=== PATIENT | male | born 1945 | race Caucasian/White ===

== ENCOUNTER 2017-01-26 20:10 | Inpatient (IN) | payer OTHER, BC ==
[2017-01-26] MEDS ORDERED: NS 1,000 ML IV ONE ×2 (20:29→21:54)
--- NOTE | 2017-01-26 20:29 | EDPHY ---
H & P Stated Complaint: FALLS AND FAILURE TO THRIVE HPI/ROS: HPI CHIEF COMPLAINT: Generalized weakness, fall, failure to thrive HISTORY OF PRESENT ILLNESS: This patient is 71-year-old male, significant past medical history for coronary artery disease, CABG, AFib, CHF, diabetes type 2, hyperlipidemia, chronic kidney disease presents emergency room with generalized weakness recurrent falls. His has been out of town for the past 3 weeks he has been living independently alone. He is taking recurrent falls over the past week. Most recent fall on Thursday. States he spent 8 hours on the ground. He denies any chest pain or shortness of breath. He did have head strike on Coumadin. He denies headache or neck pain. He does complain of left upper lateral chest wall pain. No shortness of breath. He does complain of generalized weakness. States that he is profoundly more weak. This has been a progressive decline. Worse over the past few weeks. Past Medical History: Atrial fibrillation, diabetes, coronary disease, CHF, chronic kidney disease, hyperlipidemia Past Surgical History: CABG Social History: Denies daily use drugs alcohol tobacco products. Family History: Noncontributory. ROS REVIEW OF SYSTEMS: A comprehensive 10 point review of systems is otherwise negative aside from elements mentioned in the history of present illness. Exam Constitutional triage nursing summary reviewed, vital signs reviewed, awake/ alert. Eyes right subconjunctival hemorrhage, no hyphema, pupil equal round react to light. No proptosis. Ecchymosis periorbital HENT normal inspection, atraumatic, moist mucus membranes, no epistaxis, neck supple/ no meningismus, no raccoon eyes. Respiratory clear to auscultation bilaterally, normal breath sounds, no respiratory distress, no wheezing. Cardiovascular rate normal, regular rhythm, no murmur, no edema, distal pulses normal. Gastrointestinal soft, non-tender, no rebound, no guarding, normal bowel sounds, no distension, no pulsatile mass. Genitourinary no CVA tenderness. Musculoskeletal no midline vertebral tenderness, full range of motion, no calf swelling, no tenderness of extremities, no meningismus, good pulses, neurovascularly intact. Skin multiple abrasions on the top of his scalp, and ecchymosis to the right orbital region. Multiple signs of ecchymosis. Neurologic awake, alert and oriented x 3, AAOx3, moves all 4 extremities equally, motor intact, sensory intact, CN II-XII intact, normal cerebellar, normal vision, normal speech. Psychiatric normal mood/affect. Heme/Lymph/Immune no lymphadenopathy. Differential Diagnosis: Includes but is not limited to in a particular order, dehydration, generalized weakness, infection, intracranial bleed, subdural, skull fracture, traumatic subarachnoid, NC. Medical Decision Making: Plan for this patient IV establishment blood draw, CT scan head without contrast for trauma, urinalysis, check electrolytes, check CK for rhabdo Re-evaluation: 2129: Patient's INR noted to be acutely elevated. Will type and screen. Patient will have a rectal exam performed. Will give FFP and vitamin K for supratherapeutic INR. CT scan head without contrast for trauma supratherapeutic INR is pending. Will place a 2nd IV. Will admit to the hospitalist service. EKG interpretation by me on record in [facility] system. Impression time of EKG 2045 this is sinus rhythm rate of 86, first-degree AV block present TN interval 260. Right bundle-branch block present. This EKG is similar to previous EKG dated 07/14/2013. I do not appreciate acute ischemic changes. CT scan of the head without IV contrast The results of the study are negative for acute bleed.. The study was read by Dr. Guillermo. I viewed the images myself on the PACS system. 5: I think this patient is hypovolemic with severe dehydration causing prerenal renal failure. I did speak with Nephrology Dr. Riley, recommends 2 amps of bicarb she was fine with a calcium her to give she also recommend another L of normal saline after the 1st L. Jones. ICU admission. She will come and see and evaluate the patient. Additionally I have updated the family at bedside as well as the patient. Reason for admission to the ICU hyperkalemia, acute renal failure, BUN that is over 150, creatinine of 11, severe dehydration, supratherapeutic INR over 16. Critical Care: Total Critical Care Time Spent Managing this Patient: 65 Minutes. This time was spent Exclusively with this patient. This Care was exclusive of procedures. The Organ System/life at risk was electrolyte, metabolic, neurological hematological This Patient was in Critical Condition because supratherapeutic INR, severe dehydration, renal failure, anemia Of note this patient has no evidence of bleeding. He does have ecchymosis throughout very skin sites. His right rectal exam showed brown stool. Hemoccult is still pending at this time. 2216: I will consult the hospitalist for ICU admission. 2225: Spoke with Dr. Emerson who agrees to admit this patient. Nephrology to see. Source: Patient - Personal History Current Tetanus/Diphtheria Vaccine: Yes Current Tetanus Diphtheria and Acellular Pertussis (TDAP): Yes - Medical/Surgical History Hx Asthma: Yes Hx Chronic Respiratory Disease: Yes Hx Diabetes: Yes Hx Cardiac Disease: Yes Hx Renal Disease: Yes Hx Cirrhosis: No Hx Alcoholism: No Hx HIV/AIDS: No Hx Splenectomy or Spleen Trauma: No Other PMH: SLEEP APNEA, CHRONIC LOW SATS, NOT ON O2HOME"MEDICAID WILL NOT PAY FOR IT" - Social History Smoking Status: Current every day smoker Constitutional: Initial Vital Signs Temperature (C) 37.0 C 01/26/17 20:18 Heart Rate 86 01/26/17 20:18 Respiratory Rate 18 01/26/17 20:18 Blood Pressure 156/31 H 01/26/17 20:18 O2 Sat (%) 99 01/26/17 20:18 O2 Delivery Mode Room Air Allergies/Adverse Reactions: No Known Allergies Allergy (Unverified 01/26/17 20:21) Home Medications: Medication Instructions Recorded Allopurinol [Allopurinol 300 MG 300 mg PO DAILY 07/12/13 (RX)] Ascorbic Acid [Vitamin C 250 mg 250 mg PO DAILY 07/12/13 (OTC)] Bisacodyl [Dulcolax] 15 mg PO Q7D 07/12/13 Cholecalciferol Vit D3 [Vitamin D3 2,000 units PO MWF 07/12/13 1000 units (OTC)] Fluticasone Nasal [Flonase Nasal 1 sprays EACHNARE DAILY PRN 07/12/13 [place] (RX)] Fluvastatin Sodium 20 mg PO HS 07/12/13 Insulin Glargine [Lantus 100 6 - 8 units SC DAILY 07/12/13 UNITS/ML (RX)] LORazepam [Ativan 0.5 mg (RX)] 0.5 mg PO DAILY PRN 07/12/13 Metoprolol Succinate Xr [Toprol Xl] 25 mg PO HS 07/12/13 Tamsulosin HCl [Flomax 0.4 MG (RX)] 0.4 mg PO DAILY 07/12/13 Warfarin Sodium [Coumadin 4MG (RX)] 4 mg PO SUTUTHSA@21 07/12/13 Zolpidem Tartrate [Ambien 5MG (RX)] 10 mg PO HS 07/12/13 Albuterol [Proventil Neb] 3 ml IH BID 01/27/17 Docusate Sodium [Colace 100 MG (*)] 100 mg PO DAILY 01/27/17 Epoetin Lamberto [Procrit 13064 10,000 unit SQ DAILY14 01/27/17 UNIT/ML (*)] Ferrous Sulfate [Ferrous Sulf 325 325 mg PO DAILY 01/27/17 MG (*)] Furosemide [Lasix 20 MG (*)] 20 mg PO DAILY 01/27/17 Hydrocodone/Acetaminophen [Rochelle 1 each PO HS 01/27/17 5/325 (*)] Lactase [Lactase 3000 Unit (*)] 3,000 unit PO DAILY PRN 01/27/17 Loratadine [Claritin] 10 mg PO DAILY 01/27/17 Montelukast Sodium [Singulair 10 10 mg PO DAILY@1800 01/27/17 mg (*)] Warfarin Sodium [Coumadin 4MG (*)] 4 mg PO MWF@21 01/27/17 Medical Decision Making - Data Points Laboratory Results: Laboratory Results 01/26/17 20:37 01/26/17 20:37 01/26/17 01/26/17 21:52 20:37 INR > 16.20 H* (0.83-1.16) Patient ABO/Rh O NEGATIVE Antibody Screen NEGATIVE Crossmatch IS Only See Detail Medications Given: Hydrocodone Bitart/Acetaminophen (Rochelle 5/325) 1 tab PO [place] Stop: 02/06/17 20:59 Last Admin: 01/27/17 20:42 Dose: 1 tab Albuterol (Proventil Neb) 3 ml IH BID [place] Stop: 07/26/17 20:59 Last Admin: 01/27/17 21:04 Dose: 3 ml Metoprolol Succinate (Toprol Xl) 25 mg PO HS [place] Stop: 07/26/17 20:59 Last Admin: 01/27/17 20:43 Dose: 25 mg Montelukast Sodium (Singulair) 10 mg PO DAILY@1800 [place] Stop: 07/26/17 17:59 Last Admin: 01/27/17 20:43 Dose: 10 mg Pravastatin Sodium (Pravachol) 10 mg PO HS [place] Stop: 07/26/17 20:59 Last Admin: 01/27/17 20:43 Dose: 10 mg Zolpidem Tartrate (Ambien) 10 mg PO HS [place] Stop: 07/26/17 20:59 Last Admin: 01/27/17 20:42 Dose: 10 mg Discontinued Medications Sodium Chloride (Ns) 1,000 mls @ 0 mls/hr IV EDNOW ONE; Wide Open PRN Reason: Protocol Stop: 01/26/17 20:30 Last Admin: 01/26/17 20:44 Dose: 1,000 mls Phytonadione 10 mg/ Sodium (Chloride) 51 mls @ 102 mls/hr IV EDNOW ONE Stop: 01/26/17 21:50 Last Admin: 01/26/17 22:08 Dose: 51 mls Sodium Chloride (Ns) 1,000 mls @ 0 mls/hr IV ONCE ONE PRN Reason: Wide Open Stop: 01/26/17 21:55 Last Admin: 01/26/17 22:10 Dose: 1,000 mls Calcium Gluconate 2 gm/ (Dextrose) 70 mls @ 140 mls/hr IV EDNOW ONE Stop: 01/26/17 22:25 Last Admin: 01/26/17 22:33 Dose: 70 mls Dextrose (D10w) 250 mls @ 0 mls/hr IV ONCE ONE PRN Reason: Wide Open Stop: 01/26/17 22:31 Last Admin: 01/26/17 22:13 Dose: 250 mls Sodium Bicarbonate 150 meq/ (Dextrose) 1,150 mls @ 100 mls/hr IV CONT [place] Stop: 07/25/17 23:29 Last Admin: 01/27/17 13:03 Dose: 1,150 mls Calcium Gluconate (Calcium Gluconate 1 Gm (Premix)) 50 mls @ 100 mls/hr IV ONCE ONE Stop: 01/27/17 11:09 Last Admin: 01/27/17 11:25 Dose: 50 mls Insulin Human Regular (Humulin R) 5 unit IVP EDNOW ONE Stop: 01/26/17 21:57 Last Admin: 01/26/17 22:10 Dose: 5 units Lorazepam (Ativan Injection) 0.5 mg IVP EDNOW ONE Stop: 01/26/17 21:59 Last Admin: 01/26/17 22:09 Dose: 0.5 mg Lorazepam (Ativan Injection) 0.5 mg IVP ONCE ONE Stop: 01/26/17 23:32 Last Admin: 01/26/17 23:35 Dose: 0.5 mg Oxycodone HCl (Oxycodone Ir) 5 mg PO ONCE ONE Stop: 01/27/17 10:52 Last Admin: 01/27/17 11:25 Dose: 5 mg Sodium Bicarbonate (Sodium Bicarbonate) 50 meq IVP EDNOW ONE Stop: 01/26/17 22:15 Last Admin: 01/26/17 22:46 Dose: 50 meq Sodium Bicarbonate (Sodium Bicarbonate) 50 meq IVP EDNOW ONE Stop: 01/26/17 22:15 Last Admin: 01/26/17 22:53 Dose: 50 meq Departure - Departure Disposition: [facility] Acute Clinical Impression: Dehydration, Supratherapeutic INR Renal failure Qualifiers: Renal failure chronicity: acute Acute renal failure type: unspecified Qualified Code(s): N17.9 - Acute kidney failure, unspecified Anemia Qualifiers: Anemia type: unspecified type Qualified Code(s): D64.9 - Anemia, unspecified Condition: Critical
[2017-01-26 20:47] LABS: % IMMATURE GRANULYOCYTES 0.4 % (0.0-1.1); ABSOLUTE IMMATURE GRANULOCYTES 0.03 10^3/uL (0.00-0.10); ADD DIFF? NO; ADD MORPH? NO; ADD SCAN? NO; ATYPICAL LYMPHOCYTE FLAG 0 (0-99); FRAGMENT RBC FLAG 0 (0-99); HEMATOCRIT 21.3 % (40.0-51.0); HEMOGLOBIN 7.5 g/dL (13.7-17.5); LEFT SHIFT FLG 0 (0-99); LIPEMIA HEMOLYSIS FLAG 90 (0-99); MEAN CELL HEMOGLOBIN 32.3 pg (27.9-34.1); MEAN CELL HEMOGLOBIN CONCENTR. 35.2 g/dL (32.4-36.7); MEAN CELL VOLUME 91.8 fL (81.5-99.8); MEAN PLATELET VOLUME 10.6 fL (8.7-11.7); PLATELET CLUMPS FLAG 0 (0-99); PLATELET COUNT 103 10^3/uL (150-400); RED BLOOD CELL COUNT 2.32 10^6/uL (4.40-6.38); RED CELL DISTRIBUTION WIDTH 13.8 % (11.5-15.2)
--- NOTE | 2017-01-26 20:47 | CPEKG ---
Heart Rate: 86 RR Interval: 698 P-R Interval: 260 QRSD Interval: 134 QT Interval: 380 QTC Interval: 455 P Novelty: 0 QRS Novelty: -141 T Wave Novelty: 43 EKG Severity - ABNORMAL ECG - EKG Impression: SINUS RHYTHM EKG Impression: FIRST DEGREE AV BLOCK EKG Impression: RIGHT BUNDLE BRANCH BLOCK Electronically Signed By: Tori Snyder 26-Jan-2017 21:12:07
[2017-01-26 21:19] LABS: PROTIME(PATIENT) > 120.0 SEC (12.0-15.0)
[2017-01-26 21:20] LABS: APTT 131.9 SEC (23.0-38.0)
[2017-01-26] MEDS ORDERED: PHYTONADIONE 10 MG in NS 50 ML IV ONE (21:21)
[2017-01-26 21:35] LABS: ALANINE AMINOTRANSFERASE 49 IU/L (21-72); ALBUMIN 3.2 g/dL (3.5-5.0); ALKALINE PHOSPHATASE 112 IU/L (38-126); ANION GAP 19 mEq/L (8-16); ASPARTATE AMINOTRANSFERASE 37 IU/L (17-59); BILIRUBIN,TOTAL 1.4 mg/dL (0.1-1.4); BILIRUBIN-CONJUGATED 1.4 mg/dL (0.0-0.5); CALCIUM 8.3 mg/dL (8.5-10.4); CARBON DIOXIDE 10 mEq/l (22-31); CHLORIDE 92 mEq/L (97-110); CREATININE 11.1 mg/dL (0.7-1.3); GLOMERULAR FILTRATION RATE 5; GLUCOSE 118 mg/dL (70-100); MAGNESIUM 1.9 mg/dL (1.6-2.3); SODIUM 121 mEq/L (134-144); TOTAL PROTEIN 5.8 g/dL (6.3-8.2)
[2017-01-26 21:40] LABS: POTASSIUM 6.8 mEq/L (3.5-5.2)
[2017-01-26 21:46] LABS: TROPONIN I 0.104 ng/mL (0.000-0.034)
[2017-01-26] MEDS ORDERED: D50W 25 GM/50 ML SYR IVP ONE (21:56)
[2017-01-26] MEDS ORDERED: INSULIN REGULAR HUMAN 100 UNIT/ML IVP ONE (21:56)
[2017-01-26] MEDS ORDERED: CALCIUM GLUCONATE 2 GM in D5W 50 ML IV ONE (21:56)
[2017-01-26 21:58] LABS: CK-MB INTERPRETATION NEGATIVE (NEGATIVE)
[2017-01-26] MEDS ORDERED: LORazepam 2 MG/ML INJ IVP ONE ×2 (21:58→23:31)
[2017-01-26] MEDS ORDERED: SODIUM BICARBONATE 50 MEQ/50 ML SYR IVP ONE ×2 (22:14)
[2017-01-26] MEDS ORDERED: ONDANSETRON DISINTEGRATING 4 MG TAB PO PRN (22:28)
[2017-01-26] MEDS ORDERED: D10W 250 ML ONCE IV ONE (22:30)
--- NOTE | 2017-01-26 23:12 | PDCONSULT ---
[employer] Note: Assessment/Plan: CHANTELL on CKD stage 3: pt with baseline Cr around 2, now up to 11, in setting of having recent fall and now appears to have rhabdomyolysis, also with poor po intake and N/V for the past few days. - Will give IVFs with bicarb. - Will check UA, urine cr, urine protein, urine sodium. - Will check renal US. - Strict I/Os. - Avoid hypotension or nephrotoxins. - Pt not interested in HD at this time, we discussed that at this time it would be as a temporary measure and then see if he requires it residential, of course his risk of remaining on residential HD is higher given his baseline renal function. We will plan to pursue HD for hyperkalemia if needed emergently. Hyperkalemia: K 6.8, not on RAAS blockade for just over a week, in setting of CHANTELL. - Pt has gotten IVFs, insulin/D50, calcium, and 2 amps of bicarb. - Will also start on IVFs with bicarb. - Will continue to monitor closely, consider HD if needed. Metabolic acidosis: in setting of CHANTELL, will give IVFs with bicarb and continue to monitor. Anemia: Hgb down to 7.5, got epo last week. - Agree with workup for bleeding in setting of markedly elevated INR. - Will continue to monitor. Thank you for the interesting consult. Nephrology will continue to follow, please call if you have any additional questions or concerns. H & P Stated Complaint: FALLS AND FAILURE TO THRIVE HPI/ROS: Mr. De La Cruz is a 71 yo M with h/o CKD stage 3-4 with baseline Cr around 2.0-2.[address] Lu. Two weeks ago, Cr was up to 3.2, losartan at that time was stopped. Pt had a fall on Thursday morning but was able to get up and get his regular epo shot that day. He fell again on Thursday and was down for at least 8 hours unable to get up, got home from being out of town and helped him. Over the weekend, he has been eating poorly, having nausea and vomiting, could not keep down liquids today. He came into ER today, Cr up to 11 , K up to 6.8. He was given calcium, insulin/D50, and then on my recommendation also 2 amps of bicarb. His Hgb also was noted to be down to 7.5 , was 9.6 just two weeks ago, and INR markedly elevated at 16.2, does take coumadin at home. Pt notes that he last urinated this am and it was very little. ROS: Positive per HPI, rest of 10-point ROS negative - Personal History Current Tetanus/Diphtheria Vaccine: Yes Current Tetanus Diphtheria and Acellular Pertussis (TDAP): Yes - Medical/Surgical History Hx Asthma: Yes Hx Chronic Respiratory Disease: Yes Hx Diabetes: Yes Hx Cardiac Disease: Yes Hx Renal Disease: Yes Hx Cirrhosis: No Hx Alcoholism: No Hx HIV/AIDS: No Hx Splenectomy or Spleen Trauma: No Other PMH: SLEEP APNEA, CHRONIC LOW SATS, NOT ON O2HOME"MEDICAID WILL NOT PAY FOR IT" - Family History Significant Family History: No pertinent family hx - Social History Smoking Status: Current every day smoker - Physical Exam Exam: General: alert and oriented, no acute distress Eyes: EOMI, PERRL OP: Clear, dry mucous membranes Neck: supple, no thyromegaly Head: laceration on head, bruising CV: RRR, +2/4 radial and dorsalis pedis pulses, trace edema BLE Resp: CTA bilat, nonlabored respirations on RA Abd: Soft, NT/ND Neuro: CN II-XII grossly intact, no asterixis Psych: cooperative, appropriate mood and affect Skin: no rash, clean and dry Constitutional: Initial Vital Signs Temperature (C) 37.0 C 01/26/17 20:18 Heart Rate 86 01/26/17 20:18 Respiratory Rate 18 01/26/17 20:18 Blood Pressure 156/31 H 01/26/17 20:18 O2 Sat (%) 99 01/26/17 20:18 O2 Delivery Mode Room Air Allergies/Adverse Reactions: No Known Allergies Allergy (Unverified 01/26/17 20:21) Home Medications: Medication Instructions Recorded Albuterol [Proventil Neb] 3 ml IH TID 07/12/13 Allopurinol [Allopurinol 300 MG 150 mg PO DAILY 07/12/13 (RX)] Ascorbic Acid [Vitamin C 250 mg 250 mg PO DAILY 07/12/13 (OTC)] Aspirin [Aspirin 81mg (OTC)] 81 mg PO HS 07/12/13 Beclomethasone Qvar 80 [Qvar 80] 2 puffs IH BID 07/12/13 Bisacodyl [Dulcolax] 15 mg PO MOFR@2100 07/12/13 Calcium Citrate [Calcitrate] 200 mg PO MOTUWETHFR@0900 07/12/13 Cholecalciferol Vit D3 [Vitamin D3 2,000 units PO MWF@0900 07/12/13 1000 units (OTC)] Fluticasone Nasal [Flonase Nasal 1 sprays EACHNARE BID 07/12/13 [place] (RX)] Fluvastatin Sodium 20 mg PO HS 07/12/13 Furosemide [Lasix] 40 mg PO DAILY 07/12/13 Herbals/Supplements -Info Only 1 each PO AD 07/12/13 Hydrocodone/Acetaminophen [Vicodin 1 each PO HS 07/12/13 5-300 mg Tablet] Insulin Aspart [novoLOG] 0 unit SQ AD 07/12/13 Insulin Glargine [Lantus 100 10 units SC HS 07/12/13 UNITS/ML (RX)] Insulin Glargine [Lantus 100 15 units SC DAILY 07/12/13 UNITS/ML (RX)] LORazepam [Ativan 0.5 mg (RX)] 0.5 mg PO HS PRN 07/12/13 Losartan Potassium [Cozaar] 12.5 mg PO DAILY 07/12/13 Melatonin [Melatonin 3 MG (OTC)] 3 mg PO HS PRN 07/12/13 Metoclopramide [Reglan] 5 mg PO DAILY 07/12/13 Metolazone 2.5 mg PO MWF@0900 07/12/13 Metoprolol Succinate Xr [Toprol Xl] 25 mg PO HS 07/12/13 Potassium Cl [Klor-Con 10 meq (RX)] 10 meq PO DAILY 07/12/13 Tamsulosin HCl [Flomax 0.4 MG (RX)] 0.4 mg PO DAILY 07/12/13 Warfarin Sodium [Coumadin 4MG (RX)] 4 mg PO HS 07/12/13 Zolpidem Tartrate [Ambien 5MG (RX)] 5 mg PO HS 07/12/13 guaiFENesin [Mucinex 600 MG (OTC)] 600 mg PO BID 07/12/13 Lab and Imaging 01/26/17 20:37 01/26/17 20:37 WBC 7.11 10^3/uL (3.80-9.50) 01/26/17 20:37 RBC 2.32 10^6/uL (4.40-6.38) L 01/26/17 20:37 Hgb 7.5 g/dL (13.7-17.5) L 01/26/17 20:37 Hct 21.3 % (40.0-51.0) L 01/26/17 20:37 MCV 91.8 fL (81.5-99.8) 01/26/17 20:37 MCH 32.3 pg (27.9-34.1) 01/26/17 20:37 MCHC 35.2 g/dL (32.4-36.7) 01/26/17 20:37 RDW 13.8 % (11.5-15.2) 01/26/17 20:37 Plt Count 103 10^3/uL (150-400) L 01/26/17 20:37 MPV 10.6 fL (8.7-11.7) 01/26/17 20:37 Neut % (Auto) 83.4 % (39.3-74.2) H 01/26/17 20:37 Lymph % (Auto) 10.0 % (15.0-45.0) L 01/26/17 20:37 [place] % (Auto) 2.4 % (4.5-13.0) L 01/26/17 20:37 Eos % (Auto) 3.4 % (0.6-7.6) 01/26/17 20:37 Baso % (Auto) 0.4 % (0.3-1.7) 01/26/17 20:37 Nucleat RBC Rel Count 0.0 % (0.0-0.2) 01/26/17 20:37 Absolute Neuts (auto) 5.93 10^3/uL (1.70-6.50) 01/26/17 20:37 Absolute Lymphs (auto) 0.71 10^3/uL (1.00-3.00) L 01/26/17 20:37 Absolute Monos (auto) 0.17 10^3/uL (0.30-0.80) L 01/26/17 20:37 Absolute Eos (auto) 0.24 10^3/uL (0.03-0.40) 01/26/17 20:37 Absolute Basos (auto) 0.03 10^3/uL (0.02-0.10) 01/26/17 20:37 Absolute Nucleated RBC 0.00 10^3/uL (0-0.01) 01/26/17 20:37 Immature Gran % 0.4 % (0.0-1.1) 01/26/17 20:37 Immature Gran # 0.03 10^3/uL (0.00-0.10) 01/26/17 20:37 PT > 120.0 SEC (12.0-15.0) H 01/26/17 20:37 INR > 16.20 (0.83-1.16) H* 01/26/17 20:37 APTT 131.9 SEC (23.0-38.0) H* 01/26/17 20:37 VBG Lactic Acid 0.9 mmol/L (0.7-2.1) 01/26/17 20:37 Sodium 121 mEq/L (134-144) L 01/26/17 20:37 Potassium 6.8 mEq/L (3.5-5.2) H* 01/26/17 20:37 Chloride 92 mEq/L (97-110) L 01/26/17 20:37 Carbon Dioxide 10 mEq/l (22-31) L 01/26/17 20:37 Anion Gap 19 mEq/L (8-16) H 01/26/17 20:37 BUN 145 mg/dL (7-23) H* 01/26/17 20:37 Creatinine 11.1 mg/dL (0.7-1.3) H* 01/26/17 20:37 Estimated GFR 5 01/26/17 20:37 Glucose 118 mg/dL (70-100) H 01/26/17 20:37 Calcium 8.3 mg/dL (8.5-10.4) L 01/26/17 20:37 Magnesium 1.9 mg/dL (1.6-2.3) 01/26/17 20:37 Total Bilirubin 1.4 mg/dL (0.1-1.4) 01/26/17 20:37 Conjugated Bilirubin 1.4 mg/dL (0.0-0.5) H 01/26/17 20:37 Unconjugated Bilirubin 0.0 mg/dL (0.0-1.1) 01/26/17 20:37 AST 37 IU/L (17-59) 01/26/17 20:37 ALT 49 IU/L (21-72) 01/26/17 20:37 Alkaline Phosphatase 112 IU/L (38-126) 01/26/17 20:37 Creatine Kinase 2409 IU/L (0-224) H 01/26/17 20:37 CK-MB (CK-2) Fraction 18.90 ng/mL (0.00-3.19) H 01/26/17 20:37 CK-MB (CK-2) % 0.8 % (0.0-4.0) 01/26/17 20:37 Creatine Kinase Interp NEGATIVE (NEGATIVE) 01/26/17 20:37 Troponin I 0.104 ng/mL (0.000-0.034) H 01/26/17 20:37 Total Protein 5.8 g/dL (6.3-8.2) L 01/26/17 20:37 Albumin 3.2 g/dL (3.5-5.0) L 01/26/17 20:37 Patient ABO/Rh O NEGATIVE 01/26/17 21:52 Antibody Screen NEGATIVE 01/26/17 21:52
[2017-01-26] MEDS ORDERED: SODIUM BICARBONATE 150 MEQ in D5W 1,000 ML IV SCH (23:30)
[2017-01-27 00:19] LABS: ANION GAP 16 mEq/L (8-16); CALCIUM 8.1 mg/dL (8.5-10.4); CARBON DIOXIDE 13 mEq/l (22-31); CHLORIDE 98 mEq/L (97-110); GLOMERULAR FILTRATION RATE 5; GLUCOSE 91 mg/dL (70-100); MAGNESIUM 1.8 mg/dL (1.6-2.3); POTASSIUM 6.2 mEq/L (3.5-5.2); SODIUM 127 mEq/L (134-144)
[2017-01-27 00:24] LABS: CREATININE 10.3 mg/dL (0.7-1.3)
--- NOTE | 2017-01-27 01:05 | PDGENHP ---
History and Physical - Chief Complaint Weakness - History of Present Illness 71 yo M w/ CAD s/p CABG, AF, DM, and CKD presents with weakness and multiple falls. It seems patient has been experiencing a steady functional decline for at least a year. Patient and family report weight loss of ~50 lbs and progressive weakness over that time; no clear cause has been found. His was out of town over the last few weeks and the patient had a very difficult time taking care of himself. He experienced at least 3 falls, and was unable to get up on his own. He was down for 8 hours at one point. Additionally, he has had almost no PO intake over the last couple of days. He finally agreed to allow his to bring in him to the hospital for evaluation today. In the ED laboratory work-up showed renal failure, hyperkalemia, hyponatremia, and severely elevated INR without signs of acute bleeding. Patient is fatigued but mentating and oriented. and daughter were at bedside during my evaluation. History Information - Allergies/Home Medication List Allergies/Adverse Reactions: No Known Allergies Allergy (Unverified 01/26/17 20:21) Home Medications: Albuterol [Proventil Neb] 3 ml IH TID 07/12/13 [Last Taken 07/12/13 08:00] Allopurinol [Allopurinol 300 MG (RX)] 150 mg PO DAILY 07/12/13 [Last Taken 07/12 08:00] Ascorbic Acid [Vitamin C 250 mg (OTC)] 250 mg PO DAILY 07/12/13 [Last Taken 08:00] Aspirin [Aspirin 81mg (OTC)] 81 mg PO HS 07/12/13 [Last Taken 07/11/13 21:00] Beclomethasone Qvar 80 [Qvar 80] 2 puffs IH BID 07/12/13 [Last Taken 07/12/13 08 :00] Bisacodyl [Dulcolax] 15 mg PO MOFR@2100 07/12/13 [Last Taken 07/10/13] Calcium Citrate [Calcitrate] 200 mg PO MOTUWETHFR@0900 07/12/13 [Last Taken 08:00] Cholecalciferol Vit D3 [Vitamin D3 1000 units (OTC)] 2,000 units PO MWF@0900 [Last Taken 07/11/13 08:00] Fluticasone Nasal [Flonase Nasal Cook (RX)] 1 sprays EACHNARE BID 07/12/13 [ Last Taken 07/05/13] Fluvastatin Sodium 20 mg PO HS 07/12/13 [Last Taken 07/11/13 21:00] Furosemide [Lasix] 40 mg PO DAILY 07/12/13 [Last Taken 07/12/13 08:00] Herbals/Supplements -Info Only 1 each PO AD 07/12/13 [Last Taken 07/12/13] Hydrocodone/Acetaminophen [Vicodin 5-300 mg Tablet] 1 each PO HS 07/12/13 [Last Taken 07/11/13 21:00] Insulin Aspart [novoLOG] 0 unit SQ AD 07/12/13 [Last Taken 07/11/13] Insulin Glargine [Lantus 100 UNITS/ML (RX)] 10 units SC HS 07/12/13 [Last Taken 07/11/13 21:00] Insulin Glargine [Lantus 100 UNITS/ML (RX)] 15 units SC DAILY 07/12/13 [Last Taken 07/12/13 08:00] LORazepam [Ativan 0.5 mg (RX)] 0.5 mg PO HS PRN 07/12/13 [Last Taken Unknown] Losartan Potassium [Cozaar] 12.5 mg PO DAILY 07/12/13 [Last Taken 07/12/13 08:00 ] Melatonin [Melatonin 3 MG (OTC)] 3 mg PO HS PRN 07/12/13 [Last Taken Unknown] Metoclopramide [Reglan] 5 mg PO DAILY 07/12/13 [Last Taken 07/12/13 08:00] Metolazone 2.5 mg PO MWF@0900 07/12/13 [Last Taken 07/11/13 08:00] Metoprolol Succinate Xr [Toprol Xl] 25 mg PO HS 07/12/13 [Last Taken 07/11/13 21 :00] Potassium Cl [Klor-Con 10 meq (RX)] 10 meq PO DAILY 07/12/13 [Last Taken ] Tamsulosin HCl [Flomax 0.4 MG (RX)] 0.4 mg PO DAILY 07/12/13 [Last Taken 08:00] Warfarin Sodium [Coumadin 4MG (RX)] 4 mg PO HS 07/12/13 [Last Taken 07/11/13 21: 00] Zolpidem Tartrate [Ambien 5MG (RX)] 5 mg PO HS 07/12/13 [Last Taken 07/11/13 21: 00] guaiFENesin [Mucinex 600 MG (OTC)] 600 mg PO BID 07/12/13 [Last Taken 07/12/13 08:00] I have personally reviewed and updated: family history, medical history - Past Medical History atrial fibrillation, coronary artery disease, diabetes type 2 Additional medical history: CKD stage III - Surgical History Reports: coronary bypass surgery - Family History Additional family history: Alcoholism - Social History Smoking Status: Current every day smoker Tobacco Use: Greater than 1 pack/day Review of Systems Review of Systems: ROS: 10pt was reviewed & negative except for what was stated in HPI & below Physical Exam Physical Exam: Temp Pulse Resp BP Pulse Ox 36.7 C 86 20 131/46 H 97 01/26/17 22:30 01/27/17 00:00 01/27/17 00:00 01/27/17 00:00 01/27/17 00:00 Constitutional: uncomfortable, cachectic Eyes: PERRL, EOMI Ears, Nose, Mouth, Throat: poor dentition, dry mucous membranes Cardiovascular: regular rate and rhythym, systolic murmur Respiratory: no respiratory distress, clear to auscultation Gastrointestinal: normoactive bowel sounds, soft, non-tender abdomen Skin: warm, other (Multiple ecchymoses scattered throughout) Neurologic: AAOx3, CN II-XII Intact Psychiatric: interacting appropriately, not anxious Lab Data & Imaging Review 01/26/17 20:37 01/26/17 23:16 WBC 7.11 10^3/uL (3.80-9.50) 01/26/17 20:37 RBC 2.32 10^6/uL (4.40-6.38) L 01/26/17 20:37 Hgb 7.5 g/dL (13.7-17.5) L 01/26/17 20:37 Hct 21.3 % (40.0-51.0) L 01/26/17 20:37 MCV 91.8 fL (81.5-99.8) 01/26/17 20:37 MCH 32.3 pg (27.9-34.1) 01/26/17 20:37 MCHC 35.2 g/dL (32.4-36.7) 01/26/17 20:37 RDW 13.8 % (11.5-15.2) 01/26/17 20:37 Plt Count 103 10^3/uL (150-400) L 01/26/17 20:37 MPV 10.6 fL (8.7-11.7) 01/26/17 20:37 Neut % (Auto) 83.4 % (39.3-74.2) H 01/26/17 20:37 Lymph % (Auto) 10.0 % (15.0-45.0) L 01/26/17 20:37 Navarro % (Auto) 2.4 % (4.5-13.0) L 01/26/17 20:37 Eos % (Auto) 3.4 % (0.6-7.6) 01/26/17 20:37 Baso % (Auto) 0.4 % (0.3-1.7) 01/26/17 20:37 Nucleat RBC Rel Count 0.0 % (0.0-0.2) 01/26/17 20:37 Absolute Neuts (auto) 5.93 10^3/uL (1.70-6.50) 01/26/17 20:37 Absolute Lymphs (auto) 0.71 10^3/uL (1.00-3.00) L 01/26/17 20:37 Absolute Monos (auto) 0.17 10^3/uL (0.30-0.80) L 01/26/17 20:37 Absolute Eos (auto) 0.24 10^3/uL (0.03-0.40) 01/26/17 20:37 Absolute Basos (auto) 0.03 10^3/uL (0.02-0.10) 01/26/17 20:37 Absolute Nucleated RBC 0.00 10^3/uL (0-0.01) 01/26/17 20:37 Immature Gran % 0.4 % (0.0-1.1) 01/26/17 20:37 Immature Gran # 0.03 10^3/uL (0.00-0.10) 01/26/17 20:37 PT > 120.0 SEC (12.0-15.0) H 01/26/17 20:37 INR > 16.20 (0.83-1.16) H* 01/26/17 20:37 APTT 131.9 SEC (23.0-38.0) H* 01/26/17 20:37 VBG Lactic Acid 0.9 mmol/L (0.7-2.1) 01/26/17 20:37 Sodium 127 mEq/L (134-144) L 01/26/17 23:16 Potassium 6.2 mEq/L (3.5-5.2) H 01/26/17 23:16 Chloride 98 mEq/L (97-110) 01/26/17 23:16 Carbon Dioxide 13 mEq/l (22-31) L 01/26/17 23:16 Anion Gap 16 mEq/L (8-16) 01/26/17 23:16 BUN 141 mg/dL (7-23) H* 01/26/17 23:16 Creatinine 10.3 mg/dL (0.7-1.3) H* 01/26/17 23:16 Estimated GFR 5 01/26/17 23:16 Glucose 91 mg/dL (70-100) 01/26/17 23:16 Calcium 8.1 mg/dL (8.5-10.4) L 01/26/17 23:16 Phosphorus 9.8 mg/dL (2.5-4.5) H 01/26/17 23:16 Magnesium 1.8 mg/dL (1.6-2.3) 01/26/17 23:16 Total Bilirubin 1.4 mg/dL (0.1-1.4) 01/26/17 20:37 Conjugated Bilirubin 1.4 mg/dL (0.0-0.5) H 01/26/17 20:37 Unconjugated Bilirubin 0.0 mg/dL (0.0-1.1) 01/26/17 20:37 AST 37 IU/L (17-59) 01/26/17 20:37 ALT 49 IU/L (21-72) 01/26/17 20:37 Alkaline Phosphatase 112 IU/L (38-126) 01/26/17 20:37 Creatine Kinase 2409 IU/L (0-224) H 01/26/17 20:37 CK-MB (CK-2) Fraction 18.90 ng/mL (0.00-3.19) H 01/26/17 20:37 CK-MB (CK-2) % 0.8 % (0.0-4.0) 01/26/17 20:37 Creatine Kinase Interp NEGATIVE (NEGATIVE) 01/26/17 20:37 Troponin I 0.104 ng/mL (0.000-0.034) H 01/26/17 20:37 NT-Pro-B Natriuret Pep 62251 pg/mL (0-125) H 01/26/17 20:37 Total Protein 5.8 g/dL (6.3-8.2) L 01/26/17 20:37 Albumin 3.2 g/dL (3.5-5.0) L 01/26/17 20:37 Stool Occult Bld Scrn NEGATIVE (NEGATIVE) 01/26/17 21:43 Patient ABO/Rh O NEGATIVE 01/26/17 21:52 Antibody Screen NEGATIVE 01/26/17 21:52 Imaging Review: CT head w/o intracranial bleed, scalp hematoma noted. CXR w/ vacular congestion and cardiomegaly, Abd U/S with trace ascites and increased echogenicity of perirenal fat. Visualized and Interpreted EKG results: Yes EKG Interpretation: Positive for: other (Low voltages), right bundle branch block Assessment & Plan Assessment: 71 yo M w/ CAD s/p CABG, AF, DM, and CKD presents with acute on chronic renal failure, hyper-K, hypo-Na, and supratherapeutic INR. Plan: 1. Acute on chronic renal failure, stage III - Baseline serium Cr ~2, 11 on presentation. Likely 2/2 pre-renal azotemia in combination w/ rhabdomyolysis from long period of immobility after fall. - Renal consulted, appreciate assistance - S/p 2L NS, bicarb @ 100 mL/hr ongoing - Renal ultrasound ordered - No HD indications at this time - Monitor BMP, Mg, Ph, urine lytes 2. Hyponatremia - Etiology likely a combination of hypovolemic and CKD. Na 121-> 127 after 1L NS in ED. - Urine lytes, osms pending - bicarb @ 100 mL/hr currently - Will discuss further management with renal service 3. Hyperkalemia - 6.8 on admission without ECG changes. 6.2 after IVF, Ca- gluconate, D10/insulin, and bicarb. - Monitor BMP, renal following 4. Coagulopathy - 2/2 continued warfarin administration in setting of renal failure. No signs of active bleeding; rectal exam in ED w/ brown stool. - S/p Vit K, FFP - Monitor daily INR 5. Acute on chronic normocytic anemia - No clear signs of bleeding at this time despite severely elevated INR. Recent iron panel c/w anemia of chronic disease w / likely contribution from CKD. 6. FTT, severe protein/calorie malnutrition c/b multiple falls - Patient reports 50 lb weight loss over the last year. No clear cause has been found for this. He had a normal EGD and colonoscopy this year. Clinical picture concerning for undiagnosed malignancy. - Dietary, PT, OT consults 7. DM - Last A1c 5.0, unclear why patient remains on insulin. Will monitor off of insulin for now noting renal failure. 8. Hx CAD s/p CABG with elevated troponin - No chest pain or symptoms to suggest ACS at this jessica. ECG w/ known RBBB only. On ASA, BB, statin as outpatient. ARB recently discontinued. - Trend cardiac enzymes - Hold ASA noting severely elevated INR 9. HFpEF - Last TTE from 2013 with mild biatrial dilation and preserved EF. On admission patient appears dry in setting of very poor PO intake despite elevated BNP. - Hold diuretics 10. Hx AF - In sinus currently, on BB and warfarin for this. Holding noting INR> 16. FEN - Renal Ppx - SCDs Code - Full, discussed this at length with patient and family. Patient states he would like aggressive measures in a temporary manner only. Proxy decision maker would be his if necessary Dispo - Admit to ICU, inpatient status noting need for close monitoring and frequent laboratory work-up.
[2017-01-27 05:22] LABS: % IMMATURE GRANULYOCYTES 0.4 % (0.0-1.1); ABSOLUTE IMMATURE GRANULOCYTES 0.02 10^3/uL (0.00-0.10); ADD DIFF? NO; ADD MORPH? YES; ADD SCAN? NO; ATYPICAL LYMPHOCYTE FLAG 0 (0-99); FRAGMENT RBC FLAG 10 (0-99); LEFT SHIFT FLG 0 (0-99); LIPEMIA HEMOLYSIS FLAG 90 (0-99); MEAN CELL HEMOGLOBIN 33.7 pg (27.9-34.1); MEAN CELL HEMOGLOBIN CONCENTR. 36.6 g/dL (32.4-36.7); MEAN PLATELET VOLUME 11.7 fL (8.7-11.7); PLATELET CLUMPS FLAG 10 (0-99); PLATELET COUNT 94 10^3/uL (150-400); RED BLOOD CELL COUNT 1.87 10^6/uL (4.40-6.38); RED CELL DISTRIBUTION WIDTH 13.8 % (11.5-15.2)
[2017-01-27 05:24] LABS: HEMATOCRIT 17.2 % (40.0-51.0); HEMOGLOBIN 6.3 g/dL (13.7-17.5)
[2017-01-27 05:25] LABS: INR 2.57 (0.83-1.16); PROTIME(PATIENT) 27.9 SEC (12.0-15.0)
[2017-01-27 05:29] LABS: ANION GAP 18 mEq/L (8-16); CALCIUM 8.1 mg/dL (8.5-10.4); CARBON DIOXIDE 12 mEq/l (22-31); CHLORIDE 96 mEq/L (97-110); GLOMERULAR FILTRATION RATE 5; GLUCOSE 97 mg/dL (70-100); MAGNESIUM 1.7 mg/dL (1.6-2.3); SODIUM 126 mEq/L (134-144)
[2017-01-27 05:42] LABS: POTASSIUM 6.3 mEq/L (3.5-5.2)
[2017-01-27 05:43] LABS: CREATININE 10.2 mg/dL (0.7-1.3)
[2017-01-27 06:14] LABS: PLATELET ESTIMATE DECREASED (ADEQ)
[2017-01-27 06:17] LABS: HYPOCHROMIA 1+
[2017-01-27 06:41] LABS: CK-MB INTERPRETATION NEGATIVE (NEGATIVE)
--- NOTE | 2017-01-27 09:50 | ASMTCMCOM ---
CM Note CM Note Notes: 71 year old male admitted for renal failure, weakness, falls. Patient has a hx of CAD S/P CABG, Afib, DM, CKD and a weight loss of 50#'s. had been out-of-town for 2 weeks. CM to follow for possible discharge needs. Date Signed: 01/27/2017 09:49 AM Electronically Signed By:Danii Aceves LCSW
[2017-01-27] MEDS ORDERED: FLUTICASONE NASAL 120 SPRAYS/16 GM MDI EACHNARE PRN (10:36)
[2017-01-27] MEDS ORDERED: CALCIUM GLUCONATE 50 ML IV ONE (10:40)
[2017-01-27] MEDS ORDERED: oxyCODONE IR 5 MG TAB PO ONE (10:51)
[2017-01-27] MEDS ORDERED: HYDROmorphONE/DILAUDID 1 MG/ML INJ IVP PRN (10:51)
--- NOTE | 2017-01-27 11:59 | HOSPPROG ---
Hospitalist Progress Note Assessment/Plan: 71 yo M with hx of CAD, AF, DM and CKD presenting with weakness and falls as well as lizy on ckd # lizy on ckd: with baseline creatinine of 2 approximately but presenting with creatinine of 11, renal consulted and plan for HD today. Renal US w/o hydro, presumed all 2/2 pre renal etiology with contribution of mild rhabdo from being down for some time. 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 # acute on chronic anemia: does have chronic anemia related to ckd but overnight h/h dropped to hct of 17. No e/o active bleeding however INR was > 16 on arrival so high risk for spontaneous bleeding. Transfusing 2 units prbc and will trend serial h/h. # hyperkalemia: on presentation had K of 6.8 that has improved s/p calcium/ insulin/bicarb. Plan for HD today as above, no ecg changes. 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, pt/ot and CM involved # coagulopathy: improved s/p vitamin K and FFP # rhabdomyolysis: after being down for long period of time, was mild with CK of >2000 on arrival that is already trending down # DM: with last A1c of 5.0 and still on insulin, possibly contributing to FTT, will monitor off of insulin and plan to dc off # CAD: with hx of CABG, as above with elevated but flat troponin as well as sig elevated bnp # chronic diastolic heart failure: with plan for repeat echo today # h/o AF: currently in SR, continue BB, INR now 2.5 and if e/o continued bleeding will reverse completely # FC # IP status, high risk with multiple active medical issues requiring ICU level care Patient new to my care. Old records reviewed and summarized as above. Care plan reviewed with Dr. Hamlin and multidisciplinary care team. Subjective: no significant overnight events, patient is c/o pain all over as well as issues with restless legs but otherwise no new complaints Objective: Vital Signs Temp Pulse Resp BP Pulse Ox 37.9 C 85 20 144/62 H 97 01/27/17 09:00 01/27/17 10:00 01/27/17 10:00 01/27/17 10:00 01/27/17 10:00 Laboratory Results 01/27/17 04:50 01/27/17 04:50 01/26/17 01/27/17 01/28/17 05:59 05:59 05:59 Intake Total 3032 Output Total 2 Balance 3032 -2 PT 27.9 SEC (12.0-15.0) H D 01/27/17 04:50 INR 2.57 (0.83-1.16) H 01/27/17 04:50 chronically ill appearing anicteric op clear rrr distant dec bs at bases soft nt nd no cce scattered ecchymosis oriented appropriate ICD10 Worksheet Patient Problems: Problems Problem Status Onset Anemia Acute Dehydration Acute Renal failure Acute Supratherapeutic INR Acute Fever Acute
[2017-01-27 13:15] LABS: HEMOGLOBIN 6.4 g/dL (13.7-17.5)
[2017-01-27 13:16] LABS: HEMATOCRIT 17.9 % (40.0-51.0)
--- NOTE | 2017-01-27 14:49 | GCON ---
[f rep st] CONSULTATION SNOW TECHNICIAN CONSULTATION REASON FOR ADMISSION: Acute renal failure, hyperkalemia. HISTORY OF PRESENT ILLNESS: The patient is a 71-year-old white male with an extensive past medical h istory, including atrial fibrillation, coronary artery disease, diabetes, stage 3 kidney failure. Ap parently, over the last year, he has had a steady decline in his function. He has also had significa nt weight loss. More concerning is he has had increased weakness and multiple falls. He was brought to the emergency room and found to have hyperkalemia and acute renal failure. He was subsequently a dmitted to the intensive care unit. Currently, he is sitting up in a chair, resting comfortably. PAST MEDICAL HISTORY: Again, significant for atrial fibrillation, coronary artery disease, diabetes, chronic renal insufficiency. PAST SURGICAL HISTORY: He has had a coronary bypass graft. ALLERGIES: No known allergies to medications. SOCIAL HISTORY: He is a 50+ pack-year smoker and continues to smoke. No significant alcohol use. Babs molina is , has excellent family support. MEDICATIONS: Medications at home are extensive and include albuterol, allopurinol, vitamin C, aspiri n, QVAR, Dulcolax, Caltrate, vitamin D3, Flonase, Lasix, Vicodin, NovoLog, Lantus, Ativan, Cozaar, me latonin, Reglan, metolazone, metoprolol, Klor-Con, Flomax, Coumadin, Ambien, and Mucinex. PHYSICAL EXAM: VITAL SIGNS: Blood pressure 129/51, pulse 88, respirations 20, temperature 36.9, oxy gen saturation 98% on room air. GENERAL: He is a thin, malnourished 71-year-old white male who is r esting comfortably, in no acute distress. HEENT: Eyes are PERRL, EOMI. He has significant bruising on his face. NECK: Supple. There is no cervical adenopathy. HEART: Regular rate and rhythm, wit h a 2/6 systolic murmur, left sternal border, without radiation. LUNGS: Diminished breath sounds bu t no wheeze. ABDOMEN: Soft, nontender. Bowel sounds are present in all 4 quadrants. EXTREMITIES: No clubbing, cyanosis, or edema. LABORATORY DATA: White count is 5.7, hemoglobin of 6.4, hematocrit 17. Platelet count is 94. INR i s 2.57. Sodium 126, potassium 6.3, chloride 96. CO2 is 12. BUN 142, creatinine is 10.2. Glucose i s 97. CPK is elevated at 1437. Troponins are positive x2. IMPRESSION: 1. Acute on chronic renal failure. 2. Hyperkalemia. 3. Hyponatremia. 4. Gastrointestinal bleed. 5. Anemia. 6. Diabetes. 7. Coronary artery disease. 8. Tobacco abuse. RECOMMENDATIONS: 1. Agree with Nephrology consult. Anticipate dialysis soon. 2. Will consult Interventional Radiology for dialysis catheter. 3. Follow potassium closely. Agree with D10 insulin bicarb. 4. DVT and PE prophylaxis. 5. Stress ulcer prophylaxis. 6. Follow INR closely. 7. Aggressive blood sugar control. /[id number]/MODL
--- NOTE | 2017-01-27 14:55 | WOCRNPDOC ---
WOCRN Advanced Assessment Note - Skin Integrity Problem, Advanced Assess Coccyx Pressure Injury Dressing Type: Allevyn Life Dressing Description: Clean/Dry, Intact Closure Description: Approximated Exudate Amount: None Integumentary Issue Intervention: Visualized Under Dressing Alyce Wound Tissue: Non-blanching Wound Bed Color: Red Site Measurement - Head-to-Toe Length X Width X Depth (cm): 1.5cm.x3.5cmx0 Pressure Injury Stage: Stage 1 Pressure Injury Present on Admit: Yes Skin Integrity Problem Comment: Patient and family educated about prevention and healing interventions. All questions answered. Wound care will sign off at this time. Please reconsult PRN if wound opens or worsens.
--- NOTE | 2017-01-27 14:57 | SOAPPROG ---
SOAP Progress Note Assessment/Plan: Assessment: CHANTELL, oligo/anuric rhabdomyolysis fall at home hyperkalemia acidosis anemia Plan: HD today HD tomorrow bladder scan daily, if starts making urine, bullock cath transfusing counseled regarding risks/benefits of HD, all questions answered family at bedside during the entire interview 01/27/17 14:54 01/27/17 14:58 Subjective: up to the chair cramping in right leg no cp nausea or vomiting tired pain manageable not eating much Objective: Vital Signs Temp Pulse Resp BP Pulse Ox 36.9 C 88 20 129/51 H 98 01/27/17 12:00 01/27/17 12:00 01/27/17 12:00 01/27/17 12:00 01/27/17 12:00 Laboratory Results 01/27/17 12:45 01/27/17 04:50 01/26/17 01/27/17 01/28/17 05:59 05:59 05:59 Intake Total 3032 Output Total 2 Balance 3032 -2 PT 27.9 SEC (12.0-15.0) H D 01/27/17 04:50 INR 2.57 (0.83-1.16) H 01/27/17 04:50 Physical Exam - Physical Exam General Appearance: alert, cachetic EENT: other (black right eye, lac on forehead) Respiratory: wheezing, No rhonchi Cardiac/Chest: regular rate, rhythm, No edema Abdomen: normal bowel sounds, non-tender, soft Skin: other (multiple bruises) Extremities: No pedal edema Neuro/Psych: alert, normal mood/affect, oriented x 3 ICD10 Worksheet Patient Problems: Problems Problem Status Onset Anemia Acute Dehydration Acute Renal failure Acute Supratherapeutic INR Acute Fever Acute
--- NOTE | 2017-01-27 15:05 | ECHO ---
[email or web address] [address] [address] Main: [phone] Fax: Transthoracic Echocardiogram Name: JOSE MANUEL FIELDS MR#: [id number] Study Date: 01/27/2017 Study Time: 11:10 AM Date of : 1945 Age: 71 year(s) Height: 167.6 cm (66 in.) Weight: 64.86 kg (143 lb.) BSA: 1.73 m2 Gender: Male Examination: Echo Indication: Elevated troponin/BNP/CHANTELL on CKD, history Atrial fibrillation Image Quality: Contrast: Requested by: Annamaria Jones BP: 129 mmHg/46 mmHg Heart Rate: Rhythm: Indication: Elevated troponin/BNP/CHANTELL on CKD, history Atrial fibrillation Procedure Staff Housekeeping Room Inspector: Sachi Celeste Reading Physician: Drake Doss Requesting Provider: Conclusions: Normal size left ventricle. Borderline concentric LV hypertrophy. EF is 67 %. The mitral valve is normal in appearance. Mild mitral valve regurgitation is present. The aortic valve is tri-leaflet. There is mild thickening of the aortic cusps. The pulmonary artery pressure estimate is 45 mmHg.. Measurements: Chambers Valvular Assessment AV/MV Valvular Assessment TV/PV Normal Normal Normal Name Value Range Name Value Range Name Value Range Ao Maggy (MM): 3.3 cm (2.2 cm-3.7 MV E Vmax: 1.16 m/s ( - ) TR Vmax: 2.97 mm/s ( - ) cm) MV A Vmax: 0.44 m/s ( - ) TR PGmax: 35 mmHg ( - ) IVSd (2D): 1.5 cm (0.6 cm-1.1 MV E/A: 2.64 ( - ) syst. PAP: 45 mmHg ( - ) cm) LVDd (2D): 4.4 cm (4.2 cm-5.9 cm) LVDs (2D): 2.7 cm (2.1 cm-4 cm) LVPWd (2D): 1.4 cm (0.6 cm-1 cm) LVEF (MOD4): 67 % (>=55 %) Continued Measurements: Chambers Valvular Assessment AV/MV Valvular Assessment TV/PV Name Value Name Value Name Value Patient: JOSE MANUEL FIELDS Study Date: 01/27/2017 Page 1 of 2 11:10 AM LADs: 4.9 cm MV E' Septal: 0.06 m/s CVP (est.): 10 mmHg LADs Lon.0 cm MV E/E' Septal: 19.50 LA Area: 19.6 cm2 MV E/E' Lateral: 7.80 Findings: Left Ventricle: Normal size left ventricle. Borderline concentric LV hypertrophy. Normal global systolic LV function. EF is 67 %. Right Ventricle: Normal size right ventricle. Left Atrium: The left atrium is normal in size. Right Atrium: The right atrium is mildly dilated. Mitral Valve: The mitral valve is normal in appearance. Mild mitral valve regurgitation is present. Aortic Valve: The aortic valve is tri-leaflet. There is mild thickening of the aortic cusps. Tricuspid Valve: The tricuspid valve appears normal. Moderate tricuspid regurgitation is present. The pulmonary artery pressure estimate is 45 mmHg.. Pulmonic Valve: The pulmonic valve is normal in appearance. Trivial pulmonic valve regurgitation. Pericardium: Trivial anterior pericardial effusion. (No Signature Object) Patient: JOSE MANUEL FIELDS Study Date: 01/27/2017 Page 2 of 2 11:10 AM [id number]
[2017-01-27] MEDS ORDERED: CITRATE DEXTROSE SOLN 500 ML BAG DIAL PRN (16:47)
[2017-01-27] MEDS ORDERED: LIDOCAINE 1% 300 MG/30 ML SDV ONE (17:21)
[2017-01-27] MEDS ORDERED: HEPARIN 50,000 UNIT/10 ML VIAL ONE (17:21)
[2017-01-27 19:08] LABS: HEMATOCRIT 19.5 % (40.0-51.0); HEMOGLOBIN 7.1 g/dL (13.7-17.5)
[2017-01-27] MEDS ORDERED: SODIUM CITRATE 4% 5 ML in SYRINGE 0 ML DIAL PRN (19:12)
[2017-01-27] MEDS: ZOLPIDEM TARTRATE 5 MG TAB PO SCH (20:42)
[2017-01-27] MEDS: HYDROCODONE/APAP 5/325 TAB PO SCH (20:42)
[2017-01-27] MEDS: MONTELUKAST SODIUM 10 MG TAB PO SCH (20:43)
[2017-01-27] MEDS: PRAVASTATIN SODIUM 10 MG TAB PO SCH (20:43)
[2017-01-27] MEDS: METOPROLOL SUCCINATE XR 25 MG TAB PO SCH (20:43)
[2017-01-27 20:45] LABS: INR > 16.20 (0.83-1.16)
[2017-01-27] MEDS: ALBUTEROL 3 ML DEYVIAL IH SCH (21:04)
[2017-01-27] MEDS ORDERED: CALCIUM CARBONATE 500 MG CHEWABLE TAB PO PRN (22:00)
[2017-01-27 23:55] LABS: HEMATOCRIT 20.6 % (40.0-51.0); HEMOGLOBIN 7.5 g/dL (13.7-17.5)
[2017-01-28 04:25] LABS: % IMMATURE GRANULYOCYTES 0.4 % (0.0-1.1); ABSOLUTE IMMATURE GRANULOCYTES 0.02 10^3/uL (0.00-0.10); ADD DIFF? NO; ADD MORPH? NO; ADD SCAN? NO; ATYPICAL LYMPHOCYTE FLAG 0 (0-99); FRAGMENT RBC FLAG 0 (0-99); HEMATOCRIT 21.1 % (40.0-51.0); HEMOGLOBIN 7.6 g/dL (13.7-17.5); LEFT SHIFT FLG 0 (0-99); LIPEMIA HEMOLYSIS FLAG 90 (0-99); MEAN CELL HEMOGLOBIN 31.8 pg (27.9-34.1); MEAN CELL VOLUME 88.3 fL (81.5-99.8); MEAN PLATELET VOLUME 11.1 fL (8.7-11.7); PLATELET CLUMPS FLAG 0 (0-99); PLATELET COUNT 84 10^3/uL (150-400); RED BLOOD CELL COUNT 2.39 10^6/uL (4.40-6.38)
[2017-01-28 04:41] LABS: ANION GAP 14 mEq/L (8-16); CALCIUM 7.9 mg/dL (8.5-10.4); CARBON DIOXIDE 19 mEq/l (22-31); CHLORIDE 94 mEq/L (97-110); CREATININE 7.2 mg/dL (0.7-1.3); GLOMERULAR FILTRATION RATE 8; GLUCOSE 110 mg/dL (70-100); MAGNESIUM 1.7 mg/dL (1.6-2.3); POTASSIUM 5.4 mEq/L (3.5-5.2); SODIUM 127 mEq/L (134-144)
[2017-01-28 05:07] LABS: CK-MB INTERPRETATION NEGATIVE (NEGATIVE)
[2017-01-28 05:09] LABS: CREATINE KINASE-MB FRACTION 8.13 ng/mL (0.00-3.19)
[2017-01-28] MEDS: ONDANSETRON 4 MG/2 ML VIAL IVP PRN (07:49)
[2017-01-28] MEDS: DOCUSATE SODIUM 100 MG CAP PO SCH (08:50)
[2017-01-28] MEDS: FERROUS SULFATE 325 MG TAB PO SCH (08:50)
[2017-01-28] MEDS: CETIRIZINE 10 MG TAB PO SCH (08:50)
[2017-01-28] MEDS: TAMSULOSIN HCL 0.4 MG CAP PO SCH (08:50)
--- NOTE | 2017-01-28 09:33 | PDINTPN ---
Shirt Cleaner Progress Note Assessment/Plan: Assessment/Plan: * Acute on chronic renal failure-currently on dialysis. * Atrial fibrillation * Coronary artery disease * Diabetes-blood sugar well controlled * Pain-controlled * Nausea and vomiting * Cachexia * Hyperkalemia improved Subjective: Pain is well controlled. Patient currently complaining of nausea and vomiting. At dialysis last night. Feels somewhat better Objective: Vital Signs Temp Pulse Resp BP Pulse Ox 36.4 C 86 22 H 126/57 H 93 01/28/17 07:51 01/28/17 07:51 01/28/17 07:51 01/28/17 07:51 01/28/17 07:51 Laboratory Results 01/28/17 04:10 01/28/17 04:10 01/27/17 01/28/17 01/29/17 05:59 05:59 05:59 Intake Total 3032 2983 Output Total 600 Balance 3032 2383 PT 27.9 SEC (12.0-15.0) H D 01/27/17 04:50 INR 2.57 (0.83-1.16) H 01/27/17 04:50 Physical Exam - Physical Exam General Appearance: alert, moderate distress (Nausea), cachetic EENT: PERRL/EOMI, normal ENT inspection, pharynx normal, TMs normal Neck: non-tender, full range of motion, supple, normal inspection Respiratory: crackles (Few basilar), No respiratory distress, No wheezing Cardiac/Chest: systolic murmur, irregularly irregular Abdomen: normal bowel sounds, non-tender, soft Male Genitalia: deferred Rectal: deferred Extremities: normal range of motion, non-tender Neuro/Psych: alert ICD10 Worksheet Patient Problems: Problems Problem Status Onset Anemia Acute Dehydration Acute Renal failure Acute Supratherapeutic INR Acute Fever Acute
[2017-01-28] MEDS: ALBUTEROL 3 ML DEYVIAL IH SCH ×2 (09:39→20:50)
[2017-01-28] MEDS ORDERED: PROMETHAZINE HCL 25 MG/ML INJ IVP PRN (10:52)
[2017-01-28 11:33] LABS: COLOR YELLOW; LEUKOCYTE ESTERASE,URINE 1+ (NEGATIVE); NITRITE,URINE NEGATIVE (NEGATIVE)
[2017-01-28 11:41] LABS: INR 1.59 (0.83-1.16)
[2017-01-28 11:42] LABS: AMORPHOUS PRESENT /hpf (NONE-1+); MUCUS TRACE /lpf (NONE-1+)
[2017-01-28] MEDS: FAMOTIDINE 20 MG TAB PO SCH (13:02)
[2017-01-28] MEDS: oxyCODONE IR 5 MG TAB PO PRN ×2 (13:02→17:58)
[2017-01-28 13:05] LABS: RANDOM URINE PROTEIN 264 mg/dL (0-11)
[2017-01-28 13:28] LABS: HEMATOCRIT 21.2 % (40.0-51.0); HEMOGLOBIN 7.6 g/dL (13.7-17.5)
--- NOTE | 2017-01-28 13:50 | SOAPPROG ---
SOAP Progress Note Assessment/Plan: Assessment: CHANTELL, oligo/anuric rhabdomyolysis fall at home hyperkalemia, better after HD yesterday acidosis anemia, HGB low but stable Plan: HD today Assess for HD tomorrow bladder scan daily, if starts making urine, bullock cath transfused yesterday counseled regarding risks/benefits of HD, all questions answered family at bedside during the entire interview 01/27/17 14:54 01/27/17 14:58 01/28/17 13:44 Subjective: daughter at bedside felt good after HD yesterday, even had something to drink tired today, HD about to begin does have some rib pain after his fall no nausea, some SOB Objective: Vital Signs Temp Pulse Resp BP Pulse Ox 36.4 C 84 16 148/60 H 93 01/28/17 07:51 01/28/17 10:00 01/28/17 10:00 01/28/17 10:00 01/28/17 10:00 Laboratory Results 01/28/17 13:15 01/28/17 04:10 01/27/17 01/28/17 01/29/17 05:59 05:59 05:59 Intake Total 3032 2983 Output Total 600 75 Balance 3032 2383 -75 PT 19.0 SEC (12.0-15.0) H D 01/28/17 11:20 INR 1.59 (0.83-1.16) H 01/28/17 11:20 Physical Exam - Physical Exam General Appearance: cachetic Respiratory: rales, No rhonchi, No wheezing Cardiac/Chest: regular rate, rhythm, systolic murmur, No friction rub Abdomen: normal bowel sounds, non-tender Neuro/Psych: alert, normal mood/affect, oriented x 3 ICD10 Worksheet Patient Problems: Problems Problem Status Onset Anemia Acute Dehydration Acute Renal failure Acute Supratherapeutic INR Acute Fever Acute
--- NOTE | 2017-01-28 15:59 | HOSPPROG ---
Hospitalist Progress Note Assessment/Plan: 71 yo M with hx of CAD, AF, DM and CKD presenting with weakness and falls as well as lizy on ckd # lizy on ckd: with baseline creatinine of 2 approximately but presenting with creatinine of 11, renal consulted, sp HD yesterday and plan for today as well. Renal US w/o hydro, presumed all 2/2 pre renal etiology with contribution of mild rhabdo from being down for some time. # acute on chronic anemia: does have chronic anemia related to ckd with h/h dropping to hct of 17. No e/o active bleeding however INR was > 16 on arrival so high risk for spontaneous bleeding. Transfused 2 units prbc and h/h have been stable since then. # hyperkalemia: on presentation had K of 6.8 that has improved s/p calcium/ insulin/bicarb. Improved s/p HD, monitoring. 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 Asking for palliative consult. # coagulopathy: improved s/p vitamin K and FFP # rhabdomyolysis: after being down for long period of time, was mild with CK of >2000 on arrival that is already trending down # DM: with last A1c of 5.0 and still on insulin, possibly contributing to FTT, will monitor off of insulin and plan to dc off # CAD: with hx of CABG, as above with elevated but flat troponin as well as sig elevated bnp # chronic diastolic heart failure: with plan for repeat echo today # h/o AF: currently in SR, continue BB, INR supratherapeutic on arrival and reversed, suspect patient is a poor candidate for AC given recurrent falls and poor nutritional status, will d/w patient but will hold off an AC for now # FC # IP status, high risk with multiple active medical issues requiring ICU level care Care plan reviewed with Dr. Hamlin and multidisciplinary care team. Subjective: no significant overnight events, pateint hashad some nausea since getting pain medications on an empty stomach this am Objective: Vital Signs Temp Pulse Resp BP Pulse Ox 36.4 C 82 14 95/59 L 92 01/28/17 07:51 01/28/17 14:00 01/28/17 14:00 01/28/17 14:00 01/28/17 14:00 Laboratory Results 01/28/17 13:15 01/28/17 04:10 01/27/17 01/28/17 01/29/17 05:59 05:59 05:59 Intake Total 3032 2983 Output Total 600 75 Balance 3032 2383 -75 PT 19.0 SEC (12.0-15.0) H D 01/28/17 11:20 INR 1.59 (0.83-1.16) H 01/28/17 11:20 chronically ill appearing anicteric, multiple areas of ecchymosis on face op clear rrr distant dec bs at bases soft nt nd no cce scattered ecchymosis oriented appropriate ICD10 Worksheet Patient Problems: Problems Problem Status Onset Anemia Acute Dehydration Acute Renal failure Acute Supratherapeutic INR Acute Fever Acute
[2017-01-28] MEDS: MONTELUKAST SODIUM 10 MG TAB PO SCH (17:55)
[2017-01-28] MEDS: HYDROCODONE/APAP 5/325 TAB PO SCH (21:11)
[2017-01-28] MEDS: PRAVASTATIN SODIUM 10 MG TAB PO SCH (21:11)
[2017-01-28] MEDS: METOPROLOL SUCCINATE XR 25 MG TAB PO SCH (21:11)
[2017-01-28] MEDS: ZOLPIDEM TARTRATE 5 MG TAB PO SCH (21:12)
[2017-01-29 04:57] LABS: % IMMATURE GRANULYOCYTES 0.2 % (0.0-1.1); ABSOLUTE IMMATURE GRANULOCYTES 0.01 10^3/uL (0.00-0.10); ADD DIFF? NO; ADD MORPH? NO; ADD SCAN? NO; ATYPICAL LYMPHOCYTE FLAG 0 (0-99); FRAGMENT RBC FLAG 0 (0-99); HEMATOCRIT 20.3 % (40.0-51.0); HEMOGLOBIN 7.3 g/dL (13.7-17.5); LEFT SHIFT FLG 0 (0-99); LIPEMIA HEMOLYSIS FLAG 90 (0-99); MEAN CELL HEMOGLOBIN 32.9 pg (27.9-34.1); MEAN CELL VOLUME 91.4 fL (81.5-99.8); MEAN PLATELET VOLUME 11.4 fL (8.7-11.7); PLATELET CLUMPS FLAG 0 (0-99); PLATELET COUNT 68 10^3/uL (150-400); RED BLOOD CELL COUNT 2.22 10^6/uL (4.40-6.38); RED CELL DISTRIBUTION WIDTH 14.3 % (11.5-15.2)
[2017-01-29 05:08] LABS: INR 1.51 (0.83-1.16); PROTIME(PATIENT) 18.2 SEC (12.0-15.0)
[2017-01-29 05:09] LABS: ANION GAP 9 mEq/L (8-16); CARBON DIOXIDE 25 mEq/l (22-31); CHLORIDE 96 mEq/L (97-110); CREATININE 4.4 mg/dL (0.7-1.3); GLOMERULAR FILTRATION RATE 13; GLUCOSE 80 mg/dL (70-100); POTASSIUM 4.4 mEq/L (3.5-5.2); SODIUM 130 mEq/L (134-144)
[2017-01-29 05:30] LABS: CK-MB INTERPRETATION NEGATIVE (NEGATIVE)
[2017-01-29 05:31] LABS: CREATINE KINASE-MB FRACTION 4.02 ng/mL (0.00-3.19)
[2017-01-29] MEDS: CETIRIZINE 10 MG TAB PO SCH (08:08)
[2017-01-29] MEDS: TAMSULOSIN HCL 0.4 MG CAP PO SCH (08:08)
[2017-01-29] MEDS: FAMOTIDINE 20 MG TAB PO SCH (08:08)
[2017-01-29] MEDS: DOCUSATE SODIUM 100 MG CAP PO SCH (08:08)
[2017-01-29] MEDS: FERROUS SULFATE 325 MG TAB PO SCH (08:08)
[2017-01-29] MEDS: ALBUTEROL 3 ML DEYVIAL IH SCH ×2 (08:40→21:47)
--- NOTE | 2017-01-29 09:37 | PDINTPN ---
[facility] Progress Note Assessment/Plan: Assessment/Plan: * Acute on chronic renal failure-currently on dialysis. Markedly improved * Atrial fibrillation-controlled * Coronary artery disease * Diabetes-blood sugar well controlled * Pain-controlled * Nausea and vomiting-resolved * Cachexia * Hyperkalemia improved * PT/OT-out of bed to chair. Begin ambulation. * Disposition-will transfer to medical surgical floor Case discussed with Nephrology. Subjective: Resting comfortably. Nausea resolved. Wishes to get up to bed today. Objective: Vital Signs Temp Pulse Resp BP Pulse Ox 37.1 C 77 17 118/57 L 100 01/29/17 08:00 01/29/17 08:47 01/29/17 08:47 01/29/17 08:00 01/29/17 08:47 Laboratory Results 01/29/17 04:40 01/29/17 04:40 01/28/17 01/29/17 01/30/17 05:59 05:59 05:59 Intake Total 2983 1050 Output Total 600 1175 Balance 2383 -125 PT 18.2 SEC (12.0-15.0) H 01/29/17 04:40 INR 1.51 (0.83-1.16) H 01/29/17 04:40 Physical Exam - Physical Exam General Appearance: alert, cachetic EENT: PERRL/EOMI, normal ENT inspection Neck: non-tender, full range of motion, supple, normal inspection Cardiac/Chest: normal peripheral pulses, regular rate, rhythm Abdomen: normal bowel sounds, non-tender, soft Male Genitalia: deferred Rectal: deferred Extremities: normal range of motion, non-tender, normal inspection, normal capillary refill Neuro/Psych: no motor/sensory deficits, alert, normal mood/affect, oriented x 3 ICD10 Worksheet Patient Problems: Problems Problem Status Onset Anemia Acute Dehydration Acute Renal failure Acute Supratherapeutic INR Acute Fever Acute
--- NOTE | 2017-01-29 10:23 | SOAPPROG ---
SOAP Progress Note Assessment/Plan: Assessment/Plan: CHANTELL on CKD stage 3: baseline Cr around 2.0, came in with Cr up to 11. He remains oliguric. Likely has ATN, may have been contributed to by rhabdo, CK now improved. - No HD today. - Will plan on HD tomorrow unless he has marked improvement. - Will continue to monitor for renal recovery. I let pt know that his injury will take time and potentially several weeks to recover given his underlying kidney disease. Hopefully he will not be permanently ESRD, but we discussed this as also a possibility. - Avoid hypotension, NSAIDs, demerol, MOM, morphine, ACEI/ARBs, contrast, aminoglycosides, fleets, and other nephrotoxins. Hyperkalemia: improved with HD, K down to 4.4, will continue to monitor. Metabolic acidosis: improved with HD, will continue to monitor. Anemia: Hgb now stable after being transfused earlier this hospitalization. Will give epo today and continue to monitor. Subjective: No acute events overnight. Pt states that he is feeling better after getting dialysis, more clear today. He only had 75ml UOP yesterday. Objective: Vital Signs Temp Pulse Resp BP Pulse Ox 37.1 C 77 17 118/57 L 100 01/29/17 08:00 01/29/17 08:47 01/29/17 08:47 01/29/17 08:00 01/29/17 08:47 Laboratory Results 01/29/17 04:40 01/29/17 04:40 01/28/17 01/29/17 01/30/17 05:59 05:59 05:59 Intake Total 2983 1050 Output Total 600 1175 Balance 2383 -125 PT 18.2 SEC (12.0-15.0) H 01/29/17 04:40 INR 1.51 (0.83-1.16) H 01/29/17 04:40 General: alert and oriented, no acute distress Head: bruising and laceration healing on forehead Eyes: EOMI, PERRL OP: clear CV: RRR Resp: nonlabored respirations on 1L O2 Abd: Soft, NT/ND Ext: no edema BLE Neuro: CN II-XII grossly intact, no asterixis Psych: cooperative, appropriate mood and affect Access: RIJ temp cath ICD10 Worksheet Patient Problems: Problems Problem Status Onset Anemia Acute Dehydration Acute Renal failure Acute Supratherapeutic INR Acute Fever Acute
[2017-01-29] MEDS ORDERED: EPOETIN ALFA 10,000 UNIT/ML VIAL IVP ONE (10:30)
--- NOTE | 2017-01-29 10:50 | ASMTCMCOM ---
CM Note CM Note Notes: Spoke with patient's Gosia who understands current discharge recommendation of SNF. She requested referrals be sent to facilities near their home in [place]. I sent referrals to [facility], [facility], and [facility]. Palliative care team to meet with patient and today, as well. Nephrology still determining patient's need for dialysis in the outpatient setting. He's had it 2x while inpt and is not scheduled to have it today. I included this info in the SNF referral. Date Signed: 01/29/2017 10:50 AM Electronically Signed By:Destiny Elena RN
[2017-01-29] MEDS: oxyCODONE IR 5 MG TAB PO PRN (12:31)
--- NOTE | 2017-01-29 13:39 | HOSPPROG ---
Hospitalist Progress Note Assessment/Plan: 71 yo M with hx of CAD, AF, DM and CKD presenting with weakness and falls as well as lizy on ckd # lizy on ckd: with baseline creatinine of 2 approximately but presenting with creatinine of 11, renal consulted, sp HD x 2 with a plan for another run likely tomorrow. Remains essentially anuric (had 75 ml out only over 3 days). 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 Palliative following. # acute on chronic anemia: with anemia of ckd, worse on presentation and now s/ p 2 units prbc. Remains low, given epo today. Likely will need transfusion in am if any further decline. 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 Palliative following. # coagulopathy: improved s/p vitamin K and FFP # rhabdomyolysis: after being down for long period of time, was mild with CK of >2000 on arrival, trending down # DM: with last A1c of 5.0 and still on insulin, possibly contributing to FTT, will continue to monitor off of insulin # CAD: with hx of CABG, as above with elevated but flat troponin as well as sig elevated bnp # chronic diastolic heart failure: with plan for repeat echo today # h/o AF: currently in SR, continue BB, INR supratherapeutic on arrival and reversed, suspect patient is a poor candidate for AC given recurrent falls and poor nutritional status, will d/w patient but will hold off an AC for now # FC # dvt ppx: hsc # IP status, high risk with multiple active medical issues requiring ICU level care Care plan reviewed with Dr. Hamlin and multidisciplinary care team. Subjective: no significant overnight events, patient states he feels a bit better today Objective: Vital Signs Temp Pulse Resp BP Pulse Ox 37.1 C 89 21 H 134/63 H 97 01/29/17 08:00 01/29/17 10:27 01/29/17 10:27 01/29/17 10:27 01/29/17 10:27 Laboratory Results 01/29/17 04:40 01/29/17 04:40 01/28/17 01/29/17 01/30/17 05:59 05:59 05:59 Intake Total 2983 1050 Output Total 600 1175 Balance 2383 -125 PT 18.2 SEC (12.0-15.0) H 01/29/17 04:40 INR 1.51 (0.83-1.16) H 01/29/17 04:40 chronically ill appearing anicteric, multiple areas of ecchymosis on face op clear rrr distant dec bs at bases soft nt nd no cce scattered ecchymosis oriented appropriate ICD10 Worksheet Patient Problems: Problems Problem Status Onset Anemia Acute Dehydration Acute Renal failure Acute Supratherapeutic INR Acute Fever Acute
[2017-01-29 13:48] LABS: HEPATITIS Bs Ab QUANT <5.0 mIU/mL
[2017-01-29] MEDS: HEPARIN 5,000 UNIT/0.5 ML SYR SC SCH ×3 (13:52→20:57)
[2017-01-29] MEDS: MONTELUKAST SODIUM 10 MG TAB PO SCH (17:58)
[2017-01-29] MEDS: METOPROLOL SUCCINATE XR 25 MG TAB PO SCH (20:50)
[2017-01-29] MEDS: ZOLPIDEM TARTRATE 5 MG TAB PO SCH (20:51)
[2017-01-29] MEDS: HYDROCODONE/APAP 5/325 TAB PO SCH (20:51)
[2017-01-29] MEDS: PRAVASTATIN SODIUM 10 MG TAB PO SCH (20:56)
[2017-01-30 05:45] LABS: INR 1.56 (0.83-1.16); PROTIME(PATIENT) 18.7 SEC (12.0-15.0)
[2017-01-30 06:07] LABS: CK-MB INTERPRETATION NEGATIVE (NEGATIVE)
[2017-01-30] MEDS: oxyCODONE IR 5 MG TAB PO PRN (06:07)
[2017-01-30] MEDS: HEPARIN 5,000 UNIT/0.5 ML SYR SC SCH ×3 (06:09→22:10)
[2017-01-30 06:22] LABS: CREATINE KINASE-MB FRACTION 3.76 ng/mL (0.00-3.19)
[2017-01-30] MEDS: DOCUSATE SODIUM 100 MG CAP PO SCH (09:40)
[2017-01-30] MEDS: TAMSULOSIN HCL 0.4 MG CAP PO SCH (09:40)
[2017-01-30] MEDS: FERROUS SULFATE 325 MG TAB PO SCH (09:40)
[2017-01-30] MEDS: FAMOTIDINE 20 MG TAB PO SCH (09:40)
[2017-01-30] MEDS: CETIRIZINE 10 MG TAB PO SCH ×2 (09:40→09:42)
[2017-01-30 10:08] LABS: HEMATOCRIT 22.6 % (40.0-51.0); HEMOGLOBIN 7.8 g/dL (13.7-17.5); MEAN CELL HEMOGLOBIN 32.2 pg (27.9-34.1); MEAN CELL HEMOGLOBIN CONCENTR. 34.5 g/dL (32.4-36.7); MEAN CELL VOLUME 93.4 fL (81.5-99.8); RED BLOOD CELL COUNT 2.42 10^6/uL (4.40-6.38); RED CELL DISTRIBUTION WIDTH 14.4 % (11.5-15.2)
--- NOTE | 2017-01-30 10:11 | SOAPPROG ---
SOAP Progress Note Assessment/Plan: Assessment/Plan: CHANTELL on CKD stage 3: baseline Cr around 2.0, came in with Cr up to 11. He remains oliguric. Likely has ATN, may have been contributed to by rhabdo, CK now improved. - Will do HD today. - Will continue to monitor for renal recovery. I let pt know that his injury will take time and potentially several weeks to recover given his underlying kidney disease. Hopefully he will not be permanently ESRD, but we discussed this as also a possibility. - Avoid hypotension, NSAIDs, demerol, MOM, morphine, ACEI/ARBs, contrast, aminoglycosides, fleets, and other nephrotoxins. Hyperkalemia: improved, will modulate with HD and continue to monitor. Metabolic acidosis: improved, will modulate with HD and continue to monitor. Anemia: Hgb now stable after being transfused earlier this hospitalization, up to 7.8 today. Epo given yesterday. Will continue to monitor. Subjective: No acute events overnight. Pt notes that he continues to have nearly no UOP. He states that he was having difficulty sleeping due to pain in L ribs and sore on bottom. He has a cough and feels a bit congested but unable to cough anything up. Objective: Vital Signs Temp Pulse Resp BP Pulse Ox 37.0 C 80 18 133/59 H 95 01/30/17 08:00 01/30/17 08:00 01/30/17 08:00 01/30/17 08:00 01/30/17 08:00 01/29/17 01/30/17 01/31/17 05:59 05:59 05:59 Intake Total 1050 Output Total 1175 Balance -125 PT 18.7 SEC (12.0-15.0) H 01/30/17 04:27 INR 1.56 (0.83-1.16) H 01/30/17 04:27 General: alert and oriented, no acute distress Eyes; EOMI, PERRL OP: clear CV: RRR Resp: +nonproductive weak cough, nonlabored respirations Abd: Soft, NT/ND Ext: no edema BLE Neuro: CN II-XII grossly intact, no asterixis Psych: cooperative, appropriate mood and affect ICD10 Worksheet Patient Problems: Problems Problem Status Onset Anemia Acute Dehydration Acute Renal failure Acute Supratherapeutic INR Acute Fever Acute
[2017-01-30 10:27] LABS: ALBUMIN 2.6 g/dL (3.5-5.0); ANION GAP 10 mEq/L (8-16); CALCIUM 8.2 mg/dL (8.5-10.4); CARBON DIOXIDE 25 mEq/l (22-31); CHLORIDE 92 mEq/L (97-110); CREATININE 5.4 mg/dL (0.7-1.3); GLOMERULAR FILTRATION RATE 11; GLUCOSE 120 mg/dL (70-100); POTASSIUM 4.5 mEq/L (3.5-5.2); SODIUM 127 mEq/L (134-144)
[2017-01-30] MEDS: ALBUTEROL 3 ML DEYVIAL IH SCH ×3 (12:10→21:08)
[2017-01-30] MEDS ORDERED: HEPARIN 50,000 UNIT/10 ML VIAL ONE (15:24)
--- NOTE | 2017-01-30 17:08 | ASMTCMCOM ---
CM Note CM Note Notes: Palliative unable to meet w/pt today, w/f up on Thursday. Date Signed: 01/30/2017 05:08 PM Electronically Signed By:Vicky Rodriguez RN
--- NOTE | 2017-01-30 17:09 | HOSPPROG ---
Hospitalist Progress Note Assessment/Plan: 71 yo M with hx of CAD, AF, DM and CKD presenting with weakness and falls as well as lizy on ckd lizy on ckd: with baseline creatinine of 2 approximately but presenting with creatinine of 11, renal consulted, sp HD x 2 with a plan for another run likely tomorrow. Remains essentially anuric (had 75 ml out only over 3 days). Discussed with family that it is unclear if kidneys will recover, he remains uncertain about custodial HD. Palliative following. tolerating HD acute on chronic anemia: with anemia of ckd, worse on presentation and now s/p 2 units prbc. Remains low, given epo today. Likely will need transfusion in am if any further decline. no transfusion today. 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 Palliative following. coagulopathy: improved s/p vitamin K and FFP unclear what drove such an elevated inr rhabdomyolysis: after being down for long period of time, was mild with CK of > 2000 on arrival, trending down DM: with last A1c of 5.0 and still on insulin, possibly contributing to FTT, will continue to monitor off of insulin CAD: with hx of CABG, as above with elevated but flat troponin as well as sig elevated bnp chronic diastolic heart failure: with plan for repeat echo today h/o AF: currently in SR, continue BB, INR supratherapeutic on arrival and reversed, suspect patient is a poor candidate for AC given recurrent falls and poor nutritional status, will d/w patient but will hold off an AC for now FC dvt ppx: hsc IP status, high risk with multiple active medical issues requiring ICU level care Subjective: case d/w dr fry. c/o dizziness Objective: Vital Signs Temp Pulse Resp BP Pulse Ox 36.8 C 75 23 H 143/53 H 95 01/30/17 16:00 01/30/17 16:00 01/30/17 16:00 01/30/17 16:00 01/30/17 08:00 Laboratory Results 01/30/17 10:00 01/30/17 10:00 01/29/17 01/30/17 01/31/17 05:59 05:59 05:59 Intake Total 1050 Output Total 1175 Balance -125 PT 18.7 SEC (12.0-15.0) H 01/30/17 04:27 INR 1.56 (0.83-1.16) H 01/30/17 04:27 - Physical Exam Constitutional: no apparent distress, appears nourished Eyes: other (facial) Ears, Nose, Mouth, Throat: moist mucous membranes, hearing normal, ears appear normal Cardiovascular: regular rate and rhythym, no murmur, rub, or gallop Respiratory: no respiratory distress, no rales or rhonchi Gastrointestinal: normoactive bowel sounds, soft, non-tender abdomen Genitourinary: no bladder fullness, No bullock in urethra Skin: warm, normal color Musculoskeletal: full muscle strength Neurologic: AAOx3 Psychiatric: interacting appropriately ICD10 Worksheet Patient Problems: Problems Problem Status Onset Fever Acute Dehydration Acute Supratherapeutic INR Acute Renal failure Acute Anemia Acute
[2017-01-30] MEDS: MONTELUKAST SODIUM 10 MG TAB PO SCH (18:33)
[2017-01-30] MEDS: PRAVASTATIN SODIUM 10 MG TAB PO SCH (20:15)
[2017-01-30] MEDS: HYDROCODONE/APAP 5/325 TAB PO SCH (20:15)
[2017-01-30] MEDS: ZOLPIDEM TARTRATE 5 MG TAB PO SCH (20:15)
[2017-01-30] MEDS: METOPROLOL SUCCINATE XR 25 MG TAB PO SCH (20:16)
[2017-01-31 04:45] LABS: HEMATOCRIT 20.2 % (40.0-51.0); MEAN CELL HEMOGLOBIN 31.7 pg (27.9-34.1); MEAN CELL HEMOGLOBIN CONCENTR. 34.7 g/dL (32.4-36.7); MEAN CELL VOLUME 91.4 fL (81.5-99.8); RED BLOOD CELL COUNT 2.21 10^6/uL (4.40-6.38); RED CELL DISTRIBUTION WIDTH 13.7 % (11.5-15.2)
[2017-01-31 04:54] LABS: INR 1.53 (0.83-1.16); PROTIME(PATIENT) 18.4 SEC (12.0-15.0)
[2017-01-31 05:04] LABS: ALBUMIN 2.6 g/dL (3.5-5.0); ANION GAP 11 mEq/L (8-16); CALCIUM 8.2 mg/dL (8.5-10.4); CARBON DIOXIDE 24 mEq/l (22-31); CHLORIDE 96 mEq/L (97-110); CREATININE 3.3 mg/dL (0.7-1.3); GLOMERULAR FILTRATION RATE 19; GLUCOSE 106 mg/dL (70-100); POTASSIUM 3.8 mEq/L (3.5-5.2); SODIUM 131 mEq/L (134-144)
[2017-01-31] MEDS: HEPARIN 5,000 UNIT/0.5 ML SYR SC SCH ×3 (06:23→22:32)
[2017-01-31] MEDS: ALBUTEROL 3 ML DEYVIAL IH SCH ×2 (07:57→23:05)
[2017-01-31] MEDS: TAMSULOSIN HCL 0.4 MG CAP PO SCH (09:52)
[2017-01-31] MEDS: FERROUS SULFATE 325 MG TAB PO SCH (09:52)
[2017-01-31] MEDS: FAMOTIDINE 20 MG TAB PO SCH (09:52)
[2017-01-31] MEDS: CETIRIZINE 10 MG TAB PO SCH (09:52)
[2017-01-31] MEDS: DOCUSATE SODIUM 100 MG CAP PO SCH (09:52)
[2017-01-31] MEDS: oxyCODONE IR 5 MG TAB PO PRN (11:46)
--- NOTE | 2017-01-31 13:15 | HOSPPROG ---
Hospitalist Progress Note Assessment/Plan: 71 yo M with hx of CAD, AF, DM and CKD presenting with weakness and falls as well as lizy on ckd lizy on ckd: known ckd cr had risen to 3.4 prior top baseline lack of uop in last few days concerning for recovery acute on chronic anemia: with anemia of ckd, worse on presentation and now s/p 2 units prbc. Remains low, given epo today. Likely will need transfusion in am if any further decline. no transfusion today. 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 Palliative following. coagulopathy: improved s/p vitamin K and FFP unclear what drove such an elevated inr rhabdomyolysis: after being down for long period of time, was mild with CK of > 2000 on arrival, trending down DM: with last A1c of 5.0 and still on insulin, possibly contributing to FTT, will continue to monitor off of insulin CAD: with hx of CABG, as above with elevated but flat troponin as well as sig elevated bnp chronic diastolic heart failure: with plan for repeat echo today h/o AF: currently in SR, continue BB, INR supratherapeutic on arrival and reversed, suspect patient is a poor candidate for AC given recurrent falls and poor nutritional status, will d/w patient but will hold off an AC for now FC dvt ppx: hsc IP status, high risk with multiple active medical issues requiring ICU level care Subjective: case d/w dr fry. eating better Objective: Vital Signs Temp Pulse Resp BP Pulse Ox 36.9 C 77 12 158/58 H 97 01/31/17 08:00 01/31/17 08:00 01/31/17 08:00 01/31/17 08:00 01/31/17 08:00 Laboratory Results 01/31/17 04:35 01/31/17 04:35 PT 18.4 SEC (12.0-15.0) H 01/31/17 04:35 INR 1.53 (0.83-1.16) H 01/31/17 04:35 - Physical Exam Constitutional: no apparent distress, appears nourished, other Eyes: PERRL, anicteric sclera, other (facial bruising) Ears, Nose, Mouth, Throat: moist mucous membranes, hearing normal Cardiovascular: regular rate and rhythym, no murmur, rub, or gallop Respiratory: no respiratory distress, no rales or rhonchi Gastrointestinal: normoactive bowel sounds, soft, non-tender abdomen Genitourinary: No bullock in urethra Skin: warm, normal color Musculoskeletal: No full muscle strength Neurologic: AAOx3 Psychiatric: interacting appropriately, not anxious Lymph, Heme, Immunologic: no cervical LAD ICD10 Worksheet Patient Problems: Problems Problem Status Onset Anemia Acute Dehydration Acute Renal failure Acute Supratherapeutic INR Acute Fever Acute
[2017-01-31] MEDS: guaiFENesin 600 MG TAB.ER PO SCH ×2 (15:49→22:30)
[2017-01-31] MEDS: MONTELUKAST SODIUM 10 MG TAB PO SCH (17:42)
--- NOTE | 2017-01-31 19:02 | SOAPPROG ---
SOAP Progress Note Assessment/Plan: Assessment: 1. Arf: presumably ischemic atn, no evidence of recovery yet. S/p hd yesterday, will tentatively plan on hd again Thursday. Volume status looks good, will see how he tolerates txfusion. Discussed possibility of extended acute hd or esrd, he is now less resistant to long-term hd if needed. 2. anemia: transfusing 3. HyperK: resolved with hd. 4. Met acidosis: resolved with hd. Plan: 01/31/17 18:59 Subjective: Currently receiving prbc transfusion. Lying flat on back comfortably. Objective: Vital Signs Temp Pulse Resp BP Pulse Ox 36.9 C 67 18 117/41 L 99 01/31/17 15:52 01/31/17 15:52 01/31/17 15:52 01/31/17 15:52 01/31/17 15:52 Laboratory Results 01/31/17 04:35 01/31/17 04:35 01/30/17 01/31/17 02/01/17 05:59 05:59 05:59 Intake Total 450 Output Total 0 Balance 450 PT 18.4 SEC (12.0-15.0) H 01/31/17 04:35 INR 1.53 (0.83-1.16) H 01/31/17 04:35 Physical Exam - Physical Exam General Appearance: no apparent distress Respiratory: lungs clear (anteriorly) Cardiac/Chest: regular rate, rhythm Abdomen: soft Extremities: pedal edema (none) ICD10 Worksheet Patient Problems: Problems Problem Status Onset Anemia Acute Dehydration Acute Renal failure Acute Supratherapeutic INR Acute Fever Acute
[2017-01-31] MEDS: ZOLPIDEM TARTRATE 5 MG TAB PO SCH (22:30)
[2017-01-31] MEDS: METOPROLOL SUCCINATE XR 25 MG TAB PO SCH (22:31)
[2017-01-31] MEDS: HYDROCODONE/APAP 5/325 TAB PO SCH (22:31)
[2017-01-31] MEDS: PRAVASTATIN SODIUM 10 MG TAB PO SCH (22:32)
[2017-01-31] MEDS ORDERED: guaiFENesin 600 MG TAB.ER PO ONE (23:30)
[2017-02-01 05:47] LABS: HEMATOCRIT 24.8 % (40.0-51.0); HEMOGLOBIN 8.5 g/dL (13.7-17.5); MEAN CELL HEMOGLOBIN 30.8 pg (27.9-34.1); MEAN CELL HEMOGLOBIN CONCENTR. 34.3 g/dL (32.4-36.7); MEAN CELL VOLUME 89.9 fL (81.5-99.8); RED BLOOD CELL COUNT 2.76 10^6/uL (4.40-6.38); RED CELL DISTRIBUTION WIDTH 15.5 % (11.5-15.2)
[2017-02-01] MEDS: HEPARIN 5,000 UNIT/0.5 ML SYR SC SCH ×3 (05:48→23:01)
[2017-02-01 05:59] LABS: INR 1.43 (0.83-1.16); PROTIME(PATIENT) 17.4 SEC (12.0-15.0)
[2017-02-01 06:10] LABS: ALBUMIN 2.5 g/dL (3.5-5.0); ANION GAP 8 mEq/L (8-16); CALCIUM 8.3 mg/dL (8.5-10.4); CARBON DIOXIDE 25 mEq/l (22-31); CHLORIDE 95 mEq/L (97-110); CREATININE 4.2 mg/dL (0.7-1.3); GLOMERULAR FILTRATION RATE 14; GLUCOSE 86 mg/dL (70-100); POTASSIUM 4.1 mEq/L (3.5-5.2); SODIUM 128 mEq/L (134-144)
[2017-02-01] MEDS: ALBUTEROL 3 ML DEYVIAL IH SCH ×2 (08:05→21:48)
[2017-02-01] MEDS: LORazepam 0.5 MG TAB PO PRN ×2 (08:18→20:54)
[2017-02-01] MEDS: oxyCODONE IR 5 MG TAB PO PRN ×2 (08:18→18:10)
[2017-02-01] MEDS: FERROUS SULFATE 325 MG TAB PO SCH (08:20)
[2017-02-01] MEDS: TAMSULOSIN HCL 0.4 MG CAP PO SCH (08:20)
[2017-02-01] MEDS: guaiFENesin 600 MG TAB.ER PO SCH ×2 (08:20→20:53)
[2017-02-01] MEDS: FAMOTIDINE 20 MG TAB PO SCH (08:20)
[2017-02-01] MEDS: DOCUSATE SODIUM 100 MG CAP PO SCH (08:21)
[2017-02-01] MEDS: CETIRIZINE 10 MG TAB PO SCH (08:22)
[2017-02-01] MEDS: ALBUTEROL 3 ML DEYVIAL IH PRN (12:39)
--- NOTE | 2017-02-01 13:07 | WOCRNPDOC ---
[facility] Advanced Assessment Note - Skin Integrity Problem, Advanced Assess Left Medial Leg Maceration Dressing Type: Allevyn Life Dressing Description: Shadowed Exudate Amount: Minimal Exudate Color: Yellow, Brown Exudate Characteristic(s): Cloudy, Serous Integumentary Issue Intervention: Dressing Changed (by RADHA Bullock) Alyce Wound Tissue: Intact Alyce Wound Swelling: None Wound Bed Color: [place] Wound Bed Constitution: Smooth Tissue Wound Edges: Attached Site Odor: None Skin Integrity Problem Comment: RADHA Bullock requested eval of wound appearance upon removal of prior dressing for routine dressing change. Surface of wound and bandage were covered with drainage characteristic of liquified slough, which was readily cleared from the superficial wound bed with NS and gauze. After cleansing the wound surface was completely clean, exposing pink tissue with a re-erpithelializing appearance. RADHA Bullock placed a new Allevyn border dressing to site. Coccyx Pressure Injury Dressing Type: Allevyn Life Dressing Description: Clean/Dry, Intact Integumentary Issue Intervention: Visualized Under Dressing Alyce Wound Tissue: Intact, Scarred Alyce Wound Swelling: None Wound Bed Constitution: Healed Site Odor: None Site Measurement - Head-to-Toe Length X Width X Depth (cm): 0.7 x 0.4 x 0 Pressure Injury Present on Admit: Yes (see comments below) Skin Integrity Problem Comment: Stage 1 pressure injury resolved. Presentation of coccyx at this time is of pink, blanchable, intact scar tissue, which patient and daughter report is from an injury prior to admission: "I fell and hurt my coccyx 3 months ago." Explained current prophylactic care (protective dressing, turns, Accumax mattress), and addition of waffle air cushion to chair as patient remobilizes. Reinforced education to continue PI prevention measures following DC, and encouraged use of Skin Repair or other nutritive moisturizer to other areas of healing, ecchymotic, dry intact skin.
--- NOTE | 2017-02-01 15:21 | HOSPPROG ---
Hospitalist Progress Note Assessment/Plan: 71 yo M with hx of CAD, AF, DM and CKD presenting with weakness and falls as well as lizy on ckd lizy on ckd: known ckd cr had risen to 3.4 prior top baseline lack of uop in last few days concerning for recovery acute on chronic anemia: with anemia of ckd, worse on presentation and now s/p 2 units prbc. Remains low, given epo today. Likely will need transfusion in am if any further decline. 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 Palliative following. coagulopathy: improved s/p vitamin K and FFP unclear what drove such an elevated inr rhabdomyolysis: after being down for long period of time, was mild with CK of > 2000 on arrival, trending down DM: with last A1c of 5.0 and still on insulin, possibly contributing to FTT, will continue to monitor off of insulin CAD: with hx of CABG, as above with elevated but flat troponin as well as sig elevated bnp chronic diastolic heart failure: with plan for repeat echo today h/o AF: currently in SR, continue BB, INR supratherapeutic on arrival and reversed, suspect patient is a poor candidate for AC given recurrent falls and poor nutritional status, will d/w patient but will hold off an AC for now FC dvt ppx: hsc IP status, high risk with multiple active medical issues requiring ICU level care will need snf Subjective: feels well. moving bowels, c/o firm stool. case d/w dr matias Objective: Vital Signs Temp Pulse Resp BP Pulse Ox 37.2 C 53 L 14 155/71 H 94 02/01/17 08:00 02/01/17 08:05 02/01/17 08:05 02/01/17 08:00 02/01/17 08:05 Laboratory Results 02/01/17 05:05 02/01/17 05:05 01/31/17 02/01/1702/02/17 05:59 05:59 05:59 Intake Total 1110 Output Total 0 Balance 1110 PT 17.4 SEC (12.0-15.0) H 02/01/17 05:05 INR 1.43 (0.83-1.16) H 02/01/17 05:05 - Physical Exam Constitutional: no apparent distress, appears nourished Eyes: PERRL, anicteric sclera, other (facial bruising improved) Ears, Nose, Mouth, Throat: moist mucous membranes, hearing normal Cardiovascular: regular rate and rhythym, no murmur, rub, or gallop Respiratory: no respiratory distress, no rales or rhonchi Gastrointestinal: normoactive bowel sounds, soft, non-tender abdomen Genitourinary: no bladder fullness, No bullock in urethra Skin: warm, normal color Musculoskeletal: full muscle strength, no muscle tenderness Neurologic: AAOx3, sensation intact bilaterally Psychiatric: interacting appropriately, not anxious ICD10 Worksheet Patient Problems: Problems Problem Status Onset Anemia Acute Dehydration Acute Renal failure Acute Supratherapeutic INR Acute Fever Acute
--- NOTE | 2017-02-01 16:28 | ASMTCMCOM ---
CM Note CM Note Notes: SNF referrals sent to [facility] who is willing to accept pt if they can accomodate transportation to dialysis; [facility] said yes, if no acute dialysis is needed; [facility] needs more information. Palliative consult scheduled for tomorrow. Date Signed: 02/01/2017 04:27 PM Electronically Signed By:ELIJAH Bacon
--- NOTE | 2017-02-01 17:19 | SOAPPROG ---
SOAP Progress Note Assessment/Plan: Assessment: 1. Arf: presumably ischemic atn, no evidence of recovery yet. Next hd tomorrow. Volume status looks good. Discussed possibility of extended acute hd or esrd, he is now less resistant to long-term hd if needed. Could dialyze either acutely or as esrd at [facility] if needed. 2. anemia: transfused, on procrit 3. HyperK: resolved with hd. 4. Met acidosis: resolved with hd. 5. HypoNa: mild, controlled with hd. Could institute formal po fluid restriction if worsens. Plan: 01/31/17 18:59 02/01/17 17:17 Subjective: No particular c/o aside from fatigue. Ambulated with assistance yesterday. Objective: Vital Signs Temp Pulse Resp BP Pulse Ox 36.9 C 68 16 130/48 H 96 02/01/17 16:00 02/01/17 16:00 02/01/17 16:00 02/01/17 16:00 02/01/17 16:00 Laboratory Results 02/01/17 05:05 02/01/17 05:05 01/31/17 02/01/17 02/02/17 05:59 05:59 05:59 Intake Total 1110 Output Total 0 Balance 1110 PT 17.4 SEC (12.0-15.0) H 02/01/17 05:05 INR 1.43 (0.83-1.16) H 02/01/17 05:05 Physical Exam - Physical Exam General Appearance: no apparent distress, cachetic Respiratory: lungs clear (anteriorly) Cardiac/Chest: regular rate, rhythm Extremities: pedal edema (none) ICD10 Worksheet Patient Problems: Problems Problem Status Onset Anemia Acute Dehydration Acute Renal failure Acute Supratherapeutic INR Acute Fever Acute
[2017-02-01] MEDS: POLYETHYLENE GLYCOL 3350 17 GM PKT PO SCH (18:08)
[2017-02-01] MEDS: MONTELUKAST SODIUM 10 MG TAB PO SCH (18:08)
[2017-02-01] MEDS: PRAVASTATIN SODIUM 10 MG TAB PO SCH (20:53)
[2017-02-01] MEDS: HYDROCODONE/APAP 5/325 TAB PO SCH (20:54)
[2017-02-01] MEDS: METOPROLOL SUCCINATE XR 25 MG TAB PO SCH (20:59)
[2017-02-01] MEDS: ZOLPIDEM TARTRATE 5 MG TAB PO SCH (23:04)
[2017-02-02 04:43] LABS: HEMATOCRIT 24.4 % (40.0-51.0); HEMOGLOBIN 8.5 g/dL (13.7-17.5); MEAN CELL HEMOGLOBIN 31.4 pg (27.9-34.1); MEAN CELL HEMOGLOBIN CONCENTR. 34.8 g/dL (32.4-36.7); RED BLOOD CELL COUNT 2.71 10^6/uL (4.40-6.38); RED CELL DISTRIBUTION WIDTH 15.5 % (11.5-15.2)
[2017-02-02 04:58] LABS: ALBUMIN 2.3 g/dL (3.5-5.0); ANION GAP 9 mEq/L (8-16); CALCIUM 8.2 mg/dL (8.5-10.4); CARBON DIOXIDE 25 mEq/l (22-31); CHLORIDE 93 mEq/L (97-110); CREATININE 4.9 mg/dL (0.7-1.3); GLOMERULAR FILTRATION RATE 12; GLUCOSE 85 mg/dL (70-100); SODIUM 127 mEq/L (134-144)
[2017-02-02 05:13] LABS: INR 1.51 (0.83-1.16); PROTIME(PATIENT) 18.2 SEC (12.0-15.0)
[2017-02-02] MEDS: HEPARIN 5,000 UNIT/0.5 ML SYR SC SCH ×3 (06:00→21:42)
[2017-02-02] MEDS: ALBUTEROL 3 ML DEYVIAL IH PRN (06:21)
--- NOTE | 2017-02-02 10:22 | SOAPPROG ---
SOAP Progress Note Assessment/Plan: Assessment/Plan: CHANTELL on CKD stage 3: baseline Cr around 2.0, came in with Cr up to 11. He remains anuric. Likely has ATN, may have been contributed to by rhabdo, CK now improved. - Pt seen on HD today. - Will plan next HD on Thursday. - Too soon to declare that he is ESRD, although any recovery is likely to take 6-8 weeks considering his underlying CKD as well as the fact that he remains anuric. Pt is likely to still need acute HD when he is discharged. - Avoid hypotension, NSAIDs, demerol, MOM, morphine, ACEI/ARBs, contrast, aminoglycosides, fleets, and other nephrotoxins. Anemia: Hgb now stable after being transfused. Epo given on 01/29/17. Will continue to monitor. Hyponatremia: Na 127, will modulate on HD. Access: pt will need tunneled catheter before discharge, will order for tomorrow. Subjective: No acute events overnight. Pt notes that he has had nearly no urine output over the weekend. Pt on HD currently and doing well, no complaints. Objective: Vital Signs Temp Pulse Resp BP Pulse Ox 36.5 C 57 L 16 144/55 H 100 02/01/17 22:03 02/01/17 22:03 02/01/17 22:03 02/01/17 22:03 02/01/17 22:03 Laboratory Results 02/02/17 04:25 02/02/17 04:25 02/01/17 02/02/17 02/03/17 05:59 05:59 05:59 Intake Total 1110 Output Total 0 0 Balance 1110 0 PT 18.2 SEC (12.0-15.0) H 02/02/17 04:25 INR 1.51 (0.83-1.16) H 02/02/17 04:25 General: alert and oriented, no acute distress Eyes; EOMI, PERRL OP: Clear CV: RRR Resp: nonlabored respirations, CTAB Abd; Soft, nondistended Ext: no edema BLE Neuro; CN II-XII grossly intact, no asterixis Psych; cooperative, appropriate mood and affect Access: RIJ temp cath ICD10 Worksheet Patient Problems: Problems Problem Status Onset Anemia Acute Dehydration Acute Renal failure Acute Supratherapeutic INR Acute Fever Acute
[2017-02-02] MEDS: ALBUTEROL 3 ML DEYVIAL IH SCH ×2 (12:37→21:27)
[2017-02-02] MEDS: TAMSULOSIN HCL 0.4 MG CAP PO SCH (13:35)
[2017-02-02] MEDS: DOCUSATE SODIUM 100 MG CAP PO SCH (13:35)
[2017-02-02] MEDS: guaiFENesin 600 MG TAB.ER PO SCH ×2 (13:35→21:42)
[2017-02-02] MEDS: CETIRIZINE 10 MG TAB PO SCH (13:35)
[2017-02-02] MEDS: LORazepam 0.5 MG TAB PO PRN ×2 (13:35→21:42)
[2017-02-02] MEDS: FERROUS SULFATE 325 MG TAB PO SCH (13:35)
[2017-02-02] MEDS: FAMOTIDINE 20 MG TAB PO SCH (13:35)
[2017-02-02] MEDS: POLYETHYLENE GLYCOL 3350 17 GM PKT PO SCH (15:05)
--- NOTE | 2017-02-02 15:28 | ASMTCMCOM ---
CM Note CM Note Notes: Pallative met w/ pt and family today. requested more information on referrals made to SNFs. CM provided w/ this info. Family's first choice is [facility]. CM spoke w/ Charley at [facility] and they are able to accept pt once pt has been accepted to a dialysis center. CM made a referral to [facility]. CM to follow. Date Signed: 02/02/2017 03:28 PM Electronically Signed By:JEFF Blankenship
--- NOTE | 2017-02-02 17:41 | HOSPPROG ---
Hospitalist Progress Note Assessment/Plan: 71 yo M with hx of CAD, AF, DM and CKD presenting with weakness and falls as well as lizy on ckd lizy on ckd: known ckd cr had risen to 3.4 prior top baseline lack of uop in last few days concerning for recovery acute on chronic anemia: with anemia of ckd, worse on presentation and now s/p 2 units prbc. Remains low, given epo today. Likely will need transfusion in am if any further decline. 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 Palliative following. coagulopathy: improved s/p vitamin K and FFP unclear what drove such an elevated inr rhabdomyolysis: after being down for long period of time, was mild with CK of > 2000 on arrival, trending down DM: with last A1c of 5.0 and still on insulin, possibly contributing to FTT, will continue to monitor off of insulin CAD: with hx of CABG, as above with elevated but flat troponin as well as sig elevated bnp chronic diastolic heart failure: with plan for repeat echo today h/o AF: currently in SR, continue BB, INR supratherapeutic on arrival and reversed, suspect patient is a poor candidate for AC given recurrent falls and poor nutritional status, will d/w patient but will hold off an AC for now FC dvt ppx: hsc IP status, high risk with multiple active medical issues requiring ICU level care will need snf and arrangements for outpt HD Subjective: case d/w dr fry Objective: Vital Signs Temp Pulse Resp BP Pulse Ox 36.6 C 74 18 146/65 H 99 02/02/17 16:00 02/02/17 16:00 02/02/17 16:00 02/02/17 16:00 02/02/17 16:00 Laboratory Results 02/02/17 04:25 02/02/17 04:25 02/01/17 02/02/17 02/03/17 05:59 05:59 05:59 Intake Total 1110 Output Total 0 0 Balance 1110 0 PT 18.2 SEC (12.0-15.0) H 02/02/17 04:25 INR 1.51 (0.83-1.16) H 02/02/17 04:25 - Physical Exam Constitutional: no apparent distress, appears nourished, chronically ill appearing Eyes: PERRL, anicteric sclera Ears, Nose, Mouth, Throat: moist mucous membranes, hearing normal Cardiovascular: regular rate and rhythym, systolic murmur Respiratory: no respiratory distress, clear to auscultation Gastrointestinal: normoactive bowel sounds, soft, non-tender abdomen Genitourinary: no bladder fullness, No bullock in urethra Skin: warm, normal color Musculoskeletal: full muscle strength, no muscle tenderness Neurologic: AAOx3 Psychiatric: interacting appropriately ICD10 Worksheet Patient Problems: Problems Problem Status Onset Anemia Acute Dehydration Acute Renal failure Acute Supratherapeutic INR Acute Fever Acute
[2017-02-02] MEDS: MONTELUKAST SODIUM 10 MG TAB PO SCH (17:52)
[2017-02-02] MEDS: HYDROCODONE/APAP 5/325 TAB PO SCH (21:42)
[2017-02-02] MEDS: ZOLPIDEM TARTRATE 5 MG TAB PO SCH (21:42)
[2017-02-02] MEDS: PRAVASTATIN SODIUM 10 MG TAB PO SCH (21:42)
[2017-02-02] MEDS: METOPROLOL SUCCINATE XR 25 MG TAB PO SCH (21:42)
[2017-02-03 04:48] LABS: HEMATOCRIT 24.7 % (40.0-51.0); HEMOGLOBIN 8.4 g/dL (13.7-17.5); MEAN CELL HEMOGLOBIN 30.9 pg (27.9-34.1); MEAN CELL VOLUME 90.8 fL (81.5-99.8); RED BLOOD CELL COUNT 2.72 10^6/uL (4.40-6.38)
[2017-02-03 05:17] LABS: ALBUMIN 2.6 g/dL (3.5-5.0); ANION GAP 10 mEq/L (8-16); CALCIUM 8.2 mg/dL (8.5-10.4); CARBON DIOXIDE 27 mEq/l (22-31); CHLORIDE 94 mEq/L (97-110); CREATININE 3.2 mg/dL (0.7-1.3); GLOMERULAR FILTRATION RATE 19; GLUCOSE 79 mg/dL (70-100); SODIUM 131 mEq/L (134-144)
[2017-02-03] MEDS: HEPARIN 5,000 UNIT/0.5 ML SYR SC SCH ×2 (05:59→19:46)
[2017-02-03] MEDS: ALBUTEROL 3 ML DEYVIAL IH SCH ×2 (07:49→20:08)
[2017-02-03] MEDS ORDERED: FLUMAZENIL 0.5 MG/5 ML MDV IVP ONE (09:21)
[2017-02-03] MEDS ORDERED: MIDAZOLAM 2 MG/2 ML VIAL ONE (09:21)
[2017-02-03] MEDS ORDERED: NALOXONE HCL 0.4 MG/ML INJ ONE (09:21)
[2017-02-03] MEDS ORDERED: fentaNYL 100 MCG/2 ML INJ ONE (09:22)
[2017-02-03 09:30] LABS: INR 1.42 (0.83-1.16); PROTIME(PATIENT) 17.3 SEC (12.0-15.0)
[2017-02-03 09:31] LABS: APTT 44.7 SEC (23.0-38.0)
[2017-02-03] MEDS: FAMOTIDINE 20 MG TAB PO SCH (10:52)
[2017-02-03] MEDS: DOCUSATE SODIUM 100 MG CAP PO SCH (10:52)
[2017-02-03] MEDS: CETIRIZINE 10 MG TAB PO SCH (10:52)
[2017-02-03] MEDS: POLYETHYLENE GLYCOL 3350 17 GM PKT PO SCH (10:53)
[2017-02-03] MEDS: FERROUS SULFATE 325 MG TAB PO SCH (10:53)
[2017-02-03] MEDS: TAMSULOSIN HCL 0.4 MG CAP PO SCH (10:53)
[2017-02-03] MEDS: guaiFENesin 600 MG TAB.ER PO SCH ×3 (10:53→20:43)
[2017-02-03] MEDS ORDERED: EPOETIN ALFA 10,000 UNIT/ML VIAL SC SCH (11:15)
--- NOTE | 2017-02-03 11:21 | SOAPPROG ---
RICHARD Progress Note Assessment/Plan: Assessment: I've cared for Sam for years. I have been following his hospitalization peripherally, but this is the first day I've seen him in person. He has been failing for the last 18months, likely due to microvascular disease. He has had CKD 4 due to presume diabetic nephropathy. He is now well into this hospitalization and remains anuric. I believe he has only a small chance of recovery of renal function. Sam's cachexia is profound. I believe he will have a poor quality of life on dialysis. I am not sure he will ever regain independence, which is an important decision making point for him. He is going to proceed with a tunneled catheter today, but he is considering limiting his time on dialysis. I will schedule him for dialysis tomorrow, and also start him on epo. They have already spoken with palliative care. Plan: 02/03/17 11:16 Subjective: Cachectic, weak. MS good Objective: Vital Signs Temp Pulse Resp BP Pulse Ox 37.0 C 71 12 149/66 H 96 02/03/17 07:27 02/03/17 07:53 02/03/17 07:53 02/03/17 07:27 02/03/17 07:53 Laboratory Results 02/03/17 04:23 02/03/17 04:23 02/02/17 02/03/17 02/04/17 05:59 05:59 05:59 Intake Total 360 Output Total 0 Balance 0 360 PT 17.3 SEC (12.0-15.0) H 02/03/17 08:55 INR 1.42 (0.83-1.16) H 02/03/17 08:55 Physical Exam - Physical Exam General Appearance: cachetic Respiratory: lungs clear, decreased breath sounds Cardiac/Chest: regular rate, rhythm Extremities: normal inspection Neuro/Psych: oriented x 3 ICD10 Worksheet Patient Problems: Problems Problem Status Onset Anemia Acute Dehydration Acute Renal failure Acute Supratherapeutic INR Acute Fever Acute
[2017-02-03] MEDS: ACETAMINOPHEN 325 MG TAB PO PRN (13:15)
--- NOTE | 2017-02-03 15:00 | ASMTCMCOM ---
CM Note CM Note Notes: DOUG spoke w/ Gigi from the [facility] regarding referral. Bill will be verifying insurance and reports that it could take a day or two to be approved for dialysis. Gigi reports that he will reach out to Dr. Syed directly to discuss case. CM spoke w/ pts PCP regarding d/c POC. Pt appears to be spiking a fever. CM to follow. Date Signed: 02/03/2017 02:59 PM Electronically Signed By:JEFF Blankenship
[2017-02-03] MEDS: MONTELUKAST SODIUM 10 MG TAB PO SCH (16:24)
--- NOTE | 2017-02-03 16:58 | HOSPPROG ---
Hospitalist Progress Note Assessment/Plan: 71 yo M with hx of CAD, AF, DM and CKD presenting with weakness and falls as well as lizy on ckd fever: blood cultures drawn lungs clear belly soft no urine follow if no recurrence and blood cx neg, can proceed w tunneled catheter that said, it isn't clear that he wants to proceed with dialysis lizy on ckd: known ckd cr had risen to 3.4 prior top baseline lack of uop in last few days concerning for recovery acute on chronic anemia: with anemia of ckd, worse on presentation and now s/p 2 units prbc. Remains low, given epo today. Likely will need transfusion in am if any further decline. 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 Palliative following. coagulopathy: improved s/p vitamin K and FFP unclear what drove such an elevated inr rhabdomyolysis: after being down for long period of time, was mild with CK of > 2000 on arrival, trending down DM: with last A1c of 5.0 and still on insulin, possibly contributing to FTT, will continue to monitor off of insulin CAD: with hx of CABG, as above with elevated but flat troponin as well as sig elevated bnp chronic diastolic heart failure: with plan for repeat echo today h/o AF: currently in SR, continue BB, INR supratherapeutic on arrival and reversed, suspect patient is a poor candidate for AC given recurrent falls and poor nutritional status, will d/w patient but will hold off an AC for now FC dvt ppx: hsc IP status, high risk with multiple active medical issues requiring ICU level care will need snf and arrangements for outpt HD Subjective: case d/w dr mishra. febrile this AM Objective: Vital Signs Temp Pulse Resp BP Pulse Ox 36.9 C 68 18 140/55 H 95 02/03/17 15:40 02/03/17 15:40 02/03/17 15:40 02/03/17 15:40 02/03/17 15:40 Laboratory Results 02/03/17 04:23 02/03/17 04:23 02/02/17 02/03/17 02/04/17 05:59 05:59 05:59 Intake Total 360 Output Total 0 Balance 0 360 PT 17.3 SEC (12.0-15.0) H 02/03/17 08:55 INR 1.42 (0.83-1.16) H 02/03/17 08:55 - Physical Exam Constitutional: no apparent distress, chronically ill appearing, No appears nourished Eyes: PERRL, EOMI Ears, Nose, Mouth, Throat: moist mucous membranes, hearing normal Cardiovascular: regular rate and rhythym, no murmur, rub, or gallop Respiratory: no respiratory distress, no rales or rhonchi Gastrointestinal: normoactive bowel sounds, soft, non-tender abdomen Genitourinary: No bulolck in urethra Skin: warm, normal color Musculoskeletal: full muscle strength, no muscle tenderness Neurologic: AAOx3 ICD10 Worksheet Patient Problems: Problems Problem Status Onset Anemia Acute Dehydration Acute Renal failure Acute Supratherapeutic INR Acute Fever Acute
[2017-02-03] MEDS: HYDROCODONE/APAP 5/325 TAB PO SCH (20:43)
[2017-02-03] MEDS: PRAVASTATIN SODIUM 10 MG TAB PO SCH (20:44)
[2017-02-03] MEDS: METOPROLOL SUCCINATE XR 25 MG TAB PO SCH (20:44)
[2017-02-03] MEDS: LORazepam 0.5 MG TAB PO PRN (20:48)
[2017-02-03] MEDS: ZOLPIDEM TARTRATE 5 MG TAB PO SCH (22:06)
[2017-02-04 05:27] LABS: HEMATOCRIT 25.4 % (40.0-51.0); HEMOGLOBIN 8.4 g/dL (13.7-17.5); MEAN CELL HEMOGLOBIN 30.9 pg (27.9-34.1); MEAN CELL HEMOGLOBIN CONCENTR. 33.1 g/dL (32.4-36.7); MEAN CELL VOLUME 93.4 fL (81.5-99.8); RED BLOOD CELL COUNT 2.72 10^6/uL (4.40-6.38); RED CELL DISTRIBUTION WIDTH 15.2 % (11.5-15.2)
[2017-02-04 05:41] LABS: ALBUMIN 2.4 g/dL (3.5-5.0); ANION GAP 7 mEq/L (8-16); CALCIUM 8.5 mg/dL (8.5-10.4); CARBON DIOXIDE 28 mEq/l (22-31); CHLORIDE 93 mEq/L (97-110); CREATININE 4.2 mg/dL (0.7-1.3); GLOMERULAR FILTRATION RATE 14; GLUCOSE 72 mg/dL (70-100); POTASSIUM 4.6 mEq/L (3.5-5.2); SODIUM 128 mEq/L (134-144)
[2017-02-04] MEDS: HEPARIN 5,000 UNIT/0.5 ML SYR SC SCH ×3 (06:05→19:38)
[2017-02-04] MEDS: ALBUTEROL 3 ML DEYVIAL IH SCH ×2 (08:40→20:17)
[2017-02-04] MEDS: POLYETHYLENE GLYCOL 3350 17 GM PKT PO SCH (08:59)
[2017-02-04] MEDS: DOCUSATE SODIUM 100 MG CAP PO SCH (08:59)
[2017-02-04] MEDS: TAMSULOSIN HCL 0.4 MG CAP PO SCH (08:59)
[2017-02-04] MEDS: CETIRIZINE 10 MG TAB PO SCH (08:59)
[2017-02-04] MEDS: FERROUS SULFATE 325 MG TAB PO SCH (09:00)
[2017-02-04] MEDS: FAMOTIDINE 20 MG TAB PO SCH (09:00)
[2017-02-04] MEDS: guaiFENesin 600 MG TAB.ER PO SCH ×2 (09:00→21:05)
[2017-02-04] MEDS: oxyCODONE IR 5 MG TAB PO PRN ×2 (09:01→15:08)
--- NOTE | 2017-02-04 10:25 | HOSPPROG ---
Hospitalist Progress Note Assessment/Plan: First encounter with this patient. Medical record reviewed in detail. Still with no Urine output No further fever Dialysis catheter delayed due to fever 71 yo M with hx of CAD, AF, DM and CKD presenting with weakness and falls as well as lizy on ckd fever: blood cultures drawn, NGTF lungs clear belly soft no urine if no recurrence and blood cx neg, can proceed w tunneled catheter, would consider tomorrow if w/u cont to be negative and no further fever. Renal to see lizy on ckd: known ckd cr had risen to 3.4 prior top baseline lack of uop in last few days concerning for recovery acute on chronic anemia: with anemia of ckd, worse on presentation and now s/p 2 units prbc. 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 Palliative following. coagulopathy: improved s/p vitamin K and FFP unclear what drove such an elevated inr rhabdomyolysis: after being down for long period of time, was mild with CK of > 2000 on arrival, trending down DM: with last A1c of 5.0 and still on insulin, possibly contributing to FTT, will continue to monitor off of insulin CAD: with hx of CABG, as above with elevated but flat troponin as well as sig elevated bnp chronic diastolic heart failure: He appears to have volume overload and will need fluid removal with HD. h/o AF: currently in SR, continue BB, INR supratherapeutic on arrival and reversed, suspect patient is a poor candidate for AC given recurrent falls and poor nutritional status, will d/w patient but will hold off an AC for now FC dvt ppx: hsc IP status, high risk with multiple active medical issues. Subjective: Some cough. Some leg swelling. No SOB. Feels good otherwise. No further fever. No leukocytosis. Objective: Vital Signs Temp Pulse Resp BP Pulse Ox 36.8 C 71 16 151/63 H 92 02/04/17 08:00 02/04/17 08:38 02/04/17 08:00 02/04/17 08:00 02/04/17 08:38 Laboratory Results 02/04/17 04:24 02/04/17 04:24 02/03/17 02/04/17 02/05/17 05:59 05:59 05:59 Intake Total 360 700 Balance 360 700 PT 17.3 SEC (12.0-15.0) H 02/03/17 08:55 INR 1.42 (0.83-1.16) H 02/03/17 08:55 - Physical Exam Constitutional: chronically ill appearing, cachectic Eyes: PERRL, EOMI Ears, Nose, Mouth, Throat: moist mucous membranes, hearing normal Cardiovascular: regular rate and rhythym, edema Respiratory: no respiratory distress, reduced air movement Gastrointestinal: soft, non-tender abdomen Skin: warm Musculoskeletal: generalized weakness Neurologic: AAOx3 Psychiatric: interacting appropriately, not anxious, not encephalopathic ICD10 Worksheet Patient Problems: Problems Problem Status Onset Anemia Acute Dehydration Acute Renal failure Acute Supratherapeutic INR Acute Fever Acute
--- NOTE | 2017-02-04 15:17 | SOAPPROG ---
SOWALT Progress Note Assessment/Plan: Assessment: 1. CHANTELL on CKD. Due to rhabdo/volume depletion/ATN. Anuric. May not have any recovery. To have tunneled catheter placed hopefully later today. Working on placement at [facility] for dialysis. Need care management to check on possibility of [place] chair at rehab. Otherwise will likely need [place] assistance at dialysis or person to accompany to help with transfers. Although he is a suboptimal candidate due to frailty, pt would like a trial of dialysis. If not getting stronger he will likely d/c dialysis. 2. Anemia. Continue procrit. 3. Frailty/FTT. D/c to [facility] when stable. Plan: 02/04/17 15:14 02/04/17 15:17 02/04/17 15:19 Subjective: Seen and examined on dialysis. No complaints today but did have cramps with previous dialysis sessions. Objective: Vital Signs Temp Pulse Resp BP Pulse Ox 36.8 C 71 16 151/63 H 92 02/04/17 08:00 02/04/17 08:38 02/04/17 08:00 02/04/17 08:00 02/04/17 08:38 Laboratory Results 02/04/17 04:24 02/04/17 04:24 02/03/17 02/04/17 02/05/17 05:59 05:59 05:59 Intake Total 360 700 Balance 360 700 PT 17.3 SEC (12.0-15.0) H 02/03/17 08:55 INR 1.42 (0.83-1.16) H 02/03/17 08:55 RRR, II/ systolic murmur On dialysis Coarse basilar breath sounds Abdom soft, nt 2+ pitting edema ecchymoses on face ICD10 Worksheet Patient Problems: Problems Problem Status Onset Fever Acute Dehydration Acute Supratherapeutic INR Acute Renal failure Acute Anemia Acute
--- NOTE | 2017-02-04 16:16 | ASMTCMCOM ---
CM Note CM Note Notes: DOUG spoke w/ Gigi at the [facility]. Gigi is still in the process of having a chair approved for dialysis. DOUG spoke w/ Ana at [facility] and provided her updates on the referral process to the [facility]. CM to follow. Date Signed: 02/04/2017 04:15 PM Electronically Signed By:JEFF Blankenship
[2017-02-04] MEDS: MONTELUKAST SODIUM 10 MG TAB PO SCH (17:53)
[2017-02-04] MEDS ORDERED: HEPARIN 50,000 UNIT/10 ML VIAL ONE (18:16)
[2017-02-04] MEDS: HYDROCODONE/APAP 5/325 TAB PO SCH (21:04)
[2017-02-04] MEDS: METOPROLOL SUCCINATE XR 25 MG TAB PO SCH (21:05)
[2017-02-04] MEDS: PRAVASTATIN SODIUM 10 MG TAB PO SCH (21:05)
[2017-02-04] MEDS: LORazepam 0.5 MG TAB PO PRN (21:06)
[2017-02-04] MEDS: ZOLPIDEM TARTRATE 5 MG TAB PO SCH (22:38)
[2017-02-05] MEDS: oxyCODONE IR 5 MG TAB PO PRN ×2 (01:07→08:34)
[2017-02-05 05:07] LABS: HEMOGLOBIN 8.4 g/dL (13.7-17.5); MEAN CELL HEMOGLOBIN 31.2 pg (27.9-34.1); MEAN CELL HEMOGLOBIN CONCENTR. 33.6 g/dL (32.4-36.7); MEAN CELL VOLUME 92.9 fL (81.5-99.8); RED BLOOD CELL COUNT 2.69 10^6/uL (4.40-6.38); RED CELL DISTRIBUTION WIDTH 14.9 % (11.5-15.2)
[2017-02-05 05:18] LABS: ALBUMIN 2.5 g/dL (3.5-5.0); ANION GAP 7 mEq/L (8-16); CALCIUM 8.1 mg/dL (8.5-10.4); CARBON DIOXIDE 26 mEq/l (22-31); CHLORIDE 98 mEq/L (97-110); GLOMERULAR FILTRATION RATE 21; GLUCOSE 78 mg/dL (70-100); SODIUM 131 mEq/L (134-144)
[2017-02-05] MEDS: HEPARIN 5,000 UNIT/0.5 ML SYR SC SCH (05:20)
[2017-02-05] MEDS: ALBUTEROL 3 ML DEYVIAL IH SCH ×2 (10:08→20:56)
--- NOTE | 2017-02-05 11:26 | HOSPPROG ---
Hospitalist Progress Note Assessment/Plan: 71 yo M with hx of CAD, AF, DM and CKD presenting with weakness and falls as well as lizy on ckd. Had minimal urine output today. Changes of recovery are still slim. Remains afebrile and will likely get HD tunneled catheter per IR today. Nursing is looking into getting this set up. fever: blood cultures drawn, NGTF no further fevers, clinically with no signs of infection. No leukocytosis. lizy on ckd: known ckd cr had risen to 3.4 prior top baseline minimal urine output today Dialysis trial. CM is attempting to get [facility] for rehab. acute on chronic anemia: with anemia of ckd, worse on presentation and now s/p 2 units prbc. 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 Palliative following. coagulopathy: improved s/p vitamin K and FFP unclear what drove such an elevated inr rhabdomyolysis: after being down for long period of time, was mild with CK of > 2000 on arrival, trending down DM: with last A1c of 5.0 and still on insulin, possibly contributing to FTT, will continue to monitor off of insulin CAD: with hx of CABG, as above with elevated but flat troponin as well as sig elevated bnp chronic diastolic heart failure: He appears to have volume overload and will need fluid removal with HD. h/o AF: currently in SR, continue BB, INR supratherapeutic on arrival and reversed, suspect patient is a poor candidate for AC given recurrent falls and poor nutritional status, will d/w patient but will hold off an AC for now Thrombocytopenia, holding heparin CECY: CPAP HS FC dvt ppx: hsc (holding due to thrombocytopenia) IP status, high risk with multiple active medical issues. Dispo: tunneled catheter today. Once ready, will go back to [facility] for rehab Subjective: feels good. NO CP or SOB. NO N/V. Had minimal urine output today ( a few drops) Objective: Vital Signs Temp Pulse Resp BP Pulse Ox 36.8 C 65 18 144/52 H 97 02/05/17 08:00 02/05/17 10:10 02/05/17 10:10 02/05/17 08:00 02/05/17 10:10 Laboratory Results 02/05/17 04:26 02/05/17 04:26 02/04/17 02/05/17 02/06/17 05:59 05:59 05:59 Intake Total 700 300 Output Total 0 Balance 700 300 PT 17.3 SEC (12.0-15.0) H 02/03/17 08:55 INR 1.42 (0.83-1.16) H 02/03/17 08:55 - Physical Exam Constitutional: chronically ill appearing, cachectic Eyes: PERRL, EOMI Ears, Nose, Mouth, Throat: moist mucous membranes, hearing normal Cardiovascular: regular rate and rhythym, edema Respiratory: reduced air movement Gastrointestinal: normoactive bowel sounds, soft, non-tender abdomen Skin: warm Neurologic: AAOx3 Psychiatric: interacting appropriately, not anxious, not encephalopathic ICD10 Worksheet Patient Problems: Problems Problem Status Onset Anemia Acute Dehydration Acute Renal failure Acute Supratherapeutic INR Acute Fever Acute
--- NOTE | 2017-02-05 12:35 | SOAPPROG ---
SOAP Progress Note Assessment/Plan: Assessment: CHANTELL, oligo/anuric peed for the first time this AM rhabdomyolysis fall at home hyperkalemia, better after HD acidosis resolved anemia, HGB low but stable Plan: HD tomorrow Tunneled HD cath today looking for outpaient spot rehab at [facility] will continue with HD for now, would NOT want long-term HD (more than 3 months or so) 01/27/17 14:54 01/27/17 14:58 01/28/17 13:44 02/05/17 12:32 Subjective: daughter at bedside looks better than when I last saw him peed this morning, we are all celebrating!! no cp sob nausea appetite still not great, drinking fine spirits good Objective: Vital Signs Temp Pulse Resp BP Pulse Ox 36.8 C 65 18 144/52 H 97 02/05/17 08:00 02/05/17 10:10 02/05/17 10:10 02/05/17 08:00 02/05/17 10:10 Laboratory Results 02/05/17 04:26 02/05/17 04:26 02/04/17 02/05/17 02/06/17 05:59 05:59 05:59 Intake Total 700 300 Output Total 0 Balance 700 300 PT 17.3 SEC (12.0-15.0) H 02/03/17 08:55 INR 1.42 (0.83-1.16) H 02/03/17 08:55 Physical Exam - Physical Exam General Appearance: alert, cachetic Neck: non-tender Respiratory: No rhonchi, No wheezing Cardiac/Chest: regular rate, rhythm, edema Abdomen: normal bowel sounds, non-tender, soft Extremities: pedal edema Neuro/Psych: alert, normal mood/affect, oriented x 3 ICD10 Worksheet Patient Problems: Problems Problem Status Onset Anemia Acute Dehydration Acute Renal failure Acute Supratherapeutic INR Acute Fever Acute
[2017-02-05] MEDS: guaiFENesin 600 MG TAB.ER PO SCH ×2 (12:38→20:25)
--- NOTE | 2017-02-05 13:25 | WOCRNPDOC ---
WOCRN Advanced Assessment Note - Skin Integrity Problem, Advanced Assess Left Knee Dressing Type: Allevyn Life Dressing Description: Clean/Dry, Intact Exudate Amount: Minimal Exudate Color: Reddish/Yellow Integumentary Issue Intervention: Dressing Removed Alyce Wound Tissue: Blanching, Erythema Alyce Wound Swelling: Mild Wound Bed Color: [place] Wound Bed Constitution: Granulation Tissue Skin Integrity Problem Comment: Wound cleaned with NS and gauze. Patient complaints of pain with removal of dressing. Discussed wound with senior telecommunications consultant Becky and orders for care of this wound placed. Wound care does not need to follow this wound. Please reconsult PRN.
[2017-02-05 15:27] LABS: HEMATOCRIT 30.1 % (40.0-51.0)
[2017-02-05 15:38] LABS: INR 1.37 (0.83-1.16); PROTIME(PATIENT) 16.9 SEC (12.0-15.0)
[2017-02-05 15:39] LABS: APTT 35.3 SEC (23.0-38.0)
--- NOTE | 2017-02-05 15:58 | ASMTCMCOM ---
CM Note CM Note Notes: [facility] [place], they can be ready for pt on Thursday for dialysis, likely an early am chair time. Andrew [facility] notified. Date Signed: 02/05/2017 03:57 PM Electronically Signed By:Vicky Rodriguez RN
[2017-02-05] MEDS ORDERED: LIDOCAINE 1% 300 MG/30 ML SDV ONE (16:03)
[2017-02-05] MEDS ORDERED: HEPARIN 50,000 UNIT/10 ML VIAL ONE (16:03)
[2017-02-05] MEDS ORDERED: fentaNYL 100 MCG/2 ML INJ ONE (16:17)
[2017-02-05] MEDS: CETIRIZINE 10 MG TAB PO SCH (18:35)
[2017-02-05] MEDS: FAMOTIDINE 20 MG TAB PO SCH (18:36)
[2017-02-05] MEDS: FERROUS SULFATE 325 MG TAB PO SCH (18:36)
[2017-02-05] MEDS: POLYETHYLENE GLYCOL 3350 17 GM PKT PO SCH (18:36)
[2017-02-05] MEDS: DOCUSATE SODIUM 100 MG CAP PO SCH (18:36)
[2017-02-05] MEDS: HYDROCODONE/APAP 5/325 TAB PO SCH (20:23)
[2017-02-05] MEDS: PRAVASTATIN SODIUM 10 MG TAB PO SCH (20:24)
[2017-02-05] MEDS: METOPROLOL SUCCINATE XR 25 MG TAB PO SCH (20:24)
[2017-02-05] MEDS: LORazepam 0.5 MG TAB PO PRN (20:24)
[2017-02-05] MEDS: TAMSULOSIN HCL 0.4 MG CAP PO SCH (20:25)
[2017-02-05] MEDS: MONTELUKAST SODIUM 10 MG TAB PO SCH (20:25)
[2017-02-05] MEDS: ZOLPIDEM TARTRATE 5 MG TAB PO SCH (21:56)
[2017-02-06 05:23] LABS: HEMATOCRIT 24.2 % (40.0-51.0); MEAN CELL HEMOGLOBIN CONCENTR. 33.1 g/dL (32.4-36.7); MEAN CELL VOLUME 93.8 fL (81.5-99.8); RED BLOOD CELL COUNT 2.58 10^6/uL (4.40-6.38); RED CELL DISTRIBUTION WIDTH 15.6 % (11.5-15.2)
[2017-02-06 05:36] LABS: ALBUMIN 2.3 g/dL (3.5-5.0); ANION GAP 7 mEq/L (8-16); CALCIUM 8.3 mg/dL (8.5-10.4); CARBON DIOXIDE 26 mEq/l (22-31); CHLORIDE 97 mEq/L (97-110); CREATININE 3.9 mg/dL (0.7-1.3); GLOMERULAR FILTRATION RATE 15; GLUCOSE 76 mg/dL (70-100); POTASSIUM 4.4 mEq/L (3.5-5.2); SODIUM 130 mEq/L (134-144)
[2017-02-06] MEDS: ALBUTEROL 3 ML DEYVIAL IH PRN (06:52)
[2017-02-06] MEDS: guaiFENesin 600 MG TAB.ER PO SCH ×2 (08:14→20:40)
[2017-02-06] MEDS: FERROUS SULFATE 325 MG TAB PO SCH (08:14)
[2017-02-06] MEDS: CETIRIZINE 10 MG TAB PO SCH (08:14)
[2017-02-06] MEDS: FAMOTIDINE 20 MG TAB PO SCH (08:14)
[2017-02-06] MEDS: TAMSULOSIN HCL 0.4 MG CAP PO SCH (08:14)
[2017-02-06] MEDS: ALBUTEROL 3 ML DEYVIAL IH SCH ×2 (09:05→21:09)
[2017-02-06] MEDS: DOCUSATE SODIUM 100 MG CAP PO SCH (09:55)
[2017-02-06] MEDS: POLYETHYLENE GLYCOL 3350 17 GM PKT PO SCH (09:56)
--- NOTE | 2017-02-06 10:21 | HOSPPROG ---
Hospitalist Progress Note Assessment/Plan: 71 yo M with hx of CAD, AF, DM and CKD presenting with weakness and falls as well as lizy on ckd. Had minimal urine output 02/06. Had HD catheter placed . Will get HD today. Plan is for likely discharge on Thursday. fever: blood cultures drawn, NGTF no further fevers, clinically with no signs of infection. No leukocytosis. lizy on ckd: known ckd cr had risen to 3.4 prior top baseline minimal urine output 02/05. has the urge to urinate this morning Dialysis trial. CM is attempting to get [facility] for rehab. acute on chronic anemia: with anemia of ckd, worse on presentation and now s/p 2 units prbc. no indication for transfusion at this time transfused 02/01 cont procrit Hgb noted to be decreased today. cont monitoring and transfuse PRN hyperkalemia: resolved dizziness: resolved hyponatremia: per HD elevated trop/elevated bnp: in setting of lizy but overall does not have e/o acute HF, echo showing preserved EF, no significant valvular issues FTT/SPCM: has had a 50 pound weight loss and with multiple falls HEAD OF LOSS PREVENTION including the fall preceding admit, pt/ot and CM involved. Palliative following. coagulopathy: improved s/p vitamin K and FFP unclear what drove such an elevated inr rhabdomyolysis: after being down for long period of time, was mild with CK of > 2000 on arrival, trending down DM: with last A1c of 5.0 and still on insulin, possibly contributing to FTT, will continue to monitor off of insulin CAD: with hx of CABG, as above with elevated but flat troponin as well as sig elevated bnp chronic diastolic heart failure: He appears to have volume overload and will need fluid removal with HD. h/o AF: currently in SR, continue BB, INR supratherapeutic on arrival and reversed, suspect patient is a poor candidate for AC given recurrent falls and poor nutritional status, will d/w patient but will hold off an AC for now Thrombocytopenia, holding heparin CECY: CPAP HS FC dvt ppx: hsc (holding due to thrombocytopenia) IP status, high risk with multiple active medical issues. Dispo: tunneled catheter today. Once ready, will go back to [facility] for rehab likely on Thursday. Subjective: had HD catheter placed yesterday. No further urination since yesterday, but has the urge to go this morning. No CP. Objective: Vital Signs Temp Pulse Resp BP Pulse Ox 37.4 C 54 L 15 154/57 H 99 02/06/17 07:50 02/06/17 07:50 02/06/17 06:52 02/06/17 07:50 02/06/17 07:50 Laboratory Results 02/06/17 04:31 02/06/17 04:31 02/05/17 02/06/17 02/07/17 05:59 05:59 05:59 Intake Total 300 Output Total 0 Balance 300 PT 16.9 SEC (12.0-15.0) H 02/05/17 15:22 INR 1.37 (0.83-1.16) H 02/05/17 15:22 - Physical Exam Constitutional: chronically ill appearing, cachectic Eyes: PERRL, EOMI Ears, Nose, Mouth, Throat: moist mucous membranes Cardiovascular: regular rate and rhythym Respiratory: reduced air movement, rhonchi Gastrointestinal: normoactive bowel sounds, soft, non-tender abdomen Skin: warm Musculoskeletal: generalized weakness Neurologic: AAOx3 Psychiatric: interacting appropriately, not anxious, not encephalopathic, thought process linear ICD10 Worksheet Patient Problems: Problems Problem Status Onset Anemia Acute Dehydration Acute Renal failure Acute Supratherapeutic INR Acute Fever Acute
--- NOTE | 2017-02-06 13:03 | SOAPPROG ---
SOAP Progress Note Assessment/Plan: Assessment: CHANTELL, oligo/anuric peed again this AM, that makes 2 days in a row rhabdomyolysis fall at home hyperkalemia, better after HD acidosis resolved anemia, HGB low but stable Plan: HD today Tunneled HD cath yesterday outpatient HD orders given to [facility] rehab at [facility] will continue with HD for now, would NOT want long-term HD (more than 3 months or so) 01/27/17 14:54 01/27/17 14:58 01/28/17 13:44 02/05/17 12:32 02/06/17 13:00 Subjective: spirits good didn't sleep well last night a little SOB today no cp nausea vomiting or anorexia tired Objective: Vital Signs Temp Pulse Resp BP Pulse Ox 37.1 C 73 16 154/57 H 91 L 02/06/17 12:00 02/06/17 12:00 02/06/17 12:00 02/06/17 12:00 02/06/17 12:00 Laboratory Results 02/06/17 04:31 02/06/17 04:31 02/05/17 02/06/17 02/07/17 05:59 05:59 05:59 Intake Total 300 Output Total 0 Balance 300 PT 16.9 SEC (12.0-15.0) H 02/05/17 15:22 INR 1.37 (0.83-1.16) H 02/05/17 15:22 Physical Exam - Physical Exam General Appearance: alert, thin Respiratory: rales, No rhonchi, No wheezing Cardiac/Chest: edema Abdomen: normal bowel sounds, non-tender, soft Neuro/Psych: alert, normal mood/affect, oriented x 3 ICD10 Worksheet Patient Problems: Problems Problem Status Onset Anemia Acute Dehydration Acute Renal failure Acute Supratherapeutic INR Acute Fever Acute
--- NOTE | 2017-02-06 17:04 | ASMTCMCOM ---
CM Note CM Note Notes: Spoke w/Andrew at [facility], pt will likely dc Thursday. Notified her that CM received chair time at [facility] at 5:45 and steel pickler at 10:15. Date Signed: 02/06/2017 05:03 PM Electronically Signed By:Vicky Rodriguez RN
[2017-02-06] MEDS: ONDANSETRON 4 MG/2 ML VIAL IVP PRN (18:21)
[2017-02-06] MEDS: MONTELUKAST SODIUM 10 MG TAB PO SCH (18:24)
[2017-02-06] MEDS ORDERED: HEPARIN 50,000 UNIT/10 ML VIAL ONE (18:30)
[2017-02-06] MEDS: METOPROLOL SUCCINATE XR 25 MG TAB PO SCH (20:40)
[2017-02-06] MEDS: PRAVASTATIN SODIUM 10 MG TAB PO SCH (20:40)
[2017-02-06] MEDS: HYDROCODONE/APAP 5/325 TAB PO SCH (20:40)
[2017-02-06] MEDS: LORazepam 0.5 MG TAB PO PRN (20:44)
[2017-02-06] MEDS: ZOLPIDEM TARTRATE 5 MG TAB PO SCH (21:52)
[2017-02-07 04:47] LABS: % IMMATURE GRANULYOCYTES 0.2 % (0.0-1.1); ABSOLUTE IMMATURE GRANULOCYTES 0.01 10^3/uL (0.00-0.10); ADD DIFF? NO; ADD MORPH? NO; ADD SCAN? NO; ATYPICAL LYMPHOCYTE FLAG 0 (0-99); FRAGMENT RBC FLAG 0 (0-99); HEMATOCRIT 24.9 % (40.0-51.0); HEMOGLOBIN 8.2 g/dL (13.7-17.5); LEFT SHIFT FLG 0 (0-99); LIPEMIA HEMOLYSIS FLAG 80 (0-99); MEAN CELL HEMOGLOBIN 30.9 pg (27.9-34.1); MEAN CELL HEMOGLOBIN CONCENTR. 32.9 g/dL (32.4-36.7); MEAN PLATELET VOLUME 10.6 fL (8.7-11.7); PLATELET CLUMPS FLAG 0 (0-99); PLATELET COUNT 153 10^3/uL (150-400); RED BLOOD CELL COUNT 2.65 10^6/uL (4.40-6.38); RED CELL DISTRIBUTION WIDTH 15.7 % (11.5-15.2)
[2017-02-07 05:03] LABS: ANION GAP 8 mEq/L (8-16); CALCIUM 8.3 mg/dL (8.5-10.4); CARBON DIOXIDE 28 mEq/l (22-31); CHLORIDE 95 mEq/L (97-110); CREATININE 2.7 mg/dL (0.7-1.3); GLOMERULAR FILTRATION RATE 23; GLUCOSE 83 mg/dL (70-100); POTASSIUM 3.8 mEq/L (3.5-5.2); SODIUM 131 mEq/L (134-144)
[2017-02-07] MEDS: TAMSULOSIN HCL 0.4 MG CAP PO SCH (09:40)
[2017-02-07] MEDS: DOCUSATE SODIUM 100 MG CAP PO SCH (09:40)
[2017-02-07] MEDS: ACETAMINOPHEN 325 MG TAB PO PRN (09:40)
[2017-02-07] MEDS: FERROUS SULFATE 325 MG TAB PO SCH (09:40)
[2017-02-07] MEDS: FAMOTIDINE 20 MG TAB PO SCH (09:40)
[2017-02-07] MEDS: guaiFENesin 600 MG TAB.ER PO SCH (09:41)
[2017-02-07] MEDS: CETIRIZINE 10 MG TAB PO SCH (09:41)
[2017-02-07] MEDS: POLYETHYLENE GLYCOL 3350 17 GM PKT PO SCH (09:43)
[2017-02-07] MEDS: ALBUTEROL 3 ML DEYVIAL IH SCH (10:25)
[2017-02-07 10:38] VITALS: RESP 14
--- NOTE | 2017-02-07 10:45 | SOAPPROG ---
SOAP Progress Note Assessment/Plan: Assessment/Plan: CHANTELL on CKD stage 3: baseline Cr around 2.0, came in with Cr up to 11. He remains anuric. Likely has ATN, may have been contributed to by rhabdo, CK now improved. Pt remains oliguric although had one urination daily for the past two days. - Too soon to declare that he is ESRD, although any recovery is likely to take 6-8 weeks considering his underlying CKD as well as the fact that he remains anuric/oliguric. Pt is set up for outpatient HD to continue MWF at [facility]. - Pt is aware there is a possibility he may not recover, and he may not be the best exterminator dialysis candidate given his overall frailty. He will continue to consider this, in the past has been against half-way dialysis. - Avoid hypotension, NSAIDs, demerol, MOM, morphine, ACEI/ARBs, contrast, aminoglycosides, fleets, and other nephrotoxins. Anemia: Hgb now stable after being transfused and getting epo. Pt will get epo and iron per outpatient dialysis unit protocol. Hyponatremia: Na 131, will modulate on HD. Subjective: No acute events overnight. Pt had HD yesterday with no issues. Planning on going to rehab today. Objective: Vital Signs Temp Pulse Resp BP Pulse Ox 37.0 C 74 16 101/91 H 93 02/07/17 08:00 02/07/17 08:00 02/07/17 08:00 02/07/17 08:00 02/07/17 08:00 Laboratory Results 02/07/17 04:14 02/07/17 04:14 02/06/17 02/07/17 02/08/17 05:59 05:59 05:59 Intake Total 120 Balance 120 PT 16.9 SEC (12.0-15.0) H 02/05/17 15:22 INR 1.37 (0.83-1.16) H 02/05/17 15:22 General: alert and oriented, no acute distress Eyes; EOMI, PERRL OP: CLear CV: RRR Resp: nonlabored respirations Abd: Soft, NT Ext: +2 edema BLE Neuro: CN II-XII Grossly intact, no asterixis Psych: cooperative, appropriate mood and affect ICD10 Worksheet Patient Problems: Problems Problem Status Onset Anemia Acute Dehydration Acute Renal failure Acute Supratherapeutic INR Acute Fever Acute
--- NOTE | 2017-02-07 11:20 | PDDCSUM ---
Discharge Summary Discharge Summary: 71 yo M with hx of CAD, AF, DM and CKD presenting with weakness and falls as well as lizy on ckd. Had minimal urine output 02/05 and 02/06. Had HD catheter placed 02/05. Has been HD dependant while inpatient here. He has severe deconditioning, cachexia, and FTT. Duration of HD may not be in his mcc interests and he is likely attempting dialysis temporarily with the hopes to have return of renal function. He was evaluated by our Palliative Care team while inpatient and he is not ready to choose hospice yet. From a volume perspective he has some volume overload. He does not have any significant resp sx's. Will avoid aggressive pulling of fluids while awaiting possible renal function return. He is being discharge to [facility] for rehab. HD has been set up with the [facility] in [place] on / DDx: fever: blood cultures drawn, NGTF no further fevers, clinically with no signs of infection. No leukocytosis. lizy on ckd: known ckd cr had risen to 3.4 prior top baseline acute on chronic anemia: with anemia of ckd, worse on presentation and now s/p 2 units prbc. 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 Palliative following. coagulopathy: improved s/p vitamin K and FFP unclear what drove such an elevated inr rhabdomyolysis: after being down for long period of time. resolved DM: with last A1c of 5.0 and still on insulin, possibly contributing to FTT, will continue to monitor off of insulin CAD: with hx of CABG, as above with elevated but flat troponin as well as sig elevated bnp chronic diastolic heart failure: He appears to have volume overload and will need fluid removal with HD. h/o AF: currently in SR, continue BB, INR supratherapeutic on arrival and reversed, suspect patient is a poor candidate for AC given recurrent falls and poor nutritional status, hold off an AC for now Thrombocytopenia, holding heparin CECY: CPAP HS FC exam: chronicall ill appearing NAD AAOXE RRR RALES AT BASES S/NT/ND 2+ LE EDEMA DISCHARGE MEDS: SEE MED REC FOLLOW UP: WILL TRANSFER TO REHAB. WILL F/U WITH NEPHROLOGY TOTAL TIME SPENT ON DISCHARGE IS 40 MINUTES
--- NOTE | 2017-02-07 11:23 | PDIAF ---
- Diagnosis Diagnosis: Weakness and deconditioning: Rehab Code Status: Do Not Resuscitate - Medication Management Discharge Medications: Medications to Continue on Transfer Allopurinol [Allopurinol 300 MG (RX)] 300 mg PO DAILY 07/12/13 [Last Taken 07/12 08:00] Ascorbic Acid [Vitamin C 250 mg (*)] 250 mg PO DAILY 07/12/13 [Last Taken 08:00] Bisacodyl [Dulcolax] 15 mg PO Q7D 07/12/13 [Last Taken 07/10/13] Cholecalciferol Vit D3 [Vitamin D3 (*)] 2,000 units PO MWF 07/12/13 [Last Taken 07/11/13 08:00] Fluticasone Nasal [Flonase Nasal [place]] 1 sprays EACHNARE DAILY PRN 07/12/13 [ Last Taken 07/05/13] Fluvastatin Sodium 20 mg PO HS 07/12/13 [Last Taken 07/11/13 21:00] Metoprolol Succinate Xr [Toprol Xl 25 mg (*)] 25 mg PO HS 07/12/13 [Last Taken 07/11/13 21:00] Tamsulosin HCl [Flomax 0.4 MG (*)] 0.4 mg PO DAILY 07/12/13 [Last Taken 08:00] Zolpidem Tartrate [Ambien 5MG (*)] 10 mg PO HS 07/12/13 [Last Taken 07/11/13 21: 00] Albuterol [Proventil Neb] 3 ml IH BID 01/27/17 [Last Taken Unknown] Docusate Sodium [Colace 100 MG (*)] 100 mg PO DAILY 01/27/17 [Last Taken Unknown ] Ferrous Sulfate [Ferrous Sulf 325 MG (*)] 325 mg PO DAILY 01/27/17 [Last Taken Unknown] Hydrocodone/Acetaminophen [[place] 5/325 (*)] 1 each PO HS 01/27/17 [Last Taken Unknown] Lactase [Lactase 3000 Unit (*)] 3,000 unit PO DAILY PRN 01/27/17 [Last Taken Unknown] Loratadine [Claritin] 10 mg PO DAILY 01/27/17 [Last Taken Unknown] Montelukast Sodium [Singulair 10 mg (*)] 10 mg PO DAILY@1800 01/27/17 [Last Taken Unknown] Epoetin Lamberto [Procrit 88220 UNIT/ML (*)] 10,000 unit SC Q7D vial 02/07/17 [ Last Taken Unknown] LORazepam [Ativan (*)] 0.5 mg PO Q8HRS PRN tab 02/07/17 [Last Taken Unknown] Discharge Medications: Refer to the Discharge Home Medication list for PRN reason. - Orders Services needed: Physical Therapy, Occupational Therapy Diet Recommendation: fluid restriction (use comment for amount) (1500 ml), other (renal) Diet Texture: Regular Texture Diet - Follow Up Care Current Providers and Referrals: Kiera Ramirez [Primary Care Provider] - As per Instructions
--- NOTE | 2017-02-07 11:52 | ASMTCMCOM ---
CM Note CM Note Notes: D/w RN, final orders faxed. Merly at [facility] notified. notified of dialysis chair time at 5:45 MWF. PB to warehouse order picker pt at 3pm, RN to call report. Date Signed: 02/07/2017 11:51 AM Electronically Signed By:Vicky Rodriguez RN
[2017-02-07 13:56] VITALS: BP 123/47; PULSE 73; TEMP 98.1; O2SAT 94
--- NOTE | 2017-02-07 17:16 | ASDISCHSUM ---
Discharge Information Plan Status:SNF Medically Cleared to Leave: Discharge Date:02/07/2017 04:00 PM D/C Disposition:Alf Facility ADT D/C Disposition:Other Rehab, Not [place] Projected Discharge Date:02/07/2017 01:00 PM Transportation at D/C:Wheelchair Van Discharge Delay Reason: Follow-Up Date:02/07/2017 01:00 PM Discharge Slot: Final Diagnosis:Renal Failure Placement Information Referral Type:*Assisted/SNF Referral ID:[id number] Provider Name:Liana Shukla [facility] Address [address] Phone Number: Address 2: Fax Number: [place] Selection Factors: State:[place] Referral Type:Dialysis Center Referral ID:[id number] Provider Name:[facility] Address 1:[address] Phone Number: Address 2: Fax Number: [place] Selection Factors: State:[place] Patient Contact Information Contact Name:SEJALABDULAZIZSTEPHAN Relationship: Address:[address] City:[place] [facility] Phone: State/Zip Code:[place] [address] Email: Financial Information Financial Class: Primary Plan Desc:MEDICARE INPATIENT Primary Plan Number:[id number] Secondary Plan Desc:[place] [facility] Secondary Plan Number:[id number] Assessment Information [facility] CM Progress Note CM Note CM Note Notes: 71 year old male admitted for renal failure, weakness, falls. Patient has a hx of CAD S/P CABG, Afib, DM, CKD and a weight loss of 50#'s. had been out-of-town for 2 weeks. CM to follow for possible discharge needs. Date Signed: 01/27/2017 09:49 AM Electronically Signed By:Danii Aceves LCSW [facility] CM Progress Note CM Note CM Note Notes: Spoke with patient's Gosia who understands current discharge recommendation of SNF. She requested referrals be sent to facilities near their home in [place]. I sent referrals to [facility], [facility], and [facility]. Palliative care team to meet with patient and today, as well. Nephrology still determining patient's need for dialysis in the outpatient setting. He's had it 2x while inpt and is not scheduled to have it today. I included this info in the SNF referral. Date Signed: 01/29/2017 10:50 AM Electronically Signed By:Destiny Elena RN [facility] Progress Note CM Note CM Note Notes: Palliative unable to meet w/pt today, w/f up on Thursday. Date Signed: 01/30/2017 05:08 PM Electronically Signed By:Vicky Rodriguez RN [facility] CM Progress Note CM Note CM Note Notes: SNF referrals sent to [facility] who is willing to accept pt if they can accomodate transportation to dialysis; [facility] said yes, if no acute dialysis is needed; [facility] needs more information. Palliative consult scheduled for tomorrow. Date Signed: 02/01/2017 04:27 PM Electronically Signed By:ELIJAH Bacon [facility] Progress Note CM Note CM Note Notes: Vicki met w/ pt and family today. requested more information on referrals made to SNFs. CM provided w/ this info. Family's first choice is [facility]. CM spoke w/ Ana at [facility] and they are able to accept pt once pt has been accepted to a dialysis center. CM made a referral to [facility]. CM to follow. Date Signed: 02/02/2017 03:28 PM Electronically Signed By:JEFF Blankenship [facility] Progress Note CM Note CM Note Notes: DOUG spoke w/ Gigi from the [facility] regarding referral. Bill will be verifying insurance and reports that it could take a day or two to be approved for dialysis. Gigi reports that he will reach out to Dr. Syed directly to discuss case. CM spoke w/ pts PCP regarding d/c POC. Pt appears to be spiking a fever. CM to follow. Date Signed: 02/03/2017 02:59 PM Electronically Signed By:JEFF Blankenship [facility] Progress Note CM Note CM Note Notes: CM spoke w/ Gigi at the [facility]. Gigi is still in the process of having a chair approved for dialysis. CM spoke manuel/ Ana at [facility] and provided her updates on the referral process to the [facility]. CM to follow. Date Signed: 02/04/2017 04:15 PM Electronically Signed By:JEFF Blankenship [facility] CM Progress Note CM Note CM Note Notes: Spoke w/[facility] [place], they can be ready for pt on Thursday for dialysis, likely an early am chair time. Andrew at [facility] notified. Date Signed: 02/05/2017 03:57 PM Electronically Signed By:Vicky Rodriguez RN [facility] Progress Note CM Note CM Note Notes: Spoke Merly at [facility], pt will likely dc Thursday. Notified her that CM received chair time at [facility] at 5:45 and leases and land supervisor at 10:15. Date Signed: 02/06/2017 05:03 PM Electronically Signed By:Vicky Rodriguez RN [facility] CM Progress Note CM Note CM Note Notes: D/w RN, final orders faxed. Merly at [employer] notified. notified of dialysis chair time at 5:45 MWF. PB to leases and land supervisor pt at 3pm, RN to call report. Date Signed: 02/07/2017 11:51 AM Electronically Signed By:Vicky Rodriguez RN Intervention Information Intervention Type:*IM-Signed Date of Service:02/06/2017 11:04 AM Patient Type:Inpatient Staff Member:Eliza Bates Hours: Discipline: Severity: Comment:
== END 2017-02-07 16:00 | DRG 682 ==
LOC: F2N 01-27 00:19 → F3E 01-29 18:17
PROVIDERS: ADMIT Student in an Organized Health Care Education/Training Program; ATTEND Student in an Organized Health Care Education/Training Program
PROC: 30233K1 Transfusion of Nonautologous Frozen Plasma into Peripheral Vein, Percutaneous Approach (ICD-10-PCS; 2017-01-26)
PROC: 5A1D70Z Performance of Urinary Filtration, Intermittent, Less than 6 Hours Per Day (ICD-10-PCS; principal; 2017-01-27)
PROC: 30233N1 Transfusion of Nonautologous Red Blood Cells into Peripheral Vein, Percutaneous Approach (ICD-10-PCS; 2017-01-31)
PROC: 02HV33Z Insertion of Infusion Device into Superior Vena Cava, Percutaneous Approach (ICD-10-PCS; 2017-02-03)
PROC: 02H633Z Insertion of Infusion Device into Right Atrium, Percutaneous Approach (ICD-10-PCS; 2017-02-05)
DX: N17.9 Acute kidney failure, unspecified (principal); E43 Unspecified severe protein-calorie malnutrition; E87.1 Hypo-osmolality and hyponatremia; M62.82 Rhabdomyolysis; I50.22 Chronic systolic (congestive) heart failure; N18.3 Chronic kidney disease, stage 3 (moderate); D63.1 Anemia in chronic kidney disease; E87.5 Hyperkalemia; R62.7 Adult failure to thrive; E11.9 Type 2 diabetes mellitus without complications; I25.10 Atherosclerotic heart disease of native coronary artery without angina pectoris; G47.33 Obstructive sleep apnea (adult) (pediatric); D69.6 Thrombocytopenia, unspecified; R29.6 Repeated falls; Z95.1 Presence of aortocoronary bypass graft; Z87.891 Personal history of nicotine dependence; Z66 Do not resuscitate
CPT/HCPCS: 86704-90; 96365; 97116-GP; 97163-GP; 97166-GO; 97530-GO; 97530-GP; 97535-GO; C1750; G8978-GP-CL; G8979-GP-CJ; G8987-GO-CM; G8988-GO-CJ; J0610; J0885; J1170; J1644; J1815; J2060; J2250; J2310; J2405; J2550; J3010; J3430; J7060; P9016; P9017

== ENCOUNTER → 2017-03-24 | Outpatient (CLI) | payer OTHER, BC | LOC: BHFA 15:30 | PROVIDERS: ATTEND Internal Medicine Cardiovascular Disease | DX: I48.91 Unspecified atrial fibrillation (principal) ==

== ENCOUNTER 2017-04-05 14:22 | Inpatient (IN) | payer OTHER, BC ==
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
[2017-04-05 16:28] LABS: % IMMATURE GRANULYOCYTES 0.2 % (0.0-1.1); ABSOLUTE IMMATURE GRANULOCYTES 0.01 10^3/uL (0.00-0.10); ADD DIFF? NO; ADD MORPH? NO; ADD SCAN? NO; ATYPICAL LYMPHOCYTE FLAG 0 (0-99); FRAGMENT RBC FLAG 10 (0-99); HEMATOCRIT 27.2 % (40.0-51.0); LEFT SHIFT FLG 0 (0-99); LIPEMIA HEMOLYSIS FLAG 80 (0-99); MEAN CELL HEMOGLOBIN 31.9 pg (27.9-34.1); MEAN CELL HEMOGLOBIN CONCENTR. 33.1 g/dL (32.4-36.7); MEAN CELL VOLUME 96.5 fL (81.5-99.8); MEAN PLATELET VOLUME 10.7 fL (8.7-11.7); PLATELET CLUMPS FLAG 10 (0-99); PLATELET COUNT 154 10^3/uL (150-400); RED BLOOD CELL COUNT 2.82 10^6/uL (4.40-6.38); RED CELL DISTRIBUTION WIDTH 16.1 % (11.5-15.2)
[2017-04-05 16:38] LABS: INR 1.27 (0.83-1.16); PROTIME(PATIENT) 16.1 SEC (12.0-15.0)
[2017-04-05 16:39] LABS: APTT 35.2 SEC (23.0-38.0)
[2017-04-05 16:41] LABS: ANION GAP 18 mEq/L (8-16); BILIRUBIN,TOTAL 1.3 mg/dL (0.1-1.4); CALCIUM 9.3 mg/dL (8.5-10.4); CARBON DIOXIDE 24 mEq/l (22-31); CHLORIDE 98 mEq/L (97-110); GLOMERULAR FILTRATION RATE 15; GLUCOSE 199 mg/dL (70-100); POTASSIUM 3.3 mEq/L (3.5-5.2); SODIUM 140 mEq/L (134-144)
[2017-04-05] MEDS ORDERED: ONDANSETRON 4 MG/2 ML VIAL IVP PRN (21:17)
[2017-04-05] MEDS ORDERED: ONDANSETRON DISINTEGRATING 4 MG TAB PO PRN (21:17)
[2017-04-05] MEDS ORDERED: ACETAMINOPHEN 325 MG TAB PO PRN (21:17)
[2017-04-05] MEDS ORDERED: POLYETHYLENE GLYCOL 3350 17 GM PKT PO PRN (21:19)
[2017-04-05] MEDS ORDERED: MONTELUKAST SODIUM 10 MG TAB PO PRN (21:19)
[2017-04-05] MEDS ORDERED: D50W 25 GM/50 ML VIAL IVP PRN (21:36)
[2017-04-05] MEDS ORDERED: PARAMETERS MISC PRN (21:36)
--- NOTE | 2017-04-05 21:54 | GHP ---
[f rep st] HISTORY AND PHYSICAL DATE OF ADMISSION: 04/05/2017 CHIEF COMPLAINT: 1. Weakness. 2. Positive blood cultures. HISTORY OF PRESENT ILLNESS: This is a 71-year-old male who was recently hospitalized in January t his year. He has a history of chronic renal insufficiency, but then presented with weakness and mult iple falls. Had presented with acute renal failure, rhabdomyolysis, and hyperkalemia. Dialysis was instituted during that hospitalization and he has been getting dialysis since. He says it has been g oing okay, although he is somewhat fatigued afterward. A few days ago, he developed worsening weakne ss in his lower extremities, and unsteadiness. He also had a fever when he was at dialysis. They ga ve him vancomycin and Ancef. Apparently, his blood cultures are growing out gram-positive cocci in a ll 4 cultures. The patient was sent here. He does feel a little bit better with the antibiotics matthew t were given. He denies any chest pain or shortness of breath. His weakness is mostly in the linwood ceps. He also has pain in the quadriceps area as well. He was wondering if his statin might be caus ing this. He is not having chills. He does have a productive cough that has been chronic, but actua lly improving after he quit smoking. No diarrhea or abdominal pain. The patient did have a fall yes terday with injury to his right arm and foot. REVIEW OF SYSTEMS: A 10-point review of systems was obtained, and other than stated, was negative. PAST MEDICAL HISTORY: 1. End-stage renal disease on dialysis. 2. History of CABG. 3. Atrial fibrillation. 4. Type 2 diabetes. 5. Gout. MEDICATIONS: Reviewed. SOCIAL HISTORY: Quit smoking with his last hospitalization. He is . FAMILY HISTORY: Alcoholism. PHYSICAL EXAM: VITAL SIGNS: Afebrile, blood pressure is 176/74, heart rate 83, oxygen saturation 94 % on room air. GENERAL: The patient is thin and chronically ill appearing, in no apparent distress. HEENT: Nonicteric sclerae. Extraocular movements intact. Moist mucous membranes. NECK: Supple. No thyromegaly. LUNGS: Good effort. Clear to auscultation bilaterally. CARDIOVASCULAR: Regular rate and rhythm. No murmurs, rubs, or gallops. ABDOMEN: Positive bowel sounds. Soft, nontender, nondistended. No hepatosplenomegaly. EXTREMITIES: No clubbing, cyanosis, or edema. SKIN: Without rash. Warm, dry, intact. NEUROLOGIC: Alert x3. Does have significant weakness of the quadriceps m uscles. LABORATORY DATA: CBC did show mild anemia. Creatinine is 4.0, potassium 3.3. IMAGIN. Shoulder x-ray: Stable right shoulder x-ray. 2. Right foot x-ray does not show fracture. 3. Chest x-ray shows some mild fluid overload and COPD. ASSESSMENT: This is a 71-year-old male presenting with bacteremia and weakness. PLAN: 1. Bacteremia. I am not sure where blood has been drawn, where the blood has been sent. Nephrology seems to have access to this. Will dose vancomycin with Pharmacy's help. 2. End-stage renal disease. Per Nephrology. There is consideration of taking the catheter out and waiting for a few days before dialyzing. 3. Lower extremity weakness. The patient is pretty weak in his quadriceps. CPK is negative. He st ill could have a statin-induced myalgia. We will hold his statin. Consider MRI if not improving. A lternatively, I guess his weakness could be from ongoing infection as well. 4. History of coronary artery disease. He is not having any chest pain. 5. Atrial fibrillation. It sounds like he is in normal sinus rhythm. /[id number]/MODL
[2017-04-05] MEDS ORDERED: VANCOMYCIN 750 MG in D5W 150 ML IV ONE (22:00)
[2017-04-05] MEDS ORDERED: HYDROCODONE/APAP 5/325 TAB PO SCH ×2 (22:40→23:00)
[2017-04-05] MEDS ORDERED: LORazepam 0.5 MG TAB PO SCH (22:40)
[2017-04-05 22:47] LABS: COLOR AMBER; LEUKOCYTE ESTERASE,URINE NEGATIVE (NEGATIVE); NITRITE,URINE NEGATIVE (NEGATIVE)
[2017-04-05] MEDS: ZOLPIDEM TARTRATE 5 MG TAB PO SCH (22:53)
[2017-04-05] MEDS: HEPARIN 5,000 UNIT/0.5 ML SYR SC SCH (22:53)
[2017-04-05] MEDS: LORazepam 0.5 MG TAB PO SCH (22:54)
[2017-04-05] MEDS: METOPROLOL SUCCINATE XR 50 MG TAB PO SCH (22:55)
[2017-04-05 23:10] LABS: AMORPHOUS PRESENT /hpf (NONE-1+); BACTERIA TRACE /hpf (NONE SEEN); MUCUS TRACE /lpf (NONE-1+)
[2017-04-06 05:05] LABS: % IMMATURE GRANULYOCYTES 0.2 % (0.0-1.1); ABSOLUTE IMMATURE GRANULOCYTES 0.01 10^3/uL (0.00-0.10); ADD DIFF? NO; ADD MORPH? NO; ADD SCAN? NO; ATYPICAL LYMPHOCYTE FLAG 60 (0-99); FRAGMENT RBC FLAG 0 (0-99); HEMATOCRIT 22.5 % (40.0-51.0); HEMOGLOBIN 7.8 g/dL (13.7-17.5); LEFT SHIFT FLG 0 (0-99); LIPEMIA HEMOLYSIS FLAG 90 (0-99); MEAN CELL HEMOGLOBIN 32.8 pg (27.9-34.1); MEAN CELL HEMOGLOBIN CONCENTR. 34.7 g/dL (32.4-36.7); MEAN CELL VOLUME 94.5 fL (81.5-99.8); PLATELET CLUMPS FLAG 0 (0-99); PLATELET COUNT 126 10^3/uL (150-400); RED BLOOD CELL COUNT 2.38 10^6/uL (4.40-6.38); RED CELL DISTRIBUTION WIDTH 15.9 % (11.5-15.2)
[2017-04-06 05:19] LABS: ALANINE AMINOTRANSFERASE 25 IU/L (21-72); ALBUMIN 2.8 g/dL (3.5-5.0); ALKALINE PHOSPHATASE 190 IU/L (38-126); ANION GAP 18 mEq/L (8-16); ASPARTATE AMINOTRANSFERASE 36 IU/L (17-59); BILIRUBIN,TOTAL 1.1 mg/dL (0.1-1.4); CALCIUM 8.8 mg/dL (8.5-10.4); CARBON DIOXIDE 24 mEq/l (22-31); CHLORIDE 100 mEq/L (97-110); CREATININE 4.3 mg/dL (0.7-1.3); GLOMERULAR FILTRATION RATE 14; GLUCOSE 106 mg/dL (70-100); POTASSIUM 3.5 mEq/L (3.5-5.2); SODIUM 142 mEq/L (134-144); TOTAL PROTEIN 5.7 g/dL (6.3-8.2)
[2017-04-06] MEDS ORDERED: HYDROCODONE/APAP 5/325 TAB ONE (05:54)
[2017-04-06] MEDS: HEPARIN 5,000 UNIT/0.5 ML SYR SC SCH ×2 (05:55→18:45)
[2017-04-06] MEDS: HYDROCODONE/APAP 5/325 TAB PO SCH ×3 (06:04→18:45)
[2017-04-06] MEDS: ALBUTEROL 3 ML DEYVIAL IH SCH ×2 (06:14→20:41)
[2017-04-06 09:00] LABS: HEPATITIS B SURFACE ANTIBODY NEGATIVE (NEGATIVE)
[2017-04-06] MEDS: TAMSULOSIN HCL 0.4 MG CAP PO SCH (09:01)
[2017-04-06] MEDS: DOCUSATE SODIUM 100 MG CAP PO SCH (09:01)
[2017-04-06] MEDS: ALLOPURINOL 300 MG TAB PO SCH (09:01)
[2017-04-06] MEDS: guaiFENesin 600 MG TAB.ER PO SCH ×2 (09:01→21:07)
[2017-04-06] MEDS: INSULIN LISPRO 100 UNIT/ML SC SCH ×3 (09:13→21:49)
--- NOTE | 2017-04-06 10:00 | HOSPPROG ---
Hospitalist Progress Note Assessment/Plan: # GPC clusters bacteremia - cont vanc - follow repeat cultures from yesterday - has R tunneled cath in place, no clear tunneled infection - treatment per renal regarding discontinuing line vs treat through # likely ESRD - still not entirely clear if acute vs chronic - HD today # anemia of CKD # myalgias/weakness - holding statin; overall suspect d/t infection # CAD s/p CABG - cont BB # DM2 - lispro # a-fib - currently regular Subjective: feels better today but fell yesterday; seen with Dr Coburn Objective: Vital Signs Temp Pulse Resp BP Pulse Ox 36.9 C 69 16 184/84 H 99 04/06/17 08:00 04/06/17 08:00 04/06/17 08:00 04/06/17 08:00 04/06/17 08:00 Laboratory Results 04/06/17 04:52 04/06/17 04:52 04/05/17 04/06/17 04/07/17 05:59 05:59 05:59 Intake Total 365 Output Total 10 50 Balance 355 -50 PT 16.1 SEC (12.0-15.0) H 04/05/17 15:10 INR 1.27 (0.83-1.16) H 04/05/17 15:10 chart reviewed discussed with Dr Coburn XRs reviewed - Physical Exam Constitutional: no apparent distress, appears nourished Cardiovascular: regular rate and rhythym, no murmur, rub, or gallop, other (R tunnelled line with mild erythema, no pustulence) Respiratory: no respiratory distress, no rales or rhonchi, clear to auscultation Gastrointestinal: normoactive bowel sounds, soft, non-tender abdomen, no palpable masses ICD10 Worksheet Patient Problems: Problems Problem Status Onset Fever Acute Dehydration Acute Supratherapeutic INR Acute Renal failure Acute Anemia Acute Peritoneal dialysis catheter infection Acute
--- NOTE | 2017-04-06 10:51 | PDMN ---
Medical Necessity Medical necessity: Pt meets IP criteria per MD; est los >2 mn for bacteremia possibly r/t infected dialysis catheter, suspected CHF/fluid overload, COPD/ emphysema & LE weakness resulting in mechanical fall; admit for further workup/ monitoring, IV abx, blood cxs & therapies; hx ESRD on dialysis, CABG, AFIB, diabetes & rhabdomyolysis; per H&P & order 04/05/17
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
--- NOTE | 2017-04-06 14:24 | ASMTCMCOM ---
CM Note CM Note Notes: Spoke with patient and his Crystal about discharge planning. Patient was last admitted in January, discharged to [facility] for 2 weeks. Since then he has been home with homecare (can't remember agency name) but says he was recently discharged from homecare, as well. Goes [facility] 3x week for dialysis. Patient fairly adament that he will not need any services upon d/c (other than resumption of his HD schedule). He has refused PT/OT due to pain but understands that they will need to assess him. Current Case Management Discharge Plan: TBD Date Signed: 04/06/2017 02:23 PM Electronically Signed By:Destiny Elena RN
[2017-04-06] MEDS ORDERED: HEPARIN 50,000 UNIT/10 ML VIAL ONE (19:18)
--- NOTE | 2017-04-06 20:33 | GCON ---
[f rep st] CONSULTATION DATE OF CONSULTATION: 04/06/2017 REFERRING PHYSICIAN: Trey Padilla MD REASON FOR CONSULTATION: Gram-positive bacteremia. HISTORY OF PRESENT ILLNESS: The patient is a 71-year-old male requiring hemodialysis since early Jan after sustaining ATN from rhabdomyolysis who I am asked to see in consultation for gram-positive bacteremia. The patient describes developing shaking chills on evening, but did not have a fever when this was checked. On Thursday, the patient went to dialysis and developed recurrent rigors . He notes his temperature was as high as 103.8. He was given vancomycin and cefazolin at the time of dialysis. He continued to have intermittent fever during the course of that day with ongoing chil ls. Subsequently, he describes developing bilateral anterior thigh pain. He subsequently sustained a fall while in the restroom and scraped the top of his head. Blood cultures had been obtained at th e time of his presentation to dialysis and subsequently both sets were showing growth of gram-positiv e cocci in clusters. Based on those findings, he was advised to go to the hospital for hospital admi ssion. He has not experienced ongoing fever or chills. He denies nausea, vomiting or diarrhea. He has not experienced back pain or bhavesh leg weakness other than his baseline weakness. No problems wi th his skin other than he had sustained a skin tear at the site of his tunneled dialysis catheter whe n the initial temporary catheter was placed. A scab is present in this location. No drainage of pur ulent material. He has had mild pain over the catheter, but no noticeable erythema. Upon presentati on yesterday, patient had a random vancomycin level obtained which returned at 7.2. He was given 750 mg of vancomycin IV x1. He is currently undergoing dialysis today. Given the above findings, I am now asked to assist in his ongoing management. PAST MEDICAL HISTORY: Chronic renal insufficiency with need for dialysis since January 27 which was associated with worsening renal insufficiency related to rhabdomyolysis, coronary artery disease, di abetes mellitus, hypertension, hyperlipidemia, atrial fibrillation, COPD, congestive heart failure. PAST SURGICAL HISTORY: Coronary artery bypass grafting, right hip replacement, tunnelled catheter pl acement. CURRENT MEDICATIONS: Vancomycin 750 mg IV x1 yesterday, albuterol nebs twice b.i.d., allopurinol 150 mg p.o. daily, Colace 100 mg p.o. daily, Mucinex 600 mg p.o. b.i.d., heparin 5000 units subcu q.8 ho urs, insulin sliding scale with meals, Ativan 0.5 mg p.o. q.h.s., Toprol-XL 50 mg p.o. q.h.s., Singul air 10 mg p.o. daily as needed, Flomax 0.4 mg p.o. daily, Ambien 10 mg p.o. q.h.s. ALLERGIES: Lisinopril. SOCIAL HISTORY: Patient quit smoking at time of hospital admission in December. No alcohol intake. Has tried medical marijuana. No pets at home. FAMILY HISTORY: Hypertension. REVIEW OF SYSTEMS: Outside that noted in the HPI, the remainder of 10-system review is unremarkable. PHYSICAL EXAMINATION: VITAL SIGNS: Temperature 36.9, heart rate 69, respiratory rate 16, blood pres sure 184/84, oxygen saturation 99% on 3 L. GENERAL: Patient is chronically ill-appearing, in no acu te distress. He appears nontoxic. HEENT: There is no scleral icterus, conjunctival injection, or c onjunctival petechiae. Oropharynx is clear without lesions. Patient is edentulous. Mucous membrane s are moist. The scalp shows an abraded area with a small area of necrotic skin flap. There is no s urrounding erythema. NECK: Supple without palpable lymphadenopathy or thyromegaly. CHEST: Clear t o auscultation bilaterally without adventitious sounds. Respiratory effort is normal. A tunnelled c atheter is present at the right upper chest with mild overlying erythema. There is a scab which is t tre to palpation. There is no palpable fluctuance or drainage present. CARDIOVASCULAR: Distant h eart tones without audible murmurs. ABDOMEN: Soft, nontender, nondistended. There is no palpable o rganomegaly. Bowel sounds are present. MUSCULOSKELETAL: The anterior thighs are tender to palpatio n bilaterally without overlying erythema, warmth, fluctuance or crepitus. 1+ edema bilaterally is pr esent. SKIN: See chest and HEENT exams. There are no stigmata of endocarditis. There are multiple ecchymoses present. There are few petechiae over both hands. NEUROLOGIC: Patient is alert and int eracts appropriately with examiner. Cranial nerves 2-12 are grossly intact. Sensation appears gross ly intact. Muscle tone and bulk are normal. LYMPHATICS: No cervical or supraclavicular nodes palpa ble. LABORATORY DATA: White blood cell count 4.3, hematocrit 22.5, platelets 126, neutrophils 65%, lympho cytes 20%. Serum creatinine is 4.3, AST 36, ALT 25, bilirubin 1.1, alkaline phosphatase 190, CPK 174 , albumin 2.8. INR is 1.3. Random vancomycin level is 7.2. Blood cultures from 04/03/2017 at [facility] show growth in 2 of 2 sets of Staphylococcus a ureus with susceptibility pending. Blood cultures at [facility] from 04/05/2017 are pe nding. Chest x-ray shows changes of COPD and some volume overload. X-ray of the right upper extremi ty shows extensive osteolysis which is unchanged from January. IMPRESSION: Staphylococcus aureus bacteremia, likely catheter associated from tunneled dialysis cath eter: Susceptibility is pending on Staphylococcus aureus isolate. In the setting of Staph aureus ba cteremia with indwelling catheter, typical approach would be to remove catheter as this can serve as a nidus for recurrent bacteremia. Nephrology notes have been reviewed noting concerns about addition al catheter access given thin skin and previous skin tear associated with catheter placement. I will review with Nephrology further regarding potential for catheter change. We will repeat blood cultur es while on dialysis today as this will provide additional data. RECOMMENDATIONS: 1. Repeat vancomycin level at close of dialysis today. 2. Re-dose vancomycin according to drug levels. 3. Await susceptibility profile on Staphylococcus aureus isolate. If Methicillin-sensitive Staphylo coccus aureus, plan to treat with cefazolin post dialysis. If Methicillin resistant Staphylococcus a ureus, will need to continue vancomycin post dialysis. 4. Will review considerations for tunnelled catheter removal with Nephrology. 5. Obtain transthoracic echocardiogram in the setting of Staphylococcus aureus bacteremia. Thank you for this consultation. We will continue to follow the patient with you. /[id number]/MODL
[2017-04-06] MEDS ORDERED: ZOLPIDEM TARTRATE 5 MG TAB PO SCH (21:00)
[2017-04-06] MEDS ORDERED: HYDROCODONE/APAP 5/325 TAB PO SCH (21:00)
[2017-04-06] MEDS ORDERED: LORazepam 0.5 MG TAB PO SCH (21:00)
[2017-04-06] MEDS: ZOLPIDEM TARTRATE 5 MG TAB PO SCH (21:06)
[2017-04-06] MEDS: METOPROLOL SUCCINATE XR 50 MG TAB PO SCH (21:07)
[2017-04-06] MEDS: LORazepam 0.5 MG TAB PO SCH (21:07)
[2017-04-07] MEDS: HYDROCODONE/APAP 5/325 TAB PO SCH ×5 (00:03→18:00)
[2017-04-07] MEDS: HEPARIN 5,000 UNIT/0.5 ML SYR SC SCH ×2 (00:03→06:29)
[2017-04-07 06:17] LABS: % IMMATURE GRANULYOCYTES 0.5 % (0.0-1.1); ABSOLUTE IMMATURE GRANULOCYTES 0.02 10^3/uL (0.00-0.10); ADD DIFF? NO; ADD MORPH? NO; ADD SCAN? NO; ATYPICAL LYMPHOCYTE FLAG 40 (0-99); FRAGMENT RBC FLAG 0 (0-99); HEMATOCRIT 22.6 % (40.0-51.0); HEMOGLOBIN 7.9 g/dL (13.7-17.5); LEFT SHIFT FLG 0 (0-99); LIPEMIA HEMOLYSIS FLAG 90 (0-99); MEAN CELL HEMOGLOBIN 32.9 pg (27.9-34.1); MEAN CELL VOLUME 94.2 fL (81.5-99.8); MEAN PLATELET VOLUME 10.5 fL (8.7-11.7); PLATELET CLUMPS FLAG 0 (0-99); PLATELET COUNT 127 10^3/uL (150-400); RED CELL DISTRIBUTION WIDTH 15.6 % (11.5-15.2)
[2017-04-07 06:27] LABS: ALBUMIN 2.7 g/dL (3.5-5.0); ANION GAP 13 mEq/L (8-16); CALCIUM 8.5 mg/dL (8.5-10.4); CARBON DIOXIDE 26 mEq/l (22-31); CHLORIDE 100 mEq/L (97-110); CREATININE 2.8 mg/dL (0.7-1.3); GLOMERULAR FILTRATION RATE 23; GLUCOSE 108 mg/dL (70-100); POTASSIUM 3.4 mEq/L (3.5-5.2); SODIUM 139 mEq/L (134-144)
[2017-04-07] MEDS ORDERED: VANCOMYCIN HCL/NORMAL SALINE 250 ML IV ONE (08:24)
[2017-04-07] MEDS: ALBUTEROL 3 ML DEYVIAL IH SCH ×2 (08:34→22:02)
[2017-04-07] MEDS: INSULIN LISPRO 100 UNIT/ML SC SCH ×3 (08:49→17:56)
[2017-04-07] MEDS: guaiFENesin 600 MG TAB.ER PO SCH ×2 (10:22→21:03)
[2017-04-07] MEDS: DOCUSATE SODIUM 100 MG CAP PO SCH (10:22)
[2017-04-07] MEDS: ALLOPURINOL 300 MG TAB PO SCH (10:22)
[2017-04-07] MEDS: TAMSULOSIN HCL 0.4 MG CAP PO SCH (10:23)
--- NOTE | 2017-04-07 10:29 | SOAPPROG ---
RICHARD Progress Note Assessment/Plan: Assessment:Plan: CHANTELL on CKD-for Hd next on Thu or depending on access -MWF outpatient Hd at [facility] under the care of Dr. Syed ID-Staph aureus in blood based on [facility] labs -sensitivities pending -on appropriate therapy with vanco -continue until sensitivities back -cultures from [facility] remain negative -will need catheter out and new catheter at new location -discussed with Dr. Edouard -he will plan to remove catheter -antibiotics to continue for two week from time old catheter removed -echocardiogram ordered, if vegetations present will need 6 weeks of therapy -timing of replacement per Dr. Edouard, if old catheter comes out today he could have it replaced either tomorrow or -Hd after new catheter in position -discontinue heparin in anticipation of procedures due to bleeding risk -vanco dosing per pharmacy Access-as above -will need AVF as well given lack of recovery 04/07/17 10:30 Subjective: stable overnite Objective: Vital Signs Temp Pulse Resp BP Pulse Ox 36.9 C 68 14 167/67 H 98 04/07/17 08:00 04/07/17 08:36 04/07/17 08:36 04/07/17 08:00 04/07/17 08:36 Laboratory Results 04/07/17 05:15 04/07/17 05:15 04/06/17 04/07/17 04/08/17 05:59 05:59 05:59 Intake Total 365 500 Output Total 10 100 Balance 355 -100 500 PT 16.1 SEC (12.0-15.0) H 04/05/17 15:10 INR 1.27 (0.83-1.16) H 04/05/17 15:10 Physical Exam - Physical Exam General Appearance: alert, no apparent distress, thin EENT: normal ENT inspection Neck: normal inspection Respiratory: lungs clear, normal breath sounds, decreased breath sounds (at bases), No respiratory distress Cardiac/Chest: regular rate, rhythm, No diastolic murmur, No systolic murmur Abdomen: normal bowel sounds, non-tender, soft Skin: other (unchanged) Extremities: swelling ICD10 Worksheet Patient Problems: Problems Problem Status Onset Peritoneal dialysis catheter infection Acute Anemia Acute Dehydration Acute Fever Acute Renal failure Acute Supratherapeutic INR Acute
--- NOTE | 2017-04-07 11:01 | ASMTCMCOM ---
CM Note CM Note Notes: Per nephrology note, patient will have HD catheter removed today as it is suspected source of his bacteremia. Dr Edouard to remove today and replace tomorrow or next day. Patient also being followed by ID - currently on IV Vanco for the staph aureus infection. PT/OT recommending home care although patient declining. Given his complex medical picture right now, we will continue to assess before making discharge recommendations. CM to follow. Date Signed: 04/07/2017 11:00 AM Electronically Signed By:Destiny Elena RN
--- NOTE | 2017-04-07 12:20 | HOSPPROG ---
Hospitalist Progress Note Assessment/Plan: # brianna a. bacteremia, sens pending from [facility] - cont vanc - HD line removed, plan to replace - repeat BCx neg # likely ESRD - still not entirely clear if acute vs chronic - HD per renal # anemia of CKD # myalgias/weakness - better today after stretching quads # CAD s/p CABG - cont BB # DM2 - will stop checking glucs, insulin per patient # a-fib - currently regular Subjective: annoyed with being awakened overnight, but in good spirits overall; legs feel better after stretching Objective: Vital Signs Temp Pulse Resp BP Pulse Ox 36.9 C 68 14 167/67 H 98 04/07/17 08:00 04/07/17 08:36 04/07/17 08:36 04/07/17 08:00 04/07/17 08:36 Laboratory Results 04/07/17 05:15 04/07/17 05:15 04/06/17 04/07/17 04/08/17 05:59 05:59 05:59 Intake Total 365 500 Output Total 10 100 Balance 355 -100 500 PT 16.1 SEC (12.0-15.0) H 04/05/17 15:10 INR 1.27 (0.83-1.16) H 04/05/17 15:10 - Physical Exam Constitutional: no apparent distress, appears nourished, cachectic Eyes: anicteric sclera Ears, Nose, Mouth, Throat: hearing normal Cardiovascular: other (R tunneled line removed) Gastrointestinal: No distension Genitourinary: No bullock in urethra Skin: warm Neurologic: AAOx3 Psychiatric: interacting appropriately ICD10 Worksheet Patient Problems: Problems Problem Status Onset Fever Acute Dehydration Acute Supratherapeutic INR Acute Renal failure Acute Anemia Acute Peritoneal dialysis catheter infection Acute
--- NOTE | 2017-04-07 12:42 | ECHO ---
[email or web address] [address] [address] Main: [phone] Fax: Transthoracic Echocardiogram Name: JOSE MANUEL FIELDS MR#: [id number] Study Date: 04/07/2017 Study Time: 11:45 AM Date of : 1945 Age: 71 year(s) Height: 165.1 cm (65 in.) Weight: 60.33 kg (133 lb.) BSA: 1.66 m2 Gender: Male Examination: Echo Indication: staph aureus bacteremia/assess valve function, dialysis Image Quality: Contrast: Requested by: Aryan Anderson BP: 167 mmHg/67 mmHg Heart Rate: Rhythm: Indication: staph aureus bacteremia/assess valve function, dialysis Procedure Staff Signal Integrity Engineer: Sachi Celeste Reading Physician: Gregory Lainez Requesting Provider: Conclusions: Normal size left ventricle. No LV hypertrophy. Normal global systolic LV function. The ejection fraction is estimated to be 60-65 %. No regional wall motion abnormality. Mild mitral valve regurgitation is present. Mild aortic cusp calcification is noted. Trivial aortic valve regurgitation. Mild to moderate tricuspid valve regurgitation. Estimated PA sytolic pressure is 43 mmHg. Compared to 01/27/2017, no significant change. Measurements: Chambers Valvular Assessment AV/MV Valvular Assessment TV/PV Normal Normal Normal Name Value Range Name Value Range Name Value Range Ao Maggy (MM): 3.6 cm (2.2 cm-3.7 AV meanP mmHg ( - ) TR Vmax: 3.08 mm/s ( - ) cm) MV E Vmax: 1.26 m/s ( - ) TR PGmax: 38 mmHg ( - ) IVSd (2D): 1.1 cm (0.6 cm-1.1 MV A Vmax: 0.48 m/s ( - ) syst. PAP: 43 mmHg ( - ) cm) MV E/A: 2.62 ( - ) LVDd (2D): 5.4 cm (4.2 cm-5.9 cm) LVDs (2D): 3.8 cm (2.1 cm-4 cm) LVPWd (2D): 1.2 cm (0.6 cm-1 cm) LVEF (MOD4): 58 % (>=55 %) EF Range: 60-65 % Patient: JOSE MANUEL FIELDS Study Date: 04/07/2017 Page 1 of 2 11:45 AM Continued Measurements: Chambers Valvular Assessment AV/MV Valvular Assessment TV/PV Name Value Name Value Name Value LADs: 5.1 cm MV E/E' Septal: 24.00 CVP (est.): 5 mmHg LADs Lon.4 cm MV E/E' Lateral: 13.60 LA Area: 17.6 cm2 Findings: Left Ventricle: Normal size left ventricle. No LV hypertrophy. Normal global systolic LV function. The ejection fraction is estimated to be 60-65 %. No regional wall motion abnormality. Right Ventricle: Normal size right ventricle. Left Atrium: The left atirum is borderline dilated. Right Atrium: The right atrium is mildly dilated. Mitral Valve: The mitral valve is normal in appearance and function. Mild mitral valve regurgitation is present. Aortic Valve: Mild aortic cusp calcification is noted. Trivial aortic valve regurgitation. Tricuspid Valve: The tricuspid valve is normal in appearance and function. Mild to moderate tricuspid valve regurgitation. The pulmonary artery pressure is mildly increased. Pulmonic Valve: The pulmonic valve is normal in appearance and function. Trivial pulmonic valve regurgitation. Aorta: The aorta is normal. Pericardium: No pericardial effusion. (No Signature Object) Patient: JOSE MANUEL FIELDS Study Date: 04/07/2017 Page 2 of 2 11:45 AM [id number]
[2017-04-07] MEDS ORDERED: FLUTICASONE NASAL 120 SPRAYS/16 GM MDI EACHNARE PRN (15:09)
[2017-04-07 15:26] LABS: HEPATITIS Bs Ab QUANT <5.0 mIU/mL
[2017-04-07] MEDS: ALBUTEROL 3 ML DEYVIAL IH PRN (17:11)
--- NOTE | 2017-04-07 17:36 | PCMIDPN ---
Assessment/Plan: Assessment/Plan: * MSSA bacteremia associated with tunnel dialysis catheter status post remove earlier today: Clinically improved with antibiotic therapy. Blood cultures from [facility] show growth of MSSA. Blood cultures obtained at time of presentation at [facility] remain negative. Await echocardiogram report. Think endocarditis of low likelihood clinically. Plan 4 weeks of cefazolin 2 g post dialysis. He received vancomycin earlier today so next dose of antibiotic therapy will be cefazolin 2 g after next dialysis. New dialysis catheter placement later this week as long as repeat blood cultures remain negative. Time spent, 25 minutes, of which half was spent in education/counseling/ coordination of care related to MSSA bacteremia. 04/07/17 17:33 04/07/17 17:35 Subjective: Feels significantly improved. No recurrent fever or rigors. Tunnel dialysis catheter removed earlier today. Objective: Vital Signs Temp Pulse Resp BP Pulse Ox 37.0 C 67 16 157/67 H 96 04/07/17 16:00 04/07/17 17:13 04/07/17 17:13 04/07/17 16:00 04/07/17 17:13 Laboratory Results 04/07/17 05:15 04/07/17 05:15 04/06/17 04/07/17 04/08/17 05:59 05:59 05:59 Intake Total 365 500 Output Total 10 100 Balance 355 -100 500 Status post vancomycin 04/03/2017, 04/05/2017, and 04/07/17 Status post cefazolin 2 g 04/03/2017 Blood cultures 04/03/2017 with growth of MSSA Blood cultures 04/05/2017 no growth to date Blood cultures 04/06/2017 pending Laboratory Tests 04/06/17 Unknown Random Vancomycin 9.1 - Physical Exam General Appearance: alert, no apparent distress EENT: No thrush, No conjunctival petechiae Respiratory: lungs clear, No respiratory distress Cardiac/Chest: regular rate, rhythm, systolic murmur (2/6 left upper sternal border) Abdomen: non-tender, No distended Skin: No embolic lesions ICD10 Worksheet Patient Problems: Problems Problem Status Onset Peritoneal dialysis catheter infection Acute Anemia Acute Dehydration Acute Fever Acute Renal failure Acute Supratherapeutic INR Acute
--- NOTE | 2017-04-07 19:02 | GCON ---
[f rep st] CONSULTATION DATE OF CONSULTATION: 04/07/2017 REASON FOR EVALUATION: Catheter sepsis. REQUESTING PHYSICIAN: Leon Coburn MD HISTORY OF PRESENT ILLNESS: 71-year-old male with a history of chronic renal insufficiency, currently receiving dialysis through a right internal jugular tunneled dialysis catheter placement. He was admitted with progressive falls and fevers. Outpatient cultures disclosed Staph bacteremia. He is admitted for IV antibiotic administration and further medical management. PAST MEDICAL HISTORY: End-stage renal disease, coronary artery disease, atrial fibrillation, xon-nlkqorr-abomjanda diabetes mellitus, gout. PAST SURGICAL HISTORY: CABG, tunneled dialysis catheter placement, right hip surgery. MEDICATIONS: Fluvastatin, tamsulosin, Flonase, docusate, Singulair, albuterol, Riesel p.r.n., allopurinol, metoprolol, Mucinex, vitamin D, Ativan p.r.n., MiraLAX p.r.n. ALLERGIES: LISINOPRIL. 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 He is . FAMILY HISTORY: Noncontributory. PHYSICAL EXAMINATION: VITAL SIGNS: Temperature 36.9, blood pressure 170/70, pulse 68, respirations 12. GENERAL: Patient is alert, appropriate, comfortable , sitting up in chair. HEENT: Anicteric. No cervical lymphadenopathy. SKIN: Multiple scalp as well as extremity abrasions. NECK: Partially exposed tunneled dialysis catheter with overlying scab. HEART: Regular. LUNGS: Clear. CHEST WALL: Erythema around the catheter exit site and cuff just at the level of the skin. ABDOMEN: Nontender. EXTREMITIES: Right upper extremity with limited range of motion. Normal left upper extremity as well as bilateral lower extremities. LABORATORY DATA: White count 4, hemoglobin 8, platelets of 130. INR 1.3. Sodium 139, potassium 3.4, chloride 126, BUN 24, creatinine 2.8, glucose of 108. IMPRESSION: Catheter sepsis. PLAN: Bedside catheter removal was subsequently performed. Will plan for new placement morning prior to his next dialysis session. Long-term access needs can be discussed in the outpatient setting once this acute episode has resolved. Copy requested to: Kiera Ramirez MD /[id number]/MODL MTDD
--- NOTE | 2017-04-07 19:28 | GOP ---
[f rep st] OPERATIVE REPORT DATE OF OPERATION: 04/07/2017 SURGEON: Fabian Edouard MD ANESTHESIA: Local. PREOPERATIVE DIAGNOSIS: Infected dialysis catheter. POSTOPERATIVE DIAGNOSIS: Infected dialysis catheter. PROCEDURE PERFORMED: Removal of tunneled dialysis catheter. DESCRIPTION OF PROCEDURE: The right chest was infiltrated with 1% lidocaine with epinephrine. Using sharp dissection, the cuff was dissected out from beneath the chest wall insertion site. The catheter was removed intact. Satisfactory hemostasis was assured via manual pressure dressings were applied. No immediate complications occurred. /[id number]/MODL MTDD
[2017-04-07] MEDS: ZOLPIDEM TARTRATE 5 MG TAB PO SCH (21:03)
[2017-04-07] MEDS: LORazepam 0.5 MG TAB PO SCH (21:03)
[2017-04-07] MEDS: METOPROLOL SUCCINATE XR 50 MG TAB PO SCH (21:03)
[2017-04-08] MEDS: HYDROCODONE/APAP 5/325 TAB PO SCH ×6 (01:41→20:17)
[2017-04-08 06:18] LABS: ANION GAP 11 mEq/L (8-16); CALCIUM 8.6 mg/dL (8.5-10.4); CARBON DIOXIDE 26 mEq/l (22-31); CHLORIDE 101 mEq/L (97-110); CREATININE 3.7 mg/dL (0.7-1.3); GLOMERULAR FILTRATION RATE 16; GLUCOSE 104 mg/dL (70-100); POTASSIUM 3.5 mEq/L (3.5-5.2); SODIUM 138 mEq/L (134-144)
[2017-04-08] MEDS ORDERED: HEPARIN 20,000 UNIT/ML VIAL SC ONE (09:15)
--- NOTE | 2017-04-08 09:16 | HOSPPROG ---
Hospitalist Progress Note Assessment/Plan: # MSSA bacteremia, line infection - received vanc yesterday, start ancef after next HD - HD line removed 04/07, plan to replace tomorrow by Dr Edouard - repeat BCx neg to date # HD dependent - still considered acute (only since Jan), but likely this represents ESRD - HD per renal - AV fistula when appropriate per renal # anemia of CKD # myalgias/weakness - better today after stretching quads - will re-trial statin starting today # CAD s/p CABG - cont BB # DM2 - will stop checking glucs, insulin per patient; am gluc ok today # a-fib - currently regular # ppx - SQH held by renal for procedures; will give one dose today Subjective: feels congested which is typical for him in the am; otherwise no complaints Objective: Vital Signs Temp Pulse Resp BP Pulse Ox 36.9 C 69 16 165/75 H 99 04/08/17 08:00 04/08/17 08:00 04/08/17 08:00 04/08/17 08:00 04/08/17 08:00 Laboratory Results 04/07/17 05:15 04/08/17 05:50 04/07/17 04/08/17 04/09/17 05:59 05:59 05:59 Intake Total 500 Output Total 100 100 Balance -100 400 PT 16.1 SEC (12.0-15.0) H 04/05/17 15:10 INR 1.27 (0.83-1.16) H 04/05/17 15:10 - Physical Exam Constitutional: cachectic Cardiovascular: regular rate and rhythym, no murmur, rub, or gallop, other (R chest with no significant erythema at sight of previous tunneled catheter) Respiratory: no respiratory distress, no rales or rhonchi, clear to auscultation Gastrointestinal: normoactive bowel sounds, soft, non-tender abdomen, no palpable masses ICD10 Worksheet Patient Problems: Problems Problem Status Onset Fever Acute Dehydration Acute Supratherapeutic INR Acute Renal failure Acute Anemia Acute Peritoneal dialysis catheter infection Acute
[2017-04-08] MEDS: ALBUTEROL 3 ML DEYVIAL IH SCH ×2 (09:27→20:05)
[2017-04-08] MEDS ORDERED: HEPARIN 5,000 UNIT/0.5 ML SYR SC ONE (09:30)
[2017-04-08] MEDS: ALLOPURINOL 300 MG TAB PO SCH (10:46)
[2017-04-08] MEDS: TAMSULOSIN HCL 0.4 MG CAP PO SCH (10:47)
[2017-04-08] MEDS: DOCUSATE SODIUM 100 MG CAP PO SCH (10:48)
[2017-04-08] MEDS: INSULIN LISPRO 100 UNIT/ML SC SCH ×3 (10:48→17:50)
[2017-04-08] MEDS: guaiFENesin 600 MG TAB.ER PO SCH ×2 (10:48→19:58)
--- NOTE | 2017-04-08 11:35 | ASMTCMCOM ---
CM Note CM Note Notes: Spoke w/pt and re; home care. Both emphatically decline, pt will dc home w/support of when medically stable. CM available for any changes. Date Signed: 04/08/2017 11:35 AM Electronically Signed By:Vicky Rodriguez RN
--- NOTE | 2017-04-08 12:39 | SOAPPROG ---
SOAP Progress Note Assessment/Plan: Assessment: 1. CHANTELL on CKD(likely ESRD). BCxs remain negative from 04/05 today. Will enter order to replace tunneled cath tomorrow and dialyze after if ok with ID. 2. MSSA bacteremia. TTE reviewed, negative for vegetations. Ancef 2 g with HD x 4 wks, per Dr. Anderson. Recommend patient then have AVF placed (or PD catheter). 3. HTN. BPs 160-180s. Appears euvolemic. Would likely benefit from additional bp med such as amlodipine 2.5mg. Can consider adding here vs defer to outpatient automatic lump making machine tender. 4. Anemia. Hgb 7.9 yesterday. Give procrit. h/h in am. Plan: 04/08/17 12:36 04/08/17 12:38 04/08/17 12:39 04/08/17 12:43 04/08/17 12:47 Subjective: Feeling much better. No complaints today. Objective: Vital Signs Temp Pulse Resp BP Pulse Ox 36.9 C 69 14 165/75 H 97 04/08/17 08:00 04/08/17 09:27 04/08/17 09:27 04/08/17 08:00 04/08/17 09:27 Laboratory Results 04/07/17 05:15 04/08/17 05:50 04/07/17 04/08/17 04/09/17 05:59 05:59 05:59 Intake Total 500 Output Total 100 100 Balance -100 400 PT 16.1 SEC (12.0-15.0) H 04/05/17 15:10 INR 1.27 (0.83-1.16) H 04/05/17 15:10 Cachectic male, in good spirits RRR, I/ sys murmur, no g/r CTAB Abdom soft, nt No edema ICD10 Worksheet Patient Problems: Problems Problem Status Onset Fever Acute Dehydration Acute Supratherapeutic INR Acute Renal failure Acute Anemia Acute Peritoneal dialysis catheter infection Acute
[2017-04-08] MEDS ORDERED: EPOETIN ALFA 10,000 UNIT/ML VIAL SC SCH (13:00)
--- NOTE | 2017-04-08 17:57 | PCMIDPN ---
Assessment/Plan: Assessment/Plan: * MSSA bacteremia associated with tunnel dialysis catheter status post removal 04/07/2017: Continued clinical improvement. All blood cultures obtained at [facility] including 1 set obtain while on dialysis are no growth. Plans for new hemodialysis catheter placement tomorrow which can proceed from Infectious Disease perspective given negative blood cultures on follow-up. Echocardiogram does not show overt evidence of endocarditis. Plan 4 weeks of cefazolin 2 g after each dialysis post negative blood cultures (stop date 05/05/2017). Should have weekly CBC and CMP while on cefazolin therapy. Time spent, 25 minutes, of which half was spent in education/counseling/ coordination of care related to MSSA bacteremia, continued plan of care, potential side effects a cefazolin, and discussion of catheter replacement. 04/08/17 17:54 04/08/17 17:56 Subjective: Feels markedly improved. Thigh pain has decreased. Objective: Vital Signs Temp Pulse Resp BP Pulse Ox 36.9 C 69 14 165/75 H 97 04/08/17 08:00 04/08/17 09:27 04/08/17 09:27 04/08/17 08:00 04/08/17 09:27 Laboratory Results 04/07/17 05:15 04/08/17 05:50 04/07/17 04/08/17 04/09/17 05:59 05:59 05:59 Intake Total 500 Output Total 100 100 Balance -100 400 Antibiotic # 5 (started on antibiotics at dialysis on 04/03/2017) Blood cultures x4 at [facility] no growth - Physical Exam General Appearance: alert, no apparent distress EENT: No scleral icterus, No thrush, No conjunctival petechiae Respiratory: lungs clear, No respiratory distress Cardiac/Chest: regular rate, rhythm, systolic murmur (2/6 left upper sternal border) Extremities: other (Thighs nontender) Abdomen: non-tender, No distended Skin: No embolic lesions ICD10 Worksheet Patient Problems: Problems Problem Status Onset Peritoneal dialysis catheter infection Acute Anemia Acute Dehydration Acute Fever Acute Renal failure Acute Supratherapeutic INR Acute
--- NOTE | 2017-04-08 18:48 | SOAPPROG ---
SOAP Progress Note Assessment/Plan: Assessment:no new issues. planning for new HD cath in am. old cath sites ecchymotic with mild erythema. will likely use left neck approach. risks and benefits reviewed with patient and . plan also discussed with dr. meneses earlier today. Plan: 04/08/17 18:47 Objective: Vital Signs Temp Pulse Resp BP Pulse Ox 36.9 C 69 14 165/75 H 97 04/08/17 08:00 04/08/17 09:27 04/08/17 09:27 04/08/17 08:00 04/08/17 09:27 Laboratory Results 04/07/17 05:15 04/08/17 05:50 04/07/17 04/08/17 04/09/17 05:59 05:59 05:59 Intake Total 500 Output Total 100 100 Balance -100 400 PT 16.1 SEC (12.0-15.0) H 04/05/17 15:10 INR 1.27 (0.83-1.16) H 04/05/17 15:10 ICD10 Worksheet Patient Problems: Problems Problem Status Onset Peritoneal dialysis catheter infection Acute Anemia Acute Dehydration Acute Fever Acute Renal failure Acute Supratherapeutic INR Acute
[2017-04-08] MEDS: LORazepam 0.5 MG TAB PO SCH (19:57)
[2017-04-08] MEDS: METOPROLOL SUCCINATE XR 50 MG TAB PO SCH (19:58)
[2017-04-08] MEDS: ZOLPIDEM TARTRATE 5 MG TAB PO SCH (19:58)
[2017-04-08] MEDS ORDERED: FLUVASTATIN SODIUM 20 MG PO SCH (21:00)
[2017-04-08] MEDS ORDERED: PRAVASTATIN SODIUM 10 MG TAB PO SCH (21:00)
[2017-04-09] MEDS: HYDROCODONE/APAP 5/325 TAB PO SCH ×3 (02:32→13:53)
[2017-04-09 05:37] LABS: % IMMATURE GRANULYOCYTES 0.4 % (0.0-1.1); ABSOLUTE IMMATURE GRANULOCYTES 0.02 10^3/uL (0.00-0.10); ADD DIFF? NO; ADD MORPH? NO; ADD SCAN? NO; ATYPICAL LYMPHOCYTE FLAG 10 (0-99); FRAGMENT RBC FLAG 0 (0-99); HEMATOCRIT 23.7 % (40.0-51.0); LEFT SHIFT FLG 0 (0-99); LIPEMIA HEMOLYSIS FLAG 90 (0-99); MEAN CELL HEMOGLOBIN CONCENTR. 33.8 g/dL (32.4-36.7); MEAN CELL VOLUME 94.8 fL (81.5-99.8); MEAN PLATELET VOLUME 10.6 fL (8.7-11.7); PLATELET CLUMPS FLAG 0 (0-99); PLATELET COUNT 139 10^3/uL (150-400); RED CELL DISTRIBUTION WIDTH 15.3 % (11.5-15.2)
[2017-04-09 05:52] LABS: ALBUMIN 2.6 g/dL (3.5-5.0); ANION GAP 14 mEq/L (8-16); CALCIUM 8.7 mg/dL (8.5-10.4); CARBON DIOXIDE 25 mEq/l (22-31); CHLORIDE 98 mEq/L (97-110); CREATININE 4.3 mg/dL (0.7-1.3); GLOMERULAR FILTRATION RATE 14; GLUCOSE 85 mg/dL (70-100); POTASSIUM 3.7 mEq/L (3.5-5.2); SODIUM 137 mEq/L (134-144)
[2017-04-09] MEDS: ALBUTEROL 3 ML DEYVIAL IH PRN (06:44)
[2017-04-09] MEDS ORDERED: NS 1,000 ML IV ONE (06:47)
--- NOTE | 2017-04-09 07:05 | PDANEPAE ---
ANE History of Present Illness placement of dialysis catheter. ANE Past Medical History - Cardiovascular History Hx Hypertension: Yes Hx Coronary Artery / Peripheral Vascular Disease: Yes Cardiovascular History Comment: s/p CABG - Pulmonary History Hx COPD: Yes Hx Asthma/Reactive Airway Disease: Yes Hx Oxygen in Use at Home: Yes O2 in Use at Home (L/minute): 3 Hx Sleep Apnea: No Sleep Apnea Screening Result - Last Documented: Positive - Endocrine History Hx Diabetes: Yes Endocrine History Comment: on insulin - Renal History Hx Renal Disorders: Yes Renal History Comment: chronic renal disease, with acute renal failure requiring dialysis - Other Health History Other Health History: BPH. Anemia of chronic disease - Chronic Pain History Chronic Pain: Yes - Surgical History Prior Surgeries: s/p CABG, ANE Review of Systems Review of Systems: - Exercise capacity METS (RN): 3 METS ANE Patient History - Allergies Allergies/Adverse Reactions: lisinopril Allergy (Verified 04/05/17 14:27) - Home Medications Home Medications: Fluticasone Nasal [Flonase Nasal [place]] 1 sprays EACHNARE DAILY PRN 07/12/13 [ Last Taken 07/05/13] Fluvastatin Sodium 20 mg PO HS 07/12/13 [Last Taken 04/03/17 21:00] Tamsulosin HCl [Flomax 0.4 MG (*)] 0.4 mg PO DAILY 07/12/13 [Last Taken 10:00] Albuterol [Proventil Neb] 3 ml IH DAILY PRN 01/27/17 [Last Taken Unknown] Docusate Sodium [Colace 100 MG (*)] 100 mg PO DAILY 01/27/17 [Last Taken 10:00] Hydrocodone/Acetaminophen [[place] 5/325 (*)] 1 tab PO HS 01/27/17 [Last Taken 01/11 21:00] Montelukast Sodium [Singulair 10 mg (*)] 10 mg PO DAILY PRN 01/27/17 [Last Taken Unknown] Albuterol [Proventil Neb] 3 ml IH BID 04/05/17 [Last Taken 04/05/17 10:00] Allopurinol [Allopurinol 300 MG (RX)] 150 mg PO DAILY 04/05/17 [Last Taken 04/05 10:00] Insulin Aspart [novoLOG] 2 - 5 unit SQ TIDMEAL 04/05/17 [Last Taken 04/05/17 10: 00] LORazepam [Ativan (*)] 0.5 mg PO HS 04/05/17 [Last Taken 04/04/17 21:00] Metoprolol Succinate Xr [Toprol Xl 50 mg (*)] 50 mg PO HS 04/05/17 [Last Taken 04/04/17 21:00] Polyethylene Glycol 3350 [Miralax 17 gm (*)] 8.5 - 17 gm PO DAILY PRN 04/05/17 [ Last Taken 04/04/17 11:00] Vitamin B Complex [B Complex] 1 tab PO DAILY 04/05/17 [Last Taken 04/05/17 10:00 ] Zolpidem Tartrate [Ambien 10 mg] 10 mg PO HS 04/05/17 [Last Taken 04/04/17 21:00 ] guaiFENesin [Mucinex 600 MG (*)] 600 mg PO BID 04/05/17 [Last Taken 04/05/17 10: 00] - NPO status NPO Since - Liquids (Date): 04/09/17 NPO Since - Liquids (Time): 00:00 NPO Since - Solids (Date): 04/09/17 NPO Since - Solids (Time): 00:00 - Smoking Hx Smoking Status: Former smoker ANE Labs/Vital Signs - Labs Result Diagrams: 04/09/17 05:03 04/09/17 05:03 - Vital Signs Blood Pressure: 160/68 Heart Rate: 68 Respiratory Rate: 16 O2 Sat (%): 91 Height: 165.1 cm Weight: 60.5 kg ANE Physical Exam - Airway Neck exam: decreased ROM Mallampati Score: Class 2 - Pulmonary Pulmonary: reduced air movement - Cardiovascular Cardiovascular: regular rate and rhythym ANE Anesthesia Plan Anesthesia Plan: GA with mask (IVGA)
[2017-04-09] MEDS ORDERED: MIDAZOLAM 2 MG/2 ML VIAL IVP ONE (07:06)
[2017-04-09] MEDS ORDERED: SODIUM BICARBONATE 10 MEQ/10 ML SYR IVP ONE (07:07)
[2017-04-09] MEDS ORDERED: BUPIVACAINE 0.5% 30 ML SDV ONE (07:07)
[2017-04-09] MEDS ORDERED: LIDOCAINE 1% 300 MG/30 ML SDV ONE (07:07)
[2017-04-09] MEDS ORDERED: POVIDONE-IODINE 30 GM OINTTUBE TP ONE (07:08)
[2017-04-09] MEDS ORDERED: LIDO/EPI 1% **for epidural** 30 ML SDV ONE (07:08)
[2017-04-09] MEDS ORDERED: MIDAZOLAM 2 MG/2 ML VIAL ONE (07:14)
[2017-04-09] MEDS ORDERED: BACITRACIN ZINC 14.2 GM OINTTUBE TP ONE (07:21)
--- NOTE | 2017-04-09 07:27 | POSTOPPROG ---
Post Op Note Date of Operation: 04/09/17 Surgeon: Fabian Edouard Anesthesiologist: Uche Anesthesia: IV Sedation Pre-op Diagnosis: Renal Failure Post-op Diagnosis: Same Procedure: LIJ Tunnelled HD catheter with US/Fluoro Findings: Frail skin Inf/Abcess present in the surg proc area at time of surgery?: No EBL: Minimal Complications: no immediate
[2017-04-09] MEDS ORDERED: fentaNYL 100 MCG/2 ML INJ IVP PRN (07:57)
[2017-04-09] MEDS ORDERED: NALOXONE HCL 0.4 MG/ML INJ IVP PRN (07:57)
[2017-04-09 08:42] VITALS: TEMP 97.7
[2017-04-09] MEDS: ALBUTEROL 3 ML DEYVIAL IH SCH (09:22)
[2017-04-09] MEDS: INSULIN LISPRO 100 UNIT/ML SC SCH ×2 (09:53→14:49)
[2017-04-09 10:11] VITALS: BP 160/67; PULSE 64; RESP 14; O2SAT 92
--- NOTE | 2017-04-09 10:40 | HOSPPROG ---
Hospitalist Progress Note Assessment/Plan: MSSA bacteremia, line infection - received vanc yesterday, start ancef after next HD - HD line removed 04/07, line replaced today by Dr Edouard - repeat BCx neg to date post loine cxr w no ptx (interp by me) HD dependent - still considered acute (only since Jan), but likely this represents ESRD - HD per renal - AV fistula when appropriate per renal anemia of CKD myalgias/weakness - better today after stretching quads - will re-trial statin starting today CAD s/p CABG - cont BB DM2 - will stop checking glucs, insulin per patient; am gluc ok today a-fib - currently regular ppx - SQH held by renal for procedures; will give one dose today dispo: home today > 30 minutes Subjective: wishes for dc today. case d/w dr steel Objective: Vital Signs Temp Pulse Resp BP Pulse Ox 36.5 C 64 14 160/67 H 92 04/09/17 10:08 04/09/17 10:08 04/09/17 10:08 04/09/17 10:08 04/09/17 10:08 Laboratory Results 04/09/17 05:03 04/09/17 05:03 04/08/17 04/09/17 04/10/17 05:59 05:59 05:59 Intake Total 500 100 Output Total 100 130 3 Balance 400 -130 97 PT 16.1 SEC (12.0-15.0) H 04/05/17 15:10 INR 1.27 (0.83-1.16) H 04/05/17 15:10 - Physical Exam Constitutional: no apparent distress, appears nourished, not in pain Eyes: PERRL, anicteric sclera Ears, Nose, Mouth, Throat: moist mucous membranes, hearing normal Cardiovascular: regular rate and rhythym, no murmur, rub, or gallop Respiratory: no respiratory distress, no rales or rhonchi Gastrointestinal: normoactive bowel sounds, soft, non-tender abdomen Genitourinary: no bladder fullness, No bullock in urethra Skin: warm, normal color Musculoskeletal: full muscle strength Neurologic: AAOx3 Psychiatric: interacting appropriately, not anxious Lymph, Heme, Immunologic: no cervical LAD ICD10 Worksheet Patient Problems: Problems Problem Status Onset Peritoneal dialysis catheter infection Acute Anemia Acute Dehydration Acute Fever Acute Renal failure Acute Supratherapeutic INR Acute
--- NOTE | 2017-04-09 11:22 | GOP ---
[f rep st] OPERATIVE REPORT DATE OF OPERATION: 04/09/2017 SURGEON: Fabian Edouard MD ANESTHESIA: MAC. PREOPERATIVE DIAGNOSIS: Renal failure. POSTOPERATIVE DIAGNOSIS: Renal failure. PROCEDURE PERFORMED: LEFT internal jugular tunneled hemodialysis catheter placement with US and fluoro guidance. FINDINGS: None. INDICATIONS: 71-year-old male with renal failure. He had a prior right neck hemodialysis catheter, which subsequently became infected and had to be removed. He is undergoing a new catheter placement at this time. DESCRIPTION OF PROCEDURE: Monitored anesthesia was started. The left neck and chest were infiltrated with 1% lidocaine and 0.5% Marcaine. The jugular vein was directly punctured using ultrasound guidance. The guidewire passed smoothly into the atrium as confirmed using fluoroscopy. The catheter was sized and a counter incision made upon the lower left chest. The catheter was tunneled cephalad. The vein was serially dilated under direct fluoroscopic guidance. The catheter passed into the atrial junction without resistance. There was a smooth contouring with the neck as well as satisfactory terminal positioning above the heart. The neck wound was closed with interrupted chromic suture followed by Dermabond. The catheter was secured to the chest with a nylon suture. Of note, the patient's extremely frail skin developed a superficial tear just from local anesthetic and skin manipulation. The skin was loosely reapproximated with the use of absorbable suture followed by a moist dressing. The patient was taken to the recovery room uneventfully. A portable chest x-ray was obtained upon completion. /[id number]/MODL MTDD
[2017-04-09] MEDS ORDERED: HEPARIN 50,000 UNIT/10 ML VIAL ONE (12:00)
[2017-04-09] MEDS: DOCUSATE SODIUM 100 MG CAP PO SCH (12:42)
[2017-04-09] MEDS: ALLOPURINOL 300 MG TAB PO SCH (12:42)
[2017-04-09] MEDS: TAMSULOSIN HCL 0.4 MG CAP PO SCH (12:54)
[2017-04-09] MEDS: guaiFENesin 600 MG TAB.ER PO SCH (12:54)
--- NOTE | 2017-04-09 15:27 | SOAPPROG ---
RICHARD Progress Note Assessment/Plan: Assessment: 1. CHANTELL on CKD(likely ESRD). BCxs remain negative from 04/05. TDC placed. Will notify Traci return to first HD shift possibly tomorrow. 2. MSSA bacteremia. TTE reviewed, negative for vegetations. Ancef 2 g with HD x 4 wks, per Dr. Anderson. Recommend patient then have AVF placed (or PD catheter). 3. HTN. BPs 160-180s. Appears euvolemic. Would add amlodipine 5mg today. 1kg UF on HD 4. Anemia. Hgb 7.9 yesterday. EPO given 04/0804/09/17 15:25 Objective: Vital Signs Temp Pulse Resp BP Pulse Ox 36.5 C 64 14 160/67 H 92 04/09/17 10:08 04/09/17 10:08 04/09/17 10:08 04/09/17 10:08 04/09/17 10:08 Laboratory Results 04/09/17 05:03 04/09/17 05:03 04/08/17 04/09/17 04/10/17 05:59 05:59 05:59 Intake Total 500 100 Output Total 100 130 3 Balance 400 -130 97 PT 16.1 SEC (12.0-15.0) H 04/05/17 15:10 INR 1.27 (0.83-1.16) H 04/05/17 15:10 Physical Exam - Physical Exam General Appearance: alert, no apparent distress EENT: PERRL/EOMI, normal ENT inspection Neck: non-tender, full range of motion, supple Respiratory: lungs clear, normal breath sounds Cardiac/Chest: regular rate, rhythm, systolic murmur Abdomen: normal bowel sounds, non-tender, soft Skin: normal color, other (Some ecchymosis and bleeding at catheter site of chest, mostly coagulated.) Extremities: normal range of motion, non-tender Neuro/Psych: no motor/sensory deficits, alert, normal mood/affect, oriented x 3 ICD10 Worksheet Patient Problems: Problems Problem Status Onset Peritoneal dialysis catheter infection Acute Anemia Acute Dehydration Acute Fever Acute Renal failure Acute Supratherapeutic INR Acute
--- NOTE | 2017-04-09 16:01 | ASMTCMCOM ---
CM Note CM Note Notes: Plan has changed, pt will dc home w/[facility] (RN) Date Signed: 04/09/2017 04:01 PM Electronically Signed By:Vicky Rodriguez RN
--- NOTE | 2017-04-09 16:02 | PDIAF ---
- Diagnosis Diagnosis: line infection Code Status: Do Not Resuscitate - Medication Management Discharge Medications: Medications to Continue on Transfer Fluticasone Nasal [Flonase Nasal [place]] 1 sprays EACHNARE DAILY PRN 07/12/13 [ Last Taken 07/05/13] Fluvastatin Sodium 20 mg PO HS 07/12/13 [Last Taken 04/03/17 21:00] Tamsulosin HCl [Flomax 0.4 MG (*)] 0.4 mg PO DAILY 07/12/13 [Last Taken 10:00] Albuterol [Proventil Neb] 3 ml IH DAILY PRN 01/27/17 [Last Taken Unknown] Docusate Sodium [Colace 100 MG (*)] 100 mg PO DAILY 01/27/17 [Last Taken 10:00] Hydrocodone/Acetaminophen [[place] 5/325 (*)] 1 tab PO HS 01/27/17 [Last Taken 01/11 21:00] Montelukast Sodium [Singulair 10 mg (*)] 10 mg PO DAILY PRN 01/27/17 [Last Taken Unknown] Albuterol [Proventil Neb] 3 ml IH BID 04/05/17 [Last Taken 04/05/17 10:00] Allopurinol [Allopurinol 300 MG (RX)] 150 mg PO DAILY 04/05/17 [Last Taken 04/05 10:00] Insulin Aspart [novoLOG] 2 - 5 unit SQ TIDMEAL 04/05/17 [Last Taken 04/05/17 10: 00] LORazepam [Ativan (*)] 0.5 mg PO HS 04/05/17 [Last Taken 04/04/17 21:00] Metoprolol Succinate Xr [Toprol Xl 50 mg (*)] 50 mg PO HS 04/05/17 [Last Taken 04/04/17 21:00] Polyethylene Glycol 3350 [Miralax 17 gm (*)] 8.5 - 17 gm PO DAILY PRN 04/05/17 [ Last Taken 04/04/17 11:00] Vitamin B Complex [B Complex] 1 tab PO DAILY 04/05/17 [Last Taken 04/05/17 10:00 ] Zolpidem Tartrate [Ambien 10 mg] 10 mg PO HS 04/05/17 [Last Taken 04/04/17 21:00 ] guaiFENesin [Mucinex 600 MG (*)] 600 mg PO BID 04/05/17 [Last Taken 04/05/17 10: 00] Care Home Antibiotics: cefazolin after dialysis Care Home Antibiotic Stop Date: 05/05/17 Discharge Medications: Refer to the Discharge Home Medication list for PRN reason. - Orders Services needed: Registered Nurse - Follow Up Care Current Providers and Referrals: Kiera Ramirez [Primary Care Provider] - As per Instructions
--- NOTE | 2017-04-09 16:21 | WOCRNPDOC ---
WOCRN Advanced Assessment Note - Skin Integrity Problem, Advanced Assess Left Anterior Upper Chest Laceration Dressing Type: Open to Air Exudate Amount: Minimal Exudate Characteristic(s): Sanguinous Integumentary Issue Intervention: Dressing Applied, Dressing Initialed & Dated Alyce Wound Tissue: Ecchymotic, Erythema Alyce Wound Swelling: None Wound Bed Color: Red Wound Bed Constitution: Red/[place] - Non Granular Tissue Wound Edges: Attached Site Measurement - Head-to-Toe Length X Width X Depth (cm): 10x5x0.1 Skin Integrity Problem Comment: Large skin tear from removal of adhesive. Cleaned wound with ns and gauze. Applied mepitel Ag+ to cover skin tear, applied wound gel and covered with mepilex XT. Extensive education with patient and re: care and dressing changes. The dressing was secured with silicone tape, however adhesive releaser was supplied in case the silicone tape did not stick well enough and patient had to use medipore. A large piece of netting was also placed over the patient's head and his arms went through it to try and keep dressing in place. Michela Pope in room for care.
--- NOTE | 2017-04-09 16:37 | GDS ---
[f rep st] DISCHARGE SUMMARY DISCHARGE DIAGNOSES: 1. Chronic kidney disease, on hemodialysis. 2. MSSA from Lyme infection. 3. Myalgias, weakness. 4. Coronary artery disease. 5. Diabetes. 6. Atrial fibrillation. HOSPITAL COURSE: Please see admission history and physical by Dr. Jose D Jones. Patient presented with fever and weakness from dialysis. He had blood cultures drawn, then grew out MSSA. His blood cultu res here were negative. He had a dialysis catheter placed early this morning with no complications. Postoperative chest x-ray revealed no pneumothorax and he was dialyzed successfully. The plan is to continue antibiotics in the form of cefazolin through 05/05/2017. /[id number]/MODL
--- NOTE | 2017-04-09 18:01 | ASDISCHSUM ---
Discharge Information Plan Status:Home with Home Health Medically Cleared to Leave: Discharge Date:04/09/2017 05:45 PM CM D/C Disposition:Home Health Service ADT D/C Disposition:Home, Routine, Self-Care Projected Discharge Date:04/09/2017 04:00 PM Transportation at D/C: Discharge Delay Reason: Follow-Up Date:04/09/2017 04:00 PM Discharge Slot: Final Diagnosis: Placement Information Referral Type:*Home Health Care Services Referral ID:[id number] Provider Name:[facility] Address 1:[address] Phone Number: Address 2: Fax Number: City:[place] Selection Factors: State:[place] Patient Contact Information Contact Name:KARAN Relationship: Address:[address] City:[place] [facility] Phone: State/Zip Code:[place] [address] Email: Financial Information Financial Class: Primary Plan Desc:MEDICARE INPATIENT Primary Plan Number:[id number] Secondary Plan Desc:[employer] [facility] Secondary Plan Number:[id number] Assessment Information [facility] CM Progress Note CM Note CM Note Notes: Spoke with patient and his Crystal about discharge planning. Patient was last admitted in January, discharged to [facility] for 2 weeks. Since then he has been home with homecare (can't remember agency name) but says he was recently discharged from homecare, as well. Goes [facility] 3x week for dialysis. Patient fairly adament that he will not need any services upon d/c (other than resumption of his HD schedule). He has refused PT/OT due to pain but understands that they will need to assess him. Current Case Management Discharge Plan: TBD Date Signed: 04/06/2017 02:23 PM Electronically Signed By:Destiny Elena RN [facility] CM Progress Note CM Note CM Note Notes: Per nephrology note, patient will have HD catheter removed today as it is suspected source of his bacteremia. Dr Edouard to remove today and replace tomorrow or next day. Patient also being followed by ID - currently on IV Vanco for the staph aureus infection. PT/OT recommending home care although patient declining. Given his complex medical picture right now, we will continue to assess before making discharge recommendations. CM to follow. Date Signed: 04/07/2017 11:00 AM Electronically Signed By:Destiny Elena RN [facility] CM Progress Note CM Note CM Note Notes: Spoke w/pt and re; home care. Both emphatically decline, pt will dc home w/support of when medically stable. CM available for any changes. Date Signed: 04/08/2017 11:35 AM Electronically Signed By:Vicky Rodriguez RN [facility] CM Progress Note CM Note CM Note Notes: Plan has changed, pt will dc home w/[facility] ([facility]) Date Signed: 04/09/2017 04:01 PM Electronically Signed By:Vicky Rodriguez RN Case Management Discharge Plan Note Case Management Discharge Discharge Order Complete? Answers: Yes Patient to Obtain Answers: Independently Medications Transportation Arranged Answers: Family/Friends Faxed Final Orders Answers: Yes Family Notified Answers: Yes Discharge Comments Notes: D/w , final orders faxed. [facility] notified, to take pt home. Date Signed: 04/09/2017 05:06 PM Electronically Signed By:Vicky Rodriguez RN Intervention Information
--- NOTE | 2017-04-10 08:57 | POSTANESTH ---
Post Anesthetic Evaluation Cardiovascular Status: Similar to Pre-Op Cond Respiratory Status: Similar to Pre-op Cond. Level of Consciousness/Mental Status: Can Participate in Eval Pain Control: Adequate, Prn Tx Ordered Nausea/Vomiting Control: Adequate, Prn Tx Ordered Complications Possibly Related to Anesthesia: None Noted
== END 2017-04-09 17:45 | disposition home or self-care (01) | DRG 919 ==
LOC: F3N 19:41 → F3E 04-07 20:03
PROVIDERS: ADMIT Internal Medicine; ATTEND Internal Medicine
PROC: 5A1D70Z Performance of Urinary Filtration, Intermittent, Less than 6 Hours Per Day (ICD-10-PCS; principal; 2017-04-06)
PROC: 0JPT3XZ Removal of Tunneled Vascular Access Device from Trunk Subcutaneous Tissue and Fascia, Percutaneous Approach (ICD-10-PCS; 2017-04-07)
PROC: 02H733Z Insertion of Infusion Device into Left Atrium, Percutaneous Approach (ICD-10-PCS; 2017-04-09)
DX: T85.71XA Infection and inflammatory reaction due to peritoneal dialysis catheter, initial encounter (principal); N18.6 End stage renal disease; R78.81 Bacteremia; N17.9 Acute kidney failure, unspecified; I48.91 Unspecified atrial fibrillation; E11.9 Type 2 diabetes mellitus without complications; A49.01 Methicillin susceptible Staphylococcus aureus infection, unspecified site; Z95.1 Presence of aortocoronary bypass graft; Z87.891 Personal history of nicotine dependence; Z79.01 Long term (current) use of anticoagulants; J44.9 Chronic obstructive pulmonary disease, unspecified; Z99.81 Dependence on supplemental oxygen; Z99.2 Dependence on renal dialysis; D63.1 Anemia in chronic kidney disease
CPT/HCPCS: 86705-90; 97116-GP; 97161-GP; 97166-GO; 97535-GO; C1750; G8978-GP-CI; G8978-GP-CJ; G8979-GP-CI; G8980-GP-CI; G8987-GO-CJ; G8988-GO-CI; J0885; J1642; J1644; J1815; J2250; J3370

== ENCOUNTER 2017-04-26 10:08 | Emergency (ER) | payer OTHER, BC ==
[2017-04-26 10:14] VITALS: TEMP 97.5
--- NOTE | 2017-04-26 10:16 | EDPHY ---
H & P Time Seen by Provider: 04/26/17 10:15 HPI/ROS: CHIEF COMPLAINT: Skin rash HISTORY OF PRESENT ILLNESS: Patient is on dialysis and is receiving IV Ancef for a staph infection. He noticed this mild to moderate rash in his legs 2 days ago. It is red and only below the knees. He says he feels inflamed but no fever or chills and no trauma. No nose bleed or other bleeding. The rash is red and involves his left foot more than his right but is primarily on the back of both legs. It does not extend above the knee. No drainage or discharge. REVIEW OF SYSTEMS: Eye: no change in vision ENT: no sore throat Cardiac: no chest pain or syncope Pulmonary: no cough or SOB Abdomen: no vomiting, diarrhea, abdominal pain Musculoskeletal: no back pain Skin: HPI Neuro: no headache Constitutional: no fever : no urinary symptoms A comprehensive 10 point review of systems is otherwise negative aside from elements mentioned in the history of present illness. PAST MEDICAL HISTORY: History and physical dated 04/05/2017 reviewed as well as discharge summary from that admission. Includes chronic kidney disease on hemodialysis, methicillin sensitive Staph (line infection) on cefazolin, coronary artery disease, diabetes, atrial fibrillation, gout, history of cardiac bypass surgery. Social history: With his General Appearance: Alert and conversant, cooperative. Eyes: No scleral icterus. ENT, Mouth: Normal mucous membranes. No oral rash or blisters. Respiratory: Normal respiratory effort, breath sounds equal, lungs are clear to auscultation. Cardiovascular: Regular rate and rhythm. Gastrointestinal: Abdomen is soft and non tender. Neurological: Alert, face symmetric, normal motor and sensory in extremities. Skin: Patient has a purpuric rash on the back of both calves and the left foot greater than the right. Several small areas on the shins. It is not warm to the touch or tender. His feet have dorsalis pedis pulses and normal motor and sensory. I do not see a rash in any other part of his body. No blisters. No vesicles. No lymphangitis, no fluctuance. No crepitus. Area around dialysis catheter not red. Musculoskeletal: No peripheral edema. Compartments are soft. Psychiatric: Not agitated. Emergency Department course/MDM: Appears inflammatory or vasculitic. 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 Discussed with Brett [id number]; patient needs to continue his Ancef, she thinks this would be unlikely to be a reaction to the antibiotic. I think this most likely is vasculitis. I do not think it is infection or DVT, his platelets are normal, he is not having severe pain. Unlikely to be shingles , or [place]. Would be reluctant to give him steroids since he is currently being treated for systemic infection. IV Ancef 2 g, observation, precautions given, outpatient observation. Smoking Status: Former smoker Constitutional: Initial Vital Signs Temperature (C) 36.4 C 04/26/17 10:12 Heart Rate 71 04/26/17 10:12 Respiratory Rate 18 04/26/17 10:12 Blood Pressure 161/71 H 04/26/17 10:12 O2 Sat (%) 94 04/26/17 10:12 O2 Delivery Mode Room Air Allergies/Adverse Reactions: lisinopril Allergy (Verified 04/26/17 10:10) Home Medications: Medication Instructions Recorded Fluticasone Nasal [Flonase Nasal 1 sprays EACHNARE DAILY PRN 07/12/13 [place]] Fluvastatin Sodium 20 mg PO HS 07/12/13 Tamsulosin HCl [Flomax 0.4 MG (*)] 0.4 mg PO DAILY 07/12/13 Albuterol [Proventil Neb] 3 ml IH DAILY PRN 01/27/17 Docusate Sodium [Colace 100 MG (*)] 100 mg PO DAILY 01/27/17 Hydrocodone/Acetaminophen [[place] 1 tab PO HS 01/27/17 5/325 (*)] Montelukast Sodium [Singulair 10 10 mg PO DAILY PRN 01/27/17 mg (*)] Albuterol [Proventil Neb] 3 ml IH BID 04/05/17 Allopurinol [Allopurinol 300 MG 150 mg PO DAILY 04/05/17 (RX)] Insulin Aspart [novoLOG] 2 - 5 unit SQ TIDMEAL 04/05/17 LORazepam [Ativan (*)] 0.5 mg PO HS 04/05/17 Metoprolol Succinate Xr [Toprol Xl 50 mg PO HS 04/05/17 50 mg (*)] Polyethylene Glycol 3350 [Miralax 8.5 - 17 gm PO DAILY PRN 04/05/17 17 gm (*)] Vitamin B Complex [B Complex] 1 tab PO DAILY 04/05/17 Zolpidem Tartrate [Ambien 10 mg] 10 mg PO HS 04/05/17 guaiFENesin [Mucinex 600 MG (*)] 600 mg PO BID 04/05/17 Ancef 04/26/17 Medical Decision Making - Data Points Laboratory Results: Laboratory Results 04/26/17 10:40 Medications Given: Discontinued Medications Cefazolin Sodium/Dextrose (Ancef 2 Gm (Premix)) 100 mls @ 200 mls/hr IV EDNOW ONE PRN Reason: Protocol Stop: 04/26/17 12:01 Last Admin: 04/26/17 11:38 Dose: 100 mls Departure - Departure Disposition: Home, Routine, Self-Care Clinical Impression: Skin rash Condition: Good Instructions: Acute Rash (ED) Additional Instructions: It is possible this is vasculitis. Please go to your doctor or come to the ER if you get trouble breathing, worsening rash, worsening leg pain, fever or chills. Referrals: Kiera Ramirez [Primary Care Provider] - As per Instructions
[2017-04-26 10:45] LABS: PLATELET COUNT 117 10^3/uL (150-400)
[2017-04-26] MEDS ORDERED: ceFAZolin 2 GM/DEXTROSE 100 ML IV ONE (11:32)
[2017-04-26 12:13] VITALS: BP 180/77; PULSE 69; RESP 16; O2SAT 96
== END 2017-04-26 12:12 | disposition home or self-care (01) ==
DX: R21 Rash and other nonspecific skin eruption (principal); I25.10 Atherosclerotic heart disease of native coronary artery without angina pectoris; E11.9 Type 2 diabetes mellitus without complications; Z87.891 Personal history of nicotine dependence; Z79.4 Long term (current) use of insulin
CPT/HCPCS: 96365; 99284; J0690

== ENCOUNTER → 2017-07-10 | Outpatient (CLI) | payer OTHER, BC | LOC: SBRMNEURO 20:00 | PROVIDERS: ATTEND Student in an Organized Health Care Education/Training Program | DX: G47.33 Obstructive sleep apnea (adult) (pediatric) (principal); G47.61 Periodic limb movement disorder ==

== ENCOUNTER → 2017-12-18 | Outpatient (CLI) | payer OTHER, BC | LOC: CIMAGING 15:46 | PROVIDERS: ATTEND Family Medicine | DX: M79.672 Pain in left foot (principal) | CPT/HCPCS: 73630-PO ==

== ENCOUNTER 2018-02-23 15:57 | Emergency (ER) | payer OTHER, BC ==
--- NOTE | 2018-02-23 16:25 | EDPHY ---
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 He saw his primary care provider today and recommended to go to the ER for ultrasound. Patient states upfront that he does not want an extensive workup. No chest pain. No dyspnea. PRIMARY CARE PROVIDER:James REVIEW OF SYSTEMS: 10 systems reviewed and negative with the exception of the elements mentioned in the history of present illness PAST MEDICAL & SURGICAL HISTORY: Peritoneal dialysis, end-stage renal disease , atrial fibrillation, diabetes, CHF, COPD, coronary artery disease, MSSA, line infection, frequent falls, off of Coumadin x4 months SOCIAL HISTORY: nonsmoker PHYSICAL EXAM (Prior to examination, patient consented to physical exam, hands were washed and my usual and customary physical exam procedures followed) 1) GENERAL: Alert and oriented. Appears to be in no acute distress. Sitting in his wheelchair. 2) HEAD: Normocephalic, atraumatic 3) HEENT: Pupils equal, round, reactive to light bilaterally. Sclera anicteric. 4) NECK: Full range of motion, no meningeal signs. 5) LUNGS: Clear auscultation bilaterally, no wheezes, no rhonchi, no retractions. 6) HEART: No heave, no gallop. 7) ABDOMEN: No guarding, no rebound, no focal tenderness, 8) MUSCULOSKELETAL: Right upper extremity: Violaceous appearance to the the 4th and 5th distal phalanx. Brisk pulses. Normal temperature. Draining Paronychia to the 3rd digit. Negative kanavel sign. No lymphangitic streaking. Soft compartments 9) BACK: No visual or palpable abnormality. 10) SKIN: No rash, no petechiae. 11) Psychiatric: Patient is oriented X 3, there is no agitation. DIFFERENTIAL DIAGNOSIS: In no particular order including but not limited to DVT, arterial embolus, cellulitis - Medical/Surgical History Hx Asthma: Yes Hx Chronic Respiratory Disease: Yes Hx Diabetes: Yes Hx Cardiac Disease: Yes Hx Renal Disease: Yes Hx Cirrhosis: No Hx Alcoholism: No Hx HIV/AIDS: No Hx Splenectomy or Spleen Trauma: No Other PMH: peritoneal dialysis, cad, cabg 2007,afib, dm, renal failure, CHF, COPD, Restless leg syndrome, sleep apnea/hypoxia, C2 fx- was in [facility] 2004 - Social History Smoking Status: Former smoker Constitutional: Initial Vital Signs Temperature (C) 36.7 C 02/23/18 16:02 Heart Rate 82 02/23/18 16:02 Respiratory Rate 20 02/23/18 16:02 Blood Pressure 109/58 L 02/23/18 16:02 O2 Sat (%) 89 L 02/23/18 16:02 O2 Delivery Mode Room Air Allergies/Adverse Reactions: cefazolin [From [facility]] Allergy (Verified 02/23/18 16:02) lisinopril Allergy (Verified 04/26/17 10:10) Home Medications: Medication Instructions Recorded Fluticasone Nasal [Flonase Nasal 1 sprays EACHNARE DAILY PRN 07/12/13 [place]] Fluvastatin Sodium 20 mg PO HS 07/12/13 Tamsulosin HCl [Flomax 0.4 MG (*)] 0.4 mg PO DAILY 07/12/13 Albuterol [Proventil Neb] 3 ml IH DAILY PRN 01/27/17 Docusate Sodium [Colace 100 MG (*)] 100 mg PO DAILY 01/27/17 Hydrocodone/Acetaminophen [[place] 1 tab PO HS 01/27/17 5/325 (*)] Montelukast Sodium [Singulair 10 10 mg PO DAILY PRN 01/27/17 mg (*)] Albuterol [Proventil Neb] 3 ml IH BID 04/05/17 Allopurinol [Allopurinol 300 MG 150 mg PO DAILY 04/05/17 (RX)] Insulin Aspart [novoLOG] 2 - 5 unit SQ TIDMEAL 04/05/17 LORazepam [Ativan (*)] 0.5 mg PO HS 04/05/17 Metoprolol Succinate Xr [Toprol Xl 50 mg PO HS 04/05/17 50 mg (*)] Polyethylene Glycol 3350 [Miralax 8.5 - 17 gm PO DAILY PRN 04/05/17 17 gm (*)] Vitamin B Complex [B Complex] 1 tab PO DAILY 04/05/17 Zolpidem Tartrate [Ambien 10 mg] 10 mg PO HS 04/05/17 guaiFENesin [Mucinex 600 MG (*)] 600 mg PO BID 04/05/17 Ancef 04/26/17 Sulfamethox/Tmp 800/160 mg 1 tab PO BID@1000,2200 10 Days tab 02/23/18 [Bactrim Ds] Medical Decision Making - Diagnostics Imaging Results: Imaging Impressions Extremity Venous Study 02/23/18 16:19 Impression: 1. No evidence of a right upper extremity DVT. 2. Mildly complex collection in the anterior right shoulder may represent bursal fluid or joint effusion. Findings and recommendations discussed with Love Sweeney at 1707 hour, . Images reviewed myself ED Course/Re-evaluation: 4:20 p.m.: Patient only wants ultrasound of the right upper extremity. Patient does not want to get into the bed, wants to stay in the wheelchair , will only disrobe from the waist up. Discussed with patient and his my concerns over possible arterial microemboli given his history of atrial fibrillation and not currently on anticoagulant medication. Patient states that he "does not on a 1000 dollar workup, just an ultrasound." He and his have both been explained the risks of declining this including, but not limited to , permanent and chronic disability, limb loss. I believe patient and to have decision-making capacity. He is noted to have a draining paronychia to his right middle digit. Doubt infectious tenosynovitis in absence of kanavel sign. I do not think that further incision and drainage are indicated. Will initiate oral antibiotic therapy. 5:18 p.m.: Patient re-evaluated. Discussed with the patient his negative right upper extremity ultrasound. I did explain limitations of ultrasound. Notably he has been informed that arterial occlusion is not ruled out. He is noted to have violaceous appearance to the 4th and 5th digit. He has been informed that micro emboli and arterial occlusion are not ruled out. Particularly with history of atrial fibrillation and being off of Coumadin this is not ruled out. Recommend close follow-up. I saw this patient independently based on established practice protocols. Care of patient under supervision of secondary supervising physician Dr Solis with whom I discussed case. Departure - Departure Disposition: Home, Routine, Self-Care Clinical Impression: Violaceous color Paronychia of finger Qualifiers: Laterality: right Qualified Code(s): L03.011 - Cellulitis of right finger Condition: Good Instructions: Paronychia (ED) Additional Instructions: Recommend warm soaks for your finger, take antibiotics as directed. Referrals: Kiera Ramirez [Primary Care Provider] - 1-2 days without fail Prescriptions: Sulfamethox/Tmp 800/160 mg [Bactrim Ds] 1 tab PO BID@1000,2200 10 Days tab
[2018-02-23] MEDS ORDERED: SULFAMETHOX/TMP 800/160 MG 1 TAB PO ONE (17:20)
[2018-02-23 17:33] VITALS: BP 107/80
== END 2018-02-23 17:48 | disposition home or self-care (01) ==
DX: L03.011 Cellulitis of right finger (principal); Z87.891 Personal history of nicotine dependence

== ENCOUNTER → 2018-03-02 | Outpatient (CLI) | payer OTHER, BC | LOC: CLAB 15:11 | PROVIDERS: ATTEND Family Medicine | DX: S49.91XA Unspecified injury of right shoulder and upper arm, initial encounter (principal) | CPT/HCPCS: 73060-PO ==

== ENCOUNTER 2018-03-04 03:24 | Inpatient (IN) | payer OTHER, BC ==
[2018-03-04] MEDS ORDERED: DIAZEPAM 5 MG/ML 1 ML SYR IVP ONE (03:41)
--- NOTE | 2018-03-04 03:45 | EDPHY ---
H & P Time Seen by Provider: 03/04/18 03:32 HPI/ROS: Chief Complaint: Falls, right leg pain, left rib pain HPI: 72-year-old male with a history of end-stage renal disease on peritoneal dialysis is presenting tonight complaining of left leg pain status post fall. Patient has been having increased falls recently with 3 falls in the last week. Patient states that his legs are giving out on him. This morning he fell while trying to transfer from the bedside commode back into his bed. He struck his right leg. Is complaining of pain in his right middle thigh. Patient had a fall last night and struck his left ribs. Denies any fevers or chills. Family checked his temperature twice a day. Denies any abdominal pain. No cough or shortness of breath. No chest pain. No palpitations. No fainting. No loss of consciousness. ROS: 10 systems were reviewed and were negative except those elements noted in the HPI. PMH: End-stage renal disease on peritoneal dialysis, atrial fibrillation Social History: No smoking, no alcohol, no recreational drug use Family History: non-contributory Physical Exam: Gen: Awake, Alert, No Distress HEENT: Patient has a contusion behind his left ear which appears several days old. No bony step-offs or crepitus Nose: no rhinorrhea Eyes: PERRLA, EOMI Mouth: Moist mucosa Neck: Supple, no JVD Chest: Mild left lateral chest wall tenderness. He has fine crackles at the left base, lungs clear to auscultation Heart: S1, S2 normal, no murmur Abd: Soft, non-tender, no guarding Back: no CVA tenderness, no midline tenderness Ext: no edema, mild middle thigh tenderness on the right. No bony deformity. No hip tenderness, full range of motion Skin: no rash Neuro: CN II-XII intact, Sensation grossly intact, Strength 5/5 in bilateral upper and lower extremities - Medical/Surgical History Hx Asthma: Yes Hx Chronic Respiratory Disease: Yes Hx Diabetes: Yes Hx Cardiac Disease: Yes Hx Renal Disease: Yes Hx Cirrhosis: No Hx Alcoholism: No Hx HIV/AIDS: No Hx Splenectomy or Spleen Trauma: No Other PMH: peritoneal dialysis, cad, cabg 2007,afib, dm, renal failure, CHF, COPD, Restless leg syndrome, sleep apnea/hypoxia, C2 fx- was in [facility] 2004 - Social History Smoking Status: Former smoker Constitutional: Initial Vital Signs Temperature (C) 36.4 C 03/04/18 03:40 Heart Rate 79 03/04/18 03:40 Respiratory Rate 18 03/04/18 03:40 Blood Pressure 98/46 L 03/04/18 03:40 O2 Sat (%) 89 L 03/04/18 03:40 O2 Delivery Mode Nasal Cannula O2 (L/minute) 2 Allergies/Adverse Reactions: cefazolin [From [facility]] Allergy (Verified 02/23/18 16:02) lisinopril Allergy (Verified 04/26/17 10:10) Home Medications: Medication Instructions Recorded Fluticasone Nasal [Flonase Nasal 1 sprays EACHNARE DAILY PRN 07/12/13 [place]] Docusate Sodium [Colace 100 MG (*)] 100 mg PO DAILY 01/27/17 Hydrocodone/Acetaminophen [[place] 1 tab PO HS 01/27/17 5/325 (*)] Montelukast Sodium [Singulair 10 10 mg PO DAILY PRN 01/27/17 mg (*)] Albuterol [Proventil Neb] 3 ml IH BID 04/05/17 Allopurinol [Allopurinol 300 MG 150 mg PO DAILY 04/05/17 (RX)] Insulin Aspart [novoLOG] 2 - 5 unit SQ TIDMEAL 04/05/17 LORazepam [Ativan (*)] 0.5 mg PO HS 04/05/17 Polyethylene Glycol 3350 [Miralax 8.5 - 17 gm PO DAILY PRN 04/05/17 17 gm (*)] Vitamin B Complex [B Complex] 1 tab PO DAILY 04/05/17 Zolpidem Tartrate [Ambien 10 mg] 10 mg PO HS 04/05/17 guaiFENesin [Mucinex 600 MG (*)] 600 mg PO BID 04/05/17 Gabapentin 03/04/18 Medical Decision Making - Diagnostics EKG Interpretation: ECG time 3:55 a.m., atrial fibrillation with ventricular rate of 79, low voltage in the extremities, nonspecifically T-wave abnormalities in lateral leads, no acute changes. Imaging Results: Chest x-ray shows right-sided effusion with patchy infiltrate, unchanged from prior. ED Course/Re-evaluation: Patient noted to have leukocytosis. Also has a troponin of 0.19. ECG shows his atrial fibrillation but nothing acute. I am awaiting x-ray results. Patient will require admission for further evaluation of his frequent falls and possible source of infection. Chest x-ray noted. Patient is afebrile. I am awaiting a flu test. I have paged the hospitalist. Case discussed with Dr. Emerson. Will admit to PCU for further monitoring and evaluation. - Data Points Laboratory Results: Laboratory Results 03/04/18 03:50 03/04/18 03:50 03/04/18 03/04/18 03/04/18 04:04 03:50 03:50 WBC 16.50 10^3/uL H 10^3/uL (3.80-9.50) RBC 3.03 10^6/uL L 10^6/uL (4.40-6.38) Hgb 9.6 g/dL L g/dL (13.7-17.5) Hct 29.3 % L % (40.0-51.0) MCV 96.7 fL fL (81.5-99.8) MCH 31.7 pg pg (27.9-34.1) MCHC 32.8 g/dL g/dL (32.4-36.7) RDW 15.1 % % (11.5-15.2) Plt Count 353 10^3/uL 10^3/uL (150-400) MPV 10.4 fL fL (8.7-11.7) Neut % (Auto) 81.1 % H % (39.3-74.2) Lymph % (Auto) 8.3 % L % (15.0-45.0) [place]ye % (Auto) 5.8 % % (4.5-13.0) Eos % (Auto) 3.5 % % (0.6-7.6) Baso % (Auto) 0.5 % % (0.3-1.7) Nucleat RBC Rel Count 0.0 % % (0.0-0.2) Absolute Neuts (auto) 13.39 10^3/uL H 10^3/uL (1.70-6.50) Absolute Lymphs (auto) 1.37 10^3/uL 10^3/uL (1.00-3.00) Absolute Monos (auto) 0.96 10^3/uL H 10^3/uL (0.30-0.80) Absolute Eos (auto) 0.57 10^3/uL H 10^3/uL (0.03-0.40) Absolute Basos (auto) 0.08 10^3/uL 10^3/uL (0.02-0.10) Absolute Nucleated RBC 0.00 10^3/uL 10^3/uL (0-0.01) Immature Gran % 0.8 % % (0.0-1.1) Immature Gran # 0.13 10^3/uL H 10^3/uL (0.00-0.10) Sodium 136 mEq/L mEq/L (135-145) Potassium 3.8 mEq/L mEq/L (3.3-5.0) Chloride 89 mEq/L L mEq/L (97-110) Carbon Dioxide 30 mEq/l mEq/l (22-31) Anion Gap 17 mEq/L H mEq/L (6-14) BUN 118 mg/dL H* mg/dL (7-23) Creatinine 5.9 mg/dL H mg/dL (0.7-1.3) Estimated GFR 9 Glucose 162 mg/dL H mg/dL (70-100) Calcium 9.2 mg/dL mg/dL (8.5-10.4) POC Troponin I 0.19 ng/mL H ng/mL (0.00-0.08) Nasal Influenza A PCR Nasal Influenza B PCR 03/04/18 03:40 WBC RBC Hgb Hct MCV MCH MCHC RDW Plt Count MPV Neut % (Auto) Lymph % (Auto) [place] % (Auto) Eos % (Auto) Baso % (Auto) Nucleat RBC Rel Count Absolute Neuts (auto) Absolute Lymphs (auto) Absolute Monos (auto) Absolute Eos (auto) Absolute Basos (auto) Absolute Nucleated RBC Immature Gran % Immature Gran # Sodium Potassium Chloride Carbon Dioxide Anion Gap BUN Creatinine Estimated GFR Glucose Calcium POC Troponin I Nasal Influenza A PCR NEGATIVE FOR FLU A (NEGATIVE) Nasal Influenza B PCR NEGATIVE FOR FLU B (NEGATIVE) Medications Given: Discontinued Medications Diazepam (Valium) 5 mg IVP EDNOW ONE Stop: 03/04/18 03:42 Last Admin: 03/04/18 03:52 Dose: 5 mg Point of Care Test Results: Chemistry 03/04/18 04:04 POC Troponin I 0.19 ng/mL H ng/mL (0.00-0.08) Departure - Departure Disposition: [facility] Inpatient Acute Clinical Impression: Weakness, Hypoxia, Renal failure, Anemia Condition: Fair Referrals: Kiera Ramirez [Primary Care Provider] - As per Instructions
[2018-03-04 04:03] LABS: PLATELET COUNT 353 10^3/uL (150-400)
[2018-03-04] MEDS ORDERED: ONDANSETRON 4 MG/2 ML VIAL IVP PRN (04:33)
[2018-03-04] MEDS ORDERED: ONDANSETRON DISINTEGRATING 4 MG TAB PO PRN (04:33)
--- NOTE | 2018-03-04 04:40 | CPEKG ---
Test Reason : OPEN Blood Pressure : / mmHG Vent. Rate : 079 BPM Atrial Rate : 000 BPM P-R Int : 277 ms QRS Dur : 113 ms QT Int : 430 ms P-R-T Axes : 000 101 239 degrees QTc Int : 494 ms Atrial fibrillation Low voltage, extremity leads Nonspecific T abnormalities, lateral leads Borderline prolonged QT interval Confirmed by Titi Johnson [id number] on 03/04/2018 4:40:04 AM Referred By: Confirmed By:Titi Johnson
[2018-03-04] MEDS ORDERED: fentaNYL 100 MCG/2 ML INJ IVP ONE (04:43)
[2018-03-04] MEDS ORDERED: ACETAMINOPHEN 500 MG TAB PO ONE (04:43)
[2018-03-04] MEDS ORDERED: ACETAMINOPHEN 500 MG TAB ONE (04:49)
--- NOTE | 2018-03-04 05:12 | PDGENHP ---
History and Physical - Chief Complaint Falls - History of Present Illness 72 yo M w/ hx of ESRD, DM, CAD s/p CABG, AF, and HFpEF presents with multiple falls. The patient has suffered 3 falls over the last 3 days. Two of these falls have occurred while getting up to use the bathroom in the middle of the night. The patient tells me his legs "just gave out". He took a dose of gabapentin on Thursday for restless legs, which he states can sometime contribute to his leg weakness. He is currently complaining of R hip/thigh pain as a result of his latest fall. He denies symptoms of other illness such as fever, chills, sore throat, cough, abdominal pain, and diarrhea. His tells me he last had labs checked with his assisted living nursing director on Thursday, and they told them everything looked ok. His evaluation in the ED is mostly unremarkable aside from marked uremia, leukocytosis, and a troponin in the indeterminate range, which is not unusual for him. He denies chest pain. Case discussed with ED physician Dr. Johnson. Records reviewed in EMR and summarized above. History Information - Allergies/Home Medication List Allergies/Adverse Reactions: cefazolin [From Anc] Allergy (Verified 02/23/18 16:02) lisinopril Allergy (Verified 04/26/17 10:10) Home Medications: Fluticasone Nasal [Flonase Nasal [place]] 1 sprays EACHNARE DAILY PRN 07/12/13 [ Last Taken 07/05/13] Docusate Sodium [Colace 100 MG (*)] 100 mg PO DAILY 01/27/17 [Last Taken 10:00] Hydrocodone/Acetaminophen [Butternut 5/325 (*)] 1 tab PO HS 01/27/17 [Last Taken 01/11 21:00] Montelukast Sodium [Singulair 10 mg (*)] 10 mg PO DAILY PRN 01/27/17 [Last Taken Unknown] Albuterol [Proventil Neb] 3 ml IH BID 04/05/17 [Last Taken 04/05/17 10:00] Allopurinol [Allopurinol 300 MG (RX)] 150 mg PO DAILY 04/05/17 [Last Taken 04/05 10:00] Insulin Aspart [novoLOG] 2 - 5 unit SQ TIDMEAL 04/05/17 [Last Taken 04/05/17 10: 00] LORazepam [Ativan (*)] 0.5 mg PO HS 04/05/17 [Last Taken 04/04/17 21:00] Polyethylene Glycol 3350 [Miralax 17 gm (*)] 8.5 - 17 gm PO DAILY PRN 04/05/17 [ Last Taken 04/04/17 11:00] Vitamin B Complex [B Complex] 1 tab PO DAILY 04/05/17 [Last Taken 04/05/17 10:00 ] Zolpidem Tartrate [Ambien 10 mg] 10 mg PO HS 04/05/17 [Last Taken 04/04/17 21:00 ] guaiFENesin [Mucinex 600 MG (*)] 600 mg PO BID 04/05/17 [Last Taken 04/05/17 10: 00] Gabapentin 03/04/18 [Last Taken Unknown] I have personally reviewed and updated: family history, medical history - Past Medical History atrial fibrillation, coronary artery disease, diabetes type 2 Additional medical history: CKD stage III - Surgical History Reports: coronary bypass surgery - Family History Additional family history: Alcoholism - Social History Smoking Status: Former smoker Review of Systems Review of Systems: ROS: 10pt was reviewed & negative except for what was stated in HPI & below Physical Exam Physical Exam: Temp Pulse Resp BP Pulse Ox 36.4 C 74 16 137/37 H 98 03/04/18 03:40 03/04/18 04:21 03/04/18 04:21 03/04/18 04:21 03/04/18 04:21 Constitutional: chronically ill appearing, uncomfortable Eyes: PERRL, EOMI Ears, Nose, Mouth, Throat: moist mucous membranes, no oral mucosal ulcers Cardiovascular: regular rate and rhythym, systolic murmur, No edema Respiratory: no respiratory distress, reduced air movement (R base) Gastrointestinal: normoactive bowel sounds, other (PD catheter with no signs of infection) Skin: other (Scattered brusising) Musculoskeletal: pain with ROM (R hip), muscular tenderness (R thigh) Neurologic: AAOx3, CN II-XII Intact Lab Data & Imaging Review 03/04/18 03:50 03/04/18 03:50 WBC 16.50 10^3/uL (3.80-9.50) H 03/04/18 03:50 RBC 3.03 10^6/uL (4.40-6.38) L 03/04/18 03:50 Hgb 9.6 g/dL (13.7-17.5) L 03/04/18 03:50 Hct 29.3 % (40.0-51.0) L 03/04/18 03:50 MCV 96.7 fL (81.5-99.8) 03/04/18 03:50 MCH 31.7 pg (27.9-34.1) 03/04/18 03:50 MCHC 32.8 g/dL (32.4-36.7) 03/04/18 03:50 RDW 15.1 % (11.5-15.2) 03/04/18 03:50 Plt Count 353 10^3/uL (150-400) 03/04/18 03:50 MPV 10.4 fL (8.7-11.7) 03/04/18 03:50 Neut % (Auto) 81.1 % (39.3-74.2) H 03/04/18 03:50 Lymph % (Auto) 8.3 % (15.0-45.0) L 03/04/18 03:50 [place] % (Auto) 5.8 % (4.5-13.0) 03/04/18 03:50 Eos % (Auto) 3.5 % (0.6-7.6) 03/04/18 03:50 Baso % (Auto) 0.5 % (0.3-1.7) 03/04/18 03:50 Nucleat RBC Rel Count 0.0 % (0.0-0.2) 03/04/18 03:50 Absolute Neuts (auto) 13.39 10^3/uL (1.70-6.50) H 03/04/18 03:50 Absolute Lymphs (auto) 1.37 10^3/uL (1.00-3.00) 03/04/18 03:50 Absolute Monos (auto) 0.96 10^3/uL (0.30-0.80) H 03/04/18 03:50 Absolute Eos (auto) 0.57 10^3/uL (0.03-0.40) H 03/04/18 03:50 Absolute Basos (auto) 0.08 10^3/uL (0.02-0.10) 03/04/18 03:50 Absolute Nucleated RBC 0.00 10^3/uL (0-0.01) 03/04/18 03:50 Immature Gran % 0.8 % (0.0-1.1) 03/04/18 03:50 Immature Gran # 0.13 10^3/uL (0.00-0.10) H 03/04/18 03:50 Sodium 136 mEq/L (135-145) 03/04/18 03:50 Potassium 3.8 mEq/L (3.3-5.0) 03/04/18 03:50 Chloride 89 mEq/L (97-110) L 03/04/18 03:50 Carbon Dioxide 30 mEq/l (22-31) 03/04/18 03:50 Anion Gap 17 mEq/L (6-14) H 03/04/18 03:50 BUN 118 mg/dL (7-23) H* 03/04/18 03:50 Creatinine 5.9 mg/dL (0.7-1.3) H 03/04/18 03:50 Estimated GFR 9 03/04/18 03:50 Glucose 162 mg/dL (70-100) H 03/04/18 03:50 Calcium 9.2 mg/dL (8.5-10.4) 03/04/18 03:50 POC Troponin I 0.19 ng/mL (0.00-0.08) H 03/04/18 04:04 Nasal Influenza A PCR NEGATIVE FOR FLU A (NEGATIVE) 03/04/18 03:40 Nasal Influenza B PCR NEGATIVE FOR FLU B (NEGATIVE) 03/04/18 03:40 Visualized and Interpreted Chest x-ray results: Yes Chest X-Ray results: effusion (R side) Visualized and Interpreted EKG results: Yes EKG Interpretation: Positive for: other (Afib) Assessment & Plan Assessment: 72 yo M w/ hx of ESRD, DM, CAD s/p CABG, AF, and HFpEF presents with multiple falls. Plan: 1. Falls - 3 falls in the last 3 days. He has suffered a steady functional decline over the last 2 years and exhibits clear deconditioning. At this point there is no obvious acute pathology to explain his falls. Considerations do include medication (gabapentin), uremia (BUN 118), and infection noting leukocytosis, although he denies symptoms of this. - Admit for observation - PT/OT evaluations - Renal consult to review PD practices and laboratory results - Blood cultures ordered - Avoid gabapentin if possible 2. R hip pain - Resulting from his latest fall. XR (personally reviewed/ interpreted) reveals existing hardware but no clear acute fracture. - Await formal radiology review - Pain control 3. Leukocytosis - Denies symptoms of infection. He does have indwelling catheter so at risk for bloodstream infection. - Blood cultures ordered - Observe off of antibiotics 4. ESRD - On peritoneal dialysis since June. Per patient and family this has been going well but they have been fluctuating his fluid management as of late. BUN of 118 on admission, which may be contributing to fatigue and weakness. - Renal consult as above - Renally dose medications 5. CAD s/p CABG - With troponin in the indeterminate range. Per review of records the patient has not had a negative troponin since 2009. He denies chest pain at this time and I doubt this signals ACS. - Trend cardiac enzymes, next at 1000 - Monitor on telemetry 6. Hx AF - AF on admission ECG. No longer on BB due to low BP; no longer on warfarin due to frequent falls. Followed by Dr. Isabella Grewal. 7. Chronic normocytic anemia - 2/2 ESRD and chronic disease; currently above recent values, no signs of bleeding. - Monitor CBC Diet - Renal Code - Full Ppx - [facility] Dispo - Admit under observation status
[2018-03-04] MEDS: HEPARIN 5,000 UNIT/0.5 ML INJ SC SCH ×3 (05:45→22:16)
[2018-03-04] MEDS: HYDROmorphONE/DILAUDID 1 MG/ML INJ IVP PRN ×3 (05:45→14:25)
--- NOTE | 2018-03-04 08:22 | ASMTLACE ---
EULALIA Comorbidities - select Answers: Chronic pulmonary disease all that apply Congestive heart failure Coronary Artery Disease Diabetes (uncontrolled or controlled) History of falls Moderate or severe liver or renal disease Opioid dependence / Chronic pain Other Notes: AFib # of Emergency department Answers: 1-2 visits in the last 6 months Score: 20 Date Signed: 03/04/2018 08:21 AM Electronically Signed By:Eliza Bates
--- NOTE | 2018-03-04 11:41 | GCON ---
DATE OF CONSULTATION: 03/04/2018 REASON FOR CONSULTATION: Opinion regarding end-stage kidney failure. HISTORY OF PRESENT ILLNESS: The patient is a very pleasant 72-year-old gentleman with end-stage kidn ey failure due to diabetes, hypertension, vascular disease, on cycler-assisted peritoneal dialysis 6 exchanges of 2000 cc nightly. He also does an occasional last fill when his fluid issues are worse. He was in his usual state of health until yesterday when he had 3 falls at home. He has had multipl e falls in the past, all of them mechanical falls. He does not have syncope, chest pain, shortness o f breath, nausea, vomiting, abdominal discomfort, blurry vision, double vision, headache, orthopnea, paroxysmal nocturnal dyspnea, palpitations, or syncope. He does have chronic pain for which he uses Neurontin. His says it seems like after he uses Neurontin, his falls seem to increase for a day or two. PAST MEDICAL HISTORY: Significant for: 1. End-stage kidney failure on cycler-assisted dialysis. 2. Coronary artery disease. 3. Status post coronary artery bypass grafting x4. He has 3 saphenous vein grafts in the [place] to [facility]. 4. Diabetes mellitus type 2. 5. Atrial fibrillation, off warfarin due to frequent falls. 6. COPD. 7. History of rhabdomyolysis and acute kidney injury after a fall in 2017. 8. History of gout. 9. Pulmonary hypertension. 10. Obstructive sleep apnea syndrome. CURRENT MEDICATIONS: Include Tylenol, Zofran. ALLERGIES: To Ancef and lisinopril. FAMILY HISTORY: Positive for alcohol abuse and coronary artery disease. 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 He is . He and his live independently. REVIEW OF SYSTEMS: A complete 12-point review of systems was performed with the pertinent positives and negatives as per the previous sections. PHYSICAL EXAMINATION: VITAL SIGNS: Blood pressure is 128/24, pulse 80, respirations 20. Temperatur e is 36.3 degrees. GENERAL: He is alert and cooperative. He is in no acute distress. HEENT: He castellanos s multiple wounds and lacerations on his head from falls. NECK: No lymphadenopathy or thyromegaly. HEART: Regular, no rub. LUNGS: Decreased breath sounds on the right. Occasional rales on the lef t. No rhonchi or wheezes. ABDOMEN: Bowel sounds are positive. Soft, nontender. EXTREMITIES: Tra ce edema. NEUROLOGIC: No asterixis. SKIN: Multiple ecchymoses and abrasions. LYMPH: No palpable lymphadenopathy. MUSCULOSKELETAL: No effusions. His right thigh is tender after his most recent f all. LABORATORY DATA: WBC 16.5, hemoglobin 9.6, hematocrit 29, platelet count 353,000. Influenza A and B are negative. Serum sodium 136, potassium 3.8, chloride 89, CO2 30, BUN 118, creatinine 5.9, glucos e 162, calcium 9.2. Troponin 0.19. IMAGING DATA: Ultrasound of the right arm on 02/23/2018, was negative for DVT. Femur x-ray in the emergency department last night was negative for fracture. The patient was seen in the emergency department on 02/23, for a finger infection. He was started on Bactrim Double Strength twice daily for 10 days. I do not see that on his MAR, and I think that is a good idea as that is quite a large dose for somebody his size and with end-stage kidney failure. PLAN: 1. We will continue his outpatient dialysis therapy 6 exchanges 2000 cc. With his volume status, I think we will switch from all 1.5%'s to all 2.5%'s if we get a little fluid off him. 2. He certainly needs to eat more protein. His last albumin was actually going in the right directi on from 2.6 up to 2.9 per his 's report. 3. Physical Therapy. 4. We may need to think about assistive devices at home to help prevent falls in the future. Thank you for allowing me to participate in the care of your patient. If there are any questions, pl ease do not hesitate to contact us. We will be following along with you. /[id number]/MODL
[2018-03-04] MEDS: oxyCODONE IR 5 MG TAB PO PRN (13:19)
[2018-03-04] MEDS ORDERED: MONTELUKAST SODIUM 10 MG TAB PO PRN (13:44)
[2018-03-04] MEDS ORDERED: FLUTICASONE NASAL 120 SPRAYS/16 GM MDI EACHNARE PRN (13:44)
[2018-03-04] MEDS ORDERED: GABAPENTIN 100 MG CAP PO PRN (13:44)
[2018-03-04] MEDS ORDERED: D50W 25 GM/50 ML SYR IVP PRN (13:47)
--- NOTE | 2018-03-04 15:24 | ASMTCMCOM ---
CM Note CM Note Notes: Pt is a 72 y/o man admitted for weakness, hypoxia, renal failure and elevated trop. OT is recommending SNF. PT is still pending. Needs are TBD at this time. CM to follow. Plan: TBD Date Signed: 03/04/2018 03:23 PM Electronically Signed By:JEFF Blankenship
--- NOTE | 2018-03-04 15:28 | HOSPPROG ---
Hospitalist Progress Note Assessment/Plan: 72 yo M w/ hx of ESRD, DM, CAD s/p CABG, AF, and HFpEF presents with multiple falls. 1. Falls - 3 falls in the last 3 days. He has suffered a steady functional decline over the last 2 years and exhibits clear deconditioning. At this point there is no obvious acute pathology to explain his falls. Considerations do include medication (gabapentin), uremia (BUN 118) - PT/OT evaluations pending - Renal following for PD - Blood cultures ordered - Avoid gabapentin if possible 2. R hip pain - Resulting from his latest fall. XR (personally reviewed/ interpreted) reveals existing hardware but no clear acute fracture. - Pain control: pain is an issue today. Will increase frequency of Dilaudid and provided Oral pain meds as well. He is not a good candidate for mixing opiates and muscle relaxant 3. Leukocytosis - Denies symptoms of infection. He does have indwelling catheter so at risk for bloodstream infection. - Blood cultures ordered - Observe off of antibiotics 4. ESRD - On peritoneal dialysis since June. Per patient and family this has been going well but they have been fluctuating his fluid management as of late. BUN of 118 on admission, which may be contributing to fatigue and weakness. - Renal consult as above - Renally dose medications 5. CAD s/p CABG - With troponin in the indeterminate range. Per review of records the patient has not had a negative troponin since 2009. He denies chest pain at this time and I doubt this signals ACS. - cont to deny chest pain - Monitor on telemetry 6. Hx AF - AF on admission ECG. No longer on BB due to low BP; no longer on warfarin due to frequent falls. Followed by Dr. Isabella Grewal. 7. Chronic normocytic anemia - 2/2 ESRD and chronic disease; currently above recent values, no signs of bleeding. - Monitor CBC Diet - Renal Code - Full Ppx - H Dispo - will monitor overnight Subjective: no cp, no sob. His right leg hurts. No right hip pain. Objective: Vital Signs Temp Pulse Resp BP Pulse Ox 36.6 C 83 14 96/61 L 99 03/04/18 11:44 03/04/18 11:44 03/04/18 11:44 03/04/18 11:44 03/04/18 11:44 03/03/18 03/04/18 03/05/18 05:59 05:59 05:59 Intake Total 0 240 Balance 0 240 - Physical Exam Constitutional: chronically ill appearing Eyes: PERRL, EOMI Ears, Nose, Mouth, Throat: moist mucous membranes, hearing normal Cardiovascular: regular rate and rhythym, No edema Respiratory: no respiratory distress, no rales or rhonchi Gastrointestinal: normoactive bowel sounds, soft, non-tender abdomen Skin: warm Neurologic: AAOx3 Psychiatric: interacting appropriately, not anxious, not encephalopathic Lymph, Heme, Immunologic: No petechiae ICD10 Worksheet Patient Problems: Problems Problem Status Onset Anemia Acute Hypoxia Acute Renal failure Acute Weakness Acute Dehydration Acute Fever Acute Peritoneal dialysis catheter infection Acute Supratherapeutic INR Acute
[2018-03-04] MEDS: CALCIUM CARBONATE 500 MG CHEWABLE TAB PO SCH (17:40)
[2018-03-04] MEDS: INSULIN LISPRO 100 UNIT/ML SC SCH (17:40)
[2018-03-04] MEDS: SEVELAMER HCL 800 MG TAB PO SCH (17:42)
[2018-03-04] MEDS: METOCLOPRAMIDE 5 MG TAB PO SCH (20:54)
[2018-03-04] MEDS: guaiFENesin 600 MG TAB.ER PO PRN (20:54)
[2018-03-04] MEDS: PRAVASTATIN SODIUM 10 MG TAB PO SCH (20:54)
[2018-03-04] MEDS ORDERED: ZOLPIDEM TARTRATE 5 MG TAB PO SCH (21:00)
[2018-03-04] MEDS ORDERED: SULFAMETHOX/TMP 800/160 MG 1 TAB PO SCH (21:00)
--- NOTE | 2018-03-04 21:26 | CPEKG ---
Test Reason : OPEN Blood Pressure : / mmHG Vent. Rate : 075 BPM Atrial Rate : 000 BPM P-R Int : 191 ms QRS Dur : 107 ms QT Int : 400 ms P-R-T Axes : 000 106 000 degrees QTc Int : 447 ms Atrial fibrillation frequent and multifocal PVC's Right axis deviation Low voltage, extremity leads Confirmed by Erasmo Allen ([id number]) on 03/04/2018 9:26:24 PM Referred By: Confirmed By:Erasmo Allen
[2018-03-05] MEDS: HEPARIN 5,000 UNIT/0.5 ML INJ SC SCH ×3 (06:27→20:07)
[2018-03-05] MEDS: oxyCODONE IR 5 MG TAB PO PRN ×2 (07:48→15:11)
[2018-03-05 08:50] LABS: PLATELET COUNT 275 10^3/uL (150-400)
[2018-03-05] MEDS: INSULIN LISPRO 100 UNIT/ML SC SCH ×3 (09:21→19:16)
[2018-03-05] MEDS: SEVELAMER HCL 800 MG TAB PO SCH ×3 (09:21→19:16)
[2018-03-05] MEDS: ALLOPURINOL 300 MG TAB PO SCH (09:22)
[2018-03-05] MEDS: METOCLOPRAMIDE 5 MG TAB PO SCH ×2 (09:22→20:07)
[2018-03-05] MEDS: CALCIUM CARBONATE 500 MG CHEWABLE TAB PO SCH ×2 (09:22→12:54)
[2018-03-05] MEDS: DOCUSATE SODIUM 100 MG CAP PO SCH (09:22)
[2018-03-05] MEDS: HYDROmorphONE/DILAUDID 1 MG/ML INJ IVP PRN ×2 (09:22→20:54)
--- NOTE | 2018-03-05 11:46 | SOAPPROG ---
SOAP Progress Note Assessment/Plan: Assessment: ESRD, continue PD, will decrease fill vols to 1800 dry nose, OK for saline nasal spray Plan: adjust PD PD tonight pain control 03/05/18 11:43 Subjective: up to chair at bedside still having leg pain after fall didn't sleep well ? pain or hospital (new) environment appetite OK no cp sob nausea or vomiting spirits good Objective: Vital Signs Temp Pulse Resp BP Pulse Ox 36.7 C 75 19 81/45 L 98 03/05/18 11:11 03/05/18 11:11 03/05/18 11:11 03/05/18 11:11 03/05/18 11:11 Laboratory Results 03/05/18 08:24 03/05/18 08:24 03/04/18 03/05/18 03/06/18 05:59 05:59 05:59 Intake Total 0 640 Balance 0 640 Physical Exam - Physical Exam General Appearance: cachetic Respiratory: No rhonchi, No wheezing, No pleural rub Cardiac/Chest: regular rate, rhythm, edema, systolic murmur, No gallop, No friction rub Abdomen: normal bowel sounds, non-tender, soft Skin: other (multple bruises) Neuro/Psych: alert, normal mood/affect, oriented x 3 ICD10 Worksheet Patient Problems: Problems Problem Status Onset Anemia Acute Hypoxia Acute Renal failure Acute Weakness Acute Dehydration Acute Fever Acute Peritoneal dialysis catheter infection Acute Supratherapeutic INR Acute
--- NOTE | 2018-03-05 12:02 | ASMTCMCOM ---
CM Note CM Note Notes: CM met w/ pt and for dispo planning. Therapies are recommending SNF. Pt has been to [facility] in the past and had a good experience. Pt is willing to go back if that is what he needs. Referral sent. Pt reports that he wants to continue to work w/ PT/OT to see if he will get stronger. Pt would prefer to d/c home w/ [facility]. Referral sent to [facility]. CM to follow. Plan: TBD Date Signed: 03/05/2018 12:01 PM Electronically Signed By:JEFF Blankenship
--- NOTE | 2018-03-05 14:01 | HOSPPROG ---
Hospitalist Progress Note Assessment/Plan: 72 yo M w/ hx of ESRD, DM, CAD s/p CABG, AF, and HFpEF presents with multiple falls. 1. Falls - 3 falls in the last 3 days. He has suffered a steady functional decline over the last 2 years and exhibits clear deconditioning. At this point there is no obvious acute pathology to explain his falls. Considerations do include medication (gabapentin), uremia (BUN 118) - PT/OT recommend SNF due to weakness - Renal following for PD - Blood cultures ordered - Avoid gabapentin if possible 2. R hip pain - Resulting from his latest fall. XR (personally reviewed/ interpreted) reveals existing hardware but no clear acute fracture. - Pain control 3. Leukocytosis - Denies symptoms of infection. He does have indwelling catheter so at risk for bloodstream infection. - Blood cultures ordered - Observe off of antibiotics 4. ESRD - On peritoneal dialysis since June. Per patient and family this has been going well but they have been fluctuating his fluid management as of late. BUN of 118 on admission, which may be contributing to fatigue and weakness. - Renal consult as above - Renally dose medications 5. CAD s/p CABG - With troponin in the indeterminate range. Per review of records the patient has not had a negative troponin since 2009. He denies chest pain at this time and I doubt this signals ACS. - cont to deny chest pain - Monitor on telemetry 6. Hx AF - AF on admission ECG. No longer on BB due to low BP; no longer on warfarin due to frequent falls. Followed by Dr. Isabella Grewal. 7. Chronic normocytic anemia - 2/2 ESRD and chronic disease; currently above recent values, no signs of bleeding. - Monitor CBC 8. Generalized Weakness: not safe for discharge. Needs PT/OT. Needs SNF Diet - Renal Code - Full Ppx - [facility] Plan: change to inpatient cont PT/OT restart Aspirin, he takes this at home. cont to monitor off abx, no e/o active infection Subjective: still with leg pain, but better. most of pain is at thigh. no hip pain. worked with PT today Objective: Vital Signs Temp Pulse Resp BP Pulse Ox 36.7 C 75 19 81/45 L 98 03/05/18 11:11 03/05/18 11:11 03/05/18 11:11 03/05/18 11:11 03/05/18 11:11 Laboratory Results 03/05/18 08:24 03/05/18 08:24 03/04/18 03/05/18 03/06/18 05:59 05:59 05:59 Intake Total 0 640 Balance 0 640 - Physical Exam Constitutional: no apparent distress, chronically ill appearing Eyes: PERRL, EOMI Ears, Nose, Mouth, Throat: moist mucous membranes, hearing normal, ears appear normal Cardiovascular: regular rate and rhythym Respiratory: no respiratory distress, no rales or rhonchi, clear to auscultation Gastrointestinal: normoactive bowel sounds, soft, non-tender abdomen Skin: warm Neurologic: AAOx3 Psychiatric: interacting appropriately, not anxious, not encephalopathic Lymph, Heme, Immunologic: No petechiae ICD10 Worksheet Patient Problems: Problems Problem Status Onset Anemia Acute Hypoxia Acute Renal failure Acute Weakness Acute Dehydration Acute Fever Acute Peritoneal dialysis catheter infection Acute Supratherapeutic INR Acute
[2018-03-05] MEDS: ACETAMINOPHEN 325 MG TAB PO PRN (15:11)
--- NOTE | 2018-03-05 15:24 | PDMN ---
Medical Necessity Medical necessity: Change to IP, as of 03/05/18, per MD & MCG M-325; los >2 mn for ongoing management of end-stage renal disease w/BUN of 121, leukocytosis, hypotension (BP 81/45) & generalized weakness w/frequent falls & severe (8 out of 10) R hip pain; requiring further monitoring, follow-up labs, med management & therapies; hx diabetes, CAD, CABG, AFIB
[2018-03-05] MEDS: FLUTICASONE NASAL 120 SPRAYS/16 GM MDI EACHNARE PRN (15:35)
[2018-03-05] MEDS: PRAVASTATIN SODIUM 10 MG TAB PO SCH (20:07)
[2018-03-05] MEDS: ZOLPIDEM TARTRATE 5 MG TAB PO PRN (21:29)
[2018-03-06] MEDS: HEPARIN 5,000 UNIT/0.5 ML INJ SC SCH ×3 (05:37→21:38)
[2018-03-06] MEDS: oxyCODONE IR 5 MG TAB PO PRN ×2 (10:08→17:45)
[2018-03-06] MEDS: ACETAMINOPHEN 325 MG TAB PO PRN ×2 (10:09→17:45)
[2018-03-06] MEDS: ASPIRIN 81 MG CHEWABLE TAB PO SCH (10:12)
[2018-03-06] MEDS: SEVELAMER HCL 800 MG TAB PO SCH ×3 (10:13→17:37)
[2018-03-06] MEDS: DOCUSATE SODIUM 100 MG CAP PO SCH (10:13)
[2018-03-06] MEDS: ALLOPURINOL 300 MG TAB PO SCH (10:13)
[2018-03-06] MEDS: INSULIN LISPRO 100 UNIT/ML SC SCH ×3 (10:14→18:13)
[2018-03-06] MEDS: METOCLOPRAMIDE 5 MG TAB PO SCH ×2 (10:14→21:37)
--- NOTE | 2018-03-06 10:35 | SOAPPROG ---
SOAP Progress Note Assessment/Plan: Assessment/Plan: ESRD: on PD, tolerating better with lower fill volumes, will continue. BETSY: continue phos binder. Anemia: Hgb 8.7 yesterday, will recheck tomorrow and consider epo. Subjective: No acute events overnight. Pt states that PD went better last night, no issues. He is still having a lot of pain in R thigh, does not feel it is well controlled. Objective: Vital Signs Temp Pulse Resp BP Pulse Ox 36.7 C 77 17 111/42 L 97 03/06/18 07:38 03/06/18 07:38 03/06/18 07:38 03/06/18 07:38 03/06/18 07:38 Laboratory Results 03/06/18 04:16 03/05/18 03/06/18 03/07/18 05:59 05:59 05:59 Intake Total 600 Balance 600 General: alert and oriented, no acute distress Eyes: EOMI, PERRL OP: Clear CV: RRR Resp: nonlabored respirations on NC Ext: no edema BLE Neuro: CN II-XII Grossly intact Psych: cooperative Access: PD catheter ICD10 Worksheet Patient Problems: Problems Problem Status Onset Anemia Acute Hypoxia Acute Renal failure Acute Weakness Acute Dehydration Acute Fever Acute Peritoneal dialysis catheter infection Acute Supratherapeutic INR Acute
[2018-03-06] MEDS: HYDROmorphONE/DILAUDID 1 MG/ML INJ IVP PRN (12:40)
--- NOTE | 2018-03-06 13:21 | HOSPPROG ---
Hospitalist Progress Note Assessment/Plan: 72 yo M w/ hx of ESRD, DM, CAD s/p CABG, AF, and HFpEF presents with multiple falls. 1. Falls - 3 falls in the last 3 days. He has suffered a steady functional decline over the last 2 years and exhibits clear deconditioning. At this point there is no obvious acute pathology to explain his falls. Considerations do include medication (gabapentin), uremia (BUN 118) - PT/OT recommend SNF due to weakness, CM looking at options - Renal following for PD - Blood cultures ordered, negative thus far - Avoid gabapentin if possible 2. R leg pain - Resulting from his latest fall. XR (personally reviewed/ interpreted) reveals existing hardware but no clear acute fracture. - Pain control 3. Leukocytosis - Denies symptoms of infection. He does have indwelling catheter so at risk for bloodstream infection. - Blood cultures ordered - Observe off of antibiotics 4. ESRD - On peritoneal dialysis since June. Per patient and family this has been going well but they have been fluctuating his fluid management as of late. BUN of 118 on admission, which may be contributing to fatigue and weakness. - Renal consult as above - Renally dose medications 5. CAD s/p CABG - With troponin in the indeterminate range. Per review of records the patient has not had a negative troponin since 2009. He denies chest pain at this time and I doubt this signals ACS. - cont to deny chest pain - Monitor on telemetry 6. Hx AF - AF on admission ECG. No longer on BB due to low BP; no longer on warfarin due to frequent falls. Followed by Dr. Isabella Grewal. 7. Chronic normocytic anemia - 2/2 ESRD and chronic disease; currently above recent values, no signs of bleeding. - Monitor CBC 8. Generalized Weakness: not safe for discharge. Needs PT/OT. Needs SNF Diet - Renal Code - Full Ppx - SQH Plan: cont inpatient cont PT/OT cont Aspirin cont to monitor off abx, no e/o active infection Subjective: no overnight events. afebrile. Still with right leg pain Objective: Vital Signs Temp Pulse Resp BP Pulse Ox 36.7 C 77 17 111/42 L 97 03/06/18 07:38 03/06/18 07:38 03/06/18 07:38 03/06/18 07:38 03/06/18 07:38 Laboratory Results 03/06/18 04:16 03/05/18 03/06/18 03/07/18 05:59 05:59 05:59 Intake Total 600 Balance 600 - Physical Exam Constitutional: no apparent distress, appears nourished, chronically ill appearing Eyes: PERRL Ears, Nose, Mouth, Throat: moist mucous membranes, hearing normal Cardiovascular: regular rate and rhythym, edema (trace) Respiratory: no respiratory distress Gastrointestinal: normoactive bowel sounds, soft, non-tender abdomen Skin: warm Neurologic: AAOx3 Psychiatric: interacting appropriately, not anxious, not encephalopathic Lymph, Heme, Immunologic: No petechiae ICD10 Worksheet Patient Problems: Problems Problem Status Onset Anemia Acute Hypoxia Acute Renal failure Acute Weakness Acute Dehydration Acute Fever Acute Peritoneal dialysis catheter infection Acute Supratherapeutic INR Acute
[2018-03-06] MEDS: ALBUTEROL 3 ML DEYVIAL IH PRN ×2 (16:52→21:52)
[2018-03-06] MEDS: ZOLPIDEM TARTRATE 5 MG TAB PO PRN (21:37)
[2018-03-06] MEDS: PRAVASTATIN SODIUM 10 MG TAB PO SCH (21:38)
[2018-03-07] MEDS: HEPARIN 5,000 UNIT/0.5 ML INJ SC SCH ×3 (05:23→20:24)
[2018-03-07] MEDS: INSULIN LISPRO 100 UNIT/ML SC SCH ×3 (09:29→18:13)
[2018-03-07] MEDS: SEVELAMER HCL 800 MG TAB PO SCH ×2 (09:35→11:31)
[2018-03-07] MEDS: ACETAMINOPHEN 325 MG TAB PO PRN ×2 (09:35→16:34)
[2018-03-07] MEDS: oxyCODONE IR 5 MG TAB PO PRN ×2 (09:35→16:34)
[2018-03-07] MEDS: METOCLOPRAMIDE 5 MG TAB PO SCH ×2 (10:27→20:24)
[2018-03-07] MEDS: DOCUSATE SODIUM 100 MG CAP PO SCH (10:27)
[2018-03-07] MEDS: ASPIRIN 81 MG CHEWABLE TAB PO SCH (10:27)
[2018-03-07] MEDS: ALLOPURINOL 300 MG TAB PO SCH (10:27)
[2018-03-07] MEDS: HYDROmorphONE/DILAUDID 1 MG/ML INJ IVP PRN (11:13)
--- NOTE | 2018-03-07 11:44 | HOSPPROG ---
Hospitalist Progress Note Assessment/Plan: 72 yo M w/ hx of ESRD, DM, CAD s/p CABG, AF, and HFpEF presents with multiple falls. 1. Falls - multiple falls. He has suffered a steady functional decline over the last 2 years and exhibits clear deconditioning. At this point there is no obvious acute pathology to explain his falls. - PT/OT recommend SNF due to weakness, CM looking at options - Renal following for PD nightly - Blood cultures ordered, negative thus far - Avoid gabapentin if possible 2. R leg pain - Resulting from his latest fall. XR (personally reviewed/ interpreted) reveals existing hardware but no clear acute fracture. - Pain control 3. Leukocytosis - Denies symptoms of infection. He does have indwelling catheter so at risk for bloodstream infection. - Blood cultures ordered - Observe off of antibiotics 4. ESRD - On peritoneal dialysis since June. Per patient and family this has been going well but they have been fluctuating his fluid management as of late. BUN of 118 on admission, which may be contributing to fatigue and weakness. - Renal consult as above - Renally dose medications 5. CAD s/p CABG - With troponin in the indeterminate range. Per review of records the patient has not had a negative troponin since 2009. He denies chest pain at this time and I doubt this signals ACS. - cont to deny chest pain - Monitor on telemetry 6. Hx AF - AF on admission ECG. No longer on BB due to low BP; no longer on warfarin due to frequent falls. Followed by Dr. Isabella Grewal. 7. Chronic normocytic anemia - 2/2 ESRD and chronic disease; currently above recent values, no signs of bleeding. - Monitor CBC 8. Generalized Weakness: not safe for discharge. Needs PT/OT. Needs SNF Diet - Renal Code - Clarification: he is a DNR. We had a discussion about this today and he is a longstanding DNR. I will update the order. Ppx - SQH Plan: cont inpatient cont PT/OT cont Aspirin cont to monitor off abx, no e/o active infection Needs SNF, placement Subjective: still with some intermittent leg pain and weakness. some improvement. no cp or sob. Objective: Vital Signs Temp Pulse Resp BP Pulse Ox 36.3 C 77 16 106/39 L 95 03/07/18 08:00 03/07/18 08:00 03/07/18 08:00 03/07/18 08:00 03/07/18 08:00 Laboratory Results 03/07/18 04:12 03/07/18 04:12 03/06/18 03/07/18 03/08/18 05:59 05:59 05:59 Intake Total 600 1130 Output Total 1191 Balance 600 1130 -1191 - Physical Exam Constitutional: no apparent distress, chronically ill appearing Eyes: PERRL Ears, Nose, Mouth, Throat: moist mucous membranes, hearing normal Cardiovascular: regular rate and rhythym, No edema Respiratory: no respiratory distress, reduced air movement Gastrointestinal: normoactive bowel sounds, soft, non-tender abdomen Skin: warm Musculoskeletal: generalized weakness Neurologic: AAOx3 Psychiatric: interacting appropriately, not anxious, not encephalopathic Lymph, Heme, Immunologic: No petechiae ICD10 Worksheet Patient Problems: Problems Problem Status Onset Anemia Acute Hypoxia Acute Renal failure Acute Weakness Acute Dehydration Acute Fever Acute Peritoneal dialysis catheter infection Acute Supratherapeutic INR Acute
--- NOTE | 2018-03-07 14:59 | ASMTCMCOM ---
CM Note CM Note Notes: CM met with patient and family, Crystal shared [facility] has informed her they are unable to accept Sharad due to his PD needs. She has held a couple of calls with [facility] since, it seems they may be considering accepting the patient as Crystal has offered to support his PD needs as she does at home. The family is open to referrals being placed to other facilities but their preference is [facility]. CM to send message back to [facility] to inquire about the possibility for acceptance. CM informed them [facility] has accepted the patient, they are glad about this as they would like him to come home but understand the need for rehab. CM to send additional referrals to area SNF's, patient likely able to discharge in 1-2 days. CM to follow. Current discharge plan: SNF, pending acceptance. Date Signed: 03/07/2018 02:58 PM Electronically Signed By:Kailyn Villalobos
--- NOTE | 2018-03-07 15:54 | SOAPPROG ---
SOAP Progress Note Assessment/Plan: Assessment/Plan: ESRD: on PD, tolerating better with lower fill volumes, will continue. BETSY: pt unable to take sevelamer pills, bringing in his powder from home, ok to take home medicatio. Anemia: Hgb 8.3, will give epo. Subjective: No acute events overnight. Pt in a little less pain today, working with PT some. Objective: Vital Signs Temp Pulse Resp BP Pulse Ox 36.3 C 80 18 104/53 L 93 03/07/18 12:00 03/07/18 12:00 03/07/18 12:00 03/07/18 12:00 03/07/18 12:00 Laboratory Results 03/07/18 04:12 03/07/18 04:12 03/06/18 03/07/18 03/08/18 05:59 05:59 05:59 Intake Total 600 1130 Output Total 1191 Balance 600 1130 -1191 General: alert and oriented, no acute distress Eyes: EOMI, PERRL OP: Clear CV: RRR Resp: nonlabored respirations Abd: Soft, NT/ND Ext: no edema BLE Neuro: CN II-XII grossly intact Access: PD catheter in place ICD10 Worksheet Patient Problems: Problems Problem Status Onset Anemia Acute Hypoxia Acute Renal failure Acute Weakness Acute Dehydration Acute Fever Acute Peritoneal dialysis catheter infection Acute Supratherapeutic INR Acute
[2018-03-07] MEDS ORDERED: EPOETIN ALFA 10,000 UNIT/ML VIAL SC ONE (16:00)
[2018-03-07] MEDS: RENVELA PO SCH ×2 (16:34→20:22)
[2018-03-07] MEDS: ALBUTEROL 3 ML DEYVIAL IH PRN (20:13)
[2018-03-07] MEDS: PRAVASTATIN SODIUM 10 MG TAB PO SCH (20:24)
[2018-03-07] MEDS: ZOLPIDEM TARTRATE 5 MG TAB PO PRN (20:37)
--- NOTE | 2018-03-08 08:22 | SOAPPROG ---
SOAP Progress Note Assessment/Plan: Assessment: #ESRD- on PD with Dr. Lu -on 6 exchanges all 1.8L, 2.5% dextrose- had 1011 cc UF -some fibrin and will add heparin to bags. Denies difficulty draining and having BM -not doing well on PD as outpt-- Dr. Lu has recommended he transition to incenter HD but pt adamant he does not want to. I discussed with him today and he remains firm on this decision. I spoke with Dr. Lu who will continue discussions with pt/ as outpt. Pt will need to have SNF willing to handle his PD needs-- CM working on this. #Anemia CKD -Epo 10,000 units weekly -Transfuse if Hb <7 #MBD of CKD -phos high-- not able to tolerate pill form of binder-- ok for him to use home powder form. Low phos diet (does not need KCL restriction). #failure to thrive/weakness with falls -for SNF Patricia Dupree MD [facility] pager [phone] 03/08/18 09:24 Subjective: Still some diffuse pain. Working on SNF placement. No problems with PD last night- had 1011 cc UF with all 2.5% dextrose. No trouble draining. No contipation. No cloudy fluid- some mild fibrin. No sob. Objective: Vital Signs Temp Pulse Resp BP Pulse Ox 36.5 C 79 19 134/55 H 93 03/08/18 03:49 03/08/18 03:49 03/08/18 03:49 03/08/18 03:49 03/08/18 03:49 Laboratory Results 03/07/18 04:12 03/08/18 03:46 03/07/18 03/08/18 03/09/18 05:59 05:59 05:59 Intake Total 1130 950 Output Total 1191 Balance 1130 -241 Physical Exam - Physical Exam General Appearance: alert, no apparent distress, other (chronically ill/frail appearing) EENT: other (mmm) Neck: supple Respiratory: normal breath sounds Cardiac/Chest: regular rate, rhythm, other (no rub) Abdomen: normal bowel sounds, non-tender, soft, other (PD cath exit site c/d/i) Skin: warm/dry Extremities: other (no edema) Neuro/Psych: alert, oriented x 3 ICD10 Worksheet Patient Problems: Problems Problem Status Onset Anemia Acute Hypoxia Acute Renal failure Acute Weakness Acute Dehydration Acute Fever Acute Peritoneal dialysis catheter infection Acute Supratherapeutic INR Acute
[2018-03-08] MEDS: ALLOPURINOL 300 MG TAB PO SCH (09:09)
[2018-03-08] MEDS: ASPIRIN 81 MG CHEWABLE TAB PO SCH (09:10)
[2018-03-08] MEDS: DOCUSATE SODIUM 100 MG CAP PO SCH (09:10)
[2018-03-08] MEDS: HEPARIN 5,000 UNIT/0.5 ML INJ SC SCH ×3 (09:10→22:13)
[2018-03-08] MEDS: METOCLOPRAMIDE 5 MG TAB PO SCH ×2 (09:11→20:08)
[2018-03-08] MEDS: RENVELA PO SCH ×2 (09:11→18:27)
[2018-03-08] MEDS: oxyCODONE IR 5 MG TAB PO PRN (09:15)
[2018-03-08] MEDS: INSULIN LISPRO 100 UNIT/ML SC SCH ×4 (09:15→21:53)
[2018-03-08] MEDS ORDERED: EPOETIN ALFA 10,000 UNIT/ML VIAL SC SCH (09:30)
[2018-03-08] MEDS: METHOCARBAMOL 750 MG TAB PO PRN (10:57)
[2018-03-08] MEDS: guaiFENesin 600 MG TAB.ER PO PRN (14:33)
[2018-03-08] MEDS: FLUTICASONE NASAL 120 SPRAYS/16 GM MDI EACHNARE PRN (14:33)
[2018-03-08] MEDS: HYDROmorphONE/DILAUDID 2 MG TAB PO PRN (14:38)
--- NOTE | 2018-03-08 14:43 | ASMTCMCOM ---
CM Note CM Note Notes: 03/08/2018 Case Management Note Phone call from Patricia at [facility] admissions [phone] accepting pt IF pt brings all peritoneal dialysis equipment to [facility], administers and monitors the dialysis overnight. agreeable. Confirmed with Ana. Discussed pt during rounds this morning. D/C possible tomorrow. Case Management d/c poc: [facility] rehab Case Management to follow. Date Signed: 03/08/2018 02:42 PM Electronically Signed By:Josey Santos RN
[2018-03-08] MEDS: ALBUTEROL 3 ML DEYVIAL IH PRN ×2 (14:47→20:12)
[2018-03-08] MEDS: LIDOCAINE 4%/MENTHOL 1% PATCH TD SCH (15:27)
--- NOTE | 2018-03-08 17:05 | HOSPPROG ---
Hospitalist Progress Note Assessment/Plan: 72 yo M w/ hx of ESRD, DM, CAD s/p CABG, AF, and HFpEF presents with multiple falls. 1. Acute right thigh pain: Exam re-assuring. X-ray without cause. Has vincent from prior surgery. This is limiting his ability to work with therapy and discharge to rehab. - No indication for additional imaging - Stop oxycodone and IV dilaudid, trial PO diludid, muscle relaxer, and lidocaine patch 2. Falls - multiple falls. He has suffered a steady functional decline over the last 2 years and exhibits clear deconditioning. At this point there is no obvious acute pathology to explain his falls. - PT/OT recommend SNF due to weakness, CM looking at options - Off gabapentin 3. Leukocytosis - No localizing source, cultures negative, off abx 4. ESRD - On PD since June. Renal recommending HD, patient refusing at moment. 5. CAD s/p CABG - With troponin in the indeterminate range (chronic). No anginal sxs. On asa, statin. 6. Hx AF - AF on admission ECG. No longer on BB due to low BP; no longer on warfarin due to frequent falls. Followed by Dr. Isabella Grewal. 7. Chronic normocytic anemia - 2/2 ESRD and chronic disease; currently above recent values, no signs of bleeding. 8. Generalized Weakness: not safe for discharge. Needs PT/OT. Needs SNF Diet - Renal Code - DNR Ppx - [facility] Dispo: Unsafe for discharge. Unable to ambulate 2/2 pain. Once controlled, dc to SNF Subjective: Complaining of severe right thigh pain. This has been ongoing. Unable to participate in therapy due to this. Otherwise doing ok. Objective: Vital Signs Temp Pulse Resp BP Pulse Ox 36.8 C 78 17 112/47 L 93 03/08/18 11:36 03/08/18 14:47 03/08/18 14:47 03/08/18 11:36 03/08/18 14:47 Laboratory Results 03/07/18 04:12 03/08/18 03:46 03/07/18 03/08/18 03/09/18 05:59 05:59 05:59 Intake Total 1130 950 Output Total 1191 Balance 1130 -241 - Physical Exam Constitutional: no apparent distress, other (chronically ill appearing) Eyes: PERRL, anicteric sclera, EOMI Ears, Nose, Mouth, Throat: moist mucous membranes, hearing normal, ears appear normal, no oral mucosal ulcers Cardiovascular: regular rate and rhythym, No edema Respiratory: no respiratory distress, no rales or rhonchi Gastrointestinal: normoactive bowel sounds, soft, non-tender abdomen, no palpable masses Skin: other (numerous bruises, ecchymoses) Musculoskeletal: other (R proximal leg weakness) Neurologic: AAOx3 Psychiatric: interacting appropriately, not anxious, not encephalopathic, thought process linear ICD10 Worksheet Patient Problems: Problems Problem Status Onset Anemia Acute Hypoxia Acute Renal failure Acute Weakness Acute Dehydration Acute Fever Acute Peritoneal dialysis catheter infection Acute Supratherapeutic INR Acute
[2018-03-08] MEDS: PRAVASTATIN SODIUM 10 MG TAB PO SCH (20:08)
[2018-03-08] MEDS: ZOLPIDEM TARTRATE 5 MG TAB PO PRN (22:14)
[2018-03-09] MEDS: PATCH REMOVAL 1 EA PATCH TD SCH ×2 (00:11→22:05)
[2018-03-09] MEDS: RENVELA PO SCH ×2 (00:59→09:18)
[2018-03-09] MEDS ORDERED: SODIUM CL NASAL 45 ML BTL EACHNARE PRN (05:00)
[2018-03-09] MEDS: HYDROmorphONE/DILAUDID 2 MG TAB PO PRN ×2 (05:10→11:10)
[2018-03-09] MEDS: HEPARIN 5,000 UNIT/0.5 ML INJ SC SCH ×3 (05:11→22:04)
[2018-03-09] MEDS: METOCLOPRAMIDE 5 MG TAB PO SCH ×2 (09:17→22:05)
[2018-03-09] MEDS: METHOCARBAMOL 750 MG TAB PO PRN (09:17)
[2018-03-09] MEDS: ASPIRIN 81 MG CHEWABLE TAB PO SCH (09:17)
[2018-03-09] MEDS: LIDOCAINE 4%/MENTHOL 1% PATCH TD SCH (09:17)
[2018-03-09] MEDS: DOCUSATE SODIUM 100 MG CAP PO SCH (09:17)
[2018-03-09] MEDS: ALLOPURINOL 300 MG TAB PO SCH (09:18)
[2018-03-09] MEDS: FLUTICASONE NASAL 120 SPRAYS/16 GM MDI EACHNARE PRN (09:20)
[2018-03-09] MEDS: ALBUTEROL 3 ML DEYVIAL IH PRN (09:31)
[2018-03-09] MEDS: INSULIN LISPRO 100 UNIT/ML SC SCH ×3 (09:53→18:27)
[2018-03-09] MEDS ORDERED: RENVELA PO SCH (12:00)
--- NOTE | 2018-03-09 13:34 | HOSPPROG ---
Hospitalist Progress Note Assessment/Plan: 72 yo M w/ hx of ESRD, DM, CAD s/p CABG, AF, and HFpEF presents with multiple falls. 1. Acute right thigh pain: Exam re-assuring. X-ray without cause. Has vincent from prior surgery. This is limiting his ability to work with therapy and discharge to rehab. - No indication for additional imaging - Stop oxycodone and IV dilaudid, trial PO diludid, muscle relaxer, and lidocaine patch 2. Falls - multiple falls. He has suffered a steady functional decline over the last 2 years and exhibits clear deconditioning. At this point there is no obvious acute pathology to explain his falls. - PT/OT recommend SNF due to weakness, CM looking at options - Off gabapentin 3. Leukocytosis - No localizing source, cultures negative, off abx 4. ESRD - On PD since June. Renal recommending HD, patient refusing at moment. 5. CAD s/p CABG - With troponin in the indeterminate range (chronic). No anginal sxs. On asa, statin. 6. Hx AF - AF on admission ECG. No longer on BB due to low BP; no longer on warfarin due to frequent falls. Followed by Dr. Isabella Grewal. 7. Chronic normocytic anemia - 2/2 ESRD and chronic disease; currently above recent values, no signs of bleeding. 8. Generalized Weakness: not safe for discharge. Needs PT/OT. Needs SNF Diet - Renal Code - DNR Ppx - [facility] Dispo: Unsafe for discharge. Unable to ambulate 2/2 pain. Once controlled, dc to SNF. Patient and family looking in to [facility], unfortunately they will not take patient because of his peritoneal dialysis. Case management is working with [facility] to see if they will accept him if his is responsible for his peritoneal dialysis while he is at their facility. Otherwise we may need to look at other options. Getting close to discharge to SNF Subjective: Patient new to me and chart reviewed. Continues to complain of pain in his right leg. He does get some relief from oral Dilaudid however the pain recurs after wears off. He has had an x-ray at that site which showed no obvious abnormality. If he does not improve with rehab the next step would be to pursue further evaluation Objective: Vital Signs Temp Pulse Resp BP Pulse Ox 36.6 C 82 18 97/30 L 94 03/09/18 11:44 03/09/18 11:44 03/09/18 11:44 03/09/18 11:44 03/09/18 11:44 Laboratory Results 03/07/18 04:12 03/09/18 03:54 03/08/18 03/09/18 03/10/18 05:59 05:59 05:59 Intake Total 950 300 Output Total 9190 939 Balance -352 -354 - Physical Exam Constitutional: chronically ill appearing, uncomfortable Eyes: PERRL Ears, Nose, Mouth, Throat: moist mucous membranes Cardiovascular: regular rate and rhythym Respiratory: no respiratory distress, reduced air movement Gastrointestinal: soft, non-tender abdomen Skin: No normal color (Pale) Musculoskeletal: muscular tenderness (Right thigh), generalized weakness Neurologic: No facial droop Psychiatric: interacting appropriately ICD10 Worksheet Patient Problems: Problems Problem Status Onset Fever Acute Dehydration Acute Supratherapeutic INR Acute Renal failure Acute Anemia Acute Peritoneal dialysis catheter infection Acute Weakness Acute Hypoxia Acute
[2018-03-09] MEDS: SEVELAMER CARBONATE 2.4 GM PO SCH ×2 (15:20→18:28)
--- NOTE | 2018-03-09 15:27 | SOAPPROG ---
SOAP Progress Note Assessment/Plan: Assessment/Plan: 72 y/o M with h/o ESRD on PD with FTT and multiple falls. ESRD- on PD with Dr. Lu -on 6 exchanges all 1.8L, will switch to 1/2 1.5%/2.5% bags for tonight given mild hypotension -some fibrin noted in fluid, heparin added to bags -ensure good bowel regimen -as per Dr. Sarah> not doing well on PD as outpt and Dr. Lu has recommended he transition to in-center HD, however he refuses -able to go to [facility] if sleeps there to do PD, hoping for discharge tomorrow Anemia CKD -Epo 10,000 units weekly -Transfuse if Hb <7 MBD of CKD -phos high-- not able to tolerate pill form of binder-- ok for him to use home powder form. Low phos diet (does not need KCL restriction). AGMA -possible 2/2 to renal failure -may also have some component of starvation ketosis -encourage protein and po -continue to monitor, currently 20mg/dL Fall -renally dose pain meds Will continue to follow, please contact if ?'s. #[phone]. 03/09/18 16:08 Subjective: UF 1191. No issues with PD overnight. Objective: Vital Signs Temp Pulse Resp BP Pulse Ox 36.6 C 82 18 97/30 L 94 03/09/18 11:44 03/09/18 11:44 03/09/18 11:44 03/09/18 11:44 03/09/18 11:44 Laboratory Results 03/07/18 04:12 03/09/18 03:54 03/08/18 03/09/18 03/10/18 05:59 05:59 05:59 Intake Total 950 300 Output Total 1198 229 Balance -455 -536 Physical Exam - Physical Exam General Appearance: alert, mild distress EENT: PERRL/EOMI, other (bandage on scalp) Neck: non-tender, full range of motion, supple Respiratory: chest non-tender, decreased breath sounds Cardiac/Chest: regular rate, rhythm Abdomen: normal bowel sounds, non-tender, soft Skin: pallor Extremities: normal range of motion, non-tender Neuro/Psych: depressed affect ICD10 Worksheet Patient Problems: Problems Problem Status Onset Anemia Acute Hypoxia Acute Renal failure Acute Weakness Acute Dehydration Acute Fever Acute Peritoneal dialysis catheter infection Acute Supratherapeutic INR Acute
[2018-03-09] MEDS ORDERED: HEPARIN 10,000 UNIT/10 ML MDV (1,000 UNIT/ML) ONE (22:04)
[2018-03-09] MEDS: PRAVASTATIN SODIUM 10 MG TAB PO SCH (22:05)
[2018-03-09] MEDS: ZOLPIDEM TARTRATE 5 MG TAB PO PRN (22:11)
[2018-03-10] MEDS: HYDROmorphONE/DILAUDID 2 MG TAB PO PRN ×2 (00:53→09:11)
[2018-03-10] MEDS: HEPARIN 5,000 UNIT/0.5 ML INJ SC SCH ×2 (05:31→14:34)
[2018-03-10] MEDS: INSULIN LISPRO 100 UNIT/ML SC SCH ×2 (08:43→14:33)
--- NOTE | 2018-03-10 08:48 | SOAPPROG ---
SOAP Progress Note Assessment/Plan: Assessment: ESRD, continue PD, fill vols 1800 dry nose, OK for saline nasal spray still needs physical rehab Plan: adjust PD as necessary PD tonight pain control to rehab later today, will be doing PD 03/05/18 11:43 03/10/18 08:45 Subjective: spirits good "I guess I should get dressed before I leave." no cp sob nausea or vomiting eating OK no significant pain today appetite OK, doesn't much like the food Objective: Vital Signs Temp Pulse Resp BP Pulse Ox 37.3 C 77 17 108/57 L 96 03/10/18 05:00 03/10/18 05:00 03/10/18 05:00 03/10/18 05:00 03/10/18 05:00 Laboratory Results 03/07/18 04:12 03/10/18 03:47 03/09/18 03/10/18 03/11/18 05:59 05:59 05:59 Intake Total 300 920 Output Total 939 200 Balance -639 720 Physical Exam - Physical Exam General Appearance: alert, cachetic Neck: normal inspection Respiratory: No rhonchi, No wheezing, No pleural rub Cardiac/Chest: regular rate, rhythm, systolic murmur, No edema, No friction rub Abdomen: normal bowel sounds, non-tender, soft Skin: other (multiple bruises) Extremities: No swelling Neuro/Psych: alert, normal mood/affect, oriented x 3 ICD10 Worksheet Patient Problems: Problems Problem Status Onset Anemia Acute Hypoxia Acute Renal failure Acute Weakness Acute Dehydration Acute Fever Acute Peritoneal dialysis catheter infection Acute Supratherapeutic INR Acute
[2018-03-10] MEDS ORDERED: ASPIRIN 81 MG CHEWABLE TAB PO SCH (09:00)
[2018-03-10] MEDS: ALLOPURINOL 300 MG TAB PO SCH (10:05)
[2018-03-10] MEDS: SEVELAMER CARBONATE 2.4 GM PO SCH ×2 (10:05→14:33)
[2018-03-10] MEDS: METOCLOPRAMIDE 5 MG TAB PO SCH (10:06)
[2018-03-10] MEDS: DOCUSATE SODIUM 100 MG CAP PO SCH (10:06)
[2018-03-10] MEDS: LIDOCAINE 4%/MENTHOL 1% PATCH TD SCH (10:06)
--- NOTE | 2018-03-10 13:09 | PDIAF ---
- Diagnosis Diagnosis: end stage renal disease, deconditioning, falls, L leg pain after fall Code Status: Do Not Resuscitate - Medication Management Discharge Medications: electronically signed and located in the Home Medication List. - Orders Services needed: Registered Nurse, Certified Blown Film Extrusion Operator, Master Brand Planner , Physical Therapy, Occupational Therapy Isolation Type: None Diet Recommendation: potassium restricted Diet Texture: Regular Texture Diet Weigh Patient: Thu Activity/Weight Bearing Restrictions: as tolerated Equipment: Peritional dialysis equipment will be brought in by his Additional Instructions: His will do his dialysis treatments Contact Dr Fabian Lu [phone] for any issues related to dialysis - Labs/Radiology BMP Date: 03/14/18 (weekly BMP) - Follow Up Care Current Providers and Referrals: Kiera Ramirez [Primary Care Provider] - As per Instructions
--- NOTE | 2018-03-10 13:15 | PDDCSUM ---
Discharge Summary Discharge Summary: DISCHARGE DIAGNOSES: * uremia in the setting of end-stage dialysis on peritoneal dialysis * fall at home, left leg pain without evidence of fracture or other significant trauma * severe deconditioning * diabetes mellitus type 2 on insulin at home * coronary artery disease, currently stable CONSULTANTS: Dr. Anuel Jackson PROCEDURES: Peritoneal dialysis nightly HOSPITAL COURSE SUMMARY: This patient has a complicated medical history presented at this time with left leg pain after 2 falls at home. He has become increasingly weak in his legs buckled underneath him. There is no syncope or other neuro cardiac type syndrome. There is no evidence of fracture or other concerning injury. He has extreme generalized weakness. Notably the patient has end-stage renal disease and has been on peritoneal dialysis for some time. His peritoneal dialysis has really been inadequate for his needs and it has been strongly recommended to him by Dr. Lu that he transition to hemodialysis but the patient has refused. At the time of presenting here the patient is uremic. His electrolytes are good and his fluid balance is good. However his BUN is at 125 in creatinine at 7. He is eating and he is mentating well. Again at this time the patient is not wishing to have hemodialysis. There been no signs of acute infection, heart failure, lung failure, acute neurologic injury or illness. Patient remains extremely weak and will need ongoing physical therapy rehabilitation. Therefore he will be transitioned at this time to local alf facility for ongoing physical therapy. PENDING TEST RESULTS: None MEDICATION CHANGES: None FOLLOW-UP PLAN: He will be transferred from here to the [facility] for ongoing physical therapy rehabilitation. There his dialysis treatments will be performed by his overnight. He will be under the care of the geriatric staff at [facility]. Follow-up appoint with Dr. Fabian Lu 2-4 weeks Greater than 35 minutes bedside and care coordination time today
--- NOTE | 2018-03-10 13:32 | WOCRNPDOC ---
MARLYS Advanced Assessment Note - Skin Integrity Problem, Advanced Assess Right Fifth Toe Scab Dressing Type: Open to Air Alyce Wound Tissue: Calloused Wound Bed Constitution: Stable Eschar Site Measurement - Head-to-Toe Length X Width X Depth (cm): [id number] eschar Posterior Right Hip Pressure Injury Dressing Type: Allevyn Life Exudate Amount: None Integumentary Issue Intervention: Visualized Under Dressing Alyce Wound Tissue: Scarred Wound Bed Constitution: Red/[place] - Non Granular Tissue (100%) Site Measurement - Head-to-Toe Length X Width X Depth (cm): 1.8x0.5x0.1 Pressure Injury Present on Admit: Yes Skin Integrity Problem Comment: Healing pressure injury that has scar tissue surrounding it with hyperpigmented skin. No concerns. Keep pressure off area and covered with border foam dressing to help protect. Wound care will sign off. Elizabeth Gomez RN's in room for care. Left Distal Toe Dressing Type: Open to Air Site Measurement - Head-to-Toe Length X Width X Depth (cm): 1x1.3x0 Skin Integrity Problem Comment: Discolored (purple and red mottled) cold toes bilaterally. Ischemic area on distal toe. Per family member in room patient began experiencing this on his fingers and toes a few months ago and has occassionaly wounds from them. This area is new and is purple and dark and evolving toward eschar. Advised that patient keep area clean and dry and apply betadine to area to keep it from getting infected.
[2018-03-10 14:08] VITALS: BP 154/34
--- NOTE | 2018-03-10 14:12 | ASMTDCNOTE ---
Case Management Discharge Discharge Order Complete? Answers: Yes Patient to Obtain Answers: Other Notes: [facility] Transportation Arranged Answers: Other Notes: [facility] stretcher arranged by Ana amezquita [facility] Transport will Pick (Date 03/10/2018 04:45 PM & Time) Case Management Transport Answers: Yes Form Complete Faxed Final Orders Answers: Yes Notes: [facility] Agency/Facility Transfer Answers: Yes Notes: to [facility] Report Printed & Faxed to Receiving Agency Family Notified Answers: Yes Notes: in room Discharge Comments Notes: 03/10/2018 Case Management Note Faxed final orders to [facility]. Stretcher transport arranged by Ana at [facility] with [facility]cher. Discussed with . confirmed she is providing dialysis equipment and [facility] administration of dialysis. RN called report. Case Management d/c: [facility] Date Signed: 03/10/2018 02:11 PM Electronically Signed By:Josey Santos RN
--- NOTE | 2018-03-10 14:12 | ASDISCHSUM ---
Discharge Information Plan Status:SNF Medically Cleared to Leave:03/09/2018 Discharge Date:03/09/2018 CM D/C Disposition:Detention Facility ADT D/C Disposition:Detention Facility Projected Discharge Date:03/08/2018 11:00 AM Transportation at D/C:Other Discharge Delay Reason: Follow-Up Date:03/08/2018 11:00 AM Discharge Slot: Final Diagnosis: Placement Information Referral Type[facility] Referral [facility]-[id number] Provider Name:Liana Bernal [place] Address 1[address] [place] Phone Number: Address 2: Fax Number: [facility] Selection Factors: State:[place] Referral Type:*Home Health Care Services Referral ID:[id number] Provider Name: Address 1: Phone Number: Address 2: Fax Number: City: Selection Factors: State: Patient Contact Information Contact Name:KARAN Relationship: Address:[address] City:[place] Phone: State/Zip Code:[place] [address] Email: Financial Information Financial Class:Medicare Primary Plan Desc:MEDICARE INPATIENT Primary Plan Number:[id number] Secondary Plan Desc:AIRVEND FEDERAL PLAN Secondary Plan Number:[id number] Assessment Information LACE LACE Comorbidities - select Answers: Chronic pulmonary disease all that apply Congestive heart failure Coronary Artery Disease Diabetes (uncontrolled or controlled) History of falls Moderate or severe liver or renal disease Opioid dependence / Chronic pain Other Notes: AFib # of Emergency department Answers: 1-2 visits in the last 6 months Score: 20 Date Signed: 03/04/2018 08:21 AM Electronically Signed By:Eliza Bates [facility] CM Progress Note CM Note CM Note Notes: Pt is a 72 y/o man admitted for weakness, hypoxia, renal failure and elevated trop. OT is recommending SNF. PT is still pending. Needs are TBD at this time. CM to follow. Plan: TBD Date Signed: 03/04/2018 03:23 PM Electronically Signed By:JEFF Blankenship [facility] CM Progress Note CM Note CM Note Notes: CM met w/ pt and for dispo planning. Therapies are recommending SNF. Pt has been to [facility] in the past and had a good experience. Pt is willing to go back if that is what he needs. Referral sent. Pt reports that he wants to continue to work w/ PT/OT to see if he will get stronger. Pt would prefer to d/c home w/ [facility]. Referral sent to [facility]. CM to follow. Plan: TBD Date Signed: 03/05/2018 12:01 PM Electronically Signed By:JEFF Blankenship [facility] CM Progress Note CM Note CM Note Notes: CM met with patient and family, Crystal shared [facility] has informed her they are unable to accept Sharad due to his PD needs. She has held a couple of calls with [facility] since, it seems they may be considering accepting the patient as Crystal has offered to support his PD needs as she does at home. The family is open to referrals being placed to other facilities but their preference is [facility]. to send message back to [facility] to inquire about the possibility for acceptance. informed them [facility] has accepted the patient, they are glad about this as they would like him to come home but understand the need for rehab. CM to send additional referrals to [facility] SNF's, patient likely able to discharge in 1-2 days. CM to follow. Current discharge plan: SNF, pending acceptance. Date Signed: 03/07/2018 02:58 PM Electronically Signed By:Kailyn Villalobos [facility] Progress Note CM Note CM Note Notes: 03/08/2018 Case Management Note Phone call from Patricia at [facility] admissions [phone] accepting pt IF pt brings all peritoneal dialysis equipment to [facility], administers and monitors the dialysis overnight. agreeable. Confirmed with Ana. Discussed pt during rounds this morning. D/C possible tomorrow. Case Management d/c poc: [facility] SNF rehab Case Management to follow. Date Signed: 03/08/2018 02:42 PM Electronically Signed By:Josey Santos RN Case Management Discharge Plan Note Case Management Discharge Discharge Order Complete? Answers: Yes Patient to Obtain Answers: Other Notes: [facility] jgadish Medications Transportation Arranged Answers: Other Notes: [facility] stretcher arranged by Ana amezquita [facility] Transport will Pick (Date 03/10/2018 04:45 PM & Time) Case Management Transport Answers: Yes Form Complete Faxed Final Orders Answers: Yes Notes: [facility] Agency/Facility Transfer Answers: Yes Notes: to [facility] Report Printed & Faxed to Receiving Agency Family Notified Answers: Yes Notes: in room Discharge Comments Notes: 03/10/2018 Case Management Note Faxed final orders to [facility]. Stretcher transport arranged by Ana at [facility] with [facility] [employer] [facility]. Discussed with . confirmed she is providing dialysis equipment and staying at [facility] during administration of dialysis. RN called report. Case Management d/c: [facility] rehab Date Signed: 03/10/2018 02:11 PM Electronically Signed By:Josey Santos RN Intervention Information Intervention Type:*MINOR-Signed Date of Service:03/04/2018 11:43 AM Patient Type:Observation Staff Member:Eliza Bates Hours: Discipline: Severity: Comment:
--- NOTE | 2018-03-16 11:37 | PQFORM ---
PHYSICIAN QUERY FORM Needs Your Response This query form is being sent to you to assure this patient record is coded properly. Please respond to the question below: LUNCHEONETTE MANAGER QUESTION: Dear Dr. Mcnair, This patient has had repeated falls at home and was admitted following a fall at home due to extreme generalized weakness. He has known ESRD on peritoneal dialysis which, as stated, has been inadequate for his needs and needs hemodialysis for which he has been resistant. Based on his clinical findings of his uremia and your professional judgment, can his extreme generalized weakness be related to his ESRD? yes no other unknown at this time Thank you for clarifying, LISA Martinez HIM Coding INSTRUCTIONS FOR RESPONSE: Answer question by clicking on the "Edit Document" button. Move cursor to area below the stars. When complete, hit "Save." Click on the "Sign" button, then click "Sign" again. Type in your PIN and hit "Enter." yes MTDD
== END 2018-03-10 17:08 | DRG 700 ==
LOC: F2W 05:11 → OBSVTOIN 03-05 13:58
PROVIDERS: ADMIT Student in an Organized Health Care Education/Training Program; ATTEND Internal Medicine
PROC: 5A1D70Z Performance of Urinary Filtration, Intermittent, Less than 6 Hours Per Day (ICD-10-PCS; principal; 2018-03-08)
DX: E11.22 Type 2 diabetes mellitus with diabetic chronic kidney disease (principal); N18.6 End stage renal disease; R62.7 Adult failure to thrive; M79.651 Pain in right thigh; L89.219 Pressure ulcer of right hip, unspecified stage; G47.33 Obstructive sleep apnea (adult) (pediatric); R53.1 Weakness; I25.10 Atherosclerotic heart disease of native coronary artery without angina pectoris; I48.91 Unspecified atrial fibrillation; D63.1 Anemia in chronic kidney disease; D63.8 Anemia in other chronic diseases classified elsewhere; J44.9 Chronic obstructive pulmonary disease, unspecified; G25.81 Restless legs syndrome; G47.30 Sleep apnea, unspecified; I27.20 Pulmonary hypertension, unspecified; Z66 Do not resuscitate; Z99.2 Dependence on renal dialysis; Z79.4 Long term (current) use of insulin; Z95.1 Presence of aortocoronary bypass graft
CPT/HCPCS: 73060-PO; 84484-PO; 96374; 97163-GP; 97167-GO; 97530-GO; 97530-GP; 97535-GO; G0378; G8978-GP-CL; G8979-GP-CJ; G8987-GO-CL; G8988-GO-CJ; J0885; J1170; J1644; J1815; J3010; J3360; J7613

== ENCOUNTER 2018-03-16 14:25 | Inpatient (IN) | payer OTHER, BC ==
--- NOTE | 2018-03-16 15:02 | EDPHY ---
H & P Stated Complaint: From [facility] rehab in [place] for dehydration. On PD needs hemodialysis Time Seen by Provider: 03/16/18 14:46 HPI/ROS: CHIEF COMPLAINT: Dehydration HISTORY OF PRESENT ILLNESS: The patient is a 72-year-old man with a history of diabetes, end-stage renal disease, peritoneal dialysis with recent admission for uremia, frequent falls and deconditioning as well as history of coronary artery disease. He has been at [facility] but has been struggling with dehydration and nausea. He has not been eating much. No vomiting. No diarrhea. No fevers. He had a follow-up appointment today with his unit aide tech Dr. Lu who felt that he remained dehydrated and was concerned because he had an elevated white blood cell count and AST and CK. He sent him here for admission and is recommending that the patient switch from peritoneal to hemodialysis. He will need a dialysis catheter placed. The patient himself does not have any significant complaints. He did have a fall last week and bruised his right thigh which is thought to be the source of his elevated CK. Severity: Moderate Modifying factors: None REVIEW OF SYSTEMS: Constitutional: denies: chills, fever, recent illness, recent injury EENTM: denies: blurred vision, double vision, nose congestion Respiratory: denies: cough, shortness of breath Cardiac: denies: chest pain, irregular heart rate, lightheadedness, palpitations Gastrointestinal/Abdominal: See HPI denies: abdominal pain, diarrhea, vomiting , blood streaked stools Genitourinary: denies: dysuria, frequency, hematuria, pain Musculoskeletal: See HPI Skin: See HPI Neurological: denies: headache, numbness, paresthesia, tingling, dizziness, weakness Hematologic/Lymphatic: denies: blood clots, easy bleeding, easy bruising Immunologic/allergic: denies: HIV/AIDS, transplant 10 systems reviewed and negative except as noted EXAM: GENERAL: Weak, slightly jaundice HEAD: Atraumatic, normocephalic. EYES: Pupils equal round and reactive to light, extraocular movements intact, sclera anicteric, conjunctiva are normal. ENT: TMs normal, nares patent, oropharynx clear without exudates. Moist mucous membranes. NECK: Normal range of motion, supple without lymphadenopathy or JVD. LUNGS: Breath sounds clear to auscultation bilaterally and equal. No wheezes rales or rhonchi. HEART: Regular rate and rhythm without murmurs, rubs or gallops. ABDOMEN: Soft, nontender, normoactive bowel sounds. No guarding, no rebound. No masses appreciated. BACK: No CVA tenderness, no spinal tenderness, step-offs or deformities EXTREMITIES: Normal range of motion, no pitting or edema. No clubbing or cyanosis. NEUROLOGICAL: Cranial nerves II through XII grossly intact. Normal speech, normal gait. 4/5 strength diffusely, normal movement in all extremities, normal sensation, normal reflexes PSYCH: Normal mood, normal affect. SKIN: Multiple bruises and small skin tears. Source: Patient Exam Limitations: No limitations - Personal History Current Tetanus Diphtheria and Acellular Pertussis (TDAP): Unsure - Medical/Surgical History Hx Asthma: Yes Hx Chronic Respiratory Disease: Yes Hx Diabetes: Yes Hx Cardiac Disease: Yes Hx Renal Disease: Yes Hx Cirrhosis: No Hx Alcoholism: No Hx HIV/AIDS: No Hx Splenectomy or Spleen Trauma: No Other PMH: peritoneal dialysis, cad, cabg 2007,afib, dm, renal failure, CHF, COPD, Restless leg syndrome, sleep apnea/hypoxia, C2 fx- was in [facility] 2004, deconditioning - Family History Significant Family History: No pertinent family hx - Social History Smoking Status: Former smoker Alcohol Use: Sober Drug Use: None Constitutional: Initial Vital Signs Temperature (C) 36.4 C 03/16/18 14:33 Heart Rate 67 03/16/18 14:33 Respiratory Rate 16 03/16/18 14:33 Blood Pressure 88/48 L 03/16/18 14:33 O2 Sat (%) 98 03/16/18 14:33 O2 Delivery Mode Nasal Cannula O2 (L/minute) 3 Allergies/Adverse Reactions: cefazolin [From Ancef] Allergy (Verified 03/16/18 14:33) lisinopril Allergy (Verified 03/16/18 14:33) Home Medications: Medication Instructions Recorded Fluticasone Nasal [Flonase Nasal 2 sprays [facility] DAILY PRN 07/12/13 [place]] Docusate Sodium [Colace 100 MG (*)] 100 mg PO DAILY 01/27/17 Montelukast Sodium [Singulair 10 10 mg PO DAILY PRN 01/27/17 mg (*)] Albuterol [Proventil Neb] 3 ml IH Q4HRS PRN 04/05/17 Allopurinol [Allopurinol 300 MG 150 mg PO DAILY 04/05/17 (RX)] Polyethylene Glycol 3350 [Miralax 17 gm PO DAILY PRN 04/05/17 17 gm (*)] Zolpidem Tartrate [Ambien 10 mg] 10 mg PO HS 04/05/17 Calcium Carbonate [Tums 500MG (*)] 500 mg PO Q2H PRN 03/04/18 Metoclopramide [Reglan 5 mg (*)] 5 mg PO BID 03/04/18 Nitroglycerin [Nitrostat 0.4 mg 0.4 mg SL Q5M PRN 03/04/18 (*)] Pravastatin Sodium [Pravachol] 10 mg PO HS 03/04/18 HYDROmorphone HCL [Dilaudid 2 mg 2 mg PO Q4HRS PRN tab 03/10/18 (*)] Heparin [Heparin SC 5000 unit/0.5 5,000 unit SC Q8 inj 03/10/18 ml (*)] Lidocaine 4%/Menthol 1% [Icy Hot 1 patch TD DAILY patch 03/10/18 Lidocaine/Menthol 4%/1% Patch (*)] Acetaminophen [Tylenol 325mg (*)] 650 mg PO Q4H PRN 03/16/18 Aspirin [Aspirin 81mg (*)] 81 mg PO DAILY 03/16/18 Bisacodyl [Dulcolax] 10 mg RC DAILY PRN 03/16/18 Dextrose Oral Gel [Glucose Gel (*)] 15 gm PO PRN PRN 03/16/18 Glucagon,Human Recombinant 1 mg IJ PRN PRN 03/16/18 [Glucagon Emergency Kit] Insulin Lispro [HumaLOG LISPRO] 0 unit SC ACHS 03/16/18 Methocarbamol [Robaxin 750 mg (*)] 750 mg PO Q8H PRN 03/16/18 Ondansetron Odt [Zofran Odt 4 mg 4 mg PO Q4H PRN 03/16/18 (*)] Sevelamer Carbonate [Renvela] 2,400 mg PO TIDMEAL 03/16/18 guaiFENesin [Mucinex 600 MG (*)] 600 mg PO BID PRN 03/16/18 traMADol [Ultram 50 mg (*)] 50 mg PO Q8H PRN 03/16/18 Medical Decision Making - Diagnostics Imaging Results: Imaging Impressions Abdomen Ultrasound 03/16/18 16:27 Impression: 1. Cholelithiasis with focal avascular wall thickening measuring 0.8 cm. 2. Numerous shadowing foci within the liver which probably represent granulomas given discrete shadowing and similar findings in the spleen. Less likely pneumobilia or portal venous gas. 3. Numerous shadowing echogenic foci within the kidney which probably represent nonobstructing stones. Recommendation: Given above findings, would consider CT or MRI evaluation. A Follow-Up Required test result has been communicated via the [employer] Critical Result system on 03/16/2018 17:44, Message ID [id number]. ED Course/Re-evaluation: 4:30 p.m. discussed the case with Dr. Mcnair who will admit. Patient does still have his gallbladder. He has no right upper quadrant tenderness or fever. Blood pressure here is slightly elevated. Differential Diagnosis: Partial list of the Differential diagnosis considered include but were not limited to; dehydration, hepatitis the peritoneal infection, electrolyte abnormalities, renal failure and although unlikely based on the history and physical exam, I also considered pollicis could pneumonia, trauma. - Data Points Laboratory Results: Laboratory Results 03/16/18 15:04 03/16/18 15:04 03/16/18 03/16/18 03/16/18 15:04 15:04 15:04 WBC RBC Hgb Hct MCV MCH MCHC RDW Plt Count MPV Neut % (Auto) Lymph % (Auto) [place] % (Auto) Eos % (Auto) Baso % (Auto) Nucleat RBC Rel Count Absolute Neuts (auto) Absolute Lymphs (auto) Absolute Monos (auto) Absolute Eos (auto) Absolute Basos (auto) Absolute Nucleated RBC Immature Gran % Immature Gran # PT INR APTT Sodium 131 mEq/L L mEq/L (135-145) Potassium 3.0 mEq/L L mEq/L (3.3-5.0) Chloride 90 mEq/L L mEq/L (97-110) Carbon Dioxide 25 mEq/l mEq/l (22-31) Anion Gap 16 mEq/L H mEq/L (6-14) BUN 88 mg/dL H mg/dL (7-23) Creatinine 5.9 mg/dL H mg/dL (0.7-1.3) Estimated GFR 9 Glucose 181 mg/dL H mg/dL (70-100) Calcium 8.5 mg/dL mg/dL (8.5-10.4) Magnesium 2.5 mg/dL H mg/dL (1.6-2.3) Total Bilirubin 1.2 mg/dL mg/dL (0.1-1.4) Conjugated Bilirubin 1.2 mg/dL H mg/dL (0.0-0.5) Unconjugated Bilirubin 0.0 mg/dL mg/dL (0.0-1.1) AST 465 IU/L H IU/L (17-59) ALT 1238 IU/L H IU/L (21-72) Alkaline Phosphatase 276 IU/L H IU/L (38-126) Creatine Kinase 107 IU/L IU/L (0-224) Total Protein 6.0 g/dL L g/dL (6.3-8.2) Albumin 2.7 g/dL L g/dL (3.5-5.0) Hepatitis A IgM Ab Pending Hep Bs Antigen Pending Hep B Core IgM Ab Pending Hepatitis C Antibody Pending 03/16/18 03/16/18 15:04 15:04 WBC 14.57 10^3/uL H 10^3/uL (3.80-9.50) RBC 2.85 10^6/uL L 10^6/uL (4.40-6.38) Hgb 9.2 g/dL L g/dL (13.7-17.5) Hct 27.6 % L % (40.0-51.0) MCV 96.8 fL fL (81.5-99.8) MCH 32.3 pg pg (27.9-34.1) MCHC 33.3 g/dL g/dL (32.4-36.7) RDW 17.2 % H % (11.5-15.2) Plt Count 250 10^3/uL 10^3/uL (150-400) MPV 11.4 fL fL (8.7-11.7) Neut % (Auto) 85.7 % H % (39.3-74.2) Lymph % (Auto) 6.8 % L % (15.0-45.0) [place] % (Auto) 5.0 % % (4.5-13.0) Eos % (Auto) 1.4 % % (0.6-7.6) Baso % (Auto) 0.4 % % (0.3-1.7) Nucleat RBC Rel Count 2.1 % H % (0.0-0.2) Absolute Neuts (auto) 12.48 10^3/uL H 10^3/uL (1.70-6.50) Absolute Lymphs (auto) 0.99 10^3/uL L 10^3/uL (1.00-3.00) Absolute Monos (auto) 0.73 10^3/uL 10^3/uL (0.30-0.80) Absolute Eos (auto) 0.21 10^3/uL 10^3/uL (0.03-0.40) Absolute Basos (auto) 0.06 10^3/uL 10^3/uL (0.02-0.10) Absolute Nucleated RBC 0.31 10^3/uL H 10^3/uL (0-0.01) Immature Gran % 0.7 % % (0.0-1.1) Immature Gran # 0.10 10^3/uL 10^3/uL (0.00-0.10) PT 19.0 SEC H SEC (12.0-15.0) INR 1.58 H (0.83-1.16) APTT 36.0 SEC SEC (23.0-38.0) Sodium Potassium Chloride Carbon Dioxide Anion Gap BUN Creatinine Estimated GFR Glucose Calcium Magnesium Total Bilirubin Conjugated Bilirubin Unconjugated Bilirubin AST ALT Alkaline Phosphatase Creatine Kinase Total Protein Albumin Hepatitis A IgM Ab Hep Bs Antigen Hep B Core IgM Ab Hepatitis C Antibody Medications Given: Sodium Chloride (Ns) 1,000 mls @ 75 mls/hr IV CONT [place] Stop: 09/12/18 16:44 Last Admin: 03/16/18 18:34 Dose: 1,000 mls Discontinued Medications Potassium Chloride (Potassium Chloride Oral Liquid) 20 meq PO ONCE ONE Stop: 03/16/18 16:20 Last Admin: 03/16/18 16:53 Dose: 20 meq Departure - Departure Disposition: [facility] Acute Clinical Impression: Dehydration, Hyponatremia, Transaminitis Condition: Fair
[2018-03-16 15:15] LABS: PLATELET COUNT 250 10^3/uL (150-400)
[2018-03-16 15:24] LABS: INR 1.58 (0.83-1.16)
[2018-03-16 15:30] LABS: CREATINE KINASE 107 IU/L (0-224)
[2018-03-16] MEDS ORDERED: POTASSIUM CL 20 MEQ/15 ML UDCUP PO ONE (16:19)
[2018-03-16] MEDS ORDERED: MAGNESIUM SULF 2 GM/WATER 50 ML IV ONE (16:20)
[2018-03-16] MEDS ORDERED: ACETAMINOPHEN 325 MG TAB PO PRN ×2 (16:35→18:25)
--- NOTE | 2018-03-16 18:23 | PDGENHP ---
History and Physical History and Physical: CC: Sent to the hospital from nursing facility by Dr. Lu because of dehydration HISTORY: This patient who is on peritoneal dialysis for end-stage renal disease had been at this hospital with a fall and muscle injury and his leg from March 04 to March 10. At that point he was fairly uremic. 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 Lu had been recommending for some time to him that he switch to hemodialysis but the patient had been declining this. The patient at the time of this recent hospital stay was very lethargic with poor oral intake and was weak enough to be unable to stand. He left here went to a nursing facility at [facility] in [place]. There his continued his nightly peritoneal dialysis sessions. She tells me that notably he was absorbing the dialysate which is extremely unusual for him. He was nauseous and eating and drinking very poorly and intermittently having dry heaves. He denies having had any belly pain or fevers and his corroborates this. He was having normal bowel movements up until couple days ago. The patient was seen today by Dr. Lu who found that he was appearing dehydrated and he sent the patient to the ER for admission and to begin hemodialysis as the patient and for now agreeable to hemodialysis. The plan will be for a percutaneous dialysis catheter did place. In addition Dr. Lu mentions that at the nursing facility there had been blood test drawn that showed a AST of 4000 with normal ALT and without high bilirubin a few days ago. Dr. Lu impression that was that this was probably some rhabdomyolysis. There are no other new or different symptoms. ROS: A comprehensive 10 system review revealed no other significant findings PAST MEDICAL HISTORY: End-stage renal disease started hemodialysis January 2017 switched to peritoneal dialysis June 2017 and the peritoneal dialysis has been failing COPD, sleep apnea, pulmonary hypertension Type 2 diabetes mellitus Coronary disease, bypass surgery, atrial fibrillation which is chronic Gout FAMILY MEDICAL HISTORY: No significant illnesses in relatives SOCIAL HISTORY: lives with his , she does his peritoneal dialysis at home No tobacco or alcohol Retired MEDICATIONS: The patients list has been reconciled by our clinical pharmacist in the EMR. I have reviewed the list and ordered appropriate medicines. PHYSICAL EXAMINATION: Vital Signs: Initial blood pressure today 80/48 which is new for him and was not seen at the recent hospital stay. After some IV fluid blood pressures are better. Pulse respirations and temperature is all normal. Class 1 Owner Operator: AFib with good rate control Examination: General: alert, oriented, good mentation, relaxed Skin: warm, dry, good color, no rash HEENT: normal Neck: no mass or jvd Resps: relaxed Lungs: clear breath sounds Heart: irregular, no murmur Abdomen: soft, nondistended, nontender, +BS, no mass Upper Extremities: normal Lower Extremities: From the upper calf down to the toes there is bilateral edema, and there is notably some significant decrease in temperature at the toes along with some erythema is discoloration of the distal portions of all 10 toes and a 1.5 cm diameter dark purplish area at the tip of the left 1st toe; I use Doppler to check on pulses at the feet and he has barely dopplerable pulses at both dorsalis pedis and I could not find the mid posterior tibial No Bleeding or bruising Neurologic: normal speech/language, 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 Is not been read by the radiologist but the tech and I have looked at together. The liver appears unremarkable. The gallbladder has stones but there is only 1 very small area of some thickening of the gallbladder wall and 1 tiny bit of fluid adjacent to the gallbladder with no dilation of bile ducts. Otherwise he has obvious chronic kidney disease looking at his kidneys but no other significant findings. ASSESSMENT: * acute dehydration with hypotension, most likely caused by uremia but other factors may be involved * worsening uremia in a patient whose peritoneal dialysis is failing and who has been declining switch to hemodialysis until today * elevation of transaminases of uncertain etiology * Per verbal report to me he had AST 4000 and undetectable ALT several days ago , now with ALT 1200 AST 400; normal bilirubin and CPK. With the initial blood tests Dr. Lu had been concern for muscle injury or rhabdomyolysis. This would be since oval given his recent fall but the numbers do not fit that diagnosis at this time. I am waiting for radiology report from abdominal ultrasound but I did not see anything that looks like it would cause these blood test abnormalities. I will check some viral serologies and recheck the liver panel in the morning * concern for possible ischemic toes, though with no pain * severe deconditioning, weakness, unable to stand * recent fall with injury injury with right thigh and hip pain x-rays at the time had been without evidence of fracture PLANS: * Inpatient admission * IV hydration gently overnight now that his blood pressure is good * Arrangements to be made with interventional Radiology for placement of dialysis catheter * Plan is to start dialysis tomorrow after catheter placement, and he will need removal of his peritoneal catheter at some point * Repeat liver enzymes and bilirubin tomorrow * Await abdominal ultrasound report * Check viral serologies for liver enzymes * Will ask Dr. Yu to evaluate his toes and his circulation to the feet * Monitor blood sugars closely and treat as appropriate * Fall risk precautions, PT and OT * Hold DVT prophylaxis until all procedures done that have bleeding risk I have reviewed the patient's case in detail with Dr. Fabian Lu I have reviewed the patient's past medical records as part of this assessment, including previous hospital admission records
[2018-03-16] MEDS ORDERED: BISACODYL 10 MG SUPP PR PRN (18:25)
[2018-03-16] MEDS ORDERED: CALCIUM CARBONATE 500 MG CHEWABLE TAB PO PRN (18:25)
[2018-03-16] MEDS ORDERED: NITROGLYCERIN 0.4 MG BTL SL PRN (18:25)
[2018-03-16] MEDS ORDERED: FLUTICASONE NASAL 120 SPRAYS/16 GM MDI EACHNARE PRN (18:25)
[2018-03-16] MEDS ORDERED: GLUCAGON HCL 1 MG VIAL IV PRN (18:25)
[2018-03-16] MEDS ORDERED: MONTELUKAST SODIUM 10 MG TAB PO PRN (18:25)
[2018-03-16] MEDS ORDERED: traMADol 50 MG TAB PO PRN (18:25)
[2018-03-16] MEDS ORDERED: ONDANSETRON DISINTEGRATING 4 MG TAB PO PRN (18:25)
[2018-03-16] MEDS ORDERED: GLUCOSE-INSTA 15 GM TUBE PO PRN (18:25)
[2018-03-16] MEDS: NS 1,000 ML IV SCH (18:34)
[2018-03-16] MEDS ORDERED: LIDOCAINE 4%/MENTHOL 1% PATCH TD ONE (19:08)
--- NOTE | 2018-03-16 20:09 | SOAPPROG ---
RICHARD Progress Note Assessment/Plan: Assessment: # ESRD- has been on PD but not doing well with ongoing uremic symptoms and failure to thrive. Patient initially reluctant to transition back to PD but now in agreement --Order placed for tunneled dialysis catheter placement on 03/17. NPO at midnight --Consent for HD signed --HD orders for 03/17 placed (given significant uremic symptoms, will use F160 filter, decrease time to 3hrs, and give 12.5mg of Mannitol with first treatment- - though given that patient has been getting PD, risk of dialysis dysequillibrium syndrome low) --Dialysis vitamin --Ok to have regular diet --Will need PD catheter flushed weekly until it has been removed # Hypokalemia- --K 3.0, given 20meq in ED --HD on 4k bath on 03/17 --Mg ok # CKD-MBD --Check phos --Holding phos binders until get result # Hypovolemia- improving with IVF --ok with NS at 75meq/hr overnight, changed order to stop at 7am --Discussed with patient to let nurse know if develops shortness of breath and will stop IVF # Hyponatremia- will modulate with HD # Abnormal LFTs --renal ultrasound done, read pending, may need doppler to rule out clot of not done --CK normal --Elevated INR supports liver source # Ischemic lesions of digits- --PAD vs. cholesterol emboli? --Further eval per primary team # Metabolic acidosis- at goal # Anemia- Hgb 9.2 (below goal). Gets Aranesp 60mcg PRN as outpatient --Epo 15k units q week ordered # Constipation- --Miralax daily, further titration per primary team Subjective: Patient well-known to our practice as he is followed by Dr. Lu as outpatient and was recently admitted here from 03/04-03/10. Patient ESRD, briefly on HD initially then transitioned to PD. Patient has been deteriorating overtime on PD without ongoing uremic symptoms. Transitioning to HD had previously been discussed with patient who had declined in the past. During recent admission, patient presented after falls. He was then discharged to [facility] for rehab. There his has been doing patient's PD. No issues with abdominal pain, cloudy fluid, drainage from around PD site. For the past 4 nights, patient has either retained some fluid or been about net even. He has been using all 1.5% solution. cannot tell what patient's current volume status is because he was been losing lean weight. She thinks he is likely volume down. He has been having nausea, dry heaving, decreased appetite (not eating/drinking much), ramps in his thigh, and confusion. Overall, not doing well. No metallic taste. He has pain in his legs and on his backside. Last BM was 03/12 but hasn't eaten much. Objective: Vital Signs Temp Pulse Resp BP Pulse Ox 36.6 C 80 16 141/31 H 97 03/16/18 18:04 03/16/18 18:04 03/16/18 18:04 03/16/18 18:04 03/16/18 18:04 PT 19.0 SEC (12.0-15.0) H 03/16/18 15:04 INR 1.58 (0.83-1.16) H 03/16/18 15:04 LABORATORY 03/16/18 03/16/18 03/16/18 15:04 15:04 15:04 WBC RBC Hgb Hct MCV MCH MCHC RDW Plt Count MPV Neut % (Auto) Lymph % (Auto) Mchenry % (Auto) Eos % (Auto) Baso % (Auto) Nucleat RBC Rel Count Absolute Neuts (auto) Absolute Lymphs (auto) Absolute Monos (auto) Absolute Eos (auto) Absolute Basos (auto) Absolute Nucleated RBC Immature Gran % Immature Gran # PT INR APTT Sodium 131 mEq/L L mEq/L (135-145) Potassium 3.0 mEq/L L mEq/L (3.3-5.0) Chloride 90 mEq/L L mEq/L (97-110) Carbon Dioxide 25 mEq/l mEq/l (22-31) Anion Gap 16 mEq/L H mEq/L (6-14) BUN 88 mg/dL H mg/dL (7-23) Creatinine 5.9 mg/dL H mg/dL (0.7-1.3) Estimated GFR 9 Glucose 181 mg/dL H mg/dL (70-100) Calcium 8.5 mg/dL mg/dL (8.5-10.4) Magnesium 2.5 mg/dL H mg/dL (1.6-2.3) Total Bilirubin 1.2 mg/dL mg/dL (0.1-1.4) Conjugated Bilirubin 1.2 mg/dL H mg/dL (0.0-0.5) Unconjugated Bilirubin 0.0 mg/dL mg/dL (0.0-1.1) AST 465 IU/L H IU/L (17-59) ALT 1238 IU/L H IU/L (21-72) Alkaline Phosphatase 276 IU/L H IU/L (38-126) Creatine Kinase 107 IU/L IU/L (0-224) Total Protein 6.0 g/dL L g/dL (6.3-8.2) Albumin 2.7 g/dL L g/dL (3.5-5.0) Hepatitis A IgM Ab Pending Hep Bs Antigen Pending Hep B Core IgM Ab Pending Hepatitis C Antibody Pending 03/16/18 03/16/18 15:04 15:04 WBC 14.57 10^3/uL H 10^3/uL (3.80-9.50) RBC 2.85 10^6/uL L 10^6/uL (4.40-6.38) Hgb 9.2 g/dL L g/dL (13.7-17.5) Hct 27.6 % L % (40.0-51.0) MCV 96.8 fL fL (81.5-99.8) MCH 32.3 pg pg (27.9-34.1) MCHC 33.3 g/dL g/dL (32.4-36.7) RDW 17.2 % H % (11.5-15.2) Plt Count 250 10^3/uL 10^3/uL (150-400) MPV 11.4 fL fL (8.7-11.7) Neut % (Auto) 85.7 % H % (39.3-74.2) Lymph % (Auto) 6.8 % L % (15.0-45.0) Mchenry % (Auto) 5.0 % % (4.5-13.0) Eos % (Auto) 1.4 % % (0.6-7.6) Baso % (Auto) 0.4 % % (0.3-1.7) Nucleat RBC Rel Count 2.1 % H % (0.0-0.2) Absolute Neuts (auto) 12.48 10^3/uL H 10^3/uL (1.70-6.50) Absolute Lymphs (auto) 0.99 10^3/uL L 10^3/uL (1.00-3.00) Absolute Monos (auto) 0.73 10^3/uL 10^3/uL (0.30-0.80) Absolute Eos (auto) 0.21 10^3/uL 10^3/uL (0.03-0.40) Absolute Basos (auto) 0.06 10^3/uL 10^3/uL (0.02-0.10) Absolute Nucleated RBC 0.31 10^3/uL H 10^3/uL (0-0.01) Immature Gran % 0.7 % % (0.0-1.1) Immature Gran # 0.10 10^3/uL 10^3/uL (0.00-0.10) PT 19.0 SEC H SEC (12.0-15.0) INR 1.58 H (0.83-1.16) APTT 36.0 SEC SEC (23.0-38.0) Sodium Potassium Chloride Carbon Dioxide Anion Gap BUN Creatinine Estimated GFR Glucose Calcium Magnesium Total Bilirubin Conjugated Bilirubin Unconjugated Bilirubin AST ALT Alkaline Phosphatase Creatine Kinase Total Protein Albumin Hepatitis A IgM Ab Hep Bs Antigen Hep B Core IgM Ab Hepatitis C Antibody Exam- General- chronically ill-appearing, very frail Eyes- anicteric, no conjunctival injection HEENT- MMM, no gross oral lesions Pulm- few rales at bilateral bases, improve some with deep breath CV- NRRR, no g/m/r, trace sacral edema Abd- PD catheter in place with exit site covered by dressing, non-tender Skin- scattered bruising on trunk and extremities, black/dark purple lesions on L 1st and 3rd toes surrounded by can vacuum tester violaceous discoloration, violaceous discoloration of R toes and fingers as well Psych- pleasant, answers questions - Time Spent With Patient Time Spent With Patient: >30min spent on the care of this patient with >50% of time spent on counseling and coordination of care ICD10 Worksheet Patient Problems: Problems Problem Status Onset Dehydration Acute Hyponatremia Acute Transaminitis Acute Anemia Acute Fever Acute Hypoxia Acute Peritoneal dialysis catheter infection Acute Renal failure Acute Supratherapeutic INR Acute Weakness Acute
[2018-03-16] MEDS: HYDROmorphONE/DILAUDID 2 MG TAB PO PRN (20:40)
[2018-03-16] MEDS: PRAVASTATIN SODIUM 10 MG TAB PO SCH (20:40)
[2018-03-16] MEDS: METOCLOPRAMIDE 5 MG TAB PO SCH (20:40)
[2018-03-16] MEDS: ZOLPIDEM TARTRATE 5 MG TAB PO SCH (20:40)
[2018-03-16] MEDS: MELATONIN 3 MG TAB PO SCH (20:40)
[2018-03-16] MEDS: LIDOCAINE 4%/MENTHOL 1% PATCH TD SCH (20:41)
[2018-03-16 21:31] LABS: HEPATITIS A ANTIBODY IGM (BCH) NEGATIVE (NEGATIVE); HEPATITIS B CORE AB IGM NEGATIVE (NEGATIVE); HEPATITIS B SURFACE ANTIGEN NEGATIVE (NEGATIVE)
[2018-03-16 21:40] LABS: HEPATITIS C ANTIBODY TOTAL NEGATIVE (NEGATIVE)
[2018-03-16] MEDS: EPOETIN ALFA 10,000 UNIT/ML VIAL SC SCH (21:42)
[2018-03-16] MEDS: NEPHROVITE FOLIC ACID/VIT B&C 1 TAB PO SCH (21:43)
[2018-03-16] MEDS: INSULIN LISPRO 100 UNIT/ML SC SCH (23:29)
[2018-03-17 04:25] LABS: PLATELET COUNT 210 10^3/uL (150-400)
[2018-03-17] MEDS: NS 1,000 ML IV SCH (05:39)
[2018-03-17] MEDS: HYDROmorphONE/DILAUDID 2 MG TAB PO PRN ×3 (05:46→22:09)
--- NOTE | 2018-03-17 08:17 | ASMTLACE ---
EULALIA Acuity / Level of Answers: Yes Care: Did the patient have an inpatient admission? Comorbidities - select Answers: Chronic pulmonary disease all that apply Congestive heart failure Coronary Artery Disease Diabetes (uncontrolled or controlled) History of falls Moderate or severe liver or renal disease Opioid dependence / Chronic pain # of Emergency department Answers: 3-4 visits in the last 6 months Score: 24 Date Signed: 03/17/2018 08:17 AM Electronically Signed By:Eliza Bates
[2018-03-17] MEDS: METHOCARBAMOL 750 MG TAB PO PRN (08:19)
[2018-03-17] MEDS: INSULIN LISPRO 100 UNIT/ML SC SCH ×4 (08:22→22:04)
[2018-03-17] MEDS ORDERED: LIDOCAINE 4%/MENTHOL 1% PATCH TD SCH (09:00)
--- NOTE | 2018-03-17 09:27 | PDMN ---
Medical Necessity Medical necessity: Pt meets IP criteria per & MCG M-123; est los 2 mn for dehydration w/hypotension, worsening uremia w/elevated transaminases, inability to stand w/concern for rhabdomyolysis & possible ischemic toes; requiring further workup/monitoring, IR consult w/dialysis/catheter placement, Surgery consult & therapies; comorbid ESRD on dialysis; per IP order 03/16/18
[2018-03-17] MEDS ORDERED: NALOXONE HCL 0.4 MG/ML INJ IVP PRN (09:58)
[2018-03-17] MEDS ORDERED: FLUMAZENIL 0.5 MG/5 ML MDV IVP PRN (09:58)
[2018-03-17] MEDS ORDERED: NS 1,000 ML IV SCH (10:00)
[2018-03-17] MEDS ORDERED: LIDOCAINE 1% 300 MG/30 ML SDV ONE (10:01)
[2018-03-17] MEDS ORDERED: HEPARIN 50,000 UNIT/10 ML VIAL ONE ×2 (10:02→18:26)
--- NOTE | 2018-03-17 10:28 | PDHPUP ---
History & Physical Update H&P update statement: This history and physical update is based on an assessment of the patient which was completed after admission or registration (within 24 hours), but prior to the surgery/procedure. Plan for HD catheter placement. Discussed risks of skin tearing given extremely friable skin. I stated this was a possibility but will take every precaution to avoid a severe tear, although patient and agreed benefit outweighed risk. H&P update: H&P reviewed & patient examined, no change in patient's condition since H&P completed, changes noted
[2018-03-17] MEDS: fentaNYL 100 MCG/2 ML INJ IVP PRN (10:36)
--- NOTE | 2018-03-17 11:26 | PDRADPN ---
Radiology Procedure Note Date of Procedure: 03/17/18 Radiologist: Leon Spencer Anesthesia: Local (Specify) (Fentanyl only) Pre-op Diagnosis: ESRD Post-op Diagnosis: ESRD Indication: Transition from PD to HD Procedure: Tunneled HD catheter Finding(s): Patent right IJ. Tip of catheter at proximal right atrium. Good function. No skin tears around existing blood blisters. Inf/Abcess present in the surg proc area at time of surgery?: No
[2018-03-17] MEDS: ALLOPURINOL 300 MG TAB PO SCH (13:04)
[2018-03-17] MEDS: ASPIRIN 81 MG CHEWABLE TAB PO SCH (13:04)
[2018-03-17] MEDS: DOCUSATE SODIUM 100 MG CAP PO SCH (13:04)
[2018-03-17] MEDS: NEPHROVITE FOLIC ACID/VIT B&C 1 TAB PO SCH (13:05)
[2018-03-17] MEDS: PATCH REMOVAL 1 EA PATCH TD SCH (13:05)
--- NOTE | 2018-03-17 13:17 | SOAPPROG ---
SOAP Progress Note Assessment/Plan: Assessment: ESRD, failed PD tunneled HD cath placed today switching to HD cachexia probably underdialyzed on PD Plan: first HD treatment today, will plan on at least 3-4 daily treatments will eventually need PD cath out, weekly flushes until gone 03/17/18 13:14 Subjective: tired at bedside resigned to needing to be on HD some sob no cp nausea or vomiting slept OK last night appetite not great Objective: Vital Signs Temp Pulse Resp BP Pulse Ox 36.6 C 69 16 101/67 99 03/17/18 12:46 03/17/18 12:46 03/17/18 12:46 03/17/18 12:46 03/17/18 12:46 Laboratory Results 03/17/18 03:39 03/17/18 03:39 03/16/18 03/17/18 03/18/18 05:59 05:59 05:59 Intake Total 900 10 Balance 900 10 PT 19.0 SEC (12.0-15.0) H 03/16/18 15:04 INR 1.58 (0.83-1.16) H 03/16/18 15:04 Physical Exam - Physical Exam General Appearance: alert, thin, other (chronically ill appearing) Neck: other (new tunneled HD cath in [facility]) Respiratory: rales, No rhonchi, No wheezing Cardiac/Chest: regular rate, rhythm, edema, systolic murmur, No friction rub Abdomen: normal bowel sounds, non-tender, soft Extremities: swelling Neuro/Psych: alert, oriented x 3 ICD10 Worksheet Patient Problems: Problems Problem Status Onset Dehydration Acute Hyponatremia Acute Transaminitis Acute Anemia Acute Fever Acute Hypoxia Acute Peritoneal dialysis catheter infection Acute Renal failure Acute Supratherapeutic INR Acute Weakness Acute
[2018-03-17] MEDS ORDERED: ALBUMIN 25% 100 ML IV PRN (13:35)
[2018-03-17] MEDS ORDERED: NS 100 ML IV PRN (13:36)
[2018-03-17] MEDS ORDERED: MANNITOL 25% 12.5 GM/50 ML VIAL IV ONE (13:45)
--- NOTE | 2018-03-17 13:47 | ASMTCMCOM ---
CM Note CM Note Notes: Pts case discussed in tx rounds. Pt is a 72 y/o man admitted for dehydration, hypotension and esrc. Dr. Cardenas plans on having a palliative and hospice conversation w/ pt and . Pt is currently getting rehab at [facility]. Pt will most likely return once medically stable. Therapies have been ordered. Pt is being followed by transitional care. Wound care has been consulted. CM to follow. Plan: [facility] SNF Date Signed: 03/17/2018 01:47 PM Electronically Signed By:JEFF Blankenship
--- NOTE | 2018-03-17 14:12 | HOSPPROG ---
Hospitalist Progress Note Assessment/Plan: ASSESSMENT: * acute dehydration with hypotension *Uremia, ESRD * elevation of transaminases of uncertain etiology -unremarkable Hep Panel -Improving -Recheck in a.m., recheck INR *PVD and concern for ischemic toes -Awaiting Dr. Yu evaluation per H&P *cachexia, FTT *SPCMN *Generalized Weakness and Deconditioning *Hx of Falls *Afib Plan: -HD to start today -labs tomorrow -no IVF at this time -Await Surgery reccs, likely not a good surgical candidate -Not a good candidate for AC -Nutrition consult -consider Palliative Care -PT/OT Subjective: no cp or sob. will have HD today. Objective: Vital Signs Temp Pulse Resp BP Pulse Ox 36.6 C 69 16 101/67 99 03/17/18 12:46 03/17/18 12:46 03/17/18 12:46 03/17/18 12:46 03/17/18 12:46 Laboratory Results 03/17/18 03:39 03/17/18 03:39 03/16/18 03/17/18 03/18/18 05:59 05:59 05:59 Intake Total 900 10 Balance 900 10 PT 19.0 SEC (12.0-15.0) H 03/16/18 15:04 INR 1.58 (0.83-1.16) H 03/16/18 15:04 - Physical Exam Constitutional: no apparent distress Eyes: PERRL, EOMI Ears, Nose, Mouth, Throat: moist mucous membranes, hearing normal Cardiovascular: regular rate and rhythym, No edema Respiratory: no respiratory distress, no rales or rhonchi, reduced air movement Gastrointestinal: normoactive bowel sounds Skin: warm Musculoskeletal: generalized weakness Neurologic: AAOx3 Psychiatric: interacting appropriately, not anxious, not encephalopathic Lymph, Heme, Immunologic: No petechiae ICD10 Worksheet Patient Problems: Problems Problem Status Onset Dehydration Acute Hyponatremia Acute Transaminitis Acute Anemia Acute Fever Acute Hypoxia Acute Peritoneal dialysis catheter infection Acute Renal failure Acute Supratherapeutic INR Acute Weakness Acute
[2018-03-17] MEDS: METOCLOPRAMIDE 5 MG TAB PO SCH ×2 (15:40→21:00)
[2018-03-17] MEDS: Sevelamer Carbonate [Renvela] 2,400 MG PO SCH ×2 (15:44→15:47)
[2018-03-17] MEDS ORDERED: traMADol 50 MG TAB PO PRN (15:52)
[2018-03-17] MEDS: PRAVASTATIN SODIUM 10 MG TAB PO SCH (21:00)
[2018-03-17] MEDS: MELATONIN 3 MG TAB PO SCH (21:00)
[2018-03-17] MEDS: ZOLPIDEM TARTRATE 5 MG TAB PO SCH (21:48)
[2018-03-17] MEDS: LIDOCAINE 4%/MENTHOL 1% PATCH TD SCH (22:10)
[2018-03-18 04:05] LABS: INR 1.76 (0.83-1.16); PROTIME(PATIENT) 20.6 SEC (12.0-15.0)
[2018-03-18] MEDS: HYDROmorphONE/DILAUDID 2 MG TAB PO PRN ×3 (04:57→11:39)
[2018-03-18] MEDS: ALBUTEROL 3 ML DEYVIAL IH PRN ×3 (05:13→21:44)
[2018-03-18] MEDS: INSULIN LISPRO 100 UNIT/ML SC SCH ×3 (07:57→18:22)
[2018-03-18] MEDS: Sevelamer Carbonate [Renvela] 2,400 MG PO SCH ×2 (11:38→17:10)
[2018-03-18] MEDS: PATCH REMOVAL 1 EA PATCH TD SCH (11:38)
[2018-03-18] MEDS: ASPIRIN 81 MG CHEWABLE TAB PO SCH (11:41)
[2018-03-18] MEDS: NEPHROVITE FOLIC ACID/VIT B&C 1 TAB PO SCH (11:41)
[2018-03-18] MEDS: DOCUSATE SODIUM 100 MG CAP PO SCH (11:41)
[2018-03-18] MEDS: METOCLOPRAMIDE 5 MG TAB PO SCH ×2 (11:42→20:51)
[2018-03-18] MEDS: ALLOPURINOL 300 MG TAB PO SCH (11:43)
--- NOTE | 2018-03-18 12:07 | SOAPPROG ---
RICHARD Progress Note Assessment/Plan: Assessment: ESRD, failed PD tunneled HD cath working fine switching permanently to HD cachexia probably underdialyzed on PD Plan: first HD treatment yesterday, will plan on at least 3-4 daily treatments will eventually need PD cath out, weekly flushes until gone Needs rehab post hospital: doesn't want to go back to [facility], will look for something in [place] Sam wants to stay with Dr. Lu while on HD, will need to find a time at [facility] in [place] for him 03/17/18 13:14 03/18/18 12:03 Subjective: up to chair at bedside looks and feels better today looking forward to Thanksgiving dinner today, family is bringing it in for him no cp or sig SOB no nausea or vomiting appetite and energy still not great, hopefully will improve with better dialysis Objective: Vital Signs Temp Pulse Resp BP Pulse Ox 37.2 C 86 10 L 116/49 L 98 03/18/18 07:55 03/18/18 11:13 03/18/18 11:13 03/18/18 07:55 03/18/18 11:13 Laboratory Results 03/17/18 03:39 03/18/18 03:27 03/17/18 03/18/18 03/19/18 05:59 05:59 05:59 Intake Total 900 455 Balance 900 455 PT 20.6 SEC (12.0-15.0) H 03/18/18 03:27 INR 1.76 (0.83-1.16) H 03/18/18 03:27 Physical Exam - Physical Exam General Appearance: cachetic, thin, other (chronically ill appearing) Neck: other ([facility] tunneled HD cath) Respiratory: other (pos rales and rh) Cardiac/Chest: edema, systolic murmur, irregularly irregular, No friction rub Abdomen: normal bowel sounds, non-tender, soft, other (PD cath in place) Extremities: swelling Neuro/Psych: alert, oriented x 3 ICD10 Worksheet Patient Problems: Problems Problem Status Onset Dehydration Acute Hyponatremia Acute Transaminitis Acute Anemia Acute Fever Acute Hypoxia Acute Peritoneal dialysis catheter infection Acute Renal failure Acute Supratherapeutic INR Acute Weakness Acute
--- NOTE | 2018-03-18 12:49 | ASMTCMCOM ---
CM Note CM Note Notes: 03/18/2018 Case Management Note Met w/pt and to discuss d/c needs. Pt does not want to return to [facility]. Faxed referrals to [place] facilities as pt is wanting HD at [facility] in [place]. Case Management d/c poc: SNF rehab Case Management to follow. Date Signed: 03/18/2018 12:48 PM Electronically Signed By:Josey Santos RN
[2018-03-18] MEDS: METHOCARBAMOL 750 MG TAB PO PRN (13:02)
--- NOTE | 2018-03-18 13:02 | HOSPPROG ---
Hospitalist Progress Note Assessment/Plan: ASSESSMENT: * acute dehydration with hypotension *Uremia, ESRD * elevation of transaminases of uncertain etiology -unremarkable Hep Panel -Improving -Recheck in a.m., recheck INR *PVD and concern for ischemic toes -Awaiting Dr. Yu evaluation per H&P *cachexia, FTT *SPCMN *Generalized Weakness and Deconditioning *Hx of Falls *Afib #chronic pain syndrome Plan: -HD started yesterday -repeat labs tomorrow -was called by nurse reporting hypotension. will provide small NS bolus -Await Surgery reccs, likely not a good surgical candidate -Not a good candidate for AC -Nutrition consult -We discussed Palliative Care and hospice today and he is not interested -His pain is well controlled today. He wants to balance pain management while preventing falls, confusion, and decreased cognition. no changes to regimen today -PT/OT -will need rehab Subjective: does not want palliative care. Does not want hospice. no cp or sob Objective: Vital Signs Temp Pulse Resp BP Pulse Ox 37.1 C 84 18 67/38 L 95 03/18/18 12:20 03/18/18 12:20 03/18/18 12:20 03/18/18 12:20 03/18/18 12:20 Laboratory Results 03/17/18 03:39 03/18/18 03:27 03/17/18 03/18/18 03/19/18 05:59 05:59 05:59 Intake Total 900 455 Balance 900 455 PT 20.6 SEC (12.0-15.0) H 03/18/18 03:27 INR 1.76 (0.83-1.16) H 03/18/18 03:27 - Physical Exam Constitutional: chronically ill appearing Eyes: PERRL Ears, Nose, Mouth, Throat: moist mucous membranes, hearing normal Cardiovascular: regular rate and rhythym, No edema Respiratory: no respiratory distress, no rales or rhonchi, clear to auscultation Gastrointestinal: normoactive bowel sounds Skin: warm Neurologic: AAOx3 Psychiatric: interacting appropriately, not anxious, not encephalopathic Lymph, Heme, Immunologic: No petechiae ICD10 Worksheet Patient Problems: Problems Problem Status Onset Dehydration Acute Hyponatremia Acute Transaminitis Acute Anemia Acute Fever Acute Hypoxia Acute Peritoneal dialysis catheter infection Acute Renal failure Acute Supratherapeutic INR Acute Weakness Acute
--- NOTE | 2018-03-18 13:36 | WOCRNPDOC ---
WOCRN Advanced Assessment Note - Skin Integrity Problem, Advanced Assess Right Ischial Tuberosity Pressure Injury Dressing Type: Allevyn Life Integumentary Issue Intervention: Visualized Under Dressing Wound Bed Constitution: Healed Site Measurement - Head-to-Toe Length X Width X Depth (cm): 1x1x0 Pressure Injury Present on Admit: Yes Skin Integrity Problem Comment: Pressure injury of unknown previous stage. Fully healed. May keep covered for protection. No other wounds noted on sacrum/ ischial tuberosities. Wound care will sign off. Right Fifth Toe Dressing Type: Open to Air Alyce Wound Tissue: Calloused Wound Bed Constitution: Stable Eschar (100%) Site Measurement - Head-to-Toe Length X Width X Depth (cm): [id number] eschar Skin Integrity Problem Comment: No concerns. Will sign off. Marge GARCIA in room for care. Axis with betadine daily. Left First Toe Dressing Type: Open to Air Extremity Temperature: Cold Skin Integrity Problem Comment: Distal toe purple and dark red due to lack of blood flow. No open wound at this time. Per RADHA Yu is being consulted. Right Heel Pressure Injury Dressing Type: Open to Air Alyce Wound Tissue: Blanching, Erythema Site Measurement - Head-to-Toe Length X Width X Depth (cm): 0.5x0.5x0 Pressure Injury Stage: Stage 1 Skin Integrity Problem Comment: Bilateral heels extremely painful for patient. Left heel non erythematic/no wound present. Right heel with a small stage 1. Heels currently elevated. Wound care will sign off.
[2018-03-18] MEDS ORDERED: HEPARIN 50,000 UNIT/10 ML VIAL ONE (19:01)
[2018-03-18] MEDS: MELATONIN 3 MG TAB PO SCH (20:51)
[2018-03-18] MEDS: PRAVASTATIN SODIUM 10 MG TAB PO SCH (20:51)
[2018-03-18] MEDS: ZOLPIDEM TARTRATE 5 MG TAB PO SCH (20:52)
[2018-03-18] MEDS: LIDOCAINE 4%/MENTHOL 1% PATCH TD SCH (20:53)
[2018-03-18] MEDS: POLYETHYLENE GLYCOL 3350 17 GM PKT PO PRN (21:02)
[2018-03-19] MEDS: HYDROmorphONE/DILAUDID 2 MG TAB PO PRN ×6 (00:06→22:05)
[2018-03-19] MEDS: INSULIN LISPRO 100 UNIT/ML SC SCH ×4 (00:07→18:24)
[2018-03-19] MEDS: ALLOPURINOL 300 MG TAB PO SCH (10:33)
[2018-03-19] MEDS: ALBUTEROL 3 ML DEYVIAL IH PRN (10:33)
[2018-03-19] MEDS: ASPIRIN 81 MG CHEWABLE TAB PO SCH ×2 (10:34→13:12)
[2018-03-19] MEDS: NEPHROVITE FOLIC ACID/VIT B&C 1 TAB PO SCH (10:35)
[2018-03-19] MEDS: PATCH REMOVAL 1 EA PATCH TD SCH (10:35)
[2018-03-19] MEDS: METOCLOPRAMIDE 5 MG TAB PO SCH ×3 (10:35→22:05)
[2018-03-19] MEDS: DOCUSATE SODIUM 100 MG CAP PO SCH (10:35)
[2018-03-19] MEDS: Sevelamer Carbonate [Renvela] 2,400 MG PO SCH ×3 (10:36→18:24)
--- NOTE | 2018-03-19 11:44 | HOSPPROG ---
Hospitalist Progress Note Assessment/Plan: ASSESSMENT: * acute dehydration with hypotension *Uremia, ESRD * elevation of transaminases of uncertain etiology -unremarkable Hep Panel -Improving *PVD and concern for ischemic toes -Awaiting Dr. Yu evaluation per H&P -Given comorbidities, likely not a good surgical candidate *cachexia, FTT *SPCMN *Generalized Weakness and Deconditioning *Hx of Falls *Afib #chronic pain syndrome Plan: -HD started 03/18, plan for HD today -monitor BP closely -Await Surgery reccs, likely not a good surgical candidate -Not a good candidate for AC -Nutrition consult -We again discussed Palliative Care and hospice today and neither the pt or his consider this an option at this time -His pain is well controlled today. He wants to balance pain management while preventing falls, confusion, and decreased cognition. no changes to regimen today -PT/OT -will need rehab Subjective: no cp or sob. no n/v. tired Objective: Vital Signs Temp Pulse Resp BP Pulse Ox 36.8 C 82 20 121/39 H 96 03/19/18 11:23 03/19/18 11:23 03/19/18 11:23 03/19/18 11:23 03/19/18 11:23 Laboratory Results 03/17/18 03:39 03/19/18 03:21 03/18/18 03/19/18 03/20/18 05:59 05:59 05:59 Intake Total 455 800 Output Total 1000 25 Balance 455 -200 -25 PT 20.6 SEC (12.0-15.0) H 03/18/18 03:27 INR 1.76 (0.83-1.16) H 03/18/18 03:27 - Physical Exam Constitutional: chronically ill appearing Eyes: PERRL Ears, Nose, Mouth, Throat: moist mucous membranes Cardiovascular: regular rate and rhythym, No edema Respiratory: no respiratory distress, no rales or rhonchi, reduced air movement Gastrointestinal: normoactive bowel sounds, soft, non-tender abdomen Skin: warm Musculoskeletal: generalized weakness Neurologic: AAOx3 Psychiatric: interacting appropriately, not anxious, not encephalopathic Lymph, Heme, Immunologic: No petechiae ICD10 Worksheet Patient Problems: Problems Problem Status Onset Dehydration Acute Hyponatremia Acute Transaminitis Acute Anemia Acute Fever Acute Hypoxia Acute Peritoneal dialysis catheter infection Acute Renal failure Acute Supratherapeutic INR Acute Weakness Acute
[2018-03-19] MEDS: METHOCARBAMOL 750 MG TAB PO PRN (13:10)
--- NOTE | 2018-03-19 14:49 | SOAPPROG ---
RICHARD Progress Note Assessment/Plan: Assessment: ESRD, failed PD tunneled HD cath working fine switching permanently to HD cachexia probably underdialyzed on PD Plan: first couple of treatments have gone well, will eventually need PD cath out, weekly flushes until removed Needs rehab post hospital: doesn't want to go back to [facility], will look for something in [place] Sam wants to stay with Dr. Lu while on HD, will need to find a time at [facility] in [place] for him Will hold on HD today and plan on HD tomorrow, Sam is happy about that, he was pretty tired after his second HD run 03/17/18 13:14 03/18/18 12:03 03/19/18 14:43 Subjective: tired today, happy to not be doing HD today no cp nausea or vomiting didn't sleep well last night appetite not great d/w , he is eating VERY little encouraged better nutrition Objective: Vital Signs Temp Pulse Resp BP Pulse Ox 36.8 C 82 20 121/39 H 96 03/19/18 11:23 03/19/18 11:23 03/19/18 11:23 03/19/18 11:23 03/19/18 11:23 Laboratory Results 03/17/18 03:39 03/19/18 03:21 03/18/18 03/19/18 03/20/18 05:59 05:59 05:59 Intake Total 455 800 Output Total 1000 25 Balance 455 -200 -25 PT 20.6 SEC (12.0-15.0) H 03/18/18 03:27 INR 1.76 (0.83-1.16) H 03/18/18 03:27 Physical Exam - Physical Exam General Appearance: alert, cachetic, thin Neck: normal inspection Respiratory: rales, No wheezing Cardiac/Chest: edema, systolic murmur, irregularly irregular Abdomen: normal bowel sounds, non-tender, soft Extremities: pedal edema Neuro/Psych: alert, oriented x 3 ICD10 Worksheet Patient Problems: Problems Problem Status Onset Dehydration Acute Hyponatremia Acute Transaminitis Acute Anemia Acute Fever Acute Hypoxia Acute Peritoneal dialysis catheter infection Acute Renal failure Acute Supratherapeutic INR Acute Weakness Acute
--- NOTE | 2018-03-19 15:05 | SOAPPROG ---
RICHARD Progress Note Assessment/Plan: Assessment: ESRD, failed PD tunneled HD cath working fine switching permanently to HD cachexia probably underdialyzed on PD Plan: first couple of treatments have gone well, will eventually need PD cath out, weekly flushes until removed Needs rehab post hospital: doesn't want to go back to [facility], will look for something in [place] Sam wants to stay with Dr. Lu while on HD, will need to find a time at [facility] in [place] for him Will hold on HD today and plan on HD tomorrow, Sam is happy about that, he was pretty tired after his second HD run would like to NOT have him leave until after HD on Thursday so we can get him as well dialyzed as possible prior to going to rehab 03/17/18 13:14 03/18/18 12:03 03/19/18 14:43 03/19/18 15:03 Subjective: tired today, overall feels better Objective: Vital Signs Temp Pulse Resp BP Pulse Ox 36.8 C 82 20 121/39 H 96 03/19/18 11:23 03/19/18 11:23 03/19/18 11:23 03/19/18 11:23 03/19/18 11:23 Laboratory Results 03/17/18 03:39 03/19/18 03:21 03/18/18 03/19/18 03/20/18 05:59 05:59 05:59 Intake Total 455 800 Output Total 1000 25 Balance 455 -200 -25 PT 20.6 SEC (12.0-15.0) H 03/18/18 03:27 INR 1.76 (0.83-1.16) H 03/18/18 03:27 Physical Exam - Physical Exam General Appearance: alert, cachetic ICD10 Worksheet Patient Problems: Problems Problem Status Onset Dehydration Acute Hyponatremia Acute Transaminitis Acute Anemia Acute Fever Acute Hypoxia Acute Peritoneal dialysis catheter infection Acute Renal failure Acute Supratherapeutic INR Acute Weakness Acute
--- NOTE | 2018-03-19 15:48 | ASMTCMCOM ---
CM Note CM Note Notes: 03/19/2018 Case Management Note Faxed the following info to the [facility] in [place]: demographic sheet, H & P, chest x ray, Hep B and Hep C results, current meds, HD flow sheets and MD progress notes to [phone] via [email or web address]. Contacted Dianne, clinical staff anesthesiologist at [facility], at [phone]. Dianne stated [facility] can take pt on Thu or Thursday for HD if approved clinically and insurance authorizes. [facility] financial counseling unable to evaluate until Thursday. On site visit from [facility]. [facility] accepted patient. Cse Management d/c poc: [facility] rehab with HD at [facility] in [place] pending approval. Case Management to follow. Date Signed: 03/19/2018 03:47 PM Electronically Signed By:Josey Santos RN
[2018-03-19] MEDS ORDERED: traMADol 50 MG TAB PO PRN (19:06)
[2018-03-19] MEDS: MELATONIN 3 MG TAB PO SCH (22:05)
[2018-03-19] MEDS: PRAVASTATIN SODIUM 10 MG TAB PO SCH (22:05)
[2018-03-19] MEDS: ZOLPIDEM TARTRATE 5 MG TAB PO SCH (22:05)
[2018-03-19] MEDS: LIDOCAINE 4%/MENTHOL 1% PATCH TD SCH (22:06)
[2018-03-20] MEDS: INSULIN LISPRO 100 UNIT/ML SC SCH ×5 (01:24→22:03)
[2018-03-20] MEDS: HYDROmorphONE/DILAUDID 2 MG TAB PO PRN ×4 (02:53→21:24)
[2018-03-20 04:25] LABS: PLATELET COUNT 219 10^3/uL (150-400)
[2018-03-20 04:32] LABS: INR 1.99 (0.83-1.16); PROTIME(PATIENT) 22.7 SEC (12.0-15.0)
[2018-03-20] MEDS: ALLOPURINOL 300 MG TAB PO SCH (08:15)
[2018-03-20] MEDS: NEPHROVITE FOLIC ACID/VIT B&C 1 TAB PO SCH (08:16)
[2018-03-20] MEDS: PATCH REMOVAL 1 EA PATCH TD SCH (08:17)
[2018-03-20] MEDS: METOCLOPRAMIDE 5 MG TAB PO SCH ×2 (08:17→21:33)
[2018-03-20] MEDS: ASPIRIN 81 MG CHEWABLE TAB PO SCH (08:18)
[2018-03-20] MEDS: Sevelamer Carbonate [Renvela] 2,400 MG PO SCH ×3 (08:18→14:20)
[2018-03-20] MEDS: DOCUSATE SODIUM 100 MG CAP PO SCH (08:20)
[2018-03-20] MEDS: ALBUTEROL 3 ML DEYVIAL IH PRN (13:59)
--- NOTE | 2018-03-20 15:48 | HOSPPROG ---
Hospitalist Progress Note Assessment/Plan: ASSESSMENT: * acute dehydration with hypotension *Uremia, ESRD * elevation of transaminases of uncertain etiology -unremarkable Hep Panel -Improving *PVD and concern for ischemic toes -will ask Dr. Yu to eval on Thursday or this can be done as an outpatient -Given comorbidities, likely not a good surgical candidate *cachexia, FTT *SPCMN *Generalized Weakness and Deconditioning *Hx of Falls *Afib #chronic pain syndrome Plan: -HD started 03/18, plan for HD today, did not get a session yesterday -monitor BP closely -vascular surgical reccs will need to be obtained on Thursday or as an op. He has many comorbidities and likely is not a good surgical candidate -Not a good candidate for AC -Nutrition consult -We have had a discussion about Palliative Care and hospice and neither the pt or his consider this an option at this time -His pain is well controlled today. He wants to balance pain management while preventing falls, confusion, and decreased cognition. no changes to regimen today -PT/OT -will need rehab Subjective: no cp or sob. no n/v. pain is well controlled. Objective: Vital Signs Temp Pulse Resp BP Pulse Ox 37.2 C 80 14 141/57 H 96 03/20/18 15:19 03/20/18 15:19 03/20/18 15:19 03/20/18 15:19 03/20/18 15:19 Laboratory Results 03/20/18 03:34 03/20/18 03:34 03/19/18 03/20/18 03/21/18 05:59 05:59 05:59 Intake Total 800 580 Output Total 1000 25 Balance -200 555 PT 22.7 SEC (12.0-15.0) H 03/20/18 03:34 INR 1.99 (0.83-1.16) H 03/20/18 03:34 - Physical Exam Constitutional: chronically ill appearing Eyes: PERRL Ears, Nose, Mouth, Throat: moist mucous membranes, hearing normal Cardiovascular: regular rate and rhythym, No edema Respiratory: no respiratory distress, no rales or rhonchi, clear to auscultation Gastrointestinal: normoactive bowel sounds, soft, non-tender abdomen Skin: warm Neurologic: AAOx3 Psychiatric: interacting appropriately, not anxious, not encephalopathic Lymph, Heme, Immunologic: No petechiae ICD10 Worksheet Patient Problems: Problems Problem Status Onset Dehydration Acute Hyponatremia Acute Transaminitis Acute Anemia Acute Fever Acute Hypoxia Acute Peritoneal dialysis catheter infection Acute Renal failure Acute Supratherapeutic INR Acute Weakness Acute
[2018-03-20] MEDS ORDERED: SODIUM CITRATE 4% 5 ML in SYRINGE 0 ML DIAL ONE (20:00)
--- NOTE | 2018-03-20 20:28 | SOAPPROG ---
SOAP Progress Note Assessment/Plan: Assessment: 1. esrd: now transitioned from PD to hd due to failure to thrive on pd. Planning to dialyze at [facility] on MWF schedule per CM notes, therefore will plan next hd for Mon. Previously dialyzed at [facility] but he does not wish to return to [facility] and his home in [place] is fairly equidistant from [place] and [place]. Will need PD cath removal at some point. Unclear if he will be appropriate candidate for avf but this can be addressed as outpt. 2. FTT: did poorly on PD as above and now transitioned to hd. He did not exactly thrive on hd in the past either, but clearly did better than on pd. 3. htn: vol status looks ok, would titrate meds as needed. This could be addressed as outpt. Plan: 03/20/18 20:23 Subjective: Seen during dialysis. Stable rx, no particular issues. He states that he feels better and is planning to dialyze in [place] s/p d/c. Objective: Vital Signs Temp Pulse Resp BP Pulse Ox 37.2 C 80 14 141/57 H 96 03/20/18 15:19 03/20/18 15:19 03/20/18 15:19 03/20/18 15:19 03/20/18 15:19 Laboratory Results 03/20/18 03:34 03/20/18 03:34 03/19/18 03/20/18 03/21/18 05:59 05:59 05:59 Intake Total 800 580 50 Output Total 1000 25 Balance -200 555 50 PT 22.7 SEC (12.0-15.0) H 03/20/18 03:34 INR 1.99 (0.83-1.16) H 03/20/18 03:34 Physical Exam - Physical Exam General Appearance: cachetic Respiratory: lungs clear (anteriorly) Cardiac/Chest: regular rate, rhythm Abdomen: soft, other (+PD cath) Extremities: pedal edema (none) ICD10 Worksheet Patient Problems: Problems Problem Status Onset Dehydration Acute Hyponatremia Acute Transaminitis Acute Anemia Acute Fever Acute Hypoxia Acute Peritoneal dialysis catheter infection Acute Renal failure Acute Supratherapeutic INR Acute Weakness Acute
[2018-03-20] MEDS: MELATONIN 3 MG TAB PO SCH (21:33)
[2018-03-20] MEDS: METHOCARBAMOL 750 MG TAB PO PRN (21:33)
[2018-03-20] MEDS: PRAVASTATIN SODIUM 10 MG TAB PO SCH (21:33)
[2018-03-20] MEDS: ZOLPIDEM TARTRATE 5 MG TAB PO SCH (23:06)
[2018-03-21] MEDS: LIDOCAINE 4%/MENTHOL 1% PATCH TD SCH ×2 (02:44→20:08)
[2018-03-21] MEDS: HYDROmorphONE/DILAUDID 2 MG TAB PO PRN ×2 (03:52→07:58)
[2018-03-21] MEDS: INSULIN LISPRO 100 UNIT/ML SC SCH ×4 (07:26→23:03)
[2018-03-21] MEDS: Sevelamer Carbonate [Renvela] 2,400 MG PO SCH ×2 (07:27→11:10)
[2018-03-21] MEDS: ALBUTEROL 3 ML DEYVIAL IH PRN ×3 (08:46→19:42)
[2018-03-21] MEDS ORDERED: traMADol 50 MG TAB PO SCH (10:16)
[2018-03-21] MEDS: PATCH REMOVAL 1 EA PATCH TD SCH (11:09)
[2018-03-21] MEDS: guaiFENesin 600 MG TAB.ER PO PRN (11:32)
[2018-03-21] MEDS: NEPHROVITE FOLIC ACID/VIT B&C 1 TAB PO SCH (11:32)
[2018-03-21] MEDS: METOCLOPRAMIDE 5 MG TAB PO SCH ×2 (11:32→20:08)
[2018-03-21] MEDS: ASPIRIN 81 MG CHEWABLE TAB PO SCH (11:32)
[2018-03-21] MEDS: DOCUSATE SODIUM 100 MG CAP PO SCH (11:32)
[2018-03-21] MEDS: ALLOPURINOL 300 MG TAB PO SCH (11:33)
--- NOTE | 2018-03-21 13:02 | HOSPPROG ---
Hospitalist Progress Note Assessment/Plan: ASSESSMENT: * acute dehydration with hypotension *Uremia, ESRD * elevation of transaminases of uncertain etiology -unremarkable Hep Panel -Improving *PVD and concern for ischemic toes -will ask Dr. Yu to eval on Thursday or this can be done as an outpatient -Given comorbidities, likely not a good surgical candidate *cachexia, FTT *SPCMN *Generalized Weakness and Deconditioning *Hx of Falls *Afib #chronic pain syndrome Plan: -HD started 03/18, plan for next HD on Thursday. He is being set up for op HD, this is still pending -monitor BP closely. BP more stable at this point -vascular surgical reccs/consult will need to be requested on Thursday or as an outpatient. He has many comorbidities and likely is not a good surgical candidate -Not a good candidate for chronic AC -Nutrition following -We have had a discussion about hospice and neither the pt or his consider this an option at this time. They are open to Palliative care at this time and I will order -Pain mgmt has been difficult. He wants to minimize sedation/confusion. We will schedule Tramadol with Dilaudid PO for breakthrough. If still not controlled tomorrow, would consider low dose Gabapentin. Would avoid long acting meds -PT/OT -will need rehab, placement pending. Per CM this may not be arranged until Thursday or Thursday Subjective: no cp or sob. no n/v. pain is well controlled currenlty but intermittently he is in a lot of pain Objective: Vital Signs Temp Pulse Resp BP Pulse Ox 36.4 C 90 14 104/58 L 96 03/21/18 11:56 03/21/18 11:56 03/21/18 11:56 03/21/18 11:56 03/21/18 11:56 Laboratory Results 03/20/18 03:34 03/21/18 03:22 03/20/18 03/21/18 03/22/18 05:59 05:59 05:59 Intake Total 580 350 Output Total 25 Balance 555 350 PT 22.7 SEC (12.0-15.0) H 03/20/18 03:34 INR 1.99 (0.83-1.16) H 03/20/18 03:34 - Physical Exam Constitutional: no apparent distress, chronically ill appearing Eyes: PERRL, EOMI Ears, Nose, Mouth, Throat: moist mucous membranes, hearing normal, ears appear normal Cardiovascular: regular rate and rhythym, no murmur, rub, or gallop, No edema Respiratory: no respiratory distress, no rales or rhonchi, clear to auscultation Gastrointestinal: normoactive bowel sounds, soft, non-tender abdomen Skin: warm Musculoskeletal: generalized weakness Neurologic: AAOx3 Psychiatric: interacting appropriately, not anxious, not encephalopathic Lymph, Heme, Immunologic: No petechiae ICD10 Worksheet Patient Problems: Problems Problem Status Onset Dehydration Acute Hyponatremia Acute Transaminitis Acute Anemia Acute Fever Acute Hypoxia Acute Peritoneal dialysis catheter infection Acute Renal failure Acute Supratherapeutic INR Acute Weakness Acute
--- NOTE | 2018-03-21 14:08 | ASMTCMCOM ---
CM Note CM Note Notes: 03/21/2018 Case Management Note Met w/pt and . Discussed acceptance by [facility] for SNF rehab. Pt and in agreement. Discussed benefits of palliative care to address pain. Pt and in agreement. Faxed order to [facility]. Provided update to Roberto from [facility] palliative team, left for Od[facility] holm and spoke with coordinator integrated marketing at [facility] on the phone. Plan is for [facility] [employer] to see pt tomorrow after rounds on are finished. Case Management to follow up with [facility] on Thursday. Financial approval was pending over the weekend. Chair time has not been assigned yet. Unable to discharge to [facility] until chair time is assigned at [facility]. Case Management d/c poc: [facility] SNF with [facility]. HD at the [facility] in [place] is pending. Case Management to follow. Date Signed: 03/21/2018 02:07 PM Electronically Signed By:Josey Santos RN
[2018-03-21] MEDS: traMADol 50 MG TAB PO SCH ×2 (14:46→21:52)
--- NOTE | 2018-03-21 18:12 | SOAPPROG ---
SOAP Progress Note Assessment/Plan: Assessment: 1. esrd: now transitioned from PD to hd due to failure to thrive and inadequacy on pd. Planning to dialyze at [facility] on MWF schedule, therefore will hd tomorrow. Previously dialyzed at [facility] but he does not wish to return to [facility] and his home in [place] is fairly equidistant from [place] and [place]. Will need PD cath removal at some point. Unclear if he will be appropriate candidate for avf but this can be addressed as outpt. Suspect will need Cali lift at dialysis. 2. FTT: did poorly on PD as above and now transitioned to hd. He did not exactly thrive on hd in the past either, but clearly did better than on pd. 3. htn: cont meds, vol status looks good. Plan: 03/20/18 20:23 03/21/18 18:09 03/21/18 18:11 Subjective: C/o chronic LE pain but otherwise doing ok. present, she confirms plan to dialyze in [place] near rehab facility. Objective: Vital Signs Temp Pulse Resp BP Pulse Ox 36.8 C 85 16 129/33 H 96 03/21/18 15:13 03/21/18 15:31 03/21/18 15:31 03/21/18 15:13 03/21/18 15:31 Laboratory Results 03/20/18 03:34 03/21/18 03:22 03/20/18 03/21/18 03/22/18 05:59 05:59 05:59 Intake Total 580 350 200 Output Total 25 10 Balance 555 350 190 PT 22.7 SEC (12.0-15.0) H 03/20/18 03:34 INR 1.99 (0.83-1.16) H 03/20/18 03:34 Physical Exam - Physical Exam General Appearance: no apparent distress, cachetic Respiratory: lungs clear Cardiac/Chest: regular rate, rhythm Abdomen: non-tender, soft Extremities: pedal edema (none) ICD10 Worksheet Patient Problems: Problems Problem Status Onset Dehydration Acute Hyponatremia Acute Transaminitis Acute Anemia Acute Fever Acute Hypoxia Acute Peritoneal dialysis catheter infection Acute Renal failure Acute Supratherapeutic INR Acute Weakness Acute
[2018-03-21] MEDS: MELATONIN 3 MG TAB PO SCH (20:08)
[2018-03-21] MEDS: PRAVASTATIN SODIUM 10 MG TAB PO SCH (20:08)
[2018-03-21] MEDS: CARBOXYMETHYLCELLULOSE 0.5% 0.4 ML DROPERETTE EACHEYE PRN (20:36)
[2018-03-21] MEDS: METHOCARBAMOL 750 MG TAB PO PRN (20:39)
[2018-03-21] MEDS: ZOLPIDEM TARTRATE 5 MG TAB PO SCH (20:57)
[2018-03-22 04:24] LABS: INR 2.04 (0.83-1.16); PROTIME(PATIENT) 23.1 SEC (12.0-15.0)
[2018-03-22] MEDS: traMADol 50 MG TAB PO SCH ×2 (05:38→16:06)
[2018-03-22] MEDS: HYDROmorphONE/DILAUDID 2 MG TAB PO PRN ×2 (09:06→19:53)
[2018-03-22] MEDS: METOCLOPRAMIDE 5 MG TAB PO SCH (09:07)
[2018-03-22] MEDS: Sevelamer Carbonate [Renvela] 2,400 MG PO SCH ×2 (09:09→13:32)
[2018-03-22] MEDS: INSULIN LISPRO 100 UNIT/ML SC SCH ×3 (09:09→23:50)
[2018-03-22] MEDS: CARBOXYMETHYLCELLULOSE 0.5% 0.4 ML DROPERETTE EACHEYE PRN ×2 (09:18→22:45)
[2018-03-22] MEDS: ALBUTEROL 3 ML DEYVIAL IH PRN (09:44)
[2018-03-22] MEDS: NEPHROVITE FOLIC ACID/VIT B&C 1 TAB PO SCH (10:03)
[2018-03-22] MEDS: DOCUSATE SODIUM 100 MG CAP PO SCH (10:03)
[2018-03-22] MEDS: ALLOPURINOL 300 MG TAB PO SCH (10:03)
[2018-03-22] MEDS: ASPIRIN 81 MG CHEWABLE TAB PO SCH (10:03)
[2018-03-22] MEDS: PATCH REMOVAL 1 EA PATCH TD SCH (10:08)
--- NOTE | 2018-03-22 14:26 | ASMTCMCOM ---
CM Note CM Note Notes: Per rounds, staff have noticed that pt and his may have different needs/wants moving forward with his medical treatment plan. A PC consult was held with pt and his tlater in the day. During this mtg pt's relayed that she had told her that she would support him if he decided to end treatment. Pt stated he still wants to "fight" and is not ready for hospice. He is willing to engage in rehab to regain strength and mobility. Referral to [facility] had been made; they accepted. CM needs beyond palliative care are still to be determined. D/C Plan: [facility], others TBD Date Signed: 03/22/2018 02:25 PM Electronically Signed By:Alexandra Velázquez
--- NOTE | 2018-03-22 15:25 | SOAPPROG ---
RICHARD Progress Note Assessment/Plan: Assessment/Plan: ESRD: pt now transitioned from PD to HD due to failure to thrive and inadequacy on PD. - HD being done today, will do on MWF schedule. - Plan for pt to dialyze at [facility] MWF as outpatient, appreciate CM arranging this. Anemia: pt getting epo. Failure to thrive: hopefully will do better on HD than PD, appetite already improving. Subjective: No acute events overnight. Pt on HD today and tolerating well, he states that he has no problems on HD this time so far. He also notes his appetite started to increase dramatically yesterday, but having some trouble swallowing. He also notes pain in his foot. Objective: Vital Signs Temp Pulse Resp BP Pulse Ox 36.6 C 82 18 121/47 H 98 03/22/18 12:58 03/22/18 12:58 03/22/18 12:58 03/22/18 12:58 03/22/18 12:58 Laboratory Results 03/20/18 03:34 03/22/18 04:00 03/21/18 03/22/18 03/23/18 05:59 05:59 05:59 Intake Total 350 250 Output Total 10 Balance 350 240 PT 23.1 SEC (12.0-15.0) H 03/22/18 04:00 INR 2.04 (0.83-1.16) H 03/22/18 04:00 General: alert and oriented, no acute distress Eyes: EOMI, PERRL OP: Clear CV: RRR Resp: nonlabored respirations Abd: Soft, NT/ND Ext: no edema BLE Psych: cooperative Access: catheter ICD10 Worksheet Patient Problems: Problems Problem Status Onset Dehydration Acute Hyponatremia Acute Transaminitis Acute Anemia Acute Fever Acute Hypoxia Acute Peritoneal dialysis catheter infection Acute Renal failure Acute Supratherapeutic INR Acute Weakness Acute
[2018-03-22] MEDS ORDERED: NALOXONE HCL 0.4 MG/ML INJ IVP PRN (15:37)
[2018-03-22] MEDS ORDERED: FLUMAZENIL 0.5 MG/5 ML MDV IVP PRN (15:37)
[2018-03-22] MEDS ORDERED: fentaNYL 100 MCG/2 ML INJ IVP PRN (15:37)
[2018-03-22] MEDS ORDERED: PROTAMINE SULFATE 50 MG/5 ML VIAL IVP PRN (15:37)
[2018-03-22] MEDS ORDERED: HEPARIN 10,000 UNIT/10 ML MDV (1,000 UNIT/ML) IVP PRN (15:37)
[2018-03-22] MEDS ORDERED: MEPERIDINE 25 MG/ML SYR IVP PRN (15:37)
[2018-03-22] MEDS ORDERED: ALTEPLASE 2 MG VIAL IVP PRN (15:37)
[2018-03-22] MEDS ORDERED: GLUCAGON HCL 1 MG VIAL IVP PRN (15:37)
[2018-03-22] MEDS ORDERED: MIDAZOLAM 2 MG/2 ML VIAL IVP PRN (15:37)
[2018-03-22] MEDS ORDERED: NS 1,000 ML IV SCH (15:45)
[2018-03-22] MEDS ORDERED: IOPAMIDOL (ISOVUE-300) 100 ML BTL ONE (16:50)
[2018-03-22] MEDS ORDERED: fentaNYL 100 MCG/2 ML INJ ONE (17:36)
[2018-03-22] MEDS ORDERED: MIDAZOLAM 2 MG/2 ML VIAL ONE (17:36)
[2018-03-22] MEDS ORDERED: NALOXONE HCL 0.4 MG/ML INJ ONE (17:36)
--- NOTE | 2018-03-22 18:33 | PDRADPN ---
Radiology Procedure Note Date of Procedure: 03/22/18 Radiologist: Temitope Gilmore Anesthesia: IV Sedation Pre-op Diagnosis: PVD Post-op Diagnosis: PVD Indication: ISCHEMIC TOES Procedure: AORTOGRAM WITH BILATERAL RUNOFF Finding(s): CHRONIC BILATERAL SFA OCCLUSIONS WITH BILATERAL SINGLE VESSEL RUNOFF TO ANKLE. VERY LITTLE FLOW TO FEET. NO ILIAC INFLOW ISSUES. NO AMENDABLE PERCUTAENOUS OPTIONS FOR INTERVENTION. Inf/Abcess present in the surg proc area at time of surgery?: No
[2018-03-22] MEDS ORDERED: FLUMAZENIL 0.5 MG/5 ML MDV IVP ONE (18:38)
[2018-03-22] MEDS: fentaNYL 100 MCG/2 ML INJ IVP PRN (18:39)
[2018-03-22] MEDS ORDERED: HYDROmorphONE/DILAUDID 2 MG TAB ONE (19:51)
[2018-03-23] MEDS: METOCLOPRAMIDE 5 MG TAB PO SCH ×3 (01:29→21:04)
[2018-03-23] MEDS: MELATONIN 3 MG TAB PO SCH ×2 (01:30→21:04)
[2018-03-23] MEDS: PRAVASTATIN SODIUM 10 MG TAB PO SCH ×2 (01:30→21:04)
[2018-03-23] MEDS: traMADol 50 MG TAB PO SCH ×4 (01:30→21:07)
[2018-03-23] MEDS: LIDOCAINE 4%/MENTHOL 1% PATCH TD SCH ×2 (02:12→21:03)
[2018-03-23] MEDS: ZOLPIDEM TARTRATE 5 MG TAB PO SCH ×3 (02:13→23:30)
[2018-03-23] MEDS: HYDROmorphONE/DILAUDID 2 MG TAB PO PRN ×2 (06:22→22:57)
--- NOTE | 2018-03-23 07:00 | GCON ---
DATE OF CONSULTATION: 03/22/2018 HISTORY OF PRESENT ILLNESS: The patient is a 72-year-old male with chronic renal failure on dialysis, who presents with gangrenous changes in his toes bilaterally, but particularly on the left leg. He has not walked significantly in a long time. He does use a walker and has a history of coronary artery disease, status post bypass. At the present time, his legs are not particularly painful. Angiogram today reveals bilateral complete chronic occlusions of the distal and popliteal arteries with single-vessel runoff to the ankle. Very poor digital flow on the angio. He is in a definite potential limb loss situation, but he is also a very poor candidate for possible surgery. Risks and options have been fully discussed with the patient and his . PAST MEDICAL HISTORY: Includes renal failure on peritoneal dialysis and now switched to hemodialysis. He has had coronary artery disease with a history of a quadruple bypass, COPD, sleep apnea, and pulmonary hypertension. He has insulin-dependent diabetes. He has chronic atrial fibrillation and gout. FAMILY HISTORY: Noncontributory. REVIEW OF SYSTEMS: Reveals no new findings on a full 10-point review except as related to the HPI and the past history. SOCIAL HISTORY: Reveals he is . He does not smoke. PHYSICAL EXAMINATION: GENERAL: Reveals an alert, cooperative, 72-year-old male who is in some discomfort and appears to be chronically ill. HEAD AND NECK : Reveals the pupils to be equal and reactive. He is nonicteric. Neck reveals full range of motion. No masses. No jugular distention and no bruits. RESPIRATORY: Chest reveals clear bilateral breath sounds. CARDIAC: Reveals an irregular rhythm with no murmurs. ABDOMEN: Soft and nontender without masses or obvious hernias. GENITALIA: Normal. EXTREMITIES: Reveal decreased peripheral pulses. His right hand has some mild ischemic changes in the ring and middle finger distally. They are not particularly painful now, but he has a weak radial pulse. His legs, his femoral pulses are weak, but his pedal pulses are largely absent except with a doppler. He has gangrenous, blackened changes to multiple areas of the toes of both feet, particularly the great toe of the left foot. NEUROLOGIC: Seems to be physiologic and symmetric. PSYCH: Reveals him to be alert, oriented, and cooperative. ALLERGIES: Ancef and lisinopril. PRESENT MEDICATIONS: Are Flonase, Dilaudid, Pravachol, Nitrostat, Ambien, Reglan, MiraLAX, allopurinol, Colace, Singulair, Proventil, Tylenol, aspirin, insulin, Robaxin, Zofran, Renvela, Mucinex, and Ultram. IMPRESSION: Severe peripheral vascular disease with ischemic changes of his toes as well as possible ischemic changes in the tips of his right long and ring finger and secondary to his diabetes and severe neuropathy. Angiogram reveals no option for Interventional Radiology. IT may be possible to have a fem-popliteal or fem-tib bypass for limb salvage. He may have no veins to use for option for bypass since he has had a coronary bypass. His risks and options have been fully discussed with the patient and his and we will further discuss these tomorrow after noninvasive arterial studies and vein ultrasound evaluation and review of this angiogram. /[id number]/MODL MTDD
[2018-03-23] MEDS: INSULIN LISPRO 100 UNIT/ML SC SCH (07:57)
[2018-03-23] MEDS: ALLOPURINOL 300 MG TAB PO SCH (09:02)
[2018-03-23] MEDS: NEPHROVITE FOLIC ACID/VIT B&C 1 TAB PO SCH (09:02)
[2018-03-23] MEDS: ASPIRIN 81 MG CHEWABLE TAB PO SCH (09:02)
[2018-03-23] MEDS: DOCUSATE SODIUM 100 MG CAP PO SCH (09:02)
[2018-03-23] MEDS: PATCH REMOVAL 1 EA PATCH TD SCH (09:04)
--- NOTE | 2018-03-23 09:56 | SOAPPROG ---
SOAP Progress Note Assessment/Plan: Assessment/Plan: ESRD: pt now transitioned from PD to HD due to failure to thrive and inadequacy on PD. - HD next tomorrow, will do on MWF schedule. - Plan for pt to dialyze at [facility] [address] [facility] as outpatient, has chair for 7:20am. Anemia: pt getting epo. Failure to thrive: hopefully will do better on HD than PD, appetite already improving. Anemia: will continue to monitor. Subjective: No acute events overnight. Pt states that his pain is better controlled today. Objective: Vital Signs Temp Pulse Resp BP Pulse Ox 36.8 C 93 20 129/77 H 100 03/23/18 07:15 03/23/18 07:15 03/23/18 07:15 03/23/18 07:15 03/23/18 07:15 Laboratory Results 03/20/18 03:34 03/23/18 03:58 03/22/18 03/23/18 03/24/18 05:59 05:59 05:59 Intake Total 250 50 Output Total 10 Balance 240 50 PT 23.1 SEC (12.0-15.0) H 03/22/18 04:00 INR 2.04 (0.83-1.16) H 03/22/18 04:00 General: alert and oriented, no acute distress Eyes: EOMI, PERRL OP: Clear CV: RRR Resp: nonlabored respirations Abd: Soft, NT/ND Ext: no edema Neuro: CN II-XII Grossly intact Access: RIJ tunneled catheter ICD10 Worksheet Patient Problems: Problems Problem Status Onset Dehydration Acute Hyponatremia Acute Transaminitis Acute Anemia Acute Fever Acute Hypoxia Acute Peritoneal dialysis catheter infection Acute Renal failure Acute Supratherapeutic INR Acute Weakness Acute
--- NOTE | 2018-03-23 10:53 | SOAPPROG ---
[facility] Progress Note Assessment/Plan: Assessment/Plan: 72 Y M c multiple comorbidities including ESRD on HD, CAD s/p CABG 4, now with severe PVD and ischemic foot. Review CTA again. Will get US vein mapping to plan for potential revascularization surgery. Patient may or may not have saphenous veins as he's had a quadruple bypass. Will get arterial studies. 03/23/18 10:50 Objective: Vital Signs Temp Pulse Resp BP Pulse Ox 36.8 C 93 20 129/77 H 100 03/23/18 07:15 03/23/18 07:15 03/23/18 07:15 03/23/18 07:15 03/23/18 07:15 Laboratory Results 03/20/18 03:34 03/23/18 03:58 03/22/18 03/23/18 03/24/18 05:59 05:59 05:59 Intake Total 250 50 Output Total 10 Balance 240 50 PT 23.1 SEC (12.0-15.0) H 03/22/18 04:00 INR 2.04 (0.83-1.16) H 03/22/18 04:00 ICD10 Worksheet Patient Problems: Problems Problem Status Onset Dehydration Acute Hyponatremia Acute Transaminitis Acute Anemia Acute Fever Acute Hypoxia Acute Peritoneal dialysis catheter infection Acute Renal failure Acute Supratherapeutic INR Acute Weakness Acute
--- NOTE | 2018-03-23 13:18 | HOSPPROG ---
Hospitalist Progress Note Assessment/Plan: DIAGNOSES: * acute progressive uremia inpatient on peritoneal dialysis; now transitioned to hemodialysis and improving * acute dehydration and hypotension, likely due to poor intake; * Now resolved after hydration * painful ischemic changes in left foot with milder ischemic changes and right foot and now developing some pain in fingers of his right hand * Known history of coronary vascular disease * elevated hepatic transaminases suspect due to hepatic affects of his acute presentation as above. Hepatitis viral panel negative and no definite explanation on abdominal ultrasound, asymptomatic and resolving * chronic atrial fibrillation stable * cachexia severe protein calorie malnutrition, at least in part due to his uremia * failure to thrive due to his uremia * generalized weakness deconditioning history of falls at home, severe gait instability, certainly at least partly due to his uremia * chronic pain syndrome PLANS: * Invasive angiography today with attempt at percutaneous intervention for his feet if any treatable lesions, reviewed with Dr. Aurea Gilmore by me * Continue hemodialysis * Continue increased oral intake which she is doing nicely so far * Working with speech therapy on diet texture * Physical occupational therapy, fall risk cautions * Follow renal labs closely Seen by me on multidisciplinary rounds as well as hospitals rounds today I reviewed in detail with Dr. 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, my review: Sinus Exam: alert oriented skin warm dry color ok resps not labored lungs clear BSs heart regular abd soft nondistended nontender, bowel sounds present limbs both feet have significant ischemic discoloration from the heels to the toes on the plantar aspects, left foot in particular is painful and quite tender , no skin necrosis except for the tip of left 1st toe, no open sores or ulcers or signs of infection iv site ok Lab data: INR up to 2.0 Chemistry with good acid-base and electrolytes, BUN 32 creatinine 3.3 Objective: Vital Signs Temp Pulse Resp BP Pulse Ox 36.3 C 91 14 124/51 H 1 L 03/23/18 12:00 03/23/18 12:00 03/23/18 12:00 03/23/18 12:00 03/23/18 12:00 Laboratory Results 03/20/18 03:34 03/23/18 03:58 03/22/18 03/23/18 03/24/18 06:59 06:59 06:59 Intake Total 250 50 Output Total 10 Balance 240 50 PT 23.1 SEC (12.0-15.0) H 03/22/18 04:00 INR 2.04 (0.83-1.16) H 03/22/18 04:00 - Time Spent With Patient Time Spent with Patient: greater than 35 minutes Time Spent with Patient: Greater than 35 minutes spent on this patients care, greater than 50% of time spent counseling, educating, and coordinating care regarding the above mentioned plan. ICD10 Worksheet Patient Problems: Problems Problem Status Onset Dehydration Acute Hyponatremia Acute Transaminitis Acute Anemia Acute Fever Acute Hypoxia Acute Peritoneal dialysis catheter infection Acute Renal failure Acute Supratherapeutic INR Acute Weakness Acute
--- NOTE | 2018-03-23 13:27 | HOSPPROG ---
Hospitalist Progress Note Assessment/Plan: DIAGNOSES: * acute progressive uremia inpatient on peritoneal dialysis; now transitioned to hemodialysis and improving * acute dehydration and hypotension, likely due to poor intake; * Now resolved after hydration * painful ischemic changes in left foot with milder ischemic changes and right foot and now developing some pain in fingers of his right hand * Known history of coronary vascular disease * Angiograms last night did not show a stenosis anywhere treatable by percutaneous intervention, does have chronically occluded SFA has bilaterally with single-vessel runoff down to the feet and poor circulation to the feet but there is not yet a formal report on the angiograms and I do not know the details of the vascular anatomy * elevated hepatic transaminases suspect due to hepatic affects of his acute presentation as above. Hepatitis viral panel negative and no definite explanation on abdominal ultrasound, asymptomatic and resolving; notably does have high INR and not clear what that is from, relation to above * chronic atrial fibrillation stable * cachexia severe protein calorie malnutrition, at least in part due to his uremia * failure to thrive due to his uremia * generalized weakness deconditioning history of falls at home, severe gait instability, certainly at least partly due to his uremia * chronic pain syndrome PLANS: * Continue hemodialysis * Continue increased oral intake which she is doing nicely so far * Working with speech therapy on diet texture * Physical occupational therapy, fall risk cautions * Follow renal labs closely * Repeat INR to see if that is improving now his liver enzymes are resolving * Regarding the patient's ischemic feet, I will review further with Dr. Gilmore and Dr. Yu. He has been determined in the past to be a poor candidate for surgical intervention for peripheral arterial disease. I do wonder given the fact that he has ischemia in both feet simultaneously acutely as well as likely some of the fingers in his hand, whether he could potentially be developing calciphylaxis. The presentation with distal ischemia and both feet without ulcers is not the most common presentation for calciphylaxis, but he would be at risk given he has end-stage renal disease and the treatment would be quite different. I reviewed this with Dr. Singleton and I will review further with Dr. Lu. I think it is unlikely that this disease process is present but wonder whether we might consider either biopsy or some imaging studies * The patient has been seen by the palliative care team. Overall the patient endorses a desire for palliative type care program, but he does not want to stop dialysis now and wants to undergo any specific treatments that might be available to help his foot ischemia. Seen by me on multidisciplinary rounds as well as hospitals rounds today I reviewed in detail with Dr. 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: Sinus Exam: alert notably is much more alert and oriented and talkative, much more interactive now compared to the time of admission with good resolution of uremia signs skin warm dry color ok resps not labored lungs clear BSs heart regular abd soft nondistended nontender, bowel sounds present limbs both feet still have significant ischemic discoloration from the heels to the toes on the plantar aspects, though perhaps slightly better on the left foot today than yesterday; no skin necrosis except for the tip of left 1st toe, no open sores or ulcers or signs of infection; he does have some erythema swelling and other discoloration of tips of fingers 3,4,5 on his right hand suggesting possible ischemia there as well iv site ok Lab data: Serum chemistry used today creatinine down to 2.4 BUN down to 18 good electrolytes and acid-base Phosphorus now down to 4.8 Objective: Vital Signs Temp Pulse Resp BP Pulse Ox 36.3 C 91 14 124/51 H 1 L 03/23/18 12:00 03/23/18 12:00 03/23/18 12:00 03/23/18 12:00 03/23/18 12:00 Laboratory Results 03/20/18 03:34 03/23/18 03:58 03/22/18 03/23/18 03/24/18 06:59 06:59 06:59 Intake Total 250 50 Output Total 10 Balance 240 50 PT 23.1 SEC (12.0-15.0) H 03/22/18 04:00 INR 2.04 (0.83-1.16) H 03/22/18 04:00 - Time Spent With Patient Time Spent with Patient: greater than 35 minutes Time Spent with Patient: Greater than 35 minutes spent on this patients care, greater than 50% of time spent counseling, educating, and coordinating care regarding the above mentioned plan. ICD10 Worksheet Patient Problems: Problems Problem Status Onset Dehydration Acute Hyponatremia Acute Transaminitis Acute Anemia Acute Fever Acute Hypoxia Acute Peritoneal dialysis catheter infection Acute Renal failure Acute Supratherapeutic INR Acute Weakness Acute
--- NOTE | 2018-03-23 14:37 | ASMTCMCOM ---
CM Note CM Note Notes: Pts case discussed in tx rounds. [facility] came and met w/ pt and . [facility] has enrolled pt into their palliative services. [facility] LAST MARKER will come and meet w/ pt and tomorrow. Updates sent to [facility]. CM to follow. Plan: [facility] w/ [facility] Date Signed: 03/23/2018 02:36 PM Electronically Signed By:JEFF Blankenship
[2018-03-23] MEDS: ALBUTEROL 3 ML DEYVIAL IH PRN (20:28)
[2018-03-23] MEDS: METHOCARBAMOL 750 MG TAB PO PRN (21:03)
[2018-03-23] MEDS: CARBOXYMETHYLCELLULOSE 0.5% 0.4 ML DROPERETTE EACHEYE PRN (21:11)
[2018-03-23] MEDS: EPOETIN ALFA 10,000 UNIT/ML VIAL SC SCH (21:15)
[2018-03-23] MEDS: guaiFENesin 600 MG TAB.ER PO PRN (21:15)
[2018-03-24] MEDS: HYDROmorphONE/DILAUDID 2 MG TAB PO PRN ×2 (03:53→21:23)
[2018-03-24] MEDS: traMADol 50 MG TAB PO SCH ×3 (06:19→17:52)
[2018-03-24] MEDS: PATCH REMOVAL 1 EA PATCH TD SCH (09:00)
[2018-03-24] MEDS ORDERED: SODIUM THIOSULFATE 12.5 GM/50 ML IV ONE (10:30)
--- NOTE | 2018-03-24 12:16 | ASMTCMCOM ---
CM Note CM Note Notes: 03/24/2018 Case Management Note\ Discussed pt during rounds this morning. present. Waiting for study results and consult with Dr. Yu team. Confirmed pt has chair time at [facility] [place]. Pt will have HD MWF at 7:20 am. Planning for first chair time to be on Thursday. Pt needs to arrive at 6:45 am. Faxed updates to [facility], notified of 6:45 am arrival time for HD. [facility] [employer], Odalys ([facility] holm) and Roberto from [facility] palliative met w/ and pt. See note for details. Case Management d/c poc: [facility] with HD [facility] [place]. [facility] to continue to consult on pt after discharge. Case Mangement to follow. Date Signed: 03/24/2018 12:15 PM Electronically Signed By:Josey Santos RN
[2018-03-24] MEDS: METHOCARBAMOL 750 MG TAB PO PRN ×2 (12:21→21:23)
[2018-03-24] MEDS: METOCLOPRAMIDE 5 MG TAB PO SCH ×2 (12:25→21:30)
--- NOTE | 2018-03-24 13:02 | HOSPPROG ---
Hospitalist Progress Note Assessment/Plan: ASSESSMENT: * acute dehydration with hypotension, resolved -BP is better now but does have lability *Uremia, ESRD: Transitioned from PD to HD during this admission. * elevation of transaminases of uncertain etiology, resolved, possibly due to hypotension -unremarkable Hep Panel -Improving *Elevated INR, unclear etiology. Will recheck in a.m. to ensure stability *PVD and concern for ischemic toes -Dr. Yu and IR are evaluating -Will await further reccs, although may not have viable options -In addition, he is likely a poor surgical candidate -Not a good candidate for AC. He has multiple falls. He is very weak -Distribution of wounds and vascular disease would argue agains Calciphylaxis *cachexia, FTT *SPCMN *Generalized Weakness and Deconditioning *Hx of Falls *Afib #chronic pain syndrome: Palliative Care following #Insomnia: will decrease Ambien PRN due to confusion Plan: -HD started 03/18, plan for next HD on Thursday. He is being set up for op HD, this has been arranged. HD today. He appears dry, nurse aware -monitor BP closely. Avoid Hypotension -Await vascular reccs. -Dietary following -vascular surgical reccs/consult will need to be requested on Thursday or as an outpatient. He has many comorbidities and likely is not a good surgical candidate -Pain mgmt -decrease Ambien -PT/OT -Dispo: cont inpatient. Awaiting surgical options. If none available, would determine if patient is willing to reconsider hospice Subjective: no cp or sob. somewhat confused today. no nause or vomiting. pain is well controlled. Objective: Vital Signs Temp Pulse Resp BP Pulse Ox 36.2 C 89 16 99/47 L 97 03/24/18 12:00 03/24/18 12:00 03/24/18 12:00 03/24/18 12:00 03/24/18 12:00 Laboratory Results 03/24/18 03:14 03/24/18 03:14 03/23/18 03/24/18 03/25/18 05:59 05:59 05:59 Intake Total 50 520 Output Total 0 Balance 50 520 PT 23.1 SEC (12.0-15.0) H 03/22/18 04:00 INR 2.04 (0.83-1.16) H 03/22/18 04:00 - Physical Exam Constitutional: chronically ill appearing Eyes: PERRL Ears, Nose, Mouth, Throat: moist mucous membranes, hearing normal Cardiovascular: regular rate and rhythym Respiratory: no respiratory distress, no rales or rhonchi, clear to auscultation Gastrointestinal: normoactive bowel sounds Skin: warm Neurologic: AAOx3 Psychiatric: interacting appropriately, not anxious, not encephalopathic Lymph, Heme, Immunologic: No petechiae ICD10 Worksheet Patient Problems: Problems Problem Status Onset Dehydration Acute Hyponatremia Acute Transaminitis Acute Anemia Acute Fever Acute Hypoxia Acute Peritoneal dialysis catheter infection Acute Renal failure Acute Supratherapeutic INR Acute Weakness Acute
[2018-03-24] MEDS ORDERED: ZOLPIDEM TARTRATE 5 MG TAB PO PRN (13:12)
[2018-03-24] MEDS: CARBOXYMETHYLCELLULOSE 0.5% 0.4 ML DROPERETTE EACHEYE PRN ×2 (13:30→21:22)
[2018-03-24] MEDS ORDERED: GENTAMICIN 0.1% CREAM TP ONE (14:33)
[2018-03-24] MEDS: NEPHROVITE FOLIC ACID/VIT B&C 1 TAB PO SCH (14:49)
[2018-03-24] MEDS: ASPIRIN 81 MG CHEWABLE TAB PO SCH (14:49)
[2018-03-24] MEDS: ALLOPURINOL 300 MG TAB PO SCH (14:49)
[2018-03-24] MEDS: DOCUSATE SODIUM 100 MG CAP PO SCH (14:49)
--- NOTE | 2018-03-24 15:54 | SOAPPROG ---
[facility] Progress Note Assessment/Plan: Assessment: 1. esrd: transitioned from PD to hd due to failure to thrive and inadequacy on pd. Planning to dialyze at [facility] [address] on MWF schedule. In light of his ischemic feet, pain and overall poor medical condition, I encouraged his family to strongly consider simply stopping dialysis and pursuing hospice. They appear to be considering this option more strongly than in the past. Hd today, hopefully can get some resolution to this issue prior to Thursday. 2. FTT: I think it is unlikely he will ever improve to a health status that he would find acceptable detention. 3. pvd, ischemic feet: considering bypass surgery but would appear to be an extremely poor surgical candidate in general. I tried to outline the potential risks as best I could for his family. Plan: 03/20/18 20:23 03/21/18 18:09 03/21/18 18:11 03/24/18 15:47 Subjective: On dialysis. Mainly sedated, occasionally awakens enough to answer brief questions. Long talk with his and daughter re: his overall health, ischemic feet and possible surgery. Objective: Vital Signs Temp Pulse Resp BP Pulse Ox 36.2 C 89 16 99/47 L 97 03/24/18 12:00 03/24/18 12:00 03/24/18 12:00 03/24/18 12:00 03/24/18 12:00 Laboratory Results 03/24/18 03:14 03/24/18 03:14 03/23/18 03/24/18 03/25/18 05:59 05:59 05:59 Intake Total 50 520 Output Total 0 Balance 50 520 PT 23.1 SEC (12.0-15.0) H 03/22/18 04:00 INR 2.04 (0.83-1.16) H 03/22/18 04:00 Physical Exam - Physical Exam General Appearance: obtunded, cachetic Respiratory: lungs clear (anteriorly) Cardiac/Chest: regular rate, rhythm Extremities: pedal edema (none), other (+ischemic lesions on toes bilaterally) ICD10 Worksheet Patient Problems: Problems Problem Status Onset Dehydration Acute Hyponatremia Acute Transaminitis Acute Anemia Acute Fever Acute Hypoxia Acute Peritoneal dialysis catheter infection Acute Renal failure Acute Supratherapeutic INR Acute Weakness Acute
[2018-03-24] MEDS ORDERED: HEPARIN 50,000 UNIT/10 ML VIAL ONE ×2 (16:52→18:04)
[2018-03-24] MEDS: POLYETHYLENE GLYCOL 3350 17 GM PKT PO PRN (21:21)
[2018-03-24] MEDS: LIDOCAINE 4%/MENTHOL 1% PATCH TD SCH (21:22)
[2018-03-24] MEDS: MELATONIN 3 MG TAB PO SCH (21:23)
[2018-03-24] MEDS: PRAVASTATIN SODIUM 10 MG TAB PO SCH (21:30)
[2018-03-25] MEDS: traMADol 50 MG TAB PO SCH ×3 (00:14→14:54)
[2018-03-25 04:47] LABS: INR 2.85 (0.83-1.16); PROTIME(PATIENT) 29.8 SEC (12.0-15.0)
[2018-03-25 08:10] VITALS: BP 116/46
--- NOTE | 2018-03-25 08:29 | PDPCPN ---
Palliative Care Progress Note Assessment/Plan: Assessment: [facility] [address] [place] [id number] (O) [phone](F) PALLIATIVE CARE NOTE Name: Sharad De La Cruz Age: 72, 47 Visit Type: Initial hospital consultation Location: [facility] Date: 03/24/2018 Level of Care: Hospice eligible. Goals not aligned DIAGNOSES: 1. Diabetes 2. End-stage renal disease 3. Peripheral vascular disease resulting in necrotic toes and fingertips CC: Initial palliative care hospital consultation HPI: Mister De La Cruz is a 72-year-old male with a history of multiple medical problems. He has a long-standing history of diabetes. He developed end-stage renal disease approximately 18 months ago. He started hemodialysis initially which he did not tolerate. He was changed to peritoneal dialysis and had been doing fairly well with this for a period of time. He had several falls and was admitted to rehabilitation. He subsequently became rather dehydrated and his peritoneal dialysis became ineffective. He has now been admitted to the hospital again for dehydration. He is rapidly developed necrosis of the toes on his left foot as well as fingers on his right hand. He has significant peripheral vascular disease. He has restarted hemodialysis during this hospitalization. PMH: As above Allergies: Cefazolin, lisinopril Family Hx: Social Hx: Has been living with his . 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 Pain control 2. Continue dialysis at this time 3. Possibly pursue treatment for his peripheral vascular disease ACTIVE SYMPTOMS/ASSESSMENTS/RECOMMENDATIONS 1. End-stage renal disease N 18.6: Currently doing hemodialysis 2. Peripheral vascular disease I 73.9: Rapidly progressive with necrosis of toes on the left foot and the fingertips of the right hand. 3. Pain M 79.676, M 79.646: Pain in his toes and fingers from necrosis and peripheral vascular disease. Recommend use of hydromorphone for pain management. MODIFIED [place] SYMPTOM ASSESSMENT SCALE 0-none; 1-3 mild; 4-6 moderate; 7-10 severe Unable to Respond: No Delirium: 0-none Depression: 0-none Anxiety: 0 Tiredness (fatigue): 0 Drowsiness (sleepiness): 5 Pain: 8 Nausea: 0-none Anorexia: 0-none Shortness of Breath: 0-none Secretions: 0-none Constipation: 0-none Symptom and side effect management: (acceptable to patient and family) RISK FACTORS FOR ADMISSION AND READMISSION TO THE HOSPITAL: o NEEDS ASSISTANCE WITH ADLS/FALL RISK o SKILLED CARE NEEDED o CAREGIVER ANXIETY o >2 HOSPITALIZATIONS IN PAST 12 MONTHS o DISEASE EDUCATION DEFICIT OBJECTIVE FINDING Palliative Performance Score: 40 FAST: Not applicable NYHA: Not applicable Wt: MAC: Neuro: A&O to person, place, time and event; HEENT: Normocephalic; atraumatic RESP: Regular, deep, symmetrical. No cough or wheezing. Breath sounds CTA. CV: HR regular, pitting edema +1 extending to the pretibial region. GI: soft, round MSK: Moderate muscle wasting Non-ambulatory. SKIN: Left foot rubor. Necrosis of the left toes and fingertips of the right hand LAB Data: Medications: Advance Care Planning PALLIATIVE SUMMARY: Extensive discussion today with regard to continued palliative care or hospice care depending on further information with regard to eligibility for surgery. I will continue to follow this patient for support, symptom management, and end- of-life discussions. PLAN: Continue to follow closely and follow-up with community palliative care. Thank you for the opportunity to participate in the care of this patient. TIME SPENT: 9267-9377 70 minutes >50% of the time spent counseling, educating and coordinating the above topics. Ruben Cazares B[facility] MD [facility] Plan: 03/25/18 08:28 Objective: Vital Signs Temp Pulse Resp BP Pulse Ox 36.8 C 88 19 116/46 L 96 03/25/18 08:00 03/25/18 08:00 03/25/18 08:00 03/25/18 08:00 03/25/18 08:00 Laboratory Results 03/24/18 03:14 03/25/18 03:28 03/24/18 03/25/18 03/26/18 05:59 05:59 05:59 Intake Total 520 450 Output Total 0 500 Balance 520 -50 PT 29.8 SEC (12.0-15.0) H 03/25/18 03:28 INR 2.85 (0.83-1.16) H 03/25/18 03:28 ICD10 Worksheet Patient Problems: Problems Problem Status Onset Dehydration Acute Hyponatremia Acute Transaminitis Acute Anemia Acute Fever Acute Hypoxia Acute Peritoneal dialysis catheter infection Acute Renal failure Acute Supratherapeutic INR Acute Weakness Acute
--- NOTE | 2018-03-25 09:04 | SOAPPROG ---
RICHARD Progress Note Assessment/Plan: Assessment: I've known Sam for many years. Even against long odds, he has been a very hard worker relating to his health, and has typically exceeded in maintaining a quality of life and activities that extended above what would be expected for his physical condition. However, he has finally reached a point where there is not appropriate quality of life ahead, nor any solution for his current situation. (I will not endorse any kind of surgical intervention at this point). This am, Sam acknowledges his position. He and his family desire to go home with hospice. [facility] is to follow up today. Please let me know if I can be of assistance in any arrangements. We will plan one additional dialysis in the am if he is still in house. If he can be dc'd today, I would endorse this, with no further dialysis planned. Plan: 03/25/18 08:59 Subjective: Pain is a 4/10, which is improved Objective: Vital Signs Temp Pulse Resp BP Pulse Ox 36.8 C 88 19 116/46 L 96 03/25/18 08:00 03/25/18 08:00 03/25/18 08:00 03/25/18 08:00 03/25/18 08:00 Laboratory Results 03/24/18 03:14 03/25/18 03:28 03/24/18 03/25/18 03/26/18 05:59 05:59 05:59 Intake Total 520 450 Output Total 0 500 Balance 520 -50 PT 29.8 SEC (12.0-15.0) H 03/25/18 03:28 INR 2.85 (0.83-1.16) H 03/25/18 03:28 Physical Exam - Physical Exam General Appearance: moderate distress, cachetic Cardiac/Chest: irregularly irregular Extremities: other (1+ LE edema) Neuro/Psych: oriented x 3 ICD10 Worksheet Patient Problems: Problems Problem Status Onset Dehydration Acute Hyponatremia Acute Transaminitis Acute Anemia Acute Fever Acute Hypoxia Acute Peritoneal dialysis catheter infection Acute Renal failure Acute Supratherapeutic INR Acute Weakness Acute
[2018-03-25] MEDS: PATCH REMOVAL 1 EA PATCH TD SCH (09:30)
[2018-03-25] MEDS: METOCLOPRAMIDE 5 MG TAB PO SCH (10:58)
[2018-03-25] MEDS: ALLOPURINOL 300 MG TAB PO SCH (10:58)
[2018-03-25] MEDS: DOCUSATE SODIUM 100 MG CAP PO SCH (10:58)
[2018-03-25] MEDS: ASPIRIN 81 MG CHEWABLE TAB PO SCH (10:59)
[2018-03-25] MEDS: POLYETHYLENE GLYCOL 3350 17 GM PKT PO PRN (10:59)
[2018-03-25] MEDS: NEPHROVITE FOLIC ACID/VIT B&C 1 TAB PO SCH (11:07)
--- NOTE | 2018-03-25 12:38 | SOAPPROG ---
RICHARD Progress Note Assessment/Plan: Assessment/plan: 72 Y M c multiple comorbidities including ESRD on HD, CAD s/p CABG 4, now with severe PVD and ischemic feet and fingers Pt was seen with Dr. Yu this am. Also discussed case with medicine and RN. Discussed with pt that he may benefit from fem-pop bypass grafts to his legs. This has the potential to improve the pain in his feet and he would likely be able to heal any incisions made during surgery. That being said, he has other serious comorbidities that are contributing to his overall condition. Pt unsure if he would like to undergo surgery and is considering hospice. He is still undergoing dialysis at this time, but this will terminate if he chooses hospice. Pt will give surgery some thought and let us know if he chooses this option. S: Sitting up in chair. Appears to understand situation. Pain in feet is 4/ 10. O:Alert Afebrile No increased WOB BLE: toes necrotic and erythematous, absent pedal pulses, ttp 03/25/18 12:31 Objective: Vital Signs Temp Pulse Resp BP Pulse Ox 36.8 C 88 19 116/46 L 96 03/25/18 08:00 03/25/18 08:00 03/25/18 08:00 03/25/18 08:00 03/25/18 08:00 Laboratory Results 03/24/18 03:14 03/25/18 03:28 03/24/18 03/25/18 03/26/18 05:59 05:59 05:59 Intake Total 520 450 Output Total 0 500 Balance 520 -50 PT 29.8 SEC (12.0-15.0) H 03/25/18 03:28 INR 2.85 (0.83-1.16) H 03/25/18 03:28 ICD10 Worksheet Patient Problems: Problems Problem Status Onset Dehydration Acute Hyponatremia Acute Transaminitis Acute Anemia Acute Fever Acute Hypoxia Acute Peritoneal dialysis catheter infection Acute Renal failure Acute Supratherapeutic INR Acute Weakness Acute
--- NOTE | 2018-03-25 13:10 | PDDCSUM ---
Discharge Summary Discharge Summary: 72 yo male admitted with acute dehydration, hypotension, uremia, and ischemic ulcers. He was admitted and treated accordingly. He has been in and out of the hospitals recently. Please see below for details of care. Overall, the patient has chosen hospice and this has been arranged. Dialysis will be stopped. DDx: * acute dehydration with hypotension, resolved -BP is better now but does have lability *Uremia, ESRD: Transitioned from PD to HD during this admission. This will be stopped * elevation of transaminases of uncertain etiology, resolved, possibly due to hypotension -unremarkable Hep Panel -Improving *Elevated INR, unclear etiology. *PVD and concern for ischemic toes -Dr. Yu and IR evaluated. He was deemed to be a very poor surgical candidate. He was, however, offered bilateral bypass. After careful analysis, he and his have chosen hospice. *cachexia, FTT *SPCMN *Generalized Weakness and Deconditioning *Hx of Falls *Afib, cannot tolerate AC #chronic pain syndrome: pain mgmt provided #Insomnia: ambien as needed Exam: NAD AWAKE RRR CTA B S/NT/ND MEDS: SEE MED REC TOTAL TIME SPENT ON D/C INCLUDING COORDINATION OF CARE IS 50 MINUTES. D/W NURSING, CM, PHARMACY, PT, PT'S , DR. YU
--- NOTE | 2018-03-25 13:11 | PDIAF ---
- Diagnosis Diagnosis: ISCHEMIC UCERS, ESRD, PVD, DECONDITIONING, END OF LIFE CARE Code Status: Do Not Resuscitate - Medication Management Discharge Medications: electronically signed and located in the Home Medication List. - Orders Isolation Type: None Diet Recommendation: no restrictions on diet Diet Texture: Dysphagia 3 - Advanced - Moist, Bite-Size, Thin Liquids, Meds Whole w/Liquids Additional Instructions: activity as tolerated - Follow Up Care Current Providers and Referrals: Lyndsey Quintero [Primary Care Provider] - As per Instructions
[2018-03-25] MEDS: METHOCARBAMOL 750 MG TAB PO PRN (16:37)
[2018-03-25] MEDS: HYDROmorphONE/DILAUDID 2 MG TAB PO PRN (16:41)
--- NOTE | 2018-03-25 16:58 | ASMTDCNOTE ---
Case Management Discharge Discharge Order Complete? Answers: Yes Patient to Obtain Answers: via Family Medications Transportation Arranged Answers: Other Notes: [facility] stretcher Transport will Pick (Date 03/25/2018 05:30 PM & Time) EMTALA Complete Answers: No Case Management Transport Answers: Yes Notes: PCS completed Form Complete Faxed Final Orders Answers: Yes Agency/Facility Transfer Answers: Yes Report Printed & Faxed to Receiving Agency Family Notified Answers: Yes Discharge Comments Notes: Pts case discussed w/ Dr. Cardenas and Mary RN. Pt is being discharged today. Family and pt has decided on hospice at home. Odalys from [facility] will order DME for a delivery of tomorrow. Odalys in to speak w/ pt and family today at 3PM. Odalys arranged transportation w/ [facility]. DOUG completed PCS form. A copy is in pts chart. DC paperwork sent to [facility]. CM available for changes. Plan: Home w/ [facility] Date Signed: 03/25/2018 04:57 PM Electronically Signed By:JEFF Blankenship
--- NOTE | 2018-03-25 17:02 | ASDISCHSUM ---
Discharge Information Plan Status:SNF Medically Cleared to Leave:03/24/2018 Discharge Date:03/24/2018 CM D/C Disposition: ADT D/C Disposition:Hospice Home Projected Discharge Date:03/25/2018 11:00 AM Transportation at D/C: Discharge Delay Reason: Follow-Up Date:03/25/2018 11:00 AM Discharge Slot: Final Diagnosis: Placement Information Referral Type:*Prison/SNF Referral ID:[id number] Provider Name: Address 1: Phone Number: Address 2: Fax Number: City: Selection Factors: State: Referral Type:Palliative Care Referral ID:[id number] Provider Name: Address 1: Phone Number: Address 2: Fax Number: City: Selection Factors: State: Referral Type:*Hospice Referral ID:[id number] Provider Name:[facility] Address 1:[address] Phone Number: Address 2: Fax Number: [facility]:[place] Selection Factors: State:[place] Patient Contact Information Contact Name:KARAN Relationship: Address:[address] City:[place] [facility] Phone: State/Zip Code:[place] [address] Email: Financial Information Financial Class:Medicare Primary Plan Desc:MEDICARE INPATIENT Primary Plan Number:[id number] Secondary Plan Desc:[employer] [facility] Secondary Plan Number:[id number] Assessment Information LACE LACE Acuity / Level of Answers: Yes Care: Did the patient have an inpatient admission? Comorbidities - select Answers: Chronic pulmonary disease all that apply Congestive heart failure Coronary Artery Disease Diabetes (uncontrolled or controlled) History of falls Moderate or severe liver or renal disease Opioid dependence / Chronic pain # of Emergency department Answers: 3-4 visits in the last 6 months Score: 24 Date Signed: 03/17/2018 08:17 AM Electronically Signed By:Eliza Bates [facility] CM Progress Note CM Note CM Note Notes: Pts case discussed in tx rounds. Pt is a 72 y/o man admitted for dehydration, hypotension and esrc. Dr. Cardenas plans on having a palliative and hospice conversation w/ pt and . Pt is currently getting rehab at [facility]. Pt will most likely return once medically stable. Therapies have been ordered. Pt is being followed by transitional care. Wound care has been consulted. CM to follow. Plan: [facility] Date Signed: 03/17/2018 01:47 PM Electronically Signed By:JEFF Blankenship [facility] CM Progress Note CM Note CM Note Notes: 03/18/2018 Case Management Note Met w/pt and to discuss d/c needs. Pt does not want to return to [facility]. Faxed referrals to [facility] as pt is wanting HD at the [facility] in [place]. Case Management d/c poc: [facility] rehab Case Management to follow. Date Signed: 03/18/2018 12:48 PM Electronically Signed By:Josey Santos RN [facility] CM Progress Note CM Note CM Note Notes: 03/19/2018 Case Management Note Faxed the following info to the [facility] in [place]: demographic sheet, H & P, chest x ray, Hep B and Hep C results, current meds, HD flow sheets and MD progress notes to [phone] via meebee. Contacted Dianne, clinical safety specialist at [facility], at [phone]. Dianne stated [facility] can take pt on Thu or Thursday for HD if approved clinically and insurance authorizes. [facility] financial counseling unable to evaluate until Thursday. On site visit from alta Gray for [facility]. [facility] accepted patient. Cse Management d/c poc: [facility] SN[facility] rehab with HD at [facility] in [place] pending approval. Case Management to follow. Date Signed: 03/19/2018 03:47 PM Electronically Signed By:Josey Santos RN [facility] CM Progress Note CM Note CM Note Notes: 03/21/2018 Case Management Note Met w/pt and . Discussed acceptance by [facility] for SNF rehab. Pt and in agreement. Discussed benefits of palliative care to address pain. Pt and in agreement. Faxed order to [facility]. Provided update to Roberto from [facility] palliative team, left vm for Odalys holm and spoke with electronic funds transfer coordinator at [facility] on the phone. Plan is for [facility] to see pt tomorrow after rounds on are finished. Case Management to follow up with [facility] on Thursday. Financial approval was pending over the weekend. Chair time has not been assigned yet. Unable to discharge to [facility] until chair time is assigned at [facility]. Case Management d/c poc: [facility] SNF with [facility]. HD at the [facility] in [place] is pending. Case Management to follow. Date Signed: 03/21/2018 02:07 PM Electronically Signed By:Josey Santos RN [facility] CM Progress Note CM Note CM Note Notes: Per rounds, staff have noticed that pt and his may have different needs/wants moving forward with his medical treatment plan. A PC consult was held with pt and his ayan in the day. During this mtg pt's relayed that she had told her that she would support him if he decided to end treatment. Pt stated he still wants to "fight" and is not ready for hospice. He is willing to engage in rehab to regain strength and mobility. Referral to [facility] had been made; they accepted. CM needs beyond palliative care are still to be determined. D/C Plan: [facility], others TBD Date Signed: 03/22/2018 02:25 PM Electronically Signed By:Alexandra Velázquez [facility] CM Progress Note CM Note CM Note Notes: Pts case discussed in tx rounds. [facility] came and met w/ pt and . [facility] has enrolled pt into their palliative services. [facility] [employer] will come and meet w/ pt and tomorrow. Updates sent to [facility]. CAMACHO to follow. Plan: Alexia MCDOWELL w/ [facility] Date Signed: 03/23/2018 02:36 PM Electronically Signed By:JEFF Blankenship [facility] CM Progress Note CM Note CM Note Notes: 03/24/2018 Case Management Note\\ Discussed pt during rounds this morning. present. Waiting for study results and consult with Dr. Yu team. Confirmed pt has [facility] [place]. Pt will have HD MWF at 7:20 am. Planning for first chair time to be on Thursday. Pt needs to arrive at 6:45 am. Faxed updates to [facility], notified of 6:45 am arrival time for HD. [facility] [employer], Odalys ([facility]) and Roberto from [facility] palliative met w/ and pt. See note for details. Case Management d/c poc: [facility] with HD [facility] [place]. [facility] to continue to consult on pt after discharge. Case Mangement to follow. Date Signed: 03/24/2018 12:15 PM Electronically Signed By:Josey Santos RN Case Management Discharge Plan Note Case Management Discharge Discharge Order Complete? Answers: Yes Patient to Obtain Answers: via Family Medications Transportation Arranged Answers: Other Notes: [facility] stretcher Transport will Pick (Date 03/25/2018 05:30 PM & Time) EMTALA Complete Answers: No Case Management Transport Answers: Yes Notes: PCS completed Form Complete Faxed Final Orders Answers: Yes Agency/Facility Transfer Answers: Yes Report Printed & Faxed to Receiving Agency Family Notified Answers: Yes Discharge Comments Notes: Pts case discussed w/ Dr. Cardenas and RADHA Hernandez. Pt is being discharged today. Family and pt has decided on hospice at home. Odalys kaplan [facility] will order DME for a delivery of tomorrow. Odalys in to speak w/ pt and family today at 3PM. Odalys arranged transportation w/ [facility] transport. CM completed PCS form. A copy is in pts chart. DC paperwork sent to [facility]. CM available for changes. Plan: Home w/ [facility] Date Signed: 03/25/2018 04:57 PM Electronically Signed By:JEFF Blankenship Intervention Information
== END 2018-03-25 17:56 | disposition hospice, home (50) | DRG 640 ==
LOC: F2W 17:54
PROVIDERS: ADMIT Internal Medicine; ATTEND Family Medicine
PROC: 5A1D70Z Performance of Urinary Filtration, Intermittent, Less than 6 Hours Per Day (ICD-10-PCS; 2018-03-17)
PROC: 02HV33Z Insertion of Infusion Device into Superior Vena Cava, Percutaneous Approach (ICD-10-PCS; principal; 2018-03-17 11:46)
PROC: 0JH60XZ Insertion of Tunneled Vascular Access Device into Chest Subcutaneous Tissue and Fascia, Open Approach (ICD-10-PCS; principal; 2018-03-17 11:46)
PROC: B41D1ZZ Fluoroscopy of Aorta and Bilateral Lower Extremity Arteries using Low Osmolar Contrast (ICD-10-PCS; 2018-03-22)
DX: E86.0 Dehydration (principal); N18.6 End stage renal disease; E43 Unspecified severe protein-calorie malnutrition; E11.51 Type 2 diabetes mellitus with diabetic peripheral angiopathy without gangrene; I48.91 Unspecified atrial fibrillation; G89.4 Chronic pain syndrome; G47.00 Insomnia, unspecified; R13.10 Dysphagia, unspecified; I25.10 Atherosclerotic heart disease of native coronary artery without angina pectoris; J44.9 Chronic obstructive pulmonary disease, unspecified; G25.81 Restless legs syndrome; I27.20 Pulmonary hypertension, unspecified; I70.223 Atherosclerosis of native arteries of extremities with rest pain, bilateral legs; E11.22 Type 2 diabetes mellitus with diabetic chronic kidney disease; G47.30 Sleep apnea, unspecified; M10.9 Gout, unspecified; E87.6 Hypokalemia; E87.1 Hypo-osmolality and hyponatremia; E87.2 Acidosis; D64.9 Anemia, unspecified; K59.00 Constipation, unspecified; L89.611 Pressure ulcer of right heel, stage 1; Z99.2 Dependence on renal dialysis; Z66 Do not resuscitate; Z51.5 Encounter for palliative care; Z95.1 Presence of aortocoronary bypass graft
CPT/HCPCS: 92610-GN; 97162-GP; 97166-GO; 97530-GO; 97530-GP; 97535-GO; C1769; C1894; G0472; G8978-GP-CL; G8979-GP-CK; G8987-GO-CN; G8988-GO-CL; G8996-GN-CI; G8997-GN-CH; J0885; J1642; J1644; J1815; J2150; J2250; J2270; J2310; J3010; J7613; Q9967